=== PATIENT | male | born 1945 | race Caucasian/White ===

== ENCOUNTER 2022-04-17 06:47 | Day surgery (SDC) | payer MEDICARE, MEDICAID, SELFPAY ==
[2022-04-17 07:05] VITALS: BMI 23.4
[2022-04-17] MEDS: TETRACAINE 0.5% OPHTH 1 DROP EYE-RIGHT ×2 (07:05→07:25)
[2022-04-17 07:13] VITALS: BP 134/82; PULSE 59; RESP 16; TEMP 36.7; O2SAT 98
[2022-04-17] MEDS: SODIUM CHLORIDE 0.9 % (FLUSH) 10 ML SYRINGE IVF (07:20)
[2022-04-17] MEDS: KETOROLAC OPHTH 0.5% 1 DROP EYE-RIGHT ×3 (07:20→07:38)
[2022-04-17] MEDS: TETRACAINE 0.5% OPHTH 2 DROP EYE-RIGHT (08:10)
[2022-04-17] MEDS: BALANCED SALT IRRIG SOLN 15 ML EYE-RIGHT (08:15)
--- NOTE | 2022-04-17 08:17 | W.ANESCHARGE ---
Anesthesia Charges Start Date/Time Anesthesia Start Date: 04/17/22 Anesthesia Start Time: 08:08 Stop Date/Time Anesthesia Stop Date: 04/17/22 Anesthesia Stop Time: 08:40 Summary Emergency: No Extremes of Age: Over 72-CPT 75404
--- NOTE | 2022-04-17 08:18 | SUR.OPER ---
PER CHRISTELLE KENDRA, LENS SIZE CHANGED TO 18.5 PREOPERATIVELY
[2022-04-17 08:33] VITALS: BP 146/89; PULSE 58; RESP 16; TEMP 36.1; O2SAT 97
--- NOTE | 2022-04-17 08:46 | W.ANESCHARGE ---
Anesthesia Charges Start Date/Time Anesthesia Start Date: 04/17/22 Anesthesia Start Time: 08:08 Stop Date/Time Anesthesia Stop Date: 04/17/22 Anesthesia Stop Time: 08:40 Summary Emergency: No Extremes of Age: Over 72-CPT 46329
--- NOTE | 2022-04-17 08:59 | W.ANESCHARGE ---
Anesthesia Charges Start Date/Time Anesthesia Start Date: 04/17/22 Anesthesia Start Time: 08:08 Stop Date/Time Anesthesia Stop Date: 04/17/22 Anesthesia Stop Time: 08:40 Summary Emergency: No Extremes of Age: Over 72-CPT 59092
--- NOTE | 2022-04-17 09:28 | W.PM.OPTPROC ---
Procedure Note Date of procedure: 04/17/22 Will [facility] bill your pro fee for this procedure?: Yes Procedure Description: SURGEON: Cheri Eric MD PREOPERATIVE DIAGNOSIS: Nuclear sclerotic cataract, right eye. POSTOPERATIVE DIAGNOSIS: Nuclear sclerotic cataract, right eye. NAME OF OPERATION: Phacoemulsification of cataract with posterior chamber intraocular lens implantation in the right eye. ANESTHESIA: Topical. ESTIMATED BLOOD LOSS: Less than 2 cc. COMPLICATIONS: None. PATHOLOGY SPECIMEN: None. INDICATIONS: See consult note for details. The risks, benefits and alternatives of the procedure were explained to the patient, who elected to proceed and signed informed consent to do so. PROCEDURE: The patient was brought to the pre-holding area where the right eye was identified as the operative eye. I placed my initials above this eye. The patient received eye drops consisting of 0.5% tetracaine, 1% tropicamide, 10% phenylephrine, and 0.5% ketorolac. The patient was then brought to the operating room where the right eye was again identified as the operative eye. The eye was prepped with Betadine and draped in the usual sterile ophthalmic fashion. A #15 super-sharp blade was used to create a paracentesis site. 1% non-preserved intracameral lidocaine was injected into the anterior chamber. Endocoat was injected into the anterior chamber. A 2.4 mm keratome was used to create a three-plane self-sealing incision 1 mm anterior to the temporal limbus. A cystotome was used to create an anterior capsular leaflet. The Utrata forceps were used to extend this to form a continuous curvilinear capsulorrhexis. Hydrodissection was performed. The cataract was removed with phacoemulsification using the twehas-beb-yfhgize technique. The irrigation and aspiration tip was used to remove the remaining cortex. Healon was injected into the capsular bag. An HEDY ZCB00 intraocular lens of 18.5 (please note it was determined preoperatively to change to this lens) diopters was injected into the capsular bag. The irrigation and aspiration tip was used to remove the remaining viscoelastic. Balanced salt solution on a cannula was used to hydrate the wound, and the wound was found to be watertight. The pupil was noted to be round. DISPOSITION: The patient was taken to the recovery room and discharged to home in stable condition. The patient was instructed to call me or go to the emergency department with any sudden change, including dramatic loss of vision, severe pain in the eye or eyebrow region, nausea, or vomiting. The patient will follow up in the clinic tomorrow morning. Surgeon: Cheri Eric MD
== END 2022-04-17 09:13 | disposition home or self-care (01) ==
PROVIDERS: PCP Family Medicine; Visit Provider Ophthalmology
PROC: (CPT 66984; principal; 2022-04-17 06:45)
DX: H25.11 Age-related nuclear cataract, right eye (principal)
CPT/HCPCS: 66984; 00142; 99100; A9270; J2250; J3010; V2632

== ENCOUNTER 2022-05-08 06:46 | Day surgery (SDC) | payer MEDICARE, MEDICAID, SELFPAY ==
[2022-05-08] MEDS: TETRACAINE 0.5% OPHTH 1 DROP EYE-LEFT ×2 (06:56→07:01)
[2022-05-08] MEDS: KETOROLAC OPHTH 0.5% 1 DROP EYE-LEFT ×3 (06:59→07:08)
[2022-05-08] MEDS: SODIUM CHLORIDE 0.9 % (FLUSH) 10 ML SYRINGE IVF (07:10)
[2022-05-08 07:11] VITALS: BP 166/88; PULSE 63; RESP 16; TEMP 36.6; O2SAT 98; BMI 21.3
[2022-05-08] MEDS: TETRACAINE 0.5% OPHTH 2 DROP EYE-LEFT (07:54)
[2022-05-08] MEDS: BALANCED SALT IRRIG SOLN 15 ML EYE-LEFT (07:59)
--- NOTE | 2022-05-08 08:03 | SUR.PREOP ---
The eye drops brought by the patient (Ketorolac and Prednisolone) are examined and I have determined they are labeled by the patient's pharmacy for this patient as prescribed by the surgeon. The bottles are intact, recently obtained and appear to be correct.
[2022-05-08 08:23] VITALS: BP 120/83; PULSE 58; RESP 16; TEMP 36.7; O2SAT 97
--- NOTE | 2022-05-08 08:27 | W.ANESCHARGE ---
Anesthesia Charges Start Date/Time Anesthesia Start Date: 05/08/22 Anesthesia Start Time: 07:52 Stop Date/Time Anesthesia Stop Date: 05/08/22 Anesthesia Stop Time: 08:25 Summary Emergency: No Extremes of Age: Over 72-CPT 18930
--- NOTE | 2022-05-08 08:40 | W.ANESCHARGE ---
Anesthesia Charges Start Date/Time Anesthesia Start Date: 05/08/22 Anesthesia Start Time: 07:52 Stop Date/Time Anesthesia Stop Date: 05/08/22 Anesthesia Stop Time: 08:25 Summary Emergency: No Extremes of Age: Over 72-CPT [id number]
--- NOTE | 2022-05-08 11:37 | P.OPTPRC_ITS ---
Procedure Note Date of procedure: 05/08/22 Will [facility] bill your pro fee for this procedure?: Yes Procedure Description: SURGEON: Cheri Eric MD PREOPERATIVE DIAGNOSIS: Nuclear sclerotic cataract, left eye. POSTOPERATIVE DIAGNOSIS: Nuclear sclerotic cataract, left eye. NAME OF OPERATION: Phacoemulsification of cataract with posterior chamber intraocular lens implantation in the left eye. ANESTHESIA: Topical. ESTIMATED BLOOD LOSS: Less than 2 cc. COMPLICATIONS: None. PATHOLOGY SPECIMEN: None. INDICATIONS: See consult note for details. The risks, benefits and alternatives of the procedure were explained to the patient, who elected to proceed and sign ed informed consent to do so. PROCEDURE: The patient was brought to the pre-holding area where the left eye was identified as the operative eye. I placed my initials above this eye. The patient received eye drops consisting of 0.5% tetracaine, 1% tropicamide, 10% phenylephrine, and 0.5% ketorolac. The patient was then brought to the operating room where the left eye was again identified as the operative eye. The eye was prepped with Betadine and draped in the usual sterile ophthalmic fashion. A #15 super-sharp blade was used to create a paracentesis site. 1% non-preserved intracameral lidocaine was injected into the anterior chamber. Endocoat was injected into the anterior chamber. A 2.4 mm keratome was used to create a three-plane self-sealing incision 1 mm anterior to the temporal limbus. A cystotome was used to create an anterior capsular leaflet. The Utrata forceps were used to extend this to form a continuous curvilinear capsulorrhexis. Hydrodissection was performed. The cataract was removed with phacoemulsification using the aysbey-kms-nonmbid technique. The irrigation and aspiration tip was used to remove the remaining cortex. Healon was injected into the capsular bag. An HEDY ZCB00 intraocular lens of 20.0 diopters was injected into the capsular bag. The irrigation and aspiration tip was used to remove the remaining viscoelastic. Balanced salt solution on a cannula was used to hydrate the wound, and the wound was found to be watertight. The pupil was noted to be round. DISPOSITION: The patient was taken to the recovery room and discharged to home in stable condition. The patient was instructed to call me or go to the emergency department with any sudden change, including dramatic loss of vision, severe pain in the eye or eyebrow region, nausea, or vomiting. The patient will follow up in the clinic tomorrow morning. Surgeon: Cheri Eric MD
== END 2022-05-08 09:07 | disposition home or self-care (01) ==
PROVIDERS: PCP Family Medicine; Visit Provider Ophthalmology
PROC: (CPT 66984; principal; 2022-05-08 06:45)
DX: H25.12 Age-related nuclear cataract, left eye (principal)
CPT/HCPCS: 66984; 00142; 82962; 99100; A9270; J2250; J3010; V2632

== ENCOUNTER 2022-06-07 07:54 | Outpatient (CLI) | payer MEDICARE, MEDICAID, SELFPAY ==
[2022-06-07 12:02] LABS: Creatinine Urine 66.7 mg/dL
[2022-06-07 12:13] LABS: Microalbumin Creatinine Ratio 50 mg/g (0-30); Microalbumin Urine 4 mg/dL
== END 2022-06-07 07:55 | disposition home or self-care (01) ==
LOC: NFLDREF 07:54
PROVIDERS: PCP Family Medicine; Visit Provider Family Medicine
DX: Z00.00 Encounter for general adult medical examination without abnormal findings (principal); E11.9 Type 2 diabetes mellitus without complications; N39.0 Urinary tract infection, site not specified
CPT/HCPCS: 82043; 82570

== ENCOUNTER 2023-06-09 16:12 | Inpatient (IN) | payer MEDICARE, SELFPAY ==
[2023-06-09 16:46] VITALS: BP 139/89; PULSE 105; RESP 24; TEMP 36.8; O2SAT 90; BMI 24.8
--- NOTE | 2023-06-09 20:49 | ED.GENADULT ---
HPI - General Adult General Chief complaint: Weakness Stated complaint: Weakness, diff eating/sleeping, COPD Time Seen by Provider: 06/09/23 20:48 History of Present Illness HPI narrative: patient is having trouble eating and sleeping. having a persistent cough for a long time. concerned of having low blood sugar, weakness, shaky , sweats all time, feeling cool, recent covid + unsure the date of test stayed home 5 days. last week started day after friday. poor appetite. 78-year-old man presenting to the emergency department with concern of increasing weakness trouble sleeping. Interview was challenging. He is having trouble eating. Seems to be describing an early satiety. Is not keeping up with fluids. He has had cough and developing some left-sided chest her hip area pain that seems to have escalated up towards his heart now he says. He feels weak and shaky sweating all the time. It sounds like a little bit over a month ago he tested positive for COVID. Over the last 2 days especially has been more weak. He does have COPD. He is not indicating that he is more short of breath. He describes a history of diabetes that he has been managing orally noting that he has been following a proper diet as prescribed by his primary and now he thinks that he is worsening; does not understand why he might be getting sicker in light of this. He does not seem to know whether not he has had any recent abdominal imaging. Limited records available but looks to have had problems with his pancreas including obstruction of pancreatic duct with stone. I noted to be oxygenating about 91% and he would acknowledge that this is about his baseline. He is hoping for some respite via hospitalization to help with sleep and maybe for eating. Reviewing records though shows oxygenation to be 98% about a year ago. Related Data Home Medications Medication Instructions Recorded Confirmed evening primrose oil 500 mg capsule 500 mg PO DAILY 04/12/22 06/09/23 Previous Rx's Medication Instructions Recorded niacin 500 mg tablet 1,500 mg (3 x 500 mg) PO DAILY 06/10/22 #270 tabs albuterol sulfate 90 mcg/actuation 2 puff inhalation Q4-6H PRN 09/09/22 aerosol inhaler (Ventolin HFA) shortness of breath or wheezing #6.7 grams mometasone-formoterol HFA 200 2 puff inhalation Q12H #8.8 grams 09/17/22 mcg-5 mcg/actuation aerosol inhaler (Dulera) tamsulosin 0.4 mg capsule 0.8 mg (2 x 0.4 mg) PO DAILY #180 05/06/23 caps Allergies Allergy/AdvReac Type Severity Reaction Status Date / Time No Known Drug Allergies Allergy Verified 06/09/23 16:55 Review of Systems Status of ROS: Reports: 6 or more systems reviewed and unremarkable except as noted in History and below PFSH [facility] Medical History (Updated 06/11/23 @ 11:55 by Preeti Whitmore MD) Rupture of renal capsule of left kidney ?S37.062A - Major laceration of left kidney, initial encounter (ICD-10) 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 - Other specified diseases of pancreas (ICD-10) Dilation of pancreatic duct ?K86.89 - Other specified diseases of pancreas (ICD-10) Depression (03/19/10) ?F32.A - Depression, unspecified (ICD-10) Calculus of pancreatic duct ?K86.89 - Other specified diseases of pancreas (ICD-10) Arm fracture (03/19/10) ?S42.309A - Unspecified fracture of shaft of humerus, unspecified arm, initial encounter for closed fracture (ICD-10) Social History What is your current living situation?: I presently have a place to live Problems where you live: no known problems Problems where you live details: no known problems In the past 12 months, utilities in danger of being shut off: no In past 12 months, lack of transportation kept you from medical appts, meetings, work, or getting things needed for daily living: no In the past 12 mos, have been you worried that your food would run out before you had money to buy more?: never true In the past 12 mos, the food you bought just didn't last and you didn't have money to buy more?: never true Smoking Status: Former smoker What tobacco products do you use: cigarettes Smoking quit date/years: >15 years ago Do you use any of these nicotine containing products: None Second hand tobacco smoke exposure: No How often do you have a drink containing alcohol: never How often do you have six or more drinks on one occasion: Never AUDIT-C Alcohol total score: 0 Non-prescribed substance use: denies use Caffeine: Yes (3 cups coffee daily) How often does anyone, including family, friends and others, physically hurt you: never How often does anyone, including family, friends and others, insult or talk down to you: never How often does anyone, including family, friends and others, threaten you with harm: never How often does anyone, including family, friends and others, scream or curse at you: never Little interest or pleasure in doing things: not at all Feeling down, depressed, or hopeless: not at all service: No Exam Narrative: Exam Narrative: Frail appearing. Little tremulous. Oropharynx is sticky. Is a little hard of hearing. Believe him to have some difficulty with recall. He does not appear to be in significant respiratory distress. Oxygenating 90-91% during our conversation. Lungs with some crepitus through the mid and left sided lung field with diminished breath sounds at the base. No actual wheeze. Heart with regular rhythm is tachycardic. Abdomen is flat. Appears to be nontender. Extremities are thin. Moving all extremities without difficulty but seems generally weaker. Extremities are well perfused and without edema. Const: Vital Signs, click to edit/add: Vital Signs - 24 hr 06/09/23 16:46 Temperature 98.3 F Pulse Rate [Pulse Oximeter] 105 H Respiratory Rate 24 Blood Pressure [Le ft Forearm] 139/89 Pulse Oximetry 90 Oxygen Delivery Me thod Room Air Documenting provider has reviewed patient's vital signs: yes Course Vital Signs Vital signs: Initial Vital Signs Temperature 98.3 F 06/09/23 16:46 Temperature Source Temporal Artery Scan 06/09/23 16:46 Pulse Rate 105 H 06/09/23 16:46 Respiratory Rate 24 06/09/23 16:46 Blood Pressure 139/89 06/09/23 16:46 Blood Pressure Mean 105 06/09/23 16:46 Pulse Oximetry 90 06/09/23 16:46 Oxygen Delivery Method Room Air 06/09/23 16:46 Vital Signs Temperature 98.3 F 06/09/23 16:46 Pulse Rate 105 H 06/09/23 16:46 Respiratory Rate 24 06/09/23 16:46 Blood Pressure 139/89 06/09/23 16:46 Pulse Oximetry 90 06/09/23 16:46 Oxygen Delivery Method Room Air 06/09/23 16:46 Temperature 98 F 06/11/23 03:00 Pulse Rate 73 06/11/23 03:00 Respiratory Rate 18 06/11/23 03:00 Blood Pressure 144/92 H 06/11/23 03:00 Pulse Oximetry 93 06/11/23 03:00 Oxygen Delivery Method Room Air 06/11/23 03:00 Medications Administered Medications: Generic Name Dose Route Start Last Admin Trade Name Freq PRN Reason Stop Dose Admin Acetaminophen 650 - 975 mg 06/10/23 03:33 06/11/23 05:25 Acetaminophen 325 Mg Tablet PO 975 mg Q6H PRN Administration Fever, pain Albuterol/Ipratropium 1 neb 06/10/23 11:25 06/11/23 11:35 Iprat-Albut 0.5-2.5 Mg/3 Ml Neb IH 1 neb Q6H JES Administration Budesonide 0.5 mg 06/10/23 21:00 06/11/23 09:29 Budesonide 0.25 Mg/2 Ml Ampul.Neb NEB 0.5 mg BID JES Administration Calcium Carbonate 500 mg 06/10/23 11:25 06/10/23 16:57 Calcium Carbonate 500 Mg Chew PO 500 mg QID PRN Administration Doxycycline Hyclate 100 mg/ 100 mls @ 100 mls/hr 06/10/23 03:45 06/11/23 07:07 Sodium Chloride IVPB Infused Q12H JES Infusion Sodium Chloride 1,000 mls @ 100 mls/hr 06/10/23 04:13 06/11/23 05:09 0.9 % Sodium Chloride 1000 Ml IV 100 mls/hr .Q10H JES Administration Cefepime HCl 2 gm/ Sodium 100 mls @ 200 mls/hr 06/10/23 09:30 06/11/23 09:29 Chloride IVPB 200 mls/hr Q24H JES Administration Insulin Aspart 0 unit 06/10/23 17:30 06/11/23 09:19 Insulin Aspart 100 Unit/Ml SUBCUT Not Given ACHS JES Protocol Metoprolol Succinate 25 mg 06/10/23 11:35 06/11/23 09:30 Metoprolol Succinate (Xl) 25 Mg Tab PO 25 mg DAILY JES Administration Dulera 200/5 Mcg ( 2 each 06/10/23 11:00 06/11/23 09:28 Mometesone/ INH 2 each Formoterol) BID JES Administration Omeprazole 20 mg 06/11/23 07:00 06/11/23 06:13 Omeprazole [address] PO 20 mg DAILY@0700 JES Administration Sodium Chloride 5 ml 06/10/23 09:00 06/11/23 09:28 Sodium Chloride 0.9 % (Flush) 10 Ml Syringe IVF Not Given BID JES Discontinued Medications Generic Name Dose Route Start Last Admin Trade Name Freq PRN Reason Stop Dose Admin Calcium Carbonate 500 mg 06/09/23 22:54 06/09/23 23:32 Calcium Carbonate 500 Mg Chew PO 06/09/23 22:55 500 mg ONCE ONE Administration Calcium Carbonate 500 mg 06/09/23 23:41 06/09/23 23:51 Calcium Carbonate 500 Mg Chew PO 06/09/23 23:42 500 mg ONCE ONE Administration Calcium Carbonate 500 mg 06/10/23 10:17 06/10/23 10:27 Calcium Carbonate 500 Mg Chew PO 06/10/23 10:18 500 mg ONCE ONE Administration Sodium Chloride 1,000 mls @ 1,000 mls/hr 06/09/23 21:05 06/09/23 23:06 0.9 % Sodium Chloride 1000 Ml IV 06/09/23 22:04 Infused .Q1H ONE Infusion Lactated Ringer's 1,000 mls @ 500 mls/hr 06/10/23 00:24 06/10/23 01:25 Lactated Ringers 1000 Ml IV 06/10/23 02:23 500 mls/hr .Q2H JES Administration Piperacillin Sod/Tazobactam 100 mls @ 200 mls/hr 06/10/23 01:00 06/10/23 01:57 Sod 4.5 gm/ Sodium Chloride IVPB 06/10/23 01:01 Infused ONCE ONE Infusion Sodium Chloride 500 mls @ 1,000 mls/hr 06/10/23 09:29 06/10/23 11:46 0.9 % Sodium Chloride 500 Ml IV 06/10/23 09:58 1,000 mls/hr .Q30M JES Administration Potassium Chloride 10 meq in 100 mls @ 100 mls/hr 06/11/23 08:00 06/11/23 11:35 Potassium Chloride IVPB 06/11/23 10:29 100 mls/hr Q90M JES Administration Budesonide- 2 puff 06/10/23 09:00 06/10/23 10:38 Formoterol 160-4.5 IH Not Given Mcg/Actuation Hfa BID JES Pantoprazole Sodium 80 mg 06/10/23 11:27 06/10/23 13:01 Pantoprazole Sodium 40 Mg Inj IVP 06/10/23 11:28 80 mg ONCE ONE Administration Medical Decision Making MDM Narrative Medical decision making narrative: I would have concerns regarding pneumonia, pleural effusion, abdominal or hilar pulmonary mass. I think at this point would do extensive imaging. He has been losing weight per his report anyway. Labs pending. Will initiate IV hydration. Blood cultures as well. Have not initiated oxygen support as appears to be compensated without significant distress and in history of COPD with his report of low 90s being normal, though I do not think he is in a COPD exacerbation. White count is markedly elevated. Surprisingly normal venous blood gases. Creatinine is rather elevated at 3.4 so will proceed with non contrasted imaging of chest abdomen pelvis. Rather elevated inflammatory markers CT of cap reviewed by me shows significant pulmonary process of some combination of pneumonia and effusion. Radiology over-read as below CT abdomen pelvis 10/24/2019. FINDINGS: Limited evaluation without the use of intravenous contrast. CHEST: Lower neck: Visualized thyroid appears unremarkable. Vascular: 40 mm ascending aorta, within upper limits of normal given patient`s age. Severe atherosclerotic calcifications of the aortic arch. The pulmonary artery is unremarkable Heart: Normal heart size for severe coronary arterial calcifications. Mediastinum: No pathologic lymphadenopathy by size criteria. Lungs: Left upper lower pulmonary cysts measuring 2.0 cm. Multifocal consolidation, predominantly involving the left lower lobe, as well as the right lower lobe and left lingular segment. Scattered tree-in-bud nodularity throughout the lung bases. Pleura: Small left greater than right pleural effusions. No pneumothorax. Chest wall and axilla: No mass or adenopathy. Bones: Degenerative changes of the thoracic spine. No acute osseous abnormalities. Diffuse idiopathic skeletal hyperostosis. ABDOMEN AND PELVIS: Liver: Unremarkable. Gallbladder: Cholelithiasis without gallbladder distention or pericholecystic inflammatory changes. Biliary: No biliary ductal dilitation. Pancreas: Stippled and course calcifications of the pancreas, likely due to chronic pancreatitis.. Spleen: Punctate calcifications at the spleen likely due to prior granulomatous disease. Adrenal glands: 1.5 cm hypodense nodule within the right adrenal gland, likely an adrenal adenoma. There is thickening of the left adrenal gland, likely adrenal hyperplasia.. Kidneys: Numerous nonobstructive calculi within the collecting system of both kidneys bilaterally. No hydronephrosis. Markedly atrophic right kidney. Ureters: Unremarkable. Bladder: Unremarkable. GI tract: No bowel obstruction. Colonic diverticulosis without adjacent pericolonic fat stranding to suggest acute diverticulitis. Mild colonic stool burden. Normal appendix. No bowel wall thickening. Vascular structures: Severe atherosclerotic calcifications of the abdominal aorta and its branches without focal aneurysm. Lymph nodes: Unremarkable. Peritoneum: Trace pelvic free fluid, nonspecific. No pneumoperitoneum. No drainable fluid collections identified. Pelvic Organs: Prostatomegaly. Bones: Degenerative changes of the lumbar spine. Abnormal articulation between the spinous processes of the lower lumbar spine with mild associated degenerative changes, compatible with Baastrup`s disease. No acute osseous abnormality. IMPRESSION: 1. Multifocal pneumonia involving the left lingula and bilateral lower lobes. Tree-in-bud nodularity scattered throughout the lung bases compatible with infectious bronchiolitis. 2. Trace free fluid in the pelvis, nonspecific, the sterility of this fluid cannot be assessed on CT. 3. No acute abdominopelvic pathology. Colonic diverticulosis without evidence of acute diverticulitis. Cholelithiasis without evidence of acute cholecystitis. 4. 1.5 cm right adrenal nodule, likely an adrenal adenoma, incompletely characterized on this examination. As noted blood cultures have been obtained. Will be initiating IV antibiotics; likely Zosyn. Anticipating admission. Due to busy department/hospital had to wait to discuss with overnight hospitalist after midnight. Managed to sleep in the emergency department. Vitals stable. Lab Data Lab results reviewed: Yes I reviewed the patient's lab results Labs: Lab Results 06/09/23 06/09/23 06/09/23 Range/Units 21:08 21:50 21:50 WBC 36.96 H* (4.50-11.00) K/uL RBC 4.96 (4.30-5.90) m/uL Hgb 13.7 (13.5-17.5) gm/dL Hct 38.8 (37.0-53.0) % MCV 78 L (80-100) fL MCH 28 (26-34) pg MCHC 35 (32-36) gm/dL RDW Coeff of Ann 16.2 H (11.5-15.5) % Plt Count 638 H (140-440) K/uL Neut % (Auto) 91.7 H (42.0-72.0) % Lymph % (Auto) 2.6 L (20-44) % Schleicher % (Auto) 2.2 (0.0-11.0) % Eos % (Auto) 0.0 (0.0-7.0) % Baso % (Auto) 0.0 (0.0-3.0) % Neut # (Auto) 33.90 H (1.7-7.0) K/uL Lymph # (Auto) 1.00 (0.90-2.90) K/uL Schleicher # (Auto) 0.80 (0.00-0.90) K/UL Eos # (Auto) 0.00 (0.00-0.50) K/uL Baso # (Auto) 0.00 (0.00-0.30) K/uL Abs Immat Gran (auto) 1.30 H (0.00-0.30) K/uL Imm/Tot Granulo (auto) 3.5 % Diff Slide Review Acceptable Review (Acceptable) Absolute Retic (0.03-0.08) # Percent Retic (0.5-2.0) % Immature Retic Fraction (2.3-13.4) % Retic Hgb Equivalent (29.0-35.0) pg VBG pH 7.442 H (7.32-7.43) VBG pCO2 39 L (40-50) mmHG VBG pO2 33.1 (25-47) mmHG VBG HCO3 26 (21-28) mmol/L Sodium Cancelled 135 Potassium Cancelled Chloride Carbon Dioxide Anion Gap BUN Creatinine Estimated Creat Clear Estimated GFR Glucose Hemoglobin A1c (0-5.6) % Lactate (0.5-1.9) mmol/L Calcium Magnesium (1.5-2.6) mg/dL Total Bilirubin (0.1-1.5) mg/dL Direct Bilirubin (0.0-0.5) mg/dL AST (12-35) U/L ALT (4-50) U/L Alkaline Phosphatase (40-150) U/L Troponin I (0.01-0.04) ng/mL C-Reactive Protein NT-Pro-B Natriuret Pep pg/mL Total Protein (6.0-8.3) g/dL Albumin (3.3-5.0) g/dL Lipase (23-300) U/L Procalcitonin (<0.50) ng/mL Urine Color (Yellow) Urine Appearance (Clear) Urine pH (5.0-8.5) Ur Specific Mcintosh (1.000-1.030) Urine Protein (Negative) Urine Glucose (UA) (Negative) Urine Ketones (Negative) Urine Blood (Negative) Urine Nitrite (Negative) Urine Bilirubin (Negative) Urine Urobilinogen (0.2-1.0) Ur Leukocyte Esterase (Negative) Urine RBC (0-2) Urine WBC (0-5) Ur Squamous Epith Cells (None-Few) Amorphous Sediment (None) Urine Bacteria (None) Ethyl Alcohol (0.01-0.03) % SARS-CoV-2 (PCR) (Negative) Influenza Type A (PCR) (Negative) Influenza Type B (PCR) (Negative) RSV (PCR) (Negative) SARS-CoV-2 Ag (Rapid) (Negative) Lab Acknowledgement POC Troponin I 0.00 L (0.01-0.04) ng/ml 06/09/23 06/09/23 06/09/23 Range/Units 21:50 21:50 21:50 WBC (4.50-11.00) K/uL RBC (4.30-5.90) m/uL Hgb (13.5-17.5) gm/dL Hct (37.0-53.0) % MCV (80-100) fL MCH (26-34) pg MCHC (32-36) gm/dL RDW Coeff of Ann (11.5-15.5) % Plt Count (140-440) K/uL Neut % (Auto) (42.0-72.0) % Lymph % (Auto) (20-44) % Schleicher % (Auto) (0.0-11.0) % Eos % (Auto) (0.0-7.0) % Baso % (Auto) (0.0-3.0) % Neut # (Auto) (1.7-7.0) K/uL Lymph # (Auto) (0.90-2.90) K/uL Schleicher # (Auto) (0.00-0.90) K/UL Eos # (Auto) (0.00-0.50) K/uL Baso # (Auto) (0.00-0.30) K/uL Abs Immat Gran (auto) (0.00-0.30) K/uL Imm/Tot Granulo (auto) % Diff Slide Review (Acceptable) Absolute Retic (0.03-0.08) # Percent Retic (0.5-2.0) % Immature Retic Fraction (2.3-13.4) % Retic Hgb Equivalent (29.0-35.0) pg VBG pH (7.32-7.43) VBG pCO2 (40-50) mmHG VBG pO2 (25-47) mmHG VBG HCO3 (21-28) mmol/L Sodium Potassium 3.3 L Chloride Cancelled 96 Carbon Dioxide Cancelled 25 Anion Gap Cancelled BUN Creatinine Estimated Creat Clear Estimated GFR Glucose Hemoglobin A1c (0-5.6) % Lactate (0.5-1.9) mmol/L Calcium Magnesium (1.5-2.6) mg/dL Total Bilirubin (0.1-1.5) mg/dL Direct Bilirubin (0.0-0.5) mg/dL AST (12-35) U/L ALT (4-50) U/L Alkaline Phosphatase (40-150) U/L Troponin I (0.01-0.04) ng/mL C-Reactive Protein NT-Pro-B Natriuret Pep pg/mL Total Protein (6.0-8.3) g/dL Albumin (3.3-5.0) g/dL Lipase (23-300) U/L Procalcitonin (<0.50) ng/mL Urine Color (Yellow) Urine Appearance (Clear) Urine pH (5.0-8.5) Ur Specific Mcintosh (1.000-1.030) Urine Protein (Negative) Urine Glucose (UA) (Negative) Urine Ketones (Negative) Urine Blood (Negative) Urine Nitrite (Negative) Urine Bilirubin (Negative) Urine Urobilinogen (0.2-1.0) Ur Leukocyte Esterase (Negative) Urine RBC (0-2) Urine WBC (0-5) Ur Squamous Epith Cells (None-Few) Amorphous Sediment (None) Urine Bacteria (None) Ethyl Alcohol (0.01-0.03) % SARS-CoV-2 (PCR) (Negative) Influenza Type A (PCR) (Negative) Influenza Type B (PCR) (Negative) RSV (PCR) (Negative) SARS-CoV-2 Ag (Rapid) (Negative) Lab Acknowledgement POC Troponin I (0.01-0.04) ng/ml 06/09/23 06/09/23 06/09/23 Range/Units 21:50 21:50 21:50 WBC (4.50-11.00) K/uL RBC (4.30-5.90) m/uL Hgb (13.5-17.5) gm/dL Hct (37.0-53.0) % MCV (80-100) fL MCH (26-34) pg MCHC (32-36) gm/dL RDW Coeff of Ann (11.5-15.5) % Plt Count (140-440) K/uL Neut % (Auto) (42.0-72.0) % Lymph % (Auto) (20-44) % Schleicher % (Auto) (0.0-11.0) % Eos % (Auto) (0.0-7.0) % Baso % (Auto) (0.0-3.0) % Neut # (Auto) (1.7-7.0) K/uL Lymph # (Auto) (0.90-2.90) K/uL Schleicher # (Auto) (0.00-0.90) K/UL Eos # (Auto) (0.00-0.50) K/uL Baso # (Auto) (0.00-0.30) K/uL Abs Immat Gran (auto) (0.00-0.30) K/uL Imm/Tot Granulo (auto) % Diff Slide Review (Acceptable) Absolute Retic (0.03-0.08) # Percent Retic (0.5-2.0) % Immature Retic Fraction (2.3-13.4) % Retic Hgb Equivalent (29.0-35.0) pg VBG pH (7.32-7.43) VBG pCO2 (40-50) mmHG VBG pO2 (25-47) mmHG VBG HCO3 (21-28) mmol/L Sodium Potassium Chloride Carbon Dioxide Anion Gap 14 BUN Cancelled 93 H Creatinine Cancelled 3.4 H Estimated Creat Clear Cancelled Estimated GFR Glucose Hemoglobin A1c (0-5.6) % Lactate (0.5-1.9) mmol/L Calcium Magnesium (1.5-2.6) mg/dL Total Bilirubin (0.1-1.5) mg/dL Direct Bilirubin (0.0-0.5) mg/dL AST (12-35) U/L ALT (4-50) U/L Alkaline Phosphatase (40-150) U/L Troponin I (0.01-0.04) ng/mL C-Reactive Protein NT-Pro-B Natriuret Pep pg/mL Total Protein (6.0-8.3) g/dL Albumin (3.3-5.0) g/dL Lipase (23-300) U/L Procalcitonin (<0.50) ng/mL Urine Color (Yellow) Urine Appearance (Clear) Urine pH (5.0-8.5) Ur Specific Mcintosh (1.000-1.030) Urine Protein (Negative) Urine Glucose (UA) (Negative) Urine Ketones (Negative) Urine Blood (Negative) Urine Nitrite (Negative) Urine Bilirubin (Negative) Urine Urobilinogen (0.2-1.0) Ur Leukocyte Esterase (Negative) Urine RBC (0-2) Urine WBC (0-5) Ur Squamous Epith Cells (None-Few) Amorphous Sediment (None) Urine Bacteria (None) Ethyl Alcohol (0.01-0.03) % SARS-CoV-2 (PCR) (Negative) Influenza Type A (PCR) (Negative) Influenza Type B (PCR) (Negative) RSV (PCR) (Negative) SARS-CoV-2 Ag (Rapid) (Negative) Lab Acknowledgement POC Troponin I (0.01-0.04) ng/ml 06/09/23 06/09/23 06/09/23 Range/Units 21:50 21:50 21:50 WBC (4.50-11.00) K/uL RBC (4.30-5.90) m/uL Hgb (13.5-17.5) gm/dL Hct (37.0-53.0) % MCV (80-100) fL MCH (26-34) pg MCHC (32-36) gm/dL RDW Coeff of Ann (11.5-15.5) % Plt Count (140-440) K/uL Neut % (Auto) (42.0-72.0) % Lymph % (Auto) (20-44) % Schleicher % (Auto) (0.0-11.0) % Eos % (Auto) (0.0-7.0) % Baso % (Auto) (0.0-3.0) % Neut # (Auto) (1.7-7.0) K/uL Lymph # (Auto) (0.90-2.90) K/uL Schleicher # (Auto) (0.00-0.90) K/UL Eos # (Auto) (0.00-0.50) K/uL Baso # (Auto) (0.00-0.30) K/uL Abs Immat Gran (auto) (0.00-0.30) K/uL Imm/Tot Granulo (auto) % Diff Slide Review (Acceptable) Absolute Retic (0.03-0.08) # Percent Retic (0.5-2.0) % Immature Retic Fraction (2.3-13.4) % Retic Hgb Equivalent (29.0-35.0) pg VBG pH (7.32-7.43) VBG pCO2 (40-50) mmHG VBG pO2 (25-47) mmHG VBG HCO3 (21-28) mmol/L Sodium Potassium Chloride Carbon Dioxide Anion Gap BUN Creatinine Estimated Creat Clear 14.88 Estimated GFR Cancelled 18 Glucose Cancelled 240 H Hemoglobin A1c (0-5.6) % Lactate 1.7 (0.5-1.9) mmol/L Calcium Cancelled Magnesium (1.5-2.6) mg/dL Total Bilirubin (0.1-1.5) mg/dL Direct Bilirubin (0.0-0.5) mg/dL AST (12-35) U/L ALT (4-50) U/L Alkaline Phosphatase (40-150) U/L Troponin I (0.01-0.04) ng/mL C-Reactive Protein NT-Pro-B Natriuret Pep pg/mL Total Protein (6.0-8.3) g/dL Albumin (3.3-5.0) g/dL Lipase (23-300) U/L Procalcitonin (<0.50) ng/mL Urine Color (Yellow) Urine Appearance (Clear) Urine pH (5.0-8.5) Ur Specific Mcintosh (1.000-1.030) Urine Protein (Negative) Urine Glucose (UA) (Negative) Urine Ketones (Negative) Urine Blood (Negative) Urine Nitrite (Negative) Urine Bilirubin (Negative) Urine Urobilinogen (0.2-1.0) Ur Leukocyte Esterase (Negative) Urine RBC (0-2) Urine WBC (0-5) Ur Squamous Epith Cells (None-Few) Amorphous Sediment (None) Urine Bacteria (None) Ethyl Alcohol (0.01-0.03) % SARS-CoV-2 (PCR) (Negative) Influenza Type A (PCR) (Negative) Influenza Type B (PCR) (Negative) RSV (PCR) (Negative) SARS-CoV-2 Ag (Rapid) (Negative) Lab Acknowledgement POC Troponin I (0.01-0.04) ng/ml 06/09/23 06/09/23 06/10/23 Range/Units 21:50 21:50 01:10 WBC (4.50-11.00) K/uL RBC (4.30-5.90) m/uL Hgb (13.5-17.5) gm/dL Hct (37.0-53.0) % MCV (80-100) fL MCH (26-34) pg MCHC (32-36) gm/dL RDW Coeff of Ann (11.5-15.5) % Plt Count (140-440) K/uL Neut % (Auto) (42.0-72.0) % Lymph % (Auto) (20-44) % Schleicher % (Auto) (0.0-11.0) % Eos % (Auto) (0.0-7.0) % Baso % (Auto) (0.0-3.0) % Neut # (Auto) (1.7-7.0) K/uL Lymph # (Auto) (0.90-2.90) K/uL Schleicher # (Auto) (0.00-0.90) K/UL Eos # (Auto) (0.00-0.50) K/uL Baso # (Auto) (0.00-0.30) K/uL Abs Immat Gran (auto) (0.00-0.30) K/uL Imm/Tot Granulo (auto) % Diff Slide Review (Acceptable) Absolute Retic (0.03-0.08) # Percent Retic (0.5-2.0) % Immature Retic Fraction (2.3-13.4) % Retic Hgb Equivalent (29.0-35.0) pg VBG pH 7.437 H (7.32-7.43) VBG pCO2 37 L (40-50) mmHG VBG pO2 37.1 (25-47) mmHG VBG HCO3 25 (21-28) mmol/L Sodium Potassium Chloride Carbon Dioxide Anion Gap BUN Creatinine Estimated Creat Clear Estimated GFR Glucose Hemoglobin A1c (0-5.6) % Lactate 1.3 (0.5-1.9) mmol/L Calcium 9.1 Magnesium 3.4 H (1.5-2.6) mg/dL Total Bilirubin 0.4 (0.1-1.5) mg/dL Direct Bilirubin 0.1 (0.0-0.5) mg/dL AST 27 (12-35) U/L ALT 42 (4-50) U/L Alkaline Phosphatase 178 H (40-150) U/L Troponin I 0.03 (0.01-0.04) ng/mL C-Reactive Protein Cancelled 25.5 H NT-Pro-B Natriuret Pep 1430 pg/mL Total Protein 7.4 (6.0-8.3) g/dL Albumin 3.8 (3.3-5.0) g/dL Lipase 30 (23-300) U/L Procalcitonin 1.76 H (<0.50) ng/mL Urine Color (Yellow) Urine Appearance (Clear) Urine pH (5.0-8.5) Ur Specific Mcintosh (1.000-1.030) Urine Protein (Negative) Urine Glucose (UA) (Negative) Urine Ketones (Negative) Urine Blood (Negative) Urine Nitrite (Negative) Urine Bilirubin (Negative) Urine Urobilinogen (0.2-1.0) Ur Leukocyte Esterase (Negative) Urine RBC (0-2) Urine WBC (0-5) Ur Squamous Epith Cells (None-Few) Amorphous Sediment (None) Urine Bacteria (None) Ethyl Alcohol < 0.01 L (0.01-0.03) % SARS-CoV-2 (PCR) Negative SARS-CoV-2 (Negative) Influenza Type A (PCR) Negative PCR FLU A (Negative) Influenza Type B (PCR) Negative PCR FLU B (Negative) RSV (PCR) Negative PCR RSV (Negative) SARS-CoV-2 Ag (Rapid) Negative (Negative) Lab Acknowledgement POC Troponin I (0.01-0.04) ng/ml 06/10/23 06/10/23 06/10/23 Range/Units 01:30 07:27 07:34 WBC 37.87 H* (4.50-11.00) K/uL RBC 4.82 (4.30-5.90) m/uL Hgb 13.1 L (13.5-17.5) gm/dL Hct 37.9 (37.0-53.0) % MCV 79 L (80-100) fL MCH 27 (26-34) pg MCHC 35 (32-36) gm/dL RDW Coeff of Ann 16.6 H (11.5-15.5) % Plt Count 610 H (140-440) K/uL Neut % (Auto) 91.1 H (42.0-72.0) % Lymph % (Auto) 2.9 L (20-44) % Schleicher % (Auto) 2.2 (0.0-11.0) % Eos % (Auto) 0.0 (0.0-7.0) % Baso % (Auto) 0.0 (0.0-3.0) % Neut # (Auto) 34.50 H (1.7-7.0) K/uL Lymph # (Auto) 1.10 (0.90-2.90) K/uL Schleicher # (Auto) 0.80 (0.00-0.90) K/UL Eos # (Auto) 0.00 (0.00-0.50) K/uL Baso # (Auto) 0.00 (0.00-0.30) K/uL Abs Immat Gran (auto) 1.40 H (0.00-0.30) K/uL Imm/Tot Granulo (auto) 3.8 % Diff Slide Review Acceptable Review (Acceptable) Absolute Retic 0.04 (0.03-0.08) # Percent Retic 0.8 (0.5-2.0) % Immature Retic Fraction 22.0 H (2.3-13.4) % Retic Hgb Equivalent 23.9 L (29.0-35.0) pg VBG pH 7.391 (7.32-7.43) VBG pCO2 41 (40-50) mmHG VBG pO2 22.1 L (25-47) mmHG VBG HCO3 25 (21-28) mmol/L Sodium 136 Potassium 3.4 L Chloride 100 Carbon Dioxide 24 Anion Gap 12 BUN 88 H Creatinine 3.3 H Estimated Creat Clear 12.85 Estimated GFR 19 Glucose 230 H Hemoglobin A1c 6.6 H (0-5.6) % Lactate (0.5-1.9) mmol/L Calcium 8.6 Magnesium 3.0 H (1.5-2.6) mg/dL Total Bilirubin 0.4 (0.1-1.5) mg/dL Direct Bilirubin 0.1 (0.0-0.5) mg/dL AST 30 (12-35) U/L ALT 35 (4-50) U/L Alkaline Phosphatase 147 (40-150) U/L Troponin I (0.01-0.04) ng/mL C-Reactive Protein 22.0 H NT-Pro-B Natriuret Pep pg/mL Total Protein 6.3 (6.0-8.3) g/dL Albumin 3.1 L (3.3-5.0) g/dL Lipase (23-300) U/L Procalcitonin 1.43 H (<0.50) ng/mL Urine Color Yellow (Yellow) Urine Appearance Slightly Cloudy A (Clear) Urine pH 5.5 (5.0-8.5) Ur Specific Mcintosh 1.020 (1.000-1.030) Urine Protein 2+ A (Negative) Urine Glucose (UA) Negative (Negative) Urine Ketones Trace A (Negative) Urine Blood Negative (Negative) Urine Nitrite Negative (Negative) Urine Bilirubin Negative (Negative) Urine Urobilinogen 0.2 (0.2-1.0) Ur Leukocyte Esterase Negative (Negative) Urine RBC 0-2 (0-2) Urine WBC 0-2 (0-5) Ur Squamous Epith Cells Few (None-Few) Amorphous Sediment Few A (None) Urine Bacteria Few A (None) Ethyl Alcohol (0.01-0.03) % SARS-CoV-2 (PCR) (Negative) Influenza Type A (PCR) (Negative) Influenza Type B (PCR) (Negative) RSV (PCR) (Negative) SARS-CoV-2 Ag (Rapid) (Negative) Lab Acknowledgement POC Troponin I (0.01-0.04) ng/ml 06/10/23 Range/Units 08:53 WBC (4.50-11.00) K/uL RBC (4.30-5.90) m/uL Hgb (13.5-17.5) gm/dL Hct (37.0-53.0) % MCV (80-100) fL MCH (26-34) pg MCHC (32-36) gm/dL RDW Coeff of Ann (11.5-15.5) % Plt Count (140-440) K/uL Neut % (Auto) (42.0-72.0) % Lymph % (Auto) (20-44) % Schleicher % (Auto) (0.0-11.0) % Eos % (Auto) (0.0-7.0) % Baso % (Auto) (0.0-3.0) % Neut # (Auto) (1.7-7.0) K/uL Lymph # (Auto) (0.90-2.90) K/uL Schleicher # (Auto) (0.00-0.90) K/UL Eos # (Auto) (0.00-0.50) K/uL Baso # (Auto) (0.00-0.30) K/uL Abs Immat Gran (auto) (0.00-0.30) K/uL Imm/Tot Granulo (auto) % Diff Slide Review (Acceptable) Absolute Retic (0.03-0.08) # Percent Retic (0.5-2.0) % Immature Retic Fraction (2.3-13.4) % Retic Hgb Equivalent (29.0-35.0) pg VBG pH (7.32-7.43) VBG pCO2 (40-50) mmHG VBG pO2 (25-47) mmHG VBG HCO3 (21-28) mmol/L Sodium Potassium Chloride Carbon Dioxide Anion Gap BUN Creatinine Estimated Creat Clear Estimated GFR Glucose Hemoglobin A1c (0-5.6) % Lactate (0.5-1.9) mmol/L Calcium Magnesium (1.5-2.6) mg/dL Total Bilirubin (0.1-1.5) mg/dL Direct Bilirubin (0.0-0.5) mg/dL AST (12-35) U/L ALT (4-50) U/L Alkaline Phosphatase (40-150) U/L Troponin I (0.01-0.04) ng/mL C-Reactive Protein NT-Pro-B Natriuret Pep pg/mL Total Protein (6.0-8.3) g/dL Albumin (3.3-5.0) g/dL Lipase (23-300) U/L Procalcitonin (<0.50) ng/mL Urine Color (Yellow) Urine Appearance (Clear) Urine pH (5.0-8.5) Ur Specific Mcintosh (1.000-1.030) Urine Protein (Negative) Urine Glucose (UA) (Negative) Urine Ketones (Negative) Urine Blood (Negative) Urine Nitrite (Negative) Urine Bilirubin (Negative) Urine Urobilinogen (0.2-1.0) Ur Leukocyte Esterase (Negative) Urine RBC (0-2) Urine WBC (0-5) Ur Squamous Epith Cells (None-Few) Amorphous Sediment (None) Urine Bacteria (None) Ethyl Alcohol (0.01-0.03) % SARS-CoV-2 (PCR) (Negative) Influenza Type A (PCR) (Negative) Influenza Type B (PCR) (Negative) RSV (PCR) (Negative) SARS-CoV-2 Ag (Rapid) (Negative) Lab Acknowledgement Test Added POC Troponin I (0.01-0.04) ng/ml ECG Data Attestation: I personally reviewed and interpreted this ECG as follows: (Normal sinus rhythm. rate of 97. Left anterior fascicular block.) Critical Care Time Critical Care Time Critical Care Time: Yes Attestation: The patient required my highest level preparedness to intervene emergently and I personally spent this critical care time directly and personally managing the patient. This critical care time included: Obtaining a history; Examining the patient; Pulse oximetry; Ordering and reviewing of studies; Arranging urgent treatment with development of a management plan; Evaluation of patients response to treatment; Frequent reassessment discussions with other providers. This critical care time was performed to assess and manage the high probability of imminent life-threatening deterioration that could result in multiorgan failure. It was exclusive of separate billable procedures and treating other patients and teaching time. Total Critical Care Time in Minutes: 60 Discharge Plan Discharge Clinical Impression: Acute kidney injury, Respiratory failure, Pneumonia Patient Disposition: Admitted As Observation Condition: Stable
--- NOTE | 2023-06-09 21:07 | CRLHL7_ITS ---
For Patients: As a result of the 21st Century Cures Act, medical imaging exams and procedure reports are released immediately into your electronic medical record. You may view this report before your referring provider. If you have questions, please contact your health care provider. INDICATION: Weight loss, poor appetite, hypoxia, left-sided chest pain. TECHNIQUE: Multiplanar CT images of the chest, abdomen and pelvis were acquired without the administration of intravenous contrast COMPARISON: CT abdomen pelvis 10/24/2019. FINDINGS: Limited evaluation without the use of intravenous contrast. CHEST: Lower neck: Visualized thyroid appears unremarkable. Vascular: 40 mm ascending aorta, within upper limits of normal given patient`s age. Severe atherosclerotic calcifications of the aortic arch. The pulmonary artery is unremarkable Heart: Normal heart size for severe coronary arterial calcifications. Mediastinum: No pathologic lymphadenopathy by size criteria. Lungs: Left upper lower pulmonary cysts measuring 2.0 cm. Multifocal consolidation, predominantly involving the left lower lobe, as well as the right lower lobe and left lingular segment. Scattered tree-in-bud nodularity throughout the lung bases. Pleura: Small left greater than right pleural effusions. No pneumothorax. Chest wall and axilla: No mass or adenopathy. Bones: Degenerative changes of the thoracic spine. No acute osseous abnormalities. Diffuse idiopathic skeletal hyperostosis. ABDOMEN AND PELVIS: Liver: Unremarkable. Gallbladder: Cholelithiasis without gallbladder distention or pericholecystic inflammatory changes. Biliary: No biliary ductal dilitation. Pancreas: Stippled and course calcifications of the pancreas, likely due to chronic pancreatitis.. Spleen: Punctate calcifications at the spleen likely due to prior granulomatous disease. Adrenal glands: 1.5 cm hypodense nodule within the right adrenal gland, likely an adrenal adenoma. There is thickening of the left adrenal gland, likely adrenal hyperplasia.. Kidneys: Numerous nonobstructive calculi within the collecting system of both kidneys bilaterally. No hydronephrosis. Markedly atrophic right kidney. Ureters: Unremarkable. Bladder: Unremarkable. GI tract: No bowel obstruction. Colonic diverticulosis without adjacent pericolonic fat stranding to suggest acute diverticulitis. Mild colonic stool burden. Normal appendix. No bowel wall thickening. Vascular structures: Severe atherosclerotic calcifications of the abdominal aorta and its branches without focal aneurysm. Lymph nodes: Unremarkable. Peritoneum: Trace pelvic free fluid, nonspecific. No pneumoperitoneum. No drainable fluid collections identified. Pelvic Organs: Prostatomegaly. Bones: Degenerative changes of the lumbar spine. Abnormal articulation between the spinous processes of the lower lumbar spine with mild associated degenerative changes, compatible with Baastrup`s disease. No acute osseous abnormality. IMPRESSION: 1. Multifocal pneumonia involving the left lingula and bilateral lower lobes. Tree-in-bud nodularity scattered throughout the lung bases compatible with infectious bronchiolitis. 2. Trace free fluid in the pelvis, nonspecific, the sterility of this fluid cannot be assessed on CT. 3. No acute abdominopelvic pathology. Colonic diverticulosis without evidence of acute diverticulitis. Cholelithiasis without evidence of acute cholecystitis. 4. 1.5 cm right adrenal nodule, likely an adrenal adenoma, incompletely characterized on this examination. Please note that all CT scans at this facility use dose modulation, iterative reconstruction, and/or weight-based dosing when appropriate to reduce radiation dose to as low as reasonably achievable. Dictated by Gary Pizarro MD @ 06/10/2023 12:10:43 AM (Electronically Signed)
[2023-06-09] MEDS: 0.9 % SODIUM CHLORIDE 1000 ml 1,000 ML IV (22:04)
[2023-06-09 22:11] LABS: HCO3 VBG 26 mmol/L (21-28); Lactate* 1.7 mmol/L (0.5-1.9); PCO2 VBG 39 mmHG (40-50); PO2 VBG 33.1 mmHG (25-47); pH VBG 7.442 (7.32-7.43)
[2023-06-09 22:15] LABS: Hematocrit 38.8 % (37.0-53.0); Hemoglobin* 13.7 gm/dL (13.5-17.5); Immature Granulocytes Pct Auto 3.5 %; Lymphocytes Percent Auto 2.6 % (20-44); Mean Corpuscular HGB Conc 35 gm/dL (32-36); Mean Corpuscular Hemoglobin 28 pg (26-34); Mean Corpuscular Volume 78 fL (80-100); Monocytes Percent Auto 2.2 % (0.0-11.0); Neutrophils Percent Auto 91.7 % (42.0-72.0); Platelet Count* 638 K/uL (140-440); RDW Coefficient of Variation % 16.2 % (11.5-15.5); Red Blood Count 4.96 m/uL (4.30-5.90)
[2023-06-09 22:28] LABS: Slide Review Reflex Yes; White Blood Count* 36.96 K/uL (4.50-11.00)
[2023-06-09 22:35] LABS: SARS Antigen* Negative (Negative)
[2023-06-09 22:41] LABS: Albumin* 3.8 g/dL (3.3-5.0); Chloride* 96 mmol/L (96-114)
[2023-06-09 22:42] LABS: Potassium* 3.3 mmol/L (3.6-5.1); Sodium* 135 mmol/L (135-149)
[2023-06-09 22:44] LABS: Alkaline Phosphatase* 178 U/L (40-150); Anion Gap 14 mEq/L (7-15); Aspartate Amino Transferase* 27 U/L (12-35); Bilirubin Direct* 0.1 mg/dL (0.0-0.5); Bilirubin Total* 0.4 mg/dL (0.1-1.5); Blood Urea Nitrogen* 93 mg/dL (7-30); Carbon Dioxide* 25 mmol/L (20-32); Creatinine* 3.4 mg/dL (0.5-1.5); Est. Creatinine Clearance* 14.88; Estimated Glomerular Filt Rate 18 ml/min; Lipase* 30 U/L (23-300); Total Protein* 7.4 g/dL (6.0-8.3)
[2023-06-09 22:45] LABS: Alanine Aminotransferase* 42 U/L (4-50); Calcium* 9.1 mg/dL (8.4-10.6); Glucose* 240 mg/dL (60-115); Magnesium* 3.4 mg/dL (1.5-2.6)
[2023-06-09 22:52] LABS: Ethanol* < 0.01 % (0.01-0.03); PCR FLU A Negative PCR FLU A (Negative); PCR FLU B Negative PCR FLU B (Negative); PCR RSV Negative PCR RSV (Negative)
[2023-06-09 22:55] LABS: NT Pro B Type NatriureticPept* 1430 pg/mL
[2023-06-09 22:56] LABS: Troponin I* 0.03 ng/mL (0.01-0.04)
[2023-06-09 23:07] LABS: C Reactive Protein* 25.5 mg/dL (0.5-1.0)
[2023-06-09 23:08] LABS: SARS PCR* Negative SARS-CoV-2 (Negative)
[2023-06-09 23:14] LABS: Slide Review Acceptable Review (Acceptable)
[2023-06-09] MEDS: CALCIUM CARBONATE 500 MG CHEW PO ×2 (23:32→23:51)
[2023-06-10] VITALS (7 sets, daily range): BP systolic 130–181; BP diastolic 90–107; PULSE 73–98; RESP 16–20; TEMP 36.1–36.8; O2SAT 91–95; BMI 18.6
[2023-06-10 01:13] LABS: HCO3 VBG 25 mmol/L (21-28); PCO2 VBG 37 mmHG (40-50); PO2 VBG 37.1 mmHG (25-47); pH VBG 7.437 (7.32-7.43)
[2023-06-10] MEDS: PIPERACILLIN/TAZOBACTAM 4.5 GM in 0.9 % SODIUM CHLORIDE Mini-bag 100 ML IVPB (01:25)
[2023-06-10] MEDS: LACTATED RINGERS 1000 ML 1,000 ML 500 ML IV (01:25)
[2023-06-10 01:31] LABS: Lactate* 1.3 mmol/L (0.5-1.9)
[2023-06-10 01:52] LABS: Amorphous Sediment Urine Few; Appearance Urine Slightly Cloudy (Clear); Bacteria Urine Few; Bilirubin Urine Negative (Negative); Blood Urine Negative (Negative); Color Urine Yellow (Yellow); Glucose Urine Negative (Negative); Ketones Urine Trace (Negative); Leukocyte Esterase Urine Negative (Negative); Nitrite Urine Negative (Negative); Protein Urine 2+ (Negative); RBC Urine 0-2 (0-2); Squamous Epithelial Cell Urine Few (None-Few); Urobilinogen Urine 0.2 (0.2-1.0); WBC Urine 0-2 (0-5); pH Urine 5.5 (5.0-8.5)
--- NOTE | 2023-06-10 02:11 | ED.NURSE ---
patient report given to Sherly KRAMER. Patient going to room 261
--- NOTE | 2023-06-10 03:43 | W.PM.TELEH&P ---
Telehealth- H&P: HPI History of Present Illness Date Seen: 06/10/23 Chief complaint: Weakness, diff eating/sleeping, COPD Narrative: Raman Montes is seen as an Interactive Telehealth visit. Raman Montes is a 78 year old male who is Seen in his hospital room at [facility] with the assistance of nursing staff. He has been admitted through the emergency room. He tells me he has not been feeling well for about a week. He has initially lost his appetite he has been coughing with a semiproductive cough then he started having a hard time sleeping in bed he has become increasingly weak. He ultimately presented to the emergency room and was evaluated. He had a CT scan performed of his chest abdomen pelvis which came back showing what appears to be pneumonia. He has been started on broad-spectrum antibiotics and now admitted to the hospital for further evaluation and treatment. He tells me he is starting to feel better already. He tells me he has not had a fever. No chest pain no abdominal pain no blood in the urine blood in the stool. He does not have any other complaints of. Review of Systems Narrative: Positive pertinence negatives was performed positive findings per HPI. [facility] Medical History Special screening examination for other specified viral diseases ?Z11.59 - Encounter for screening for other viral diseases (ICD-10) Social History Smoking Status: Former smoker What tobacco products do you use: cigarettes Smoking quit date/years: >15 years ago Do you use any of these nicotine containing products: None How often do you have a drink containing alcohol: never How often do you have six or more drinks on one occasion: Never AUDIT-C Alcohol total score: 0 Non-prescribed substance use: denies use Caffeine: Yes (3 cups coffee daily) Little interest or pleasure in doing things: not at all Feeling down, depressed, or hopeless: not at all Meds Home Medications and Allergies Home Medications Medication Instructions Recorded Confirmed Type evening primrose oil 500 mg capsule 500 mg PO DAILY 04/12/22 06/09/23 History Diabetic Test Strips 04/15/22 06/10/22 History Allergies Allergy/AdvReac Type Severity Reaction Status Date / Time No Known Drug Allergies Allergy Verified 06/09/23 16:55 Exam Narrative Exam Narrative: Physical Exam GENERAL: ?vital signs reviewed, well developed and nourished, in no distress HEENT: pupils are equal round and reactive to light, extraocular movements are grossly within normal limits and oral mucosa is moist. NECK: Supple without lymphadenopathy or thyromegaly according to nursing staff examination observation HEART: Regular rate and rhythm without any rubs, murmurs, or gallops. Lungs: Rales bilaterally, mild crackles in the bases. ABDOMEN: Observation from nurse assisted exam, abdomen appears soft, nontender, and nondistended with Positive bowel sounds noted. EXTREMITIES: Strength and sensation is observed to be grossly within normal limits in the upper and lower extremities.? No focal strength deficit is observed. SKIN:? Observed warm and dry with color normal Const Vital Signs, click to edit/add: Vital Signs - 24 hr 06/09/23 16:46 06/10/23 02:08 Temperature 98.3 F Pulse Rate [Pulse Oximeter] 105 H 98 Respiratory Rate 24 20 Blood Pressure [Left Forearm] 139/89 163/97 H Pulse Oximetry 90 95 Oxygen Delivery Method Room Air Room Air Hospitalist - H&P: Result Labs Labs: Short CBC 06/09/23 Range/Units 21:50 WBC 36.96 H* (4.50-11.00) K/uL Hgb 13.7 (13.5-17.5) gm/dL Hct 38.8 (37.0-53.0) % Plt Count 638 H (140-440) K/uL BMP 06/09/23 06/09/23 06/09/23 21:50 21:50 21:50 Sodium Cancelled 135 Potassium Cancelled 3.3 L Chloride Cancelled Carbon Dioxide BUN Creatinine Glucose Calcium 06/09/23 06/09/23 06/09/23 21:50 21:50 21:50 Sodium Potassium Chloride 96 Carbon Dioxide Cancelled 25 BUN Cancelled 93 H Creatinine Cancelled Glucose Calcium 06/09/23 06/09/23 06/09/23 21:50 21:50 21:50 Sodium Potassium Chloride Carbon Dioxide BUN Creatinine 3.4 H Glucose Cancelled 240 H Calcium Cancelled 9.1 Cardiac Enzymes 06/09/23 Range/Units 21:50 Troponin I 0.03 (0.01-0.04) ng/mL Liver Function 06/09/23 Range/Units 21:50 Total Bilirubin 0.4 (0.1-1.5) mg/dL Direct Bilirubin 0.1 (0.0-0.5) mg/dL AST 27 (12-35) U/L ALT 42 (4-50) U/L Alkaline Phosphatase 178 H (40-150) U/L Albumin 3.8 (3.3-5.0) g/dL Urine 06/10/23 Range/Units 01:30 Urine Color Yellow (Yellow) Urine Appearance Slightly Cloudy A (Clear) Urine pH 5.5 (5.0-8.5) Ur Specific Holden 1.020 (1.000-1.030) Urine Protein 2+ A (Negative) Urine Glucose (UA) Negative (Negative) Imaging CT Chest/Ab/Pelvis: Attestation: I have reviewed the pertinent imaging results. Assessment and Plan Assessment and plan (1) Pneumonia: Status: Acute Plan Pneumonia Adrenal nodule Leukocytosis Elevated alkaline phosphatase Elevated CRP COPD pneumonia?appears to be community-acquired pneumonia. Patient does not look overtly toxic. Nevertheless for now we will cover with broad-spectrum antibiotics in the form of cefepime 2 g IV every 8 hours, will cover atypicals with doxycycline. Anticipate patient does improve with treatment. This is likely the cause of his decreased appetite along with his weakness. If not improving with antibiotics additional evaluation may be appropriate. Patient currently breathing room air. Will continue to follow closely. Adrenal nodule?this can be followed up as an outpatient if felt important. Leukocytosis?patient with fairly elevated white blood cell count likely secondary to pneumonia. Will continue to follow Elevated alkaline phosphatase?significance unclear. Will plan to recheck LFTs in the morning. Elevated CRP?likely secondary to pneumonia less likely secondary to other causes COPD?will continue patient's home inhalers. DVT prophylaxis will not be started anticipate a short hospital stay. If he remains hospitalized greater than 48 hours heparinoid products should be considered. CODE STATUS was reviewed on admission and he wishes to be a full code. Telehealth: Statement Statement Telehealth Visit: Today's History and Physical is provided via interactive telehealth by Ernie Brown DO.? Patient is located at [facility].? Provider is located at [facility].? Nursing staff assisted with the patient's exam. The visit being done today meets criteria for a telehealth visit and the patient or patient?s parent/guardian is aware the visit is a telehealth visit. Camera Start Time: 03:12 Camera End Time: 03:24
[2023-06-10] MEDS: 0.9 % SODIUM CHLORIDE 1000 ml 1,000 ML 100 ML IV ×2 (04:51→20:47)
[2023-06-10] MEDS: DOXYCYCLINE HYCLATE 100 MG in 0.9 % SODIUM CHLORIDE Mini-bag 100 ML IVPB ×2 (04:58→17:16)
--- NOTE | 2023-06-10 07:29 | CRLHL7_ITS ---
For Patients: As a result of the Cures Act, medical imaging exams and procedure reports are released immediately into your electronic medical record. You may view this report before your referring provider. If you have questions, please contact your health care provider. INDICATION: Pneumonia follow-up TECHNIQUE: Chest 2 views. COMPARISON: CT chest on June 09, 2023 FINDINGS/IMPRESSION: The cardiomediastinal silhouette is within normal limits. Bibasilar, left greater than right, airspace opacities, concerning for pneumonia. No appreciable pleural effusion or pneumothorax. No displaced fractures. Dictated by Alec Green MD @ 06/10/2023 1:46:27 PM (Electronically Signed)
[2023-06-10 08:46] LABS: HCO3 VBG 25 mmol/L (21-28); PCO2 VBG 41 mmHG (40-50); PO2 VBG 22.1 mmHG (25-47); pH VBG 7.391 (7.32-7.43)
[2023-06-10 08:48] LABS: Hematocrit 37.9 % (37.0-53.0); Hemoglobin* 13.1 gm/dL (13.5-17.5); Immature Granulocytes Pct Auto 3.8 %; Lymphocytes Percent Auto 2.9 % (20-44); Mean Corpuscular HGB Conc 35 gm/dL (32-36); Mean Corpuscular Hemoglobin 27 pg (26-34); Mean Corpuscular Volume 79 fL (80-100); Monocytes Percent Auto 2.2 % (0.0-11.0); Neutrophils Percent Auto 91.1 % (42.0-72.0); Platelet Count* 610 K/uL (140-440); RDW Coefficient of Variation % 16.6 % (11.5-15.5); Red Blood Count 4.82 m/uL (4.30-5.90)
[2023-06-10 08:52] LABS: Slide Review Reflex Yes; White Blood Count* 37.87 K/uL (4.50-11.00)
--- NOTE | 2023-06-10 08:54 | PC.NURSE ---
Pt alert and oriented x3. Pleasant and cooperative. Pt denies chest pain, SOB, pain, and N/V. Pt is up ad john in room. Pt is tolerating regular diet, voiding, and slept throughout most of night.
[2023-06-10 09:20] LABS: Chloride* 100 mmol/L (96-114)
[2023-06-10 09:21] LABS: Albumin* 3.1 g/dL (3.3-5.0); Potassium* 3.4 mmol/L (3.6-5.1); Sodium* 136 mmol/L (135-149)
[2023-06-10 09:24] LABS: Alanine Aminotransferase* 35 U/L (4-50); Alkaline Phosphatase* 147 U/L (40-150); Anion Gap 12 mEq/L (7-15); Aspartate Amino Transferase* 30 U/L (12-35); Bilirubin Direct* 0.1 mg/dL (0.0-0.5); Bilirubin Total* 0.4 mg/dL (0.1-1.5); Blood Urea Nitrogen* 88 mg/dL (7-30); Calcium* 8.6 mg/dL (8.4-10.6); Carbon Dioxide* 24 mmol/L (20-32); Creatinine* 3.3 mg/dL (0.5-1.5); Est. Creatinine Clearance* 12.85; Estimated Glomerular Filt Rate 19 ml/min; Glucose* 230 mg/dL (60-115); Total Protein* 6.3 g/dL (6.0-8.3)
[2023-06-10] MEDS: ACETAMINOPHEN 325 MG TABLET PO (09:26)
[2023-06-10] MEDS: CEFEPIME HCL 2 GM in 0.9 % SODIUM CHLORIDE Mini-bag 100 ML IVPB (09:31)
[2023-06-10 09:40] LABS: Procalcitonin* 1.76 ng/mL (<0.50)
[2023-06-10 09:40] LABS: Procalcitonin* 1.43 ng/mL (<0.50)
[2023-06-10] MEDS: CALCIUM CARBONATE 500 MG CHEW PO ×2 (10:27→16:57)
[2023-06-10 10:46] LABS: Slide Review Acceptable Review (Acceptable)
[2023-06-10] MEDS: 0.9 % SODIUM CHLORIDE 500 ML 500 ML 1000 ML IV (11:46)
[2023-06-10] MEDS: IPRAT-ALBUT 0.5-2.5 MG/3 ML NEB 1 NEB IH ×3 (11:49→23:36)
[2023-06-10] MEDS: PANTOPRAZOLE SODIUM 40 MG INJ 80 MG IVP (13:01)
[2023-06-10] MEDS: METOPROLOL SUCCINATE (XL) 25 MG TAB PO (13:02)
--- NOTE | 2023-06-10 13:45 | PM.IMPN1 ---
Progress Note: A&P Assessment and plan (1) Pneumonia: Problem details: Bilateral community-acquired pneumonia. Not hypoxic, however extremely weak and having evidence of an acute kidney injury. Also hypokalemic and significant leukocytosis puts him at risk for bacteremia. Inpatient management is appropriate. Continue IV doxycycline and IV cefepime as previously initiated. Respiratory cares with dialyzer, ISP and aerobika initiated. Status: Acute (2) Acute kidney injury: Problem details: UA sediment reviewed No evidence of infection or obstruction Likely pre renal, potentially ATN or glomerulonephritis Monitor Status: Acute (3) Type 2 diabetes mellitus: Problem details: Checking A1c Sliding scale and Accu-Cheks ordered Follow Status: Acute (4) Hyperlipidemia: Problem details: Noted Status: Acute (5) Gastroesophageal reflux: Problem details: Noted Status: Acute (6) Chronic obstructive pulmonary disease: Problem details: Budesonide nebs, DuoNebs Status: Acute (7) Benign prostatic hyperplasia: Problem details: Noted continue home meds Status: Acute (8) Leukocytosis: Problem details: Noted. Peripheral smear ordered. Platelets are also elevated. Likely all reactive. Status: Acute (9) Acute hypokalemia: Problem details: Noted, following Status: Acute Subjective Date Seen: 06/10/23 Interval history: Daily Progress Note - Hospital Medicine Day #: 1 CC: KYRIE with bilateral pneumonia/weakness OVERNIGHT UPDATES FROM STAFF & MED, LAB, IMAGING UPDATES indep in room. c/o of nausea, burping, abdominal discomfort. coughing. feels very weak. Markedly elevated white blood cell count at 37.87 (9.7 when last checked in October of 2020) Hemoglobin 13.1 MCV 79 Platelet count 610 (303 when last checked) PH this morning was 7.39 Mild hypo Marked KYRIE, creatinine 3.3, last checked 1.4 in November of 2021) Glucose 230 Magnesium was initially high but is now 3.0 Lactate is normal CRP is 22, Procalamine 0.43 2 blood cultures pending, evening of 06/09 Urine culture in progress The cardiomediastinal silhouette is within normal limits. Bibasilar, left greater than right, airspace opacities, concerning for pneumonia. No appreciable pleural effusion or pneumothorax. No displaced fractures. Objective: can talk without getting out of breath. Vitals: see above Lungs: scattered wheezing. crackles bilaterally. Cardiac: S1S2. Disposition/Potential discharge - Likely to return to previous living situation. Today I spent 50minutes seeing the patient, reviewing Expanse and EPIC notes/diagnostics, discussing the care plan with our care time that includes social work, PT/OT, pharmacy, RT, mcc and documenting my impressions and plan in the medical record. Exam Const: Vital Signs, click to edit/add: Vital Signs - 24 hr 06/09/23 16:46 06/10/23 02:08 06/10/23 02:14 Temperature 98.3 F 97.6 F Pulse Rate [Left P ulse Oximeter] 94 Pulse Rate [Pulse Oximeter] 105 H 98 Respiratory Rate 24 20 16 Blood Pressure [Le ft Forearm] 139/89 163/97 H Blood Pressure [Ri ght Arm] 152/92 H Pulse Oximetry 90 95 92 Oxygen Delivery Me thod Room Air Room Air Room Air 06/10/23 02:14 06/10/23 08:26 06/10/23 10:33 Temperature 97.4 F L 96.9 F L Pulse Rate [Left P ulse Oximeter] 91 88 Pulse Rate [Pulse Oximeter] Respiratory Rate 16 18 18 Blood Pressure [Le ft Forearm] Blood Pressure [Ri ght Arm] 153/99 H 181/107 H Pulse Oximetry 92 91 94 Oxygen Delivery Me thod Room Air Room Air Room Air Labs Labs: Laboratory Results - last 24 hr 06/09/23 06/09/23 06/09/23 21:08 21:50 21:50 WBC 36.96 H* RBC 4.96 Hgb 13.7 Hct 38.8 MCV 78 L MCH 28 MCHC 35 RDW Coeff of Ann 16.2 H Plt Count 638 H Neut % (Auto) 91.7 H Lymph % (Auto) 2.6 L [place] % (Auto) 2.2 Eos % (Auto) 0.0 Baso % (Auto) 0.0 Neut # (Auto) 33.90 H Lymph # (Auto) 1.00 [place] # (Auto) 0.80 Eos # (Auto) 0.00 Baso # (Auto) 0.00 Abs Immat Gran (auto) 1.30 H Imm/Tot Granulo (auto) 3.5 Diff Slide Review Acceptable Review VBG pH 7.442 H VBG pCO2 39 L VBG pO2 33.1 VBG HCO3 26 Sodium Cancelled 135 Potassium Cancelled Chloride Carbon Dioxide Anion Gap BUN Creatinine Estimated Creat Clear Estimated GFR Glucose Lactate Calcium Magnesium Total Bilirubin Direct Bilirubin AST ALT Alkaline Phosphatase Troponin I C-Reactive Protein NT-Pro-B Natriuret Pep Total Protein Albumin Lipase Procalcitonin Urine Color Urine Appearance Urine pH Ur Specific [place] Urine Protein Urine Glucose (UA) Urine Ketones Urine Blood Urine Nitrite Urine Bilirubin Urine Urobilinogen Ur Leukocyte Esterase Urine RBC Urine WBC Ur Squamous Epith Cells Amorphous Sediment Urine Bacteria Ethyl Alcohol SARS-CoV-2 (PCR) Influenza Type A (PCR) Influenza Type B (PCR) RSV (PCR) SARS-CoV-2 Ag (Rapid) Lab Acknowledgement POC Troponin I 0.00 L 06/09/23 06/09/23 06/09/23 21:50 21:50 21:50 WBC RBC Hgb Hct MCV MCH MCHC RDW Coeff of Ann Plt Count Neut % (Auto) Lymph % (Auto) [place] % (Auto) Eos % (Auto) Baso % (Auto) Neut # (Auto) Lymph # (Auto) [place] # (Auto) Eos # (Auto) Baso # (Auto) Abs Immat Gran (auto) Imm/Tot Granulo (auto) Diff Slide Review VBG pH VBG pCO2 VBG pO2 VBG HCO3 Sodium Potassium 3.3 L Chloride Cancelled 96 Carbon Dioxide Cancelled 25 Anion Gap Cancelled BUN Creatinine Estimated Creat Clear Estimated GFR Glucose Lactate Calcium Magnesium Total Bilirubin Direct Bilirubin AST ALT Alkaline Phosphatase Troponin I C-Reactive Protein NT-Pro-B Natriuret Pep Total Protein Albumin Lipase Procalcitonin Urine Color Urine Appearance Urine pH Ur Specific [place] Urine Protein Urine Glucose (UA) Urine Ketones Urine Blood Urine Nitrite Urine Bilirubin Urine Urobilinogen Ur Leukocyte Esterase Urine RBC Urine WBC Ur Squamous Epith Cells Amorphous Sediment Urine Bacteria Ethyl Alcohol SARS-CoV-2 (PCR) Influenza Type A (PCR) Influenza Type B (PCR) RSV (PCR) SARS-CoV-2 Ag (Rapid) Lab Acknowledgement POC Troponin I 06/09/23 06/09/23 06/09/23 21:50 21:50 21:50 WBC RBC Hgb Hct MCV MCH MCHC RDW Coeff of Ann Plt Count Neut % (Auto) Lymph % (Auto) [place] % (Auto) Eos % (Auto) Baso % (Auto) Neut # (Auto) Lymph # (Auto) [place] # (Auto) Eos # (Auto) Baso # (Auto) Abs Immat Gran (auto) Imm/Tot Granulo (auto) Diff Slide Review VBG pH VBG pCO2 VBG pO2 VBG HCO3 Sodium Potassium Chloride Carbon Dioxide Anion Gap 14 BUN Cancelled 93 H Creatinine Cancelled 3.4 H Estimated Creat Clear Cancelled Estimated GFR Glucose Lactate Calcium Magnesium Total Bilirubin Direct Bilirubin AST ALT Alkaline Phosphatase Troponin I C-Reactive Protein NT-Pro-B Natriuret Pep Total Protein Albumin Lipase Procalcitonin Urine Color Urine Appearance Urine pH Ur Specific [place] Urine Protein Urine Glucose (UA) Urine Ketones Urine Blood Urine Nitrite Urine Bilirubin Urine Urobilinogen Ur Leukocyte Esterase Urine RBC Urine WBC Ur Squamous Epith Cells Amorphous Sediment Urine Bacteria Ethyl Alcohol SARS-CoV-2 (PCR) Influenza Type A (PCR) Influenza Type B (PCR) RSV (PCR) SARS-CoV-2 Ag (Rapid) Lab Acknowledgement POC Troponin I 06/09/23 06/09/23 06/09/23 21:50 21:50 21:50 WBC RBC Hgb Hct MCV MCH MCHC RDW Coeff of Ann Plt Count Neut % (Auto) Lymph % (Auto) [place] % (Auto) Eos % (Auto) Baso % (Auto) Neut # (Auto) Lymph # (Auto) [place] # (Auto) Eos # (Auto) Baso # (Auto) Abs Immat Gran (auto) Imm/Tot Granulo (auto) Diff Slide Review VBG pH VBG pCO2 VBG pO2 VBG HCO3 Sodium Potassium Chloride Carbon Dioxide Anion Gap BUN Creatinine Estimated Creat Clear 14.88 Estimated GFR Cancelled 18 Glucose Cancelled 240 H Lactate 1.7 Calcium Cancelled Magnesium Total Bilirubin Direct Bilirubin AST ALT Alkaline Phosphatase Troponin I C-Reactive Protein NT-Pro-B Natriuret Pep Total Protein Albumin Lipase Procalcitonin Urine Color Urine Appearance Urine pH Ur Specific [place] Urine Protein Urine Glucose (UA) Urine Ketones Urine Blood Urine Nitrite Urine Bilirubin Urine Urobilinogen Ur Leukocyte Esterase Urine RBC Urine WBC Ur Squamous Epith Cells Amorphous Sediment Urine Bacteria Ethyl Alcohol SARS-CoV-2 (PCR) Influenza Type A (PCR) Influenza Type B (PCR) RSV (PCR) SARS-CoV-2 Ag (Rapid) Lab Acknowledgement POC Troponin I 06/09/23 06/09/23 06/10/23 21:50 21:50 01:10 WBC RBC Hgb Hct MCV MCH MCHC RDW Coeff of Ann Plt Count Neut % (Auto) Lymph % (Auto) [place] % (Auto) Eos % (Auto) Baso % (Auto) Neut # (Auto) Lymph # (Auto) [place] # (Auto) Eos # (Auto) Baso # (Auto) Abs Immat Gran (auto) Imm/Tot Granulo (auto) Diff Slide Review VBG pH 7.437 H VBG pCO2 37 L VBG pO2 37.1 VBG HCO3 25 Sodium Potassium Chloride Carbon Dioxide Anion Gap BUN Creatinine Estimated Creat Clear Estimated GFR Glucose Lactate 1.3 Calcium 9.1 Magnesium 3.4 H Total Bilirubin 0.4 Direct Bilirubin 0.1 AST 27 ALT 42 Alkaline Phosphatase 178 H Troponin I 0.03 C-Reactive Protein Cancelled 25.5 H NT-Pro-B Natriuret Pep 1430 Total Protein 7.4 Albumin 3.8 Lipase 30 Procalcitonin 1.76 H Urine Color Urine Appearance Urine pH Ur Specific [place] Urine Protein Urine Glucose (UA) Urine Ketones Urine Blood Urine Nitrite Urine Bilirubin Urine Urobilinogen Ur Leukocyte Esterase Urine RBC Urine WBC Ur Squamous Epith Cells Amorphous Sediment Urine Bacteria Ethyl Alcohol < 0.01 L SARS-CoV-2 (PCR) Negative SARS-CoV-2 Influenza Type A (PCR) Negative PCR FLU A Influenza Type B (PCR) Negative PCR FLU B RSV (PCR) Negative PCR RSV SARS-CoV-2 Ag (Rapid) Negative Lab Acknowledgement POC Troponin I 06/10/23 06/10/23 06/10/23 01:30 07:27 07:34 WBC 37.87 H* RBC 4.82 Hgb 13.1 L Hct 37.9 MCV 79 L MCH 27 MCHC 35 RDW Coeff of Ann 16.6 H Plt Count 610 H Neut % (Auto) 91.1 H Lymph % (Auto) 2.9 L [place] % (Auto) 2.2 Eos % (Auto) 0.0 Baso % (Auto) 0.0 Neut # (Auto) 34.50 H Lymph # (Auto) 1.10 [place] # (Auto) 0.80 Eos # (Auto) 0.00 Baso # (Auto) 0.00 Abs Immat Gran (auto) 1.40 H Imm/Tot Granulo (auto) 3.8 Diff Slide Review Acceptable Review VBG pH 7.391 VBG pCO2 41 VBG pO2 22.1 L VBG HCO3 25 Sodium 136 Potassium 3.4 L Chloride 100 Carbon Dioxide 24 Anion Gap 12 BUN 88 H Creatinine 3.3 H Estimated Creat Clear 12.85 Estimated GFR 19 Glucose 230 H Lactate Calcium 8.6 Magnesium 3.0 H Total Bilirubin 0.4 Direct Bilirubin 0.1 AST 30 ALT 35 Alkaline Phosphatase 147 Troponin I C-Reactive Protein 22.0 H NT-Pro-B Natriuret Pep Total Protein 6.3 Albumin 3.1 L Lipase Procalcitonin 1.43 H Urine Color Yellow Urine Appearance Slightly Cloudy A Urine pH 5.5 Ur Specific [place] 1.020 Urine Protein 2+ A Urine Glucose (UA) Negative Urine Ketones Trace A Urine Blood Negative Urine Nitrite Negative Urine Bilirubin Negative Urine Urobilinogen 0.2 Ur Leukocyte Esterase Negative Urine RBC 0-2 Urine WBC 0-2 Ur Squamous Epith Cells Few Amorphous Sediment Few A Urine Bacteria Few A Ethyl Alcohol SARS-CoV-2 (PCR) Influenza Type A (PCR) Influenza Type B (PCR) RSV (PCR) SARS-CoV-2 Ag (Rapid) Lab Acknowledgement POC Troponin I 06/10/23 08:53 WBC RBC Hgb Hct MCV MCH MCHC RDW Coeff of Ann Plt Count Neut % (Auto) Lymph % (Auto) [place] % (Auto) Eos % (Auto) Baso % (Auto) Neut # (Auto) Lymph # (Auto) [place] # (Auto) Eos # (Auto) Baso # (Auto) Abs Immat Gran (auto) Imm/Tot Granulo (auto) Diff Slide Review VBG pH VBG pCO2 VBG pO2 VBG HCO3 Sodium Potassium Chloride Carbon Dioxide Anion Gap BUN Creatinine Estimated Creat Clear Estimated GFR Glucose Lactate Calcium Magnesium Total Bilirubin Direct Bilirubin AST ALT Alkaline Phosphatase Troponin I C-Reactive Protein NT-Pro-B Natriuret Pep Total Protein Albumin Lipase Procalcitonin Urine Color Urine Appearance Urine pH Ur Specific [place] Urine Protein Urine Glucose (UA) Urine Ketones Urine Blood Urine Nitrite Urine Bilirubin Urine Urobilinogen Ur Leukocyte Esterase Urine RBC Urine WBC Ur Squamous Epith Cells Amorphous Sediment Urine Bacteria Ethyl Alcohol SARS-CoV-2 (PCR) Influenza Type A (PCR) Influenza Type B (PCR) RSV (PCR) SARS-CoV-2 Ag (Rapid) Lab Acknowledgement Test Added POC Troponin I
[2023-06-10 14:36] LABS: Reticulocyte Hemoglobin Equivi 23.9 pg (29.0-35.0); Reticulocyte Percent 0.8 % (0.5-2.0); Reticulocytes Absolute 0.04 # (0.03-0.08)
[2023-06-10 14:39] LABS: Hemoglobin A1C* 6.6 % (0-5.6)
--- NOTE | 2023-06-10 18:34 | PC.NURSE ---
Shift Summary: Patient pleasant and cooperative. Up independently in room. Vitals stable, HR elevated, MD updated and new orders put in. C/o pain in abdomen, relieved with PRN medication see MAR. Improved appetite throughout the day. x2 loose BM during shift, once early in the morning and once this afternoon. Patient states he uses Tums frequently at home, order put in by MD for tums PRN. Cough without sputum. IV in left ac with NS running. Pain in abdomen improved throughout day.
[2023-06-10 19:29] LABS: Legionella pneumo Ag Urine L. pneumo Negative (Negative); S pneumo Ag Urine S. pneumo Negative (Negative)
[2023-06-10] MEDS: BUDESONIDE 0.25 MG/2 ML AMPUL.NEB 0.5 MG NEB (21:26)
[2023-06-10] MEDS: INSULIN ASPART 100 UNIT/ML SUBCUT (21:30)
--- NOTE | 2023-06-11 02:56 | PC.NURSE ---
pT VERY PLEASAT AND COOPERATIVE. HE IS UP INDEPENTLY IN ROOM. LS ARE NOISY. COARSE CRACKLES SOME INSPIRATORY WHEEZES. WET COARSE COUGH. HAS BEEN UP INDEPENDLY AFEBRILE ON RA.
[2023-06-11 03:00] VITALS: BP 144/92; PULSE 73; RESP 18; TEMP 36.6; O2SAT 93
[2023-06-11] MEDS: DOXYCYCLINE HYCLATE 100 MG in 0.9 % SODIUM CHLORIDE Mini-bag 100 ML IVPB ×2 (05:09→17:03)
[2023-06-11] MEDS: IPRAT-ALBUT 0.5-2.5 MG/3 ML NEB 1 NEB IH ×4 (05:09→22:51)
[2023-06-11] MEDS: 0.9 % SODIUM CHLORIDE 1000 ml 1,000 ML 100 ML IV ×2 (05:09→16:50)
[2023-06-11] MEDS: ACETAMINOPHEN 325 MG TABLET PO (05:25)
[2023-06-11] MEDS: OMEPRAZOLE 20 MG CAPSULE DR PO (06:13)
[2023-06-11 06:40] LABS: HCO3 VBG 21 mmol/L (21-28); PCO2 VBG 37 mmHG (40-50); PO2 VBG 36.7 mmHG (25-47); pH VBG 7.364 (7.32-7.43)
[2023-06-11 06:53] LABS: Eosinophils Percent Auto 0.1 % (0.0-7.0); Hematocrit 30.6 % (37.0-53.0); Hemoglobin* 10.6 gm/dL (13.5-17.5); Immature Granulocytes Pct Auto 10.9 %; Lymphocytes Percent Auto 5.6 % (20-44); Mean Corpuscular HGB Conc 35 gm/dL (32-36); Mean Corpuscular Hemoglobin 28 pg (26-34); Mean Corpuscular Volume 80 fL (80-100); Monocytes Percent Auto 3.2 % (0.0-11.0); Neutrophils Percent Auto 80.2 % (42.0-72.0); Platelet Count* 555 K/uL (140-440); RDW Coefficient of Variation % 16.9 % (11.5-15.5); Red Blood Count 3.85 m/uL (4.30-5.90)
[2023-06-11 07:00] VITALS: PULSE 84; RESP 20
[2023-06-11 07:08] LABS: Iron* 33 ug/dL (49-181)
[2023-06-11 07:10] LABS: Albumin* 2.5 g/dL (3.3-5.0); Chloride* 107 mmol/L (96-114)
[2023-06-11 07:11] LABS: Sodium* 136 mmol/L (135-149)
[2023-06-11 07:13] LABS: Anion Gap 9 mEq/L (7-15); Aspartate Amino Transferase* 24 U/L (12-35); Bilirubin Total* 0.2 mg/dL (0.1-1.5); Carbon Dioxide* 20 mmol/L (20-32); Creatinine* 2.9 mg/dL (0.5-1.5); Est. Creatinine Clearance* 15.79; Estimated Glomerular Filt Rate 22 ml/min; Total Protein* 5.4 g/dL (6.0-8.3)
[2023-06-11 07:14] LABS: Alanine Aminotransferase* 27 U/L (4-50); Alkaline Phosphatase* 105 U/L (40-150); Blood Urea Nitrogen* 76 mg/dL (7-30); Calcium* 7.8 mg/dL (8.4-10.6); Glucose* 152 mg/dL (60-115); Magnesium* 2.6 mg/dL (1.5-2.6)
[2023-06-11 07:19] LABS: Percent Iron Saturation 16 % (20-50); Total Iron Binding Capacity 204 ug/dL (261-462)
[2023-06-11 07:22] LABS: Troponin I* 0.04 ng/mL (0.01-0.04)
[2023-06-11 07:27] LABS: Procalcitonin* 1.05 ng/mL (<0.50)
[2023-06-11 07:30] VITALS: BP 124/65; PULSE 84; RESP 18; TEMP 36.8; O2SAT 97
[2023-06-11 07:37] LABS: Slide Review Reflex Yes; White Blood Count* 25.84 K/uL (4.50-11.00)
[2023-06-11 07:38] LABS: C Reactive Protein* 13.6 mg/dL (0.5-1.0); NT Pro B Type NatriureticPept* 1340 pg/mL; Potassium* 2.9 mmol/L (3.6-5.1)
[2023-06-11 07:58] LABS: Slide Review Acceptable Review (Acceptable)
[2023-06-11] MEDS: BUDESONIDE 0.25 MG/2 ML AMPUL.NEB 0.5 MG NEB ×2 (09:29→21:13)
[2023-06-11] MEDS: CEFEPIME HCL 2 GM in 0.9 % SODIUM CHLORIDE Mini-bag 100 ML IVPB (09:29)
[2023-06-11] MEDS: METOPROLOL SUCCINATE (XL) 25 MG TAB PO (09:30)
[2023-06-11] MEDS: POTASSIUM CHLORIDE 10 MEQ/100 ML PIGGYBACK 100 MEQ IVPB ×2 (10:15→11:35)
--- NOTE | 2023-06-11 11:42 | PM.IMPN1 ---
Progress Note: A&P Assessment and plan (1) Pneumonia: Problem details: Bilateral community-acquired pneumonia. Not hypoxic, however extremely weak and having evidence of an acute kidney injury. Also hypokalemic and significant leukocytosis puts him at risk for bacteremia. Inpatient management is appropriate. Continue IV doxycycline and IV cefepime as previously initiated. Respiratory cares nebulizers, ISP and aerobika initiated. Status: Acute (2) Acute kidney injury: Problem details: UA sediment reviewed No evidence of infection or obstruction Likely pre renal, potentially ATN or glomerulonephritis Monitor Status: Acute (3) Elevated INR: Problem details: not clear on etiology. APTT increased. will trend. will order TT for am if needed. consider this part of the infection/inflammation cascade currently. Not on VTE ppx or exogenous OAC. Status: Acute (4) Leukocytosis: Problem details: Noted. Peripheral smear ordered. Platelets are also elevated. Likely all reactive. Status: Acute (5) Acute hypokalemia: Problem details: Noted, following. replacing. Status: Acute (6) Type 2 diabetes mellitus: Problem details: Checking A1c Sliding scale and Accu-Cheks ordered Follow Status: Acute (7) Hyperlipidemia: Problem details: Noted Status: Acute (8) Gastroesophageal reflux: Problem details: Noted Status: Acute (9) Chronic obstructive pulmonary disease: Problem details: Budesonide Nic kessler Status: Acute (10) Benign prostatic hyperplasia: Problem details: Noted continue home meds Status: Acute Subjective Date Seen: 06/11/23 Interval history: Daily Progress Note - Hospital Medicine Day #: 2 CC: KYRIE with bilateral pneumonia/weakness assoc leukocytosis, elevated INR OVERNIGHT UPDATES FROM STAFF & MED, LAB, IMAGING UPDATES feels washed out but improved in the last 24 hours. still on room air. less hypertensive. 144/92. Pulse 73. Resp is 18. Afebrile. O2 sat 93% on room air. Urine antigen for strep pneumo and Legionella are negative White count is down to 25.8 Hemoglobin 10.6 Platelet count down to 555 Interestingly his INR is 2.3 without any anticoagulation or VTE prophylaxis. APTT 60 PH is normal this morning Potassium down to 2.9. Creatinine down to 2.9. A1c 6.6 Iron deficient CRP downtrending nicely Procalcitonin downtrending nicely Blood cultures remain negative to date. Urine culture negative. The cardiomediastinal silhouette is within normal limits. Bibasilar, left greater than right, airspace opacities, concerning for pneumonia. No appreciable pleural effusion or pneumothorax. No displaced fractures. Objective: can talk without getting out of breath. Vitals: see above Lungs: lung sounds much improved Cardiac: S1S2. Disposition/Potential discharge - Likely to return to previous living situation. Today I spent 50minutes seeing the patient, reviewing Expanse and EPIC notes/diagnostics, discussing the care plan with our care time that includes social work, PT/OT, pharmacy, RT, jail and documenting my impressions and plan in the medical record. Exam Const: Vital Signs, click to edit/add: Vital Signs - 24 hr 06/10/23 15:53 06/10/23 20:52 06/10/23 23:43 Temperature 97.6 F 98.2 F Pulse Rate [Left P ulse Oximeter] 82 73 78 Respiratory Rate 16 20 18 Blood Pressure [Ri ght Arm] 130/91 H 149/90 H 166/98 H Pulse Oximetry 93 93 94 Oxygen Delivery Me thod Room Air Room Air Room Air 06/11/23 03:00 Temperature 98 F Pulse Rate [Left P ulse Oximeter] 73 Respiratory Rate 18 Blood Pressure [Ri ght Arm] 144/92 H Pulse Oximetry 93 Oxygen Delivery Me thod Room Air Labs Labs: Laboratory Results - last 24 hr 06/10/23 06/10/23 06/10/23 07:34 14:08 18:57 WBC 37.87 H* RBC 4.82 Hgb 13.1 L Hct 37.9 MCV 79 L MCH 27 MCHC 35 RDW Coeff of Ann 16.6 H Plt Count 610 H Neut % (Auto) 91.1 H Lymph % (Auto) 2.9 L [place] % (Auto) 2.2 Eos % (Auto) 0.0 Baso % (Auto) 0.0 Neut # (Auto) 34.50 H Lymph # (Auto) 1.10 [place] # (Auto) 0.80 Eos # (Auto) 0.00 Baso # (Auto) 0.00 Abs Immat Gran (auto) 1.40 H Imm/Tot Granulo (auto) 3.8 Diff Slide Review Acceptable Review Absolute Retic 0.04 Percent Retic 0.8 Immature Retic Fraction 22.0 H Retic Hgb Equivalent 23.9 L INR APTT VBG pH VBG pCO2 VBG pO2 VBG HCO3 Sodium Potassium Chloride Carbon Dioxide Anion Gap BUN Creatinine Estimated Creat Clear Estimated GFR Glucose Hemoglobin A1c 6.6 H Calcium Phosphorus Magnesium Iron TIBC % Saturation Total Bilirubin Direct Bilirubin AST ALT Alkaline Phosphatase Troponin I C-Reactive Protein NT-Pro-B Natriuret Pep Total Protein Albumin Procalcitonin Urine L. pneumophilia Ag L. pneumo Negative Urine Strep pneumoniae Ag S. pneumo Negative Lab Acknowledgement Test Added 06/11/23 06/11/23 06:04 08:35 WBC 25.84 H* RBC 3.85 L Hgb 10.6 L Hct 30.6 L MCV 80 MCH 28 MCHC 35 RDW Coeff of Ann 16.9 H Plt Count 555 H Neut % (Auto) 80.2 H Lymph % (Auto) 5.6 L [place] % (Auto) 3.2 Eos % (Auto) 0.1 Baso % (Auto) 0.0 Neut # (Auto) 20.70 H Lymph # (Auto) 1.40 [place] # (Auto) 0.80 Eos # (Auto) 0.00 Baso # (Auto) 0.00 Abs Immat Gran (auto) 2.80 H Imm/Tot Granulo (auto) 10.9 Diff Slide Review Acceptable Review Absolute Retic Percent Retic Immature Retic Fraction Retic Hgb Equivalent INR 2.30 H APTT 60 H VBG pH 7.364 VBG pCO2 37 L VBG pO2 36.7 VBG HCO3 21 Sodium 136 Potassium 2.9 L* Chloride 107 Carbon Dioxide 20 Anion Gap 9 BUN 76 H Creatinine 2.9 H Estimated Creat Clear 15.79 Estimated GFR 22 Glucose 152 H Hemoglobin A1c Calcium 7.8 L Phosphorus 4.0 Magnesium 2.6 Iron 33 L TIBC 204 L % Saturation 16 L Total Bilirubin 0.2 Direct Bilirubin 0.0 AST 24 ALT 27 Alkaline Phosphatase 105 Troponin I 0.04 C-Reactive Protein 13.6 H NT-Pro-B Natriuret Pep 1340 Total Protein 5.4 L Albumin 2.5 L Procalcitonin 1.05 H Urine L. pneumophilia Ag Urine Strep pneumoniae Ag Lab Acknowledgement Test Added
[2023-06-11 12:00] VITALS: BP 151/90; PULSE 67; RESP 18; TEMP 36.5; O2SAT 96
[2023-06-11 15:00] VITALS: BP 170/96; PULSE 73; RESP 18; TEMP 36.4; O2SAT 92
[2023-06-11] MEDS: ALBUTEROL INHALER 2 PUFF IH (16:50)
[2023-06-11 17:28] LABS: D Dimer Quantitative* 2.12 ug/ml (0.00-0.50)
[2023-06-11 17:30] LABS: Fibrinogen* 638 mg/dL (200-450)
[2023-06-11 17:53] LABS: Partial Thromboplastin Time* 69 Seconds (23-33)
[2023-06-11 18:27] LABS: INR 1.93 (0.91-1.10); Prothrombin Time 23.5 Seconds
[2023-06-11 19:00] VITALS: BP 169/93; PULSE 82; RESP 18; TEMP 36.6; O2SAT 94
[2023-06-11 19:40] LABS: Chloride* 107 mmol/L (96-114); Sodium* 137 mmol/L (135-149)
[2023-06-11 19:42] LABS: Est. Creatinine Clearance* 15.26; Estimated Glomerular Filt Rate 21 ml/min
[2023-06-11 19:43] LABS: Anion Gap 13 mEq/L (7-15); Blood Urea Nitrogen* 64 mg/dL (7-30); Calcium* 8.2 mg/dL (8.4-10.6); Carbon Dioxide* 17 mmol/L (20-32); Glucose* 128 mg/dL (60-115)
[2023-06-11 19:49] LABS: Potassium* 2.7 mmol/L (3.6-5.1)
[2023-06-11] MEDS: POTASSIUM BICARB 25 MEQ EFFERVESCENT TAB PO ×2 (20:57→22:50)
[2023-06-11] MEDS: INSULIN ASPART 100 UNIT/ML SUBCUT (20:58)
[2023-06-11] MEDS: BENZOCAINE/MENTHOL 1 EACH LOZENGE MUCOUS MEM (21:14)
[2023-06-11] MEDS: CALCIUM CARBONATE 500 MG CHEW PO (21:14)
[2023-06-12] VITALS (8 sets, daily range): BP systolic 143–165; BP diastolic 58–100; PULSE 69–85; RESP 18–20; TEMP 36.2–36.6; O2SAT 91–94
--- NOTE | 2023-06-12 00:03 | PC.NURSE ---
Elevated BP, otherwise VSS. RA. LS coarse, inspiratory wheeze & rhonchi. Moist, productive cough. Using aerobika. Decreased appetite, ate half of sandwich and bites of banana this evening. Encouraged fluids. Blood sugars w/ meals & bedtime- blood sugar at bedtime 181- 1 unit of insulin given. Voided x4, good output. Stool x2, states formed now. PIV in left AC infiltrated, new IV placed in right UA- NS infusing at 100 cc/hr. Up independently in room, occasionally will call for help with equipment. Potassium 2.7- oral replaced q2h x3 doses this evening. Will continue to monitor, follow POC, and keep pt and family updated. Priti Tavera RN
[2023-06-12] MEDS: POTASSIUM BICARB 25 MEQ EFFERVESCENT TAB PO (00:53)
[2023-06-12] MEDS: ACETAMINOPHEN 325 MG TABLET PO ×3 (02:11→21:52)
[2023-06-12] MEDS: 0.9 % SODIUM CHLORIDE 1000 ml 1,000 ML 100 ML IV (04:49)
[2023-06-12] MEDS: IPRAT-ALBUT 0.5-2.5 MG/3 ML NEB 1 NEB IH ×4 (05:30→23:31)
[2023-06-12] MEDS: DOXYCYCLINE HYCLATE 100 MG in 0.9 % SODIUM CHLORIDE Mini-bag 100 ML IVPB (05:30)
--- NOTE | 2023-06-12 06:47 | PC.NURSE ---
Shift note: The pt has been pleasant and cooperative; denied chest pain and short of breath; Spo2 has been in the low 90s in RA. No fever noted C/o of mild short of breath with exertion. NS has been running at 100 ml/hr. The pt has been up to BR independently. The pt had uneventful night
[2023-06-12 07:01] LABS: Eosinophils Percent Auto 0.4 % (0.0-7.0); Hematocrit 26.8 % (37.0-53.0); Hemoglobin* 9.2 gm/dL (13.5-17.5); Immature Granulocytes Pct Auto 14.2 %; Lymphocytes Percent Auto 5.5 % (20-44); Mean Corpuscular HGB Conc 34 gm/dL (32-36); Mean Corpuscular Hemoglobin 28 pg (26-34); Mean Corpuscular Volume 80 fL (80-100); Monocytes Percent Auto 4.1 % (0.0-11.0); Neutrophils Percent Auto 75.8 % (42.0-72.0); Platelet Count* 495 K/uL (140-440); RDW Coefficient of Variation % 17.2 % (11.5-15.5); Red Blood Count 3.35 m/uL (4.30-5.90); White Blood Count* 24.79 K/uL (4.50-11.00)
[2023-06-12 07:23] LABS: Albumin* 2.4 g/dL (3.3-5.0); Chloride* 110 mmol/L (96-114); Potassium* 3.2 mmol/L (3.6-5.1); Sodium* 138 mmol/L (135-149)
[2023-06-12 07:24] LABS: INR 1.87 (0.91-1.10); Prothrombin Time 22.9 Seconds
[2023-06-12 07:25] LABS: Creatinine* 2.8 mg/dL (0.5-1.5); Est. Creatinine Clearance* 17.01; Estimated Glomerular Filt Rate 23 ml/min
[2023-06-12 07:26] LABS: Anion Gap 9 mEq/L (7-15); Blood Urea Nitrogen* 57 mg/dL (7-30); Carbon Dioxide* 19 mmol/L (20-32); Glucose* 112 mg/dL (60-115)
[2023-06-12 07:27] LABS: Calcium* 7.9 mg/dL (8.4-10.6); Phosphorus* 2.7 mg/dL (2.5-4.5)
[2023-06-12 07:29] LABS: C Reactive Protein* 8.1 mg/dL (0.5-1.0)
[2023-06-12 07:39] LABS: Procalcitonin* 0.73 ng/mL (<0.50)
[2023-06-12 07:41] LABS: Slide Review Reflex Yes
--- NOTE | 2023-06-12 08:08 | CRLHL7_ITS ---
For Patients: As a result of the Century Cures Act, medical imaging exams and procedure reports are released immediately into your electronic medical record. You may view this report before your referring provider. If you have questions, please contact your health care provider. Indication: Follow-up pneumonia Comparison: Two-view chest June 10, 2023 Technique: PA and lateral views of the chest Findings: Persistent left basilar pleural effusion with adjacent compressive atelectasis and/or infiltrates. Mildly increased interstitial markings likely representing pulmonary edema. The cardiac silhouette is mildly prominent. The bony thorax is grossly intact. Impression: Left basilar pleural effusion with adjacent compressive atelectasis versus infiltrates similar to previous exam. Persistent superimposed pulmonary vascular congestion. Dictated by Arturo Bowling MD @ 06/12/2023 9:30:34 AM (Electronically Signed)
[2023-06-12] MEDS: METOPROLOL SUCCINATE (XL) 25 MG TAB PO (08:42)
[2023-06-12] MEDS: BUDESONIDE 0.25 MG/2 ML AMPUL.NEB 0.5 MG NEB ×2 (08:42→20:41)
[2023-06-12] MEDS: OMEPRAZOLE 20 MG CAPSULE DR PO (08:42)
[2023-06-12] MEDS: POTASSIUM BICARB 25 MEQ EFFERVESCENT TAB 50 MEQ PO ×2 (08:42→18:02)
[2023-06-12] MEDS: ALBUTEROL INHALER 2 PUFF IH (08:48)
[2023-06-12] MEDS: CEFEPIME HCL 2 GM in 0.9 % SODIUM CHLORIDE Mini-bag 100 ML IVPB (09:34)
[2023-06-12] MEDS: levoFLOXacin 500 MG TABLET PO (10:31)
--- NOTE | 2023-06-12 13:43 | PC.SOCIAL ---
Discharge planning: Met with pt regarding d/c plan. Pt is hoping to be independent when discharged home as he lives alone in subsidized housing at [facility]. He states he has wonderful neighbors who will assist if he needs anything. Pt sates he has never had home care and does not think he needs it, but will reconsider when he is ready for discharge if it is needed. 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 Pt is aware of how to request social service manager if any resources are needed prior to dscharge.
--- NOTE | 2023-06-12 14:44 | P.IMPN_ITS ---
Progress Note: A&P Assessment and plan (1) Pneumonia: Problem details: -Bilateral community-acquired pneumonia. -Not hypoxic, however extremely weak and having evidence of an acute kidney injury. His his coagulopathy, hypokalemia and profound leukocytosis puts him at risk for bacteremia and other complications. -Inpatient management is appropriate. -stopping fluids given mild evidence of pulmonary edema. Transitioning IV antibiotics to oral Levaquin -Respiratory cares nebulizers, ISP and aerobika initiated. Status: Acute (2) Acute kidney injury: Problem details: UA sediment reviewed No evidence of infection or obstruction Likely pre renal, potentially ATN or glomerulonephritis Monitor Status: Acute (3) Elevated INR: Problem details: not clear on etiology. APTT, fibrinogen and D-dimer are all increased. I think this is all reactive and related to underlying infection. Is not on VTE prophylaxis or exogenous OAC. -SCDs Status: Acute (4) Leukocytosis: Problem details: Noted. Peripheral smear reviewed. Platelets are also elevated. Likely all reactive. Status: Acute (5) Acute hypokalemia: Problem details: Noted, following. replacing. Status: Acute (6) Type 2 diabetes mellitus: Problem details: Checking A1c Sliding scale and Accu-Cheks ordered Follow Status: Acute (7) Hyperlipidemia: Problem details: Noted Status: Acute (8) Gastroesophageal reflux: Problem details: Noted Status: Acute (9) Chronic obstructive pulmonary disease: Problem details: Budesonide Nic kessler Status: Acute (10) Benign prostatic hyperplasia: Problem details: Noted continue home meds Status: Acute Subjective Date Seen: 06/12/23 Interval history: Daily Progress Note - Hospital Medicine Day #: 3 CC: KYRIE with bilateral pneumonia/weakness assoc leukocytosis, elevated INR OVERNIGHT UPDATES FROM STAFF & MED, LAB, IMAGING UPDATES Feels weak this morning. Did not sleep well. Mildly anxious. Can not really put his finger on why he does not feel much better this morning. Urine antigen for strep pneumo and Legionella are negative 143/100. Pulse 78. Respiratory 18. Afebrile. O2 sat 94% on room air. CBC continues to downtrend. 37.8 down to 24.8. Hemoglobin has dropped from 13.1 down to 9.2 Platelet count continues to downtrend is well 610 down to 495 INR 1.87, down from 2.3. Elevated APTT, fibrinogen, D-dimer. Potassium has improved over the last 3 days. 3.2. Replacing orally. Creatinine is 2.8, continues to improve. Inflammatory markers are down trending Blood cultures remain negative to date. Urine culture negative. Peripheral smear: Leukocytosis reflects marked absolute neutrophilia with mild left shift and mild monocytosis. Favor reactive. Rare circulating plasmacytoid cell present Mild thrombocytosis, favor reactive Mild microcytic anemia with occasional target cells and acanthocytes. Updated CXR this am Impression: Left basilar pleural effusion with adjacent compressive atelectasis versus infiltrates similar to previous exam. Persistent superimposed pulmonary vascular congestion. Objective: can talk without getting out of breath. Mildly anxious. Vitals: see above Lungs: lung sounds much improved Cardiac: S1S2. Disposition/Potential discharge - Likely to return to previous living situation. Today I spent 50minutes seeing the patient, reviewing Expanse and EPIC notes/diagnostics, discussing the care plan with our care time that includes social work, PT/OT, pharmacy, RT, custodial and documenting my impressions and plan in the medical record. Exam Const: Vital Signs, click to edit/add: Vital Signs - 24 hr 06/11/23 15:00 06/11/23 15:00 06/11/23 19:00 Temperature 97.6 F 97.9 F Pulse Rate [Left P ulse Oximeter] 73 82 Respiratory Rate 18 18 18 Blood Pressure [Ri ght Arm] 170/96 H 169/93 H Pulse Oximetry 92 94 Oxygen Delivery Me thod Room Air Room Air 06/12/23 01:00 06/12/23 01:00 06/12/23 05:00 Temperature 97.8 F 97.5 F L Pulse Rate [Left P ulse Oximeter] 82 85 80 Respiratory Rate 18 18 18 Blood Pressure [Ri ght Arm] 160/58 H 153/89 H Pulse Oximetry 91 91 Oxygen Delivery Me thod Room Air Room Air 06/12/23 07:00 06/12/23 07:00 06/12/23 12:00 Temperature 97.2 F L 97.8 F Pulse Rate [Left P ulse Oximeter] 69 69 78 Respiratory Rate 20 18 18 Blood Pressure [Ri ght Arm] 152/82 H 143/100 H Pulse Oximetry 91 94 Oxygen Delivery Me thod Room Air Room Air Labs Labs: Laboratory Results - last 24 hr 06/10/23 06/11/23 06/11/23 21:11 06:04 15:19 WBC RBC Hgb Hct MCV MCH MCHC RDW Coeff of Ann Plt Count Neut % (Auto) Lymph % (Auto) [place] % (Auto) Eos % (Auto) Baso % (Auto) Neut # (Auto) Lymph # (Auto) [place] # (Auto) Eos # (Auto) Baso # (Auto) Abs Immat Gran (auto) Imm/Tot Granulo (auto) Peripher Smr Path Cons See Scanned Report INR APTT 69 H Fibrinogen 638 H D-Dimer Quant (PE/DVT) 2.12 H Sodium Potassium Chloride Carbon Dioxide Anion Gap BUN Creatinine Estimated Creat Clear Estimated GFR Glucose Calcium Phosphorus C-Reactive Protein Albumin Procalcitonin Lab Acknowledgement Test Added 06/11/23 06/11/23 06/12/23 18:06 19:18 06:40 WBC 24.79 H RBC 3.35 L Hgb 9.2 L Hct 26.8 L MCV 80 MCH 28 MCHC 34 RDW Coeff of Ann 17.2 H Plt Count 495 H Neut % (Auto) 75.8 H Lymph % (Auto) 5.5 L [place] % (Auto) 4.1 Eos % (Auto) 0.4 Baso % (Auto) 0.0 Neut # (Auto) 18.80 H Lymph # (Auto) 1.40 [place] # (Auto) 1.00 H Eos # (Auto) 0.10 Baso # (Auto) 0.00 Abs Immat Gran (auto) 3.50 H Imm/Tot Granulo (auto) 14.2 Peripher Smr Path Cons INR 1.93 H 1.87 H APTT Fibrinogen D-Dimer Quant (PE/DVT) Sodium 137 138 Potassium 2.7 L* 3.2 L Chloride 107 110 Carbon Dioxide 17 L 19 L Anion Gap 13 9 BUN 64 H 57 H Creatinine 3.0 H 2.8 H Estimated Creat Clear 15.26 17.01 Estimated GFR 21 23 Glucose 128 H 112 Calcium 8.2 L 7.9 L Phosphorus 2.7 C-Reactive Protein 8.1 H Albumin 2.4 L Procalcitonin 0.73 H Lab Acknowledgement
--- NOTE | 2023-06-12 16:45 | PC.NURSE ---
THIS AM, PATIENT REPORTING FEELING FATIGUED AND SOB. REPORTED FEEING IMPROVED FOLLOWING AM NEB AND INHALERS. LUNG SOUNDS WITH COARSE CRACKLES POSTERIORLY AND INSPIRATORY WHEEZING ANTERIORLY. ENCOURAGE INCENTIVE SPIROMETER AND AEROBIKA USE. PATIENT HAS INTERMITTENT MOIST COUGH THAT IS OCCASIONALLY PRODUCTIVE. UP AD SKY IN ROOM. PATIENT CONTINUES TO REPORT DECREASED APPETITE BUT SIPPING ON FLUIDS AND ENSURE TOLERATED. THIS AFTERNOON, PATIENT MORE ALERT AND ENERGETIC AND ABLE TO WASH UP AND AMBULATE IN HALLWAY AND WORK WITH PHYSICAL THERAPY. REPORTED BREATHING WAS IMPROVED AND HE WAS FEELING A LOT BETTER. O2 SATS 90-94%RA.
[2023-06-12] MEDS: SODIUM CHLORIDE 0.9 % (FLUSH) 10 ML SYRINGE 5 ML IVF (20:43)
[2023-06-13] MEDS: ACETAMINOPHEN 325 MG TABLET PO ×2 (00:49→18:25)
[2023-06-13] MEDS: ALBUTEROL INHALER 2 PUFF IH ×2 (01:29→08:57)
[2023-06-13 03:30] VITALS: BP 150/85; PULSE 66; RESP 20; TEMP 36.4; O2SAT 93
[2023-06-13] MEDS: SODIUM CHLORIDE 0.9 % (FLUSH) 10 ML SYRINGE 5 ML IVF ×3 (03:41→21:15)
[2023-06-13] MEDS: LORazepam 2 MG/ML inj 0.5 MG IVP (03:41)
[2023-06-13] MEDS: OMEPRAZOLE 20 MG CAPSULE DR PO (06:03)
[2023-06-13] MEDS: IPRAT-ALBUT 0.5-2.5 MG/3 ML NEB 1 NEB IH ×4 (06:04→23:33)
--- NOTE | 2023-06-13 06:53 | PC.NURSE ---
Addendum entered by Chiquis Morrow RN 06/13/23 07:31: Correction: One time dose of Ativan effective, not PRN dose as previously stated. Original Note: Shift note [id number]: Pt has been alert & oriented x 4 this shift. He transfers/ambulates independently in room and has been continent of bladder. Pt continues on scheduled nebulizer treatments and is noted to have productive cough with thin clear colored sputum. Pt requested PRN Tylenol last evening for c/o 3/10 headache pain which was effective upon followup. Pt has been afebrile. IV SL to RUE remains intact and patent when flushed last evening. Shirley GUADALUPE contacted this morning due to patient having sleeplessness and anxiety regarding Romina Day- MD gave one time order for IV Ativan 0.5 mg which was then given. Staff had previously tried encouraging rest and providing Chamomile tea. Pt had previously taken PRN inhaler and PRN Tylenol as well though was unable to sleep due to anxiety/sleeplessness. PRN Ativan effective upon followup. ?
[2023-06-13 07:05] LABS: Basophils Percent Auto 0.1 % (0.0-3.0); Eosinophils Percent Auto 0.4 % (0.0-7.0); Hematocrit 29.8 % (37.0-53.0); Hemoglobin* 10.1 gm/dL (13.5-17.5); Immature Granulocytes Pct Auto 12.9 %; Lymphocytes Percent Auto 4.7 % (20-44); Mean Corpuscular HGB Conc 34 gm/dL (32-36); Mean Corpuscular Hemoglobin 28 pg (26-34); Mean Corpuscular Volume 81 fL (80-100); Monocytes Percent Auto 4.1 % (0.0-11.0); Neutrophils Percent Auto 77.8 % (42.0-72.0); Platelet Count* 542 K/uL (140-440); RDW Coefficient of Variation % 17.8 % (11.5-15.5); Red Blood Count 3.67 m/uL (4.30-5.90)
[2023-06-13 07:22] LABS: Albumin* 2.8 g/dL (3.3-5.0); Chloride* 109 mmol/L (96-114); Potassium* 3.6 mmol/L (3.6-5.1); Sodium* 137 mmol/L (135-149)
[2023-06-13 07:25] LABS: Anion Gap 6 mEq/L (7-15); Blood Urea Nitrogen* 48 mg/dL (7-30); Carbon Dioxide* 22 mmol/L (20-32); Creatinine* 2.8 mg/dL (0.5-1.5); Est. Creatinine Clearance* 16.93; Estimated Glomerular Filt Rate 23 ml/min
[2023-06-13 07:26] LABS: Calcium* 8.5 mg/dL (8.4-10.6); Glucose* 102 mg/dL (60-115); Phosphorus* 2.9 mg/dL (2.5-4.5)
[2023-06-13 07:29] LABS: INR 1.65 (0.91-1.10); Prothrombin Time 20.7 Seconds
[2023-06-13 08:17] LABS: Slide Review Reflex Yes; White Blood Count* 28.47 K/uL (4.50-11.00)
[2023-06-13 08:18] LABS: Slide Review Acceptable Review (Acceptable)
[2023-06-13 08:19] LABS: Slide Review Acceptable Review (Acceptable)
[2023-06-13 08:30] VITALS: BP 165/98; PULSE 77; RESP 20; TEMP 36.6; O2SAT 93
[2023-06-13] MEDS: levoFLOXacin 500 MG TABLET PO (08:56)
[2023-06-13] MEDS: METOPROLOL SUCCINATE (XL) 25 MG TAB PO (08:56)
[2023-06-13] MEDS: BUDESONIDE 0.25 MG/2 ML AMPUL.NEB 0.5 MG NEB ×2 (08:57→21:15)
[2023-06-13] MEDS: POTASSIUM CHLORIDE 10 MEQ CAPSULE ER 20 MEQ PO ×2 (09:50→17:08)
[2023-06-13 11:00] VITALS: BP 168/92; PULSE 77; RESP 20; TEMP 36.6; O2SAT 96
--- NOTE | 2023-06-13 11:15 | CRLHL7_ITS ---
For Patients: As a result of the Century Cures Act, medical imaging exams and procedure reports are released immediately into your electronic medical record. You may view this report before your referring provider. If you have questions, please contact your health care provider. INDICATION: KYRIE TECHNIQUE: Ultrasound renal and bladder complete. Delgado-scale and color Doppler sonographic images were acquired of the kidneys and urinary bladder. COMPARISON: CT chest and pelvis June 09, 2023. FINDINGS: Right kidney: 9.5 x 3.8 x 3.7 cm. Left kidney: 11.7 x 5.7 x 4.3 cm. Moderate right renal cortical thinning. Mild left renal cortical thinning. Multiple echogenic structure seen in the superior pole of the right kidney. Multiple echogenic structures visualized in the left kidney. No evidence of hydronephrosis. No suspicious mass. Bladder: Normal in caliber and appearance. Color Doppler images demonstrate bilateral ureteral jets. IMPRESSION: 1. No evidence of hydronephrosis. Bilateral ureteral jets visualized. 2. Bilateral nonobstructing intrarenal calculi, better visualized on recent CT. Dictated by Joseluis Frost MD @ 06/13/2023 1:21:29 PM (Electronically Signed)
[2023-06-13 13:05] LABS: Appearance Urine Clear (Clear); Bilirubin Urine Negative (Negative); Blood Urine Trace-lysed (Negative); Color Urine Yellow (Yellow); Glucose Urine Negative (Negative); Ketones Urine Negative (Negative); Leukocyte Esterase Urine Negative (Negative); Nitrite Urine Negative (Negative); Protein Urine Trace (Negative); Urobilinogen Urine 0.2 (0.2-1.0); pH Urine 5.5 (5.0-8.5)
--- NOTE | 2023-06-13 13:38 | P.IMPN_ITS ---
Progress Note: A&P Assessment and plan (1) Pneumonia: Problem details: -Bilateral community-acquired pneumonia. -Not hypoxic, however presented weak and having evidence of an acute kidney injury. His coagulopathy, hypokalemia and profound leukocytosis puts him at risk for bacteremia and other complications. -Inpatient management is appropriate. -stopping fluids given mild evidence of pulmonary edema on 06/12. Transitioning IV antibiotics to oral Levaquin on 06/12 -Respiratory care, nebulizers, ISP and aerobika initiated. Status: Acute (2) Acute kidney injury: Problem details: UA sediment reviewed x2 No evidence of infection or obstruction Likely pre renal, potentially ATN or glomerulonephritis Monitor Status: Acute (3) Elevated INR: Problem details: not clear on etiology. APTT, fibrinogen and D-dimer are all increased. I think this is all reactive and related to underlying infection. Is not on VTE prophylaxis or exogenous OAC. -SCDs Status: Acute (4) Leukocytosis: Problem details: Noted. Peripheral smear reviewed. Platelets are also elevated. Likely all reactive. Status: Acute (5) Acute hypokalemia: Problem details: Noted, following. replacing. Status: Acute (6) Type 2 diabetes mellitus: Problem details: Checking A1c Sliding scale and Accu-Cheks ordered Follow Status: Acute (7) Hyperlipidemia: Problem details: Noted Status: Acute (8) Gastroesophageal reflux: Problem details: Noted Status: Acute (9) Chronic obstructive pulmonary disease: Problem details: Budesonide Nic kessler Status: Acute (10) Benign prostatic hyperplasia: Problem details: Noted continue home meds Status: Acute Subjective Date Seen: 06/13/23 Interval history: Daily Progress Note - Hospital Medicine Day #: 4 CC: KYRIE with bilateral pneumonia/weakness assoc leukocytosis, elevated INR trouble sleeping last night. needed ativan. reports he felt anxious. White blood cell count climb from 24.8 up to 28.4 - patient is not on steroids. Did transition to oral antibiotics Hemoglobin is stable INR is down trending but still elevated 1.65, no oral anticoagulation or VTE prophylaxis Potassium is now normal. Creatinine remains elevated at 2.8, GFR 17. UA still appears normal/bland sediment. Renal ultrasound was done this morning. Urine antigen for strep pneumo and Legionella are negative Renal u/s IMPRESSION: 1. No evidence of hydronephrosis. Bilateral ureteral jets visualized. 2. Bilateral nonobstructing intrarenal calculi, better visualized on recent CT. Inflammatory markers are down trending Blood cultures remain negative to date. Urine culture negative. Peripheral smear: Leukocytosis reflects marked absolute neutrophilia with mild left shift and mild monocytosis. Favor reactive. Rare circulating plasmacytoid cell present Mild thrombocytosis, favor reactive Mild microcytic anemia with occasional target cells and acanthocytes. Objective: can talk without getting out of breath. Mildly anxious. Vitals: see above Lungs: lung sounds much improved Cardiac: S1S2. Disposition/Potential discharge - Likely to return to previous living situation. Today I spent 50minutes seeing the patient, reviewing Expanse and EPIC notes/diagnostics, discussing the care plan with our care time that includes social work, PT/OT, pharmacy, RT, chcf and documenting my impressions and plan in the medical record. Exam Const: Vital Signs, click to edit/add: Vital Signs - 24 hr 06/12/23 15:00 06/12/23 15:00 06/12/23 19:36 Temperature 97.8 F 97.5 F L Pulse Rate [Left P ulse Oximeter] 74 74 79 Respiratory Rate 20 18 18 Blood Pressure [Le ft Arm] 165/99 H Blood Pressure [Ri ght Arm] 158/95 H Pulse Oximetry 93 93 Oxygen Delivery Me thod Room Air Room Air 06/12/23 23:00 06/12/23 23:34 06/13/23 03:30 Temperature 97.6 F 97.6 F Pulse Rate [Left P ulse Oximeter] 80 80 66 Respiratory Rate 18 18 20 Blood Pressure [Le ft Arm] 150/88 H 150/85 H Blood Pressure [Ri ght Arm] Pulse Oximetry 92 93 Oxygen Delivery Me thod Room Air Room Air 06/13/23 08:30 06/13/23 08:30 06/13/23 11:00 Temperature 98 F 97.8 F Pulse Rate [Left P ulse Oximeter] 77 77 77 Respiratory Rate 20 20 20 Blood Pressure [Le ft Arm] 165/98 H 168/92 H Blood Pressure [Ri ght Arm] Pulse Oximetry 93 96 Oxygen Delivery Me thod Room Air Room Air Labs Labs: Laboratory Results - last 24 hr 06/12/23 06/13/23 06/13/23 06:40 06:18 06:18 WBC 28.47 H* Cancelled RBC 3.67 L Hgb Hct MCV MCH MCHC RDW Coeff of Ann Plt Count Neut % (Auto) Lymph % (Auto) [place] % (Auto) Eos % (Auto) Baso % (Auto) Neut # (Auto) Lymph # (Auto) [place] # (Auto) Eos # (Auto) Baso # (Auto) Abs Immat Gran (auto) Imm/Tot Granulo (auto) Diff Slide Review Acceptable Review INR Sodium Potassium Chloride Carbon Dioxide Anion Gap BUN Creatinine Estimated Creat Clear Estimated GFR Glucose Calcium Phosphorus Magnesium Albumin 06/13/23 06/13/23 06/13/23 06:18 06:18 06:18 WBC RBC Cancelled Hgb 10.1 L Cancelled Hct 29.8 L Cancelled MCV 81 MCH MCHC RDW Coeff of Ann Plt Count Neut % (Auto) Lymph % (Auto) [place] % (Auto) Eos % (Auto) Baso % (Auto) Neut # (Auto) Lymph # (Auto) [place] # (Auto) Eos # (Auto) Baso # (Auto) Abs Immat Gran (auto) Imm/Tot Granulo (auto) Diff Slide Review INR Sodium Potassium Chloride Carbon Dioxide Anion Gap BUN Creatinine Estimated Creat Clear Estimated GFR Glucose Calcium Phosphorus Magnesium Albumin 06/13/23 06/13/23 06/13/23 06:18 06:18 06:18 WBC RBC Hgb Hct MCV Cancelled MCH 28 Cancelled MCHC 34 Cancelled RDW Coeff of Ann 17.8 H Plt Count 542 H Neut % (Auto) Lymph % (Auto) [place] % (Auto) Eos % (Auto) Baso % (Auto) Neut # (Auto) Lymph # (Auto) [place] # (Auto) Eos # (Auto) Baso # (Auto) Abs Immat Gran (auto) Imm/Tot Granulo (auto) Diff Slide Review INR Sodium Potassium Chloride Carbon Dioxide Anion Gap BUN Creatinine Estimated Creat Clear Estimated GFR Glucose Calcium Phosphorus Magnesium Albumin 06/13/23 06:18 WBC RBC Hgb Hct MCV MCH MCHC RDW Coeff of Ann Plt Count Cancelled Neut % (Auto) 77.8 H Lymph % (Auto) 4.7 L [place] % (Auto) 4.1 Eos % (Auto) 0.4 Baso % (Auto) 0.1 Neut # (Auto) 22.10 H Lymph # (Auto) 1.30 [place] # (Auto) 1.20 H Eos # (Auto) 0.10 Baso # (Auto) 0.00 Abs Immat Gran (auto) 3.70 H Imm/Tot Granulo (auto) 12.9 Diff Slide Review Acceptable Review INR 1.65 H Sodium 137 Potassium 3.6 Chloride 109 Carbon Dioxide 22 Anion Gap 6 L BUN 48 H Creatinine 2.8 H Estimated Creat Clear 16.93 Estimated GFR 23 Glucose 102 Calcium 8.5 Phosphorus 2.9 Magnesium 2.0 Albumin 2.8 L
[2023-06-13 13:41] LABS: Bacteria Urine Few; RBC Urine 0-2 (0-2); Squamous Epithelial Cell Urine Few (None-Few); WBC Urine 0-2 (0-5)
--- NOTE | 2023-06-13 14:25 | NUTR.NU ---
Follow-up with patient today regarding oral intake, review of high [place] [employer] pro education. Pt was on phone with a [facility] support person discussing meal delivery with patient. Pt completed the phone call. He states that they are going to provide plenty of meals for him. He endorses that he should focus on getting protein. This [employer] underwriter reminded him to make his snacks high protein too or think of eating 6 small meals per day. (pt states he has had a tendency to snack on sweets). Pt states his blood glucose is good and that his primary doctor was happy with his diabetes numbers the last time he was there. Pt does feel like his appetite is still much less than it should be and is willing to receive a nutrition supplement daily. Enlive ordered as an afternoon nourishment for pt. Will continue to follow oral intake, labs and weight, adjust nourishments to meet preferences and provide additional education as needed.
[2023-06-13 16:55] VITALS: BP 169/109; PULSE 86; RESP 20; TEMP 36.3; O2SAT 94
[2023-06-13 19:48] VITALS: BP 158/93; PULSE 85; RESP 16; TEMP 36.6; O2SAT 94
--- NOTE | 2023-06-13 22:53 | PC.NURSE ---
Shift [id number]- Patient complains of some discomfort while in bed- tylenol administered- see eMAR. He denies SOB. Poor appetite. Remains on RA with saturations low-mid 90s%.
[2023-06-13 23:29] VITALS: BP 154/100; PULSE 76; RESP 18; TEMP 36.7; O2SAT 95
[2023-06-14] VITALS (8 sets, daily range): BP systolic 155–172; BP diastolic 92–109; PULSE 76–90; RESP 16–20; TEMP 36.5–36.7; O2SAT 92–96
[2023-06-14] MEDS: ZOLPIDEM 5 MG TABLET PO ×2 (00:37→22:19)
[2023-06-14] MEDS: ACETAMINOPHEN 325 MG TABLET PO ×2 (03:31→22:18)
[2023-06-14] MEDS: OMEPRAZOLE 20 MG CAPSULE DR PO (06:04)
[2023-06-14] MEDS: IPRAT-ALBUT 0.5-2.5 MG/3 ML NEB 1 NEB IH ×4 (06:05→23:08)
--- NOTE | 2023-06-14 06:40 | PC.NURSE ---
End of shift [id number]: A&O, pleasant and cooperative. Hypertensive VS otherwise stable. Pt requested sleep aid. See eMAR. Reports 7/10 generalized pain, tylenol given w/ stated relief. Up to the bathroom independently. Pt reports multiple days of loose stool, but reports ?today has been better?. X3 loose stools this shift. updated. see orders.
[2023-06-14 07:03] LABS: Ionized Calcium* 1.18 mmol/L (1.11-1.30)
[2023-06-14 07:07] LABS: Hematocrit 27.8 % (37.0-53.0); Hemoglobin* 9.5 gm/dL (13.5-17.5); Lymphocytes Percent Auto 4.5 % (20-44); Mean Corpuscular HGB Conc 34 gm/dL (32-36); Mean Corpuscular Hemoglobin 28 pg (26-34); Mean Corpuscular Volume 82 fL (80-100); Neutrophils Percent Auto 76.5 % (42.0-72.0); Platelet Count* 526 K/uL (140-440); RDW Coefficient of Variation % 17.9 % (11.5-15.5)
[2023-06-14 07:08] LABS: Eosinophils Percent Auto 0.6 % (0.0-7.0); Immature Granulocytes Pct Auto 11.7 %; Monocytes Percent Auto 6.7 % (0.0-11.0)
[2023-06-14 07:27] LABS: INR 1.38 (0.91-1.10); Prothrombin Time 17.8 Seconds
[2023-06-14 07:29] LABS: Slide Review Reflex No
[2023-06-14 07:30] LABS: Chloride* 107 mmol/L (96-114)
[2023-06-14 07:31] LABS: Albumin* 2.7 g/dL (3.3-5.0); Potassium* 3.9 mmol/L (3.6-5.1); Sodium* 135 mmol/L (135-149)
[2023-06-14 07:33] LABS: Anion Gap 7 mEq/L (7-15); Carbon Dioxide* 21 mmol/L (20-32); Creatinine* 2.6 mg/dL (0.5-1.5); Est. Creatinine Clearance* 18.15; Estimated Glomerular Filt Rate 25 ml/min
[2023-06-14 07:34] LABS: Blood Urea Nitrogen* 45 mg/dL (7-30); Calcium* 8.3 mg/dL (8.4-10.6); Glucose* 114 mg/dL (60-115); Magnesium* 1.8 mg/dL (1.5-2.6)
[2023-06-14 09:40] LABS: C.Difficile Negative (Negative); CDIFFEPI 027 PRESUMPTIVE NEGATIVE (Negative)
[2023-06-14] MEDS: SODIUM CHLORIDE 0.9 % (FLUSH) 10 ML SYRINGE 5 ML IVF ×2 (09:52→20:39)
[2023-06-14] MEDS: METOPROLOL SUCCINATE (XL) 25 MG TAB PO (09:53)
[2023-06-14] MEDS: POTASSIUM CHLORIDE 10 MEQ CAPSULE ER 20 MEQ PO ×2 (10:30→17:52)
[2023-06-14] MEDS: BUDESONIDE 0.25 MG/2 ML AMPUL.NEB 0.5 MG NEB ×2 (10:32→20:38)
--- NOTE | 2023-06-14 12:36 | RESP.RT ---
Patient sitting up in bed, appears comfortable. Did IS and Aerobika with patient, good effort, both promoted non-productive cough. BBS with all lung field diminished with fine crackles, LLL more diminished with fine crackles, CXR Left pleural effusion, and vascular congestion. Patient has Pulmicort and DuoNeb.
--- NOTE | 2023-06-14 18:48 | PM.IMPN1 ---
Progress Note: A&P Assessment and plan (1) Pneumonia: Problem details: -Bilateral community-acquired pneumonia. -Not hypoxic, however presented weak and having evidence of an acute kidney injury. His coagulopathy, hypokalemia and profound leukocytosis puts him at risk for bacteremia and other complications. -Inpatient management is appropriate. -stopping fluids given mild evidence of pulmonary edema on 06/12. Transitioning IV antibiotics to oral Levaquin on 06/12 -Respiratory care, nebulizers, ISP and aerobika initiated. - 06/14 levofloxacin renally dosed. Will have patient do 10 d total of antibiotics. Status: Acute (2) Chronic obstructive pulmonary disease: Problem details: Budesonide nebs, DuoNebs - rhonchi today. Not hypoxic. Recheck in am. If still rhonchi, consider prednisone. Also, will need nebs for homegoing tomorrow. Status: Chronic (3) Acute kidney injury: Problem details: UA sediment reviewed x2 No evidence of infection or obstruction Likely pre renal, potentially ATN or glomerulonephritis - 06/14 improving Cr 2.6 today. Monitor Status: Acute (4) Elevated INR: Problem details: not clear on etiology. APTT, fibrinogen and D-dimer are all increased. I think this is all reactive and related to underlying infection. Is not on VTE prophylaxis or exogenous OAC. - Improving. INR 1.38 today 06/14 -SCDs Status: Acute (5) Leukocytosis: Problem details: Noted. Peripheral smear reviewed. Platelets are also elevated. Likely all reactive. - fluctuating, but improving. Status: Acute (6) Acute hypokalemia: Problem details: Resolved Status: Acute (7) Type 2 diabetes mellitus: Problem details: A1c - 6/6% on 06/10 Sliding scale and Accu-Cheks ordered POC BG 100-160's. Status: Chronic (8) Hyperlipidemia: Problem details: Noted Status: Chronic (9) Gastroesophageal reflux: Problem details: Noted Status: Chronic (10) Benign prostatic hyperplasia: Problem details: Noted continue home meds Status: Chronic Subjective Time Seen by Provider: 13:27 Date Seen: 06/14/23 Interval history: Liam feels better. He complains of a catch in his breathing, but also states this is chronic. He is very nervous about going home and wants to go Friday. We spoke about how his labs are improving and he is on oral antibiotics. He is agreeable to discharge tomorrow. We discussed getting friends to step up to help with groceries and be with him tomorrow upon returning home. He is going to work on setting all that up today. Exam Narrative: Exam Narrative: General: Anxious. Awake, alert, oriented. No pallor. No jaundice. Oropharynx: Clear. Mucous membranes moist. Cardiovascular: Regular rate and rhythm. No murmurs, gallops, or rubs. Respiratory: Rhonchi throughout, no wheezes or crackles. Abdomen: Bowel sounds present. Soft, nondistended, nontender. Extremities: No pedal edema. Const: Vital Signs, click to edit/add: Vital Signs - 24 hr 06/13/23 19:48 06/13/23 23:29 06/14/23 01:53 Temperature 97.8 F 98.0 F 97.7 F Pulse Rate [Left P ulse Oximeter] 85 76 78 Respiratory Rate 16 18 18 Blood Pressure [Le ft Arm] 158/93 H 154/100 H 159/98 H Blood Pressure [Ri ght Arm] Pulse Oximetry 94 95 92 Oxygen Delivery Me thod Room Air Room Air Room Air 06/14/23 08:30 06/14/23 09:50 06/14/23 12:33 Temperature 97.8 F Pulse Rate [Left P ulse Oximeter] 77 76 Respiratory Rate 20 18 18 Blood Pressure [Le ft Arm] 162/106 H 165/94 H Blood Pressure [Ri ght Arm] 170/103 H Pulse Oximetry 93 93 94 Oxygen Delivery Me thod Room Air Room Air Room Air 06/14/23 15:00 06/14/23 16:01 Temperature 97.8 F Pulse Rate [Left P ulse Oximeter] 82 82 Respiratory Rate 18 18 Blood Pressure [Le ft Arm] 155/95 H Blood Pressure [Ri ght Arm] 172/109 H Pulse Oximetry 96 Oxygen Delivery Me thod Room Air Labs Labs: Laboratory Results - last 24 hr 06/14/23 06/14/23 05:54 08:35 WBC 25.10 H* RBC 3.40 L Hgb 9.5 L Hct 27.8 L MCV 82 MCH 28 MCHC 34 RDW Coeff of Ann 17.9 H Plt Count 526 H Neut % (Auto) 76.5 H Lymph % (Auto) 4.5 L [place] % (Auto) 6.7 Eos % (Auto) 0.6 Baso % (Auto) 0.0 Neut # (Auto) 19.20 H Lymph # (Auto) 1.10 [place] # (Auto) 1.70 H Eos # (Auto) 0.20 Baso # (Auto) 0.00 Abs Immat Gran (auto) 2.90 H Imm/Tot Granulo (auto) 11.7 INR 1.38 H Sodium 135 Potassium 3.9 Chloride 107 Carbon Dioxide 21 Anion Gap 7 BUN 45 H Creatinine 2.6 H Estimated Creat Clear 18.15 Estimated GFR 25 Glucose 114 Calcium 8.3 L Ionized Calcium [place] 1.18 Phosphorus 3.0 Magnesium 1.8 Albumin 2.7 L Stl C. diff Tox B Gene Negative Stl C. diff [id number] PRESUMPTIVE NEGATIVE
[2023-06-15 03:00] VITALS: BP 160/95; PULSE 77; RESP 18; O2SAT 93
[2023-06-15] MEDS: OMEPRAZOLE 20 MG CAPSULE DR PO (06:04)
[2023-06-15] MEDS: IPRAT-ALBUT 0.5-2.5 MG/3 ML NEB 1 NEB IH (06:04)
--- NOTE | 2023-06-15 06:39 | PC.NURSE ---
End of shift [id number]: A&O, pleasant and cooperative. Hypertensive VS otherwise stable. Reports 6-7 generalized pain, tylenol given w/ stated relief. Up to the bathroom independently. Pt appeared to rest comfortably through the night. ? ?
[2023-06-15 06:47] LABS: Basophils Percent Auto 0.1 % (0.0-3.0); Eosinophils Percent Auto 0.4 % (0.0-7.0); Hematocrit 33.3 % (37.0-53.0); Hemoglobin* 11.2 gm/dL (13.5-17.5); Immature Granulocytes Pct Auto 9.4 %; Lymphocytes Percent Auto 4.3 % (20-44); Mean Corpuscular HGB Conc 34 gm/dL (32-36); Mean Corpuscular Hemoglobin 27 pg (26-34); Mean Corpuscular Volume 81 fL (80-100); Monocytes Percent Auto 7.4 % (0.0-11.0); Neutrophils Percent Auto 78.4 % (42.0-72.0); Platelet Count* 590 K/uL (140-440); RDW Coefficient of Variation % 18.4 % (11.5-15.5); Red Blood Count 4.09 m/uL (4.30-5.90); White Blood Count* 24.55 K/uL (4.50-11.00)
[2023-06-15 07:02] LABS: Slide Review Reflex No
[2023-06-15] MEDS: METOPROLOL SUCCINATE (XL) 25 MG TAB PO (08:01)
[2023-06-15 08:22] VITALS: BP 165/100; PULSE 81; RESP 16; TEMP 36.6; O2SAT 88
[2023-06-15] MEDS: BUDESONIDE 0.25 MG/2 ML AMPUL.NEB 0.5 MG NEB (09:19)
[2023-06-15] MEDS: levoFLOXacin 500 MG TABLET PO (09:19)
[2023-06-15] MEDS: POTASSIUM CHLORIDE 10 MEQ CAPSULE ER 20 MEQ PO (09:26)
--- NOTE | 2023-06-15 12:32 | P.DS_ITS ---
DS: Providers Provider Time Seen by Provider: 09:05 Date Seen: 06/15/23 Date of admission: 06/10/23 09:13 Primary care physician: Randy Lu MD Admitting Clinician: Trino Ferrera MD Consults: 06/10/23 09:43 Consult to Occupational Therapy [CONS] Routine Comment: Reason(s) for OT Consult:: Evaluate and Treat Any Restrictions?:: No Restrictions Consult to Physical Therapy [CONS] Routine Comment: Reason(s) for PT Consult:: Evaluate and Treat Any Restrictions?:: No Restrictions 06/10/23 11:25 Consult to Respiratory Therapy [CONS] Routine Comment: Reason(s) for RT Consult:: Consult Attending Physician on discharge: Sandra Rai MD Date of Discharge: 06/15/23 DS: Diagnosis Discharge Diagnosis (1) Elevated INR: Status: Acute Problem details: not clear on etiology. APTT, fibrinogen and D-dimer are all increased. I think this is all reactive and related to underlying infection. Is not on VTE prophylaxis or exogenous OAC. - Improving. INR 1.2 today 06/15 (2) Acute hypokalemia: Status: Resolved Problem details: Resolved (3) Leukocytosis: Status: Acute Problem details: Noted. Peripheral smear reviewed. Platelets are also elevated. Likely all reactive. - fluctuating, but improving. White blood count 24 today. (4) Pneumonia: Status: Acute Problem details: -Bilateral community-acquired pneumonia. -Not hypoxic, however presented weak and having evidence of an acute kidney injury. His coagulopathy, hypokalemia and profound leukocytosis puts him at risk for bacteremia and other complications. -Inpatient management is appropriate. -stopping fluids given mild evidence of pulmonary edema on 06/12. Transitioning IV antibiotics to oral Levaquin on 06/12 -Respiratory care, nebulizers, ISP and aerobika initiated. - 06/14 levofloxacin renally dosed. Will have patient do 10 d total of antibiotics. (5) Acute kidney injury: Status: Acute Problem details: UA sediment reviewed x2 No evidence of infection or obstruction Likely pre renal, potentially ATN or glomerulonephritis - 06/15 improving Cr 2.6 today. Outpatient nephrology (6) Type 2 diabetes mellitus: Status: Chronic Problem details: A1c - 6/6% on 06/10 Resume home regimen POC BG 100-160's. (7) Hyperlipidemia: Status: Chronic Problem details: Noted (8) Gastroesophageal reflux: Status: Chronic Problem details: Noted (9) Chronic obstructive pulmonary disease: Status: Chronic Problem details: Budesonide nebs, DuoNebs - Lungs clearer today. D/c home with nebs (10) Benign prostatic hyperplasia: Status: Chronic Problem details: Noted continue home meds (11) Adrenal nodule: Status: Acute Problem details: 06/09/23 CT abd/pelvis: 1.5 cm right adrenal nodule, likely an adrenal adenoma, incompletely characterized on this examination. (12) Renal calculi: Status: Acute Problem details: 06/13/23 renal US: 1. No evidence of hydronephrosis. Bilateral ureteral jets visualized. 2. Bilateral nonobstructing intrarenal calculi, better visualized on recent CT. DS: Summary Hospital Course Hospital Course: NOTE TO PCP: Consider referral to hematology for leukocytosis and elevated INR if these have not resolved. Also, patient will need follow up on incidental adrenal nodule found on CT abd/pelvis on 06/09/23. This is a 78-year-old male will allow been feeling well for about a week and came in with weakness, difficulty sleeping and eating as well as a semi productive cough. He denied fever. He was found to have bilateral community- acquired pneumonia and was started on broad-spectrum antibiotics. He was admitted to the hospital for further treatment. Additionally he was found to have marked leukocytosis, elevated alkaline phosphatase, elevated CRP, elevated INR, and acute renal failure. These are thought to be likely reactive as pat ierick has no history of these abnormalities, there is no evidence of urinary infection or obstruction, peripheral blood smear showed likely reactive and the improved as he was treated for pneumonia. Please see diagnoses above for further details. Patient made good improvements from a respiratory standpoint. He has not required oxygen, he is independent with his cares and ambulation, and his symptoms have improved. He is quite anxious about homegoing but was agreeable to do so today as he has met all the criteria to do so and I find no further medical reason to keep him here. We discussed signs and symptoms that should bring him back. Additionally I have asked him to reach out to his friends and social network to help him with meals and to sit with him for about an hour once a day to help with his mental health and anxiety. They can also help him do things around the house at that time, if he needs. He was agreeable in reached out to them last night. Time Spent with Patient Time attestation: Total time spent providing and/or coordinating discharge services: Exam Narrative: Exam Narrative: General: Anxious. Awake, alert, oriented. No pallor. No jaundice. Oropharynx: Clear. Mucous membranes moist. Cardiovascular: Regular rate and rhythm. No murmurs, gallops, or rubs. Respiratory: Mild rhonchi throughout, much improved from yesterday, no wheezes or crackles. Abdomen: Bowel sounds present. Soft, nondistended, nontender. Extremities: No pedal edema. Const: Vital Signs, click to edit/add: Vital Signs - 24 hr 06/14/23 12:33 06/14/23 15:00 06/14/23 16:01 Temperature 97.8 F Pulse Rate [Left P ulse Oximeter] 76 82 82 Respiratory Rate 18 18 18 Blood Pressure [Le ft Arm] 165/94 H 155/95 H Blood Pressure [Ri ght Arm] 170/103 H 172/109 H Pulse Oximetry 94 96 Oxygen Delivery Me thod Room Air Room Air 06/14/23 19:48 06/14/23 23:09 06/15/23 03:00 Temperature 97.7 F 98.1 F Pulse Rate [Left P ulse Oximeter] 90 85 77 Respiratory Rate 18 16 18 Blood Pressure [Le ft Arm] 167/97 H 161/92 H 160/95 H Blood Pressure [Ri ght Arm] Pulse Oximetry 93 94 93 Oxygen Delivery Me thod Room Air Room Air Room Air 06/15/23 08:22 Temperature 97.8 F Pulse Rate [Left P ulse Oximeter] 81 Respiratory Rate 16 Blood Pressure [Le ft Arm] 165/100 H Blood Pressure [Ri ght Arm] Pulse Oximetry 88 Oxygen Delivery Me thod Room Air DS: Data Data Completed and Pending Completed studies during hospitalization: 06/09/2023 EKG: Normal sinus rhythm, 97 beats per minute, left anterior fascicular block. Ordering Physician: Trino Ferrera M.D. Date of Service: 06/09/23 Procedure(s): CT chest abdomen pelv wo con Accession Number(s): [id number] cc: Randy Lu M.D.; Trino Ferrera M.D.~ For Patients: As a result of the 21st Century Cures Act, medical imaging exams and procedure reports are released immediately into your electronic medical record. You may view this report before your referring provider. If you have questions, please contact your health care provider. INDICATION: Weight loss, poor appetite, hypoxia, left-sided chest pain. TECHNIQUE: Multiplanar CT images of the chest, abdomen and pelvis were acquired without the administration of intravenous contrast COMPARISON: CT abdomen pelvis 10/24/2019. FINDINGS: Limited evaluation without the use of intravenous contrast. CHEST: Lower neck: Visualized thyroid appears unremarkable. Vascular: 40 mm ascending aorta, within upper limits of normal given patient`s age. Severe atherosclerotic calcifications of the aortic arch. The pulmonary artery is unremarkable Heart: Normal heart size for severe coronary arterial calcifications. Mediastinum: No pathologic lymphadenopathy by size criteria. Lungs: Left upper lower pulmonary cysts measuring 2.0 cm. Multifocal consolidation, predominantly involving the left lower lobe, as well as the right lower lobe and left lingular segment. Scattered tree-in-bud nodularity throughout the lung bases. Pleura: Small left greater than right pleural effusions. No pneumothorax. Chest wall and axilla: No mass or adenopathy. Bones: Degenerative changes of the thoracic spine. No acute osseous abnormalities. Diffuse idiopathic skeletal hyperostosis. ABDOMEN AND PELVIS: Liver: Unremarkable. Gallbladder: Cholelithiasis without gallbladder distention or pericholecystic inflammatory changes. Biliary: No biliary ductal dilitation. Pancreas: Stippled and course calcifications of the pancreas, likely due to chronic pancreatitis.. Spleen: Punctate calcifications at the spleen likely due to prior granulomatous disease. Adrenal glands: 1.5 cm hypodense nodule within the right adrenal gland, likely an adrenal adenoma. There is thickening of the left adrenal gland, likely adrenal hyperplasia.. Kidneys: Numerous nonobstructive calculi within the collecting system of both kidneys bilaterally. No hydronephrosis. Markedly atrophic right kidney. Ureters: Unremarkable. Bladder: Unremarkable. GI tract: No bowel obstruction. Colonic diverticulosis without adjacent pericolonic fat stranding to suggest acute diverticulitis. Mild colonic stool burden. Normal appendix. No bowel wall thickening. Vascular structures: Severe atherosclerotic calcifications of the abdominal aorta and its branches without focal aneurysm. Lymph nodes: Unremarkable. Peritoneum: Trace pelvic free fluid, nonspecific. No pneumoperitoneum. No drainable fluid collections identified. Pelvic Organs: Prostatomegaly. Bones: Degenerative changes of the lumbar spine. Abnormal articulation between the spinous processes of the lower lumbar spine with mild associated degenerative changes, compatible with Baastrup`s disease. No acute osseous abnormality. IMPRESSION: 1. Multifocal pneumonia involving the left lingula and bilateral lower lobes. Tree-in-bud nodularity scattered throughout the lung bases compatible with infectious bronchiolitis. 2. Trace free fluid in the pelvis, nonspecific, the sterility of this fluid cannot be assessed on CT. 3. No acute abdominopelvic pathology. Colonic diverticulosis without evidence of acute diverticulitis. Cholelithiasis without evidence of acute cholecystitis. 4. 1.5 cm right adrenal nodule, likely an adrenal adenoma, incompletely characterized on this examination. Please note that all CT scans at this facility use dose modulation, iterative reconstruction, and/or weight-based dosing when appropriate to reduce radiation dose to as low as reasonably achievable. Dictated by Gary Pizarro MD @ 06/10/2023 12:10:43 AM (Electronically Signed) Ordering Physician: Preeti Whitmore M.D. Date of Service: 06/10/23 Procedure(s): XR chest 2V Accession Number(s): [id number] cc: Randy Lu M.D.; Preeti Whitmore M.D.~ For Patients: As a result of the Century Cures Act, medical imaging exams and procedure reports are released immediately into your electronic medical record. You may view this report before your referring provider. If you have questions, please contact your health care provider. INDICATION: Pneumonia follow-up TECHNIQUE: Chest 2 views. COMPARISON: CT chest on June 09, 2023 FINDINGS/IMPRESSION: The cardiomediastinal silhouette is within normal limits. Bibasilar, left greater than right, airspace opacities, concerning for pneumonia. No appreciable pleural effusion or pneumothorax. No displaced fractures. Dictated by Alec Green MD @ 06/10/2023 1:46:27 PM (Electronically Signed) Ordering Physician: Preeti Whitmore M.D. Date of Service: 06/12/23 Procedure(s): XR chest 2V Accession Number(s): [id number] cc: Randy Lu M.D.; Preeti Whitmore M.D.~ For Patients: As a result of the Cures Act, medical imaging exams and procedure reports are released immediately into your electronic medical record. You may view this report before your referring provider. If you have questions, please contact your health care provider. Indication: Follow-up pneumonia Comparison: Two-view chest June 10, 2023 Technique: PA and lateral views of the chest Findings: Persistent left basilar pleural effusion with adjacent compressive atelectasis and/or infiltrates. Mildly increased interstitial markings likely representing pulmonary edema. The cardiac silhouette is mildly prominent. The bony thorax is grossly intact. Impression: Left basilar pleural effusion with adjacent compressive atelectasis versus infiltrates similar to previous exam. Persistent superimposed pulmonary vascular congestion. Dictated by Arturo Bowling MD @ 06/12/2023 9:30:34 AM (Electronically Signed) Ordering Physician: Preeti Whitmore M.D. Date of Service: 06/13/23 Procedure(s): US renal Accession Number(s): [id number] cc: Randy Lu M.D.; Preeti Whitmore M.D.~ For Patients: As a result of the Cures Act, medical imaging exams and procedure reports are released immediately into your electronic medical record. You may view this report before your referring provider. If you have questions, please contact your health care provider. INDICATION: KYRIE TECHNIQUE: Ultrasound renal and bladder complete. Delgado-scale and color Doppler sonographic images were acquired of the kidneys and urinary bladder. COMPARISON: CT chest and pelvis June 09, 2023. FINDINGS: Right kidney: 9.5 x 3.8 x 3.7 cm. Left kidney: 11.7 x 5.7 x 4.3 cm. Moderate right renal cortical thinning. Mild left renal cortical thinning. Multiple echogenic structure seen in the superior pole of the right kidney. Multiple echogenic structures visualized in the left kidney. No evidence of hydronephrosis. No suspicious mass. Bladder: Normal in caliber and appearance. Color Doppler images demonstrate bilateral ureteral jets. IMPRESSION: 1. No evidence of hydronephrosis. Bilateral ureteral jets visualized. 2. Bilateral nonobstructing intrarenal calculi, better visualized on recent CT. Dictated by Joseluis Frost MD @ 06/13/2023 1:21:29 PM (Electronically Signed) Labs on day of discharge: Labs from last 24 hours 06/15/23 06:24 WBC 24.55 H RBC 4.09 L Hgb 11.2 L Hct 33.3 L MCV 81 MCH 27 MCHC 34 RDW Coeff of Ann 18.4 H Plt Count 590 H Neut % (Auto) 78.4 H Lymph % (Auto) 4.3 L [place] % (Auto) 7.4 Eos % (Auto) 0.4 Baso % (Auto) 0.1 Neut # (Auto) 19.20 H Lymph # (Auto) 1.10 [place] # (Auto) 1.80 H Eos # (Auto) 0.10 Baso # (Auto) 0.00 Abs Immat Gran (auto) 2.30 H Imm/Tot Granulo (auto) 9.4 INR 1.20 H Discharge Plan Discharge Disposition: Home, Self-Care Date of Admission: 06/10/23 09:13 Attending Provider on Discharge: Sandra Rai Primary Care Provider: Randy Lu Condition: Stable Anticipated Discharge Date/Time: 06/15/23 12:50 Discharge Medications: New potassium chloride 10 mEq Capsule, Extended Release 20 meq PO DAILY Qty: 30 0RF omeprazole 20 mg Capsule,Delayed Release(Dr/Ec) 20 mg PO DAILY@0700 Qty: 30 0RF metoprolol succinate 25 mg Tablet Extended Release 24 Hr 25 mg PO DAILY Qty: 30 0RF levofloxacin 500 mg Tablet 500 mg PO Q48H 4 Days Qty: 2 0RF ipratropium-albuterol 0.5 mg-3 mg(2.5 mg base)/3 mL solution for nebulization 3 ml inhalation Q6H PRNQty: 90 0RF (DME) nebulizer and compressor Device See Rx Instructions .Route Qty: 1 0RF Rx Instructions: As directed (DME) nebulizer accessories Kit See Rx Instructions .ROUTE .MEDSUPPLY Qty: 1 0RF Rx Instructions: As directed Continued evening primrose oil 500 mg capsule 500 mg PO DAILY niacin 500 mg tablet 1,500 mg PO DAILY Qty: 270 3RF albuterol sulfate [Ventolin HFA] 90 mcg/actuation HFA aerosol inhaler 2 puff inhalation Q4-6H PRN (Reason: shortness of breath or wheezing) Qty: 6.7 3RF Dulera 200-5 mcg/actuation HFA aerosol inhaler 2 puff inhalation Q12H Qty: 8.8 12RF tamsulosin 0.4 mg capsule 0.8 mg PO DAILY Qty: 180 0RF Discharge Orders: Discharge Order (Routine); Ordered 06/15/23 Ordered By: Sandra Rai Patient Education: Acute Kidney Injury (DC), Bacterial Pneumonia (DC) Additional Instructions: 1. Take all of your antibiotic as prescribed. 2. Nephrology appt in 2-3 weeks. Activity Level: No Restrictions Discharge Diet: Diabetic Follow Up Appointments: Randy Lu MD [Primary Care Provider] - (this week, CBC, INR, BMP) Forms: [employer] Info Instructions
--- NOTE | 2023-06-15 15:59 | PC.NURSE ---
shift note: Reviewed dc instructions with pt and copies sent with pt at dc. Returned inhaler x2. IV dc'd by charge nurse intact. Belongings reviewed and returned at dc.
== END 2023-06-15 14:00 | disposition home or self-care (01) | DRG 190 ==
LOC: ED 06-10 00:59 → MEDSURG 06-10 02:07
PROVIDERS: Internal Medicine; Admitting Provider Family Medicine; Emergency Provider Family Medicine; PCP Family Medicine; Visit Provider Family Medicine
DX: J44.0 Chronic obstructive pulmonary disease with (acute) lower respiratory infection (principal); J18.9 Pneumonia, unspecified organism; N17.9 Acute kidney failure, unspecified; E11.9 Type 2 diabetes mellitus without complications; E87.6 Hypokalemia; R79.1 Abnormal coagulation profile; K21.9 Gastro-esophageal reflux disease without esophagitis; N20.0 Calculus of kidney; I10 Essential (primary) hypertension; D35.01 Benign neoplasm of right adrenal gland; Z87.891 Personal history of nicotine dependence; N40.0 Benign prostatic hyperplasia without lower urinary tract symptoms; E78.5 Hyperlipidemia, unspecified
CPT/HCPCS: 36415; 51798; 71046; 71250; 74176; 76775; 80048; 80069; 80076; 81001; 82077; 82330; 82803; 82962; 83036; 83540; 83550; 83605; 83690; 83735; 83880; 84145; 84484; 85025; 85027; 85045; 85379; 85384; 85610; 85730; 86140; 87040; 87086; 87426; 87449; 87493; 87631; 87899; 93005; 94640; 94664; 97116; 97161; 97165; 97530; 99284; 99285; 99291; A9270; C9113; G0378; J0692; J2060; J2543; J3480; J7030; J7120; J7626

== ENCOUNTER 2023-07-07 16:24 | Inpatient (IN) | payer MEDICARE, SELFPAY ==
[2023-07-07] VITALS (7 sets, daily range): BP systolic 96–147; BP diastolic 66–98; PULSE 103–114; RESP 20; TEMP 36.8; O2SAT 92–93; BMI 17.7
--- NOTE | 2023-07-07 18:47 | CRLHL7_ITS ---
For Patients: As a result of the Cures Act, medical imaging exams and procedure reports are released immediately into your electronic medical record. You may view this report before your referring provider. If you have questions, please contact your health care provider. INDICATION: Shortness of breath, weakness. Recent pneumonia. TECHNIQUE: Chest 2 views. COMPARISON: June 12, 2023. FINDINGS: Cardiovascular and mediastinum: Stable heart size and vascular congestion. Lungs and pleural spaces: Worsening right midlung and basilar airspace disease. Stable small left pleural effusion and left basilar consolidation. No pneumothorax. Bones and soft tissues: No significant findings. IMPRESSION: Worsening right mid lung and basilar airspace disease. Stable small left pleural effusion and left basilar consolidation. Persistent superimposed pulmonary vascular congestion. Dictated by Cam Gaspar MD @ 07/07/2023 8:37:04 PM (Electronically Signed)
[2023-07-07 19:08] LABS: Basophils Percent Auto 0.1 % (0.0-3.0); Hematocrit 33.7 % (37.0-53.0); Hemoglobin* 11.5 gm/dL (13.5-17.5); Immature Granulocytes Pct Auto 1.9 %; Lymphocytes Percent Auto 4.5 % (20-44); Mean Corpuscular HGB Conc 34 gm/dL (32-36); Mean Corpuscular Hemoglobin 28 pg (26-34); Mean Corpuscular Volume 81 fL (80-100); Monocytes Percent Auto 1.9 % (0.0-11.0); Neutrophils Percent Auto 91.6 % (42.0-72.0); Platelet Count* 409 K/uL (140-440); RDW Coefficient of Variation % 23.3 % (11.5-15.5); Red Blood Count 4.17 m/uL (4.30-5.90)
--- OUTSIDE RECORDS SUMMARY | 2023-07-07 19:11 | XMS_ITS | Continuity of Care Document ---
Author Name Unknown Organization [facility] Address [address] [address] [place] [address] Phone Care Team Providers Care Fern Picker Name Role Phone Susannah GUADALUPE, Seth Unavailable Unavaila ble Procedures Procedure Date Ugi Endo; W/endo Ultrasound Ex 18 Ugi Endo; W/bx 1/mx Advance Directives Directive Yes / No Effective Date File Name No Information Encounters Encounter Description Practice Location Reason(s) For Visit Diagnoses Date Provider Providers Copied on Encounter [facility], [address] [address], [place], [place], [id number], tel:[phone] [facility] 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 [address] [place] [address], [id number], [place]. tel:[phone] [facility], [address] [address], [place], [place], [id number], tel:[phone] [facility] No Information 8 Susannah Ann. [address] [place] [address], [id number], [place]. tel:[phone] Referring Provider: Seth Arellano, [address] [place] [address], [id number]. tel:[phone] Family History Family Member Type Diagnosis Age At Onset No Information Payers Payer name Insurance type Covered republican ID Authoriza tion(s) No Information Social History Type Description Quantity Date Captured Comments Sex Male Smoking Status No Information Chief Complaint And Reason For Visit No Information Reason For Referral Reason For Referral No Information Plan Of Treatment Date Type Action Status Referral Ordered: EGD Appointment date/timeframe: 11/06/2018 ordered History Of Present Illness Encounter Date Complaint History Of Prese nt Illness No Information Functional Status Date Functional Assessmen t No Information Instructions Date Instruction Additional Infor mation No Information Assessments Type Assessment Date assessment Canales's esophagus without dysp lasia Patient Care Teams Name Effective Dates (start - stop) Status Members No Information
--- OUTSIDE RECORDS SUMMARY | 2023-07-07 19:11 | XMS_ITS | Continuity of Care Document ---
Author Name Unknown Organization [facility] Address [address] [address] [place] [address] Phone Care Team Providers Care Transit Manager Name Role Phone Susannah GUADALUPE, Seth Unavailable Unavaila ble Procedures Procedure Date Ugi Endo; W/endo Ultrasound Ex 18 Ugi Endo; W/bx 1/mx Advance Directives Directive Yes / No Effective Date File Name No Information Encounters Encounter Description Practice Location Reason(s) For Visit Diagnoses Date Provider Providers Copied on Encounter [facility], [address] [address], [place], [place], [id number], tel:[phone] [facility] 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 [place] [address], [id number], [place]. tel:[phone] [facility], [address] [address], [place], [place], [id number], tel:[phone] [facility] No Information 8 Susannah Ann. [address] [place] [address], [id number], [place]. tel:[phone] Referring Provider: Seth Arellano, [address] [place] [address], [id number]. tel:[phone] Family History Family Member Type Diagnosis Age At Onset No Information Payers Payer name Insurance type Covered green party ID Authoriza tion(s) No Information Social History [...]
[2023-07-07 19:20] LABS: Albumin* 3.8 g/dL (3.3-5.0); Chloride* 97 mmol/L (96-114)
[2023-07-07 19:21] LABS: Potassium* 3.8 mmol/L (3.6-5.1); Sodium* 128 mmol/L (135-149)
[2023-07-07 19:22] LABS: Creatinine* 3.8 mg/dL (0.5-1.5); Est. Creatinine Clearance* 10.61; Estimated Glomerular Filt Rate 16 ml/min
[2023-07-07 19:23] LABS: Alkaline Phosphatase* 176 U/L (40-150); Anion Gap 16 mEq/L (7-15); Aspartate Amino Transferase* 17 U/L (12-35); Bilirubin Direct* 0.4 mg/dL (0.0-0.5); Bilirubin Total* 0.5 mg/dL (0.1-1.5); Carbon Dioxide* 15 mmol/L (20-32); Total Protein* 7.2 g/dL (6.0-8.3)
[2023-07-07 19:24] LABS: Alanine Aminotransferase* 16 U/L (4-50); Blood Urea Nitrogen* 68 mg/dL (7-30); Calcium* 9.2 mg/dL (8.4-10.6); Glucose* 257 mg/dL (60-115)
[2023-07-07] MEDS: 0.9 % SODIUM CHLORIDE 1000 ml 1,000 ML IV (19:32)
[2023-07-07 19:36] LABS: Slide Review Reflex Yes; White Blood Count* 71.65 K/uL (4.50-11.00)
[2023-07-07 19:37] LABS: Slide Review Acceptable Review (Acceptable)
[2023-07-07 20:10] LABS: Erythrocyte SedimentationRate* 73 mm/hr (2-15)
--- NOTE | 2023-07-07 20:56 | ED_ITS ---
HPI - General Adult General Date Seen: 07/07/23 Chief complaint: Weakness Stated complaint: weakness, difficulty breathing Time Seen by Provider: 07/07/23 18:37 Source: patient, RN notes reviewed and old records reviewed Mode of arrival: ambulatory Limitations: no limitations History of Present Illness HPI narrative: Patient is a 78-year-old male who presents for ongoing weakness and fatigue, anorexia, weight loss after recent admission for pneumonia. He was admitted to the hospital at the beginning of June with significant leukocytosis, acute on chronic renal insufficiency, and bilateral pneumonia, treated with IV doxycycline and cefepime. He was discharged home on a 10 day course of renally dosed levofloxacin. He notes that his breathing is improved but he just does not feel like he is bouncing back. He notes weight loss secondary to difficulty eating and drinking. He has had diarrhea although he says today he had a formed stool. He does note discomfort in his perianal area with bowel movements. He also has pain in his mouth and wonders about possible thrush related to his steroid inhaler. He says he did not realize that he was supposed to be both rinsing his mouth out and spitting after use of his inhaler. He does not report ongoing fevers. He quit smoking many years ago, denies alcohol use. Lives independently. Related Data Home Medications Medication Instructions Recorded Confirmed evening primrose oil 500 mg capsule 500 mg PO DAILY 04/12/22 07/08/23 Previous Rx's Medication Instructions Recorded niacin 500 mg tablet 1,500 mg (3 x 500 mg) PO DAILY 06/10/22 #270 tabs ipratropium 0.5 mg-albuterol 3 mg 3 ml inhalation Q6H PRN #90 mL 06/15/23 (2.5 mg base)/3 mL nebulization soln metoprolol succinate 25 mg 25 mg PO DAILY #30 tabs 06/15/23 tablet,extended release 24 hr nebulizer accessories #1 ea 06/15/23 nebulizer and compressor #1 ea 06/15/23 omeprazole 20 mg capsule,delayed 20 mg PO DAILY@0700 #30 caps 06/15/23 release potassium chloride 10 mEq 20 meq (2 x 10 mEq) PO DAILY #30 06/15/23 capsule,extended release caps nebulizers #1 ea 06/18/23 trazodone 50 mg tablet 50 - 100 mg (1 - 2 x 50 mg) PO QHS 06/23/23 #30 tabs albuterol sulfate 90 mcg/actuation 2 puff inhalation Q4-6H PRN 07/03/23 aerosol inhaler (Ventolin HFA) shortness of breath or wheezing #6.7 grams mometasone-formoterol HFA 200 2 puff inhalation Q12H #8.8 grams 07/03/23 mcg-5 mcg/actuation aerosol inhaler (Dulera) tamsulosin 0.4 mg capsule 0.4 mg PO DAILY #30 caps 07/03/23 Allergies Allergy/AdvReac Type Severity Reaction Status Date / Time No Known Drug Allergies Allergy Verified 06/23/23 13:06 Review of Systems Status of ROS: Reports: 10 or more systems reviewed and unremarkable except as noted in History and below [facility] Medical History (Updated 07/09/23 @ 15:28 by Yen Lopez PA-C) CKD (chronic kidney disease) ?N18.9 - Chronic kidney disease, unspecified (ICD-10) Rupture of renal capsule of left kidney ?S37.062A - Major laceration of left kidney, initial encounter (ICD-10) 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 - Other specified diseases of pancreas (ICD-10) Dilation of pancreatic duct ?K86.89 - Other specified diseases of pancreas (ICD-10) Depression (03/19/10) ?F32.A - Depression, unspecified (ICD-10) Calculus of pancreatic duct ?K86.89 - Other specified diseases of pancreas (ICD-10) Arm fracture (03/19/10) ?S42.309A - Unspecified fracture of shaft of humerus, unspecified arm, initial encounter for closed fracture (ICD-10) Social History What is your current living situation?: I presently have a place to live Problems where you live: no known problems Problems where you live details: no known problems In the past 12 months, utilities in danger of being shut off: no In past 12 months, lack of transportation kept you from medical appts, meetings, work, or getting things needed for daily living: no In the past 12 mos, have been you worried that your food would run out before you had money to buy more?: never true In the past 12 mos, the food you bought just didn't last and you didn't have money to buy more?: never true Highest level of school completed/degree received: some college, no degree Smoking Status: Former smoker What tobacco products do you use: cigarettes Smoking quit date/years: >15 years ago Do you use any of these nicotine containing products: None Second hand tobacco smoke exposure: No How often do you have a drink containing alcohol: never How often do you have six or more drinks on one occasion: Never AUDIT-C Alcohol total score: 0 Non-prescribed substance use: denies use Caffeine: Yes (3 cups coffee daily) How often does anyone, including family, friends and others, physically hurt you : never How often does anyone, including family, friends and others, insult or talk down to you: never How often does anyone, including family, friends and others, threaten you with harm: never How often does anyone, including family, friends and others, scream or curse at you: never Little interest or pleasure in doing things: not at all Feeling down, depressed, or hopeless: not at all service: No Exam Narrative: Exam Narrative: Vital signs as noted above. In general, an alert, nontoxic male, he is very thin. Head: Normocephalic, atraumatic. Eyes: Pupils are equal reactive. Extraocular movements are full. Conjunctivae are normal. ENT: Mucous membranes are moist. Throat is normal. Neck: Supple without lymphadenopathy. Heart: Regular rate and rhythm. No murmur or rub. Lungs: Clear bilaterally. No increased work of breathing, crackles or wheezes. Abdomen: Soft and nontender. No organomegaly. Extremities: Well perfused. No edema. No calf tenderness. Pulses intact. Neurologic: Patient is alert and oriented to person and place. Speech is fluent. Face is symmetric. Moves all extremities equally. Affect: Normal. Skin: Warm and dry. Well perfused. Const: Vital Signs, click to edit/add: Vital Signs - 24 hr 07/07/23 17:19 07/07/23 19:30 07/07/23 19:31 Temperature 98.2 F Pulse Rate 109 H 108 H Pulse Rate [Pulse Oximeter] 114 H Respiratory Rate 20 Blood Pressure 122/84 Blood Pressure [Le ft Upper Arm] 96/66 Pulse Oximetry 93 92 92 Oxygen Delivery Me thod Room Air 07/07/23 20:02 07/07/23 20:03 Temperature Pulse Rate 103 H Pulse Rate [Pulse Oximeter] Respiratory Rate Blood Pressure 144/87 H Blood Pressure [Le ft Upper Arm] Pulse Oximetry 93 Oxygen Delivery Me thod Course Course ED Course: Patient presents for evaluation of weakness and ongoing failure to thrive after pneumonia earlier this month. Initially tachycardic with a pulse of 114 and a blood pressure of 96/66 although repeat blood pressures were improved. Will place an IV, give a L of normal saline and check basic labs. I have reviewed prior records, previous chest x-ray, CBCs and metabolic panels. Creatinine on discharge was in the mid 2 range, it is elevated again tonight at 3.8 with a BUN of 65, suspect some component of prerenal azotemia. His sodium is low tonight at 1:28 a.m., mild acidosis with a CO2 of 15 and a gap of 16. Blood sugars elevated at 257. LFTs are unremarkable, CRP and sed rate are markedly elevated at 73 for sed rate and 31 for CRP. His white blood cell count today is 71,000. Hemoglobin is 11.5, slightly higher than the 9 and half to 11 range seen earlier this month. Platelets which had been elevated are now in the normal range at 409,000. Increased bands are noted on today's diff. Chest x-ray tonight read as worsening bilateral infiltrates by Radiology. An EKG shows sinus tachycardia with a ventricular rate of 105, no acute ST segment changes, unremarkable T-waves. Troponin is 0. I was able to speak with Dr. Berg, who was on-call for Hematology/Oncology at [place]. He said in the absence of splenomegaly or significant immature cells the likelihood is that the white blood cell count may still be related to infection, but would recommend a close look at the peripheral smear by pathology to look for immature cells suggesting a possible diagnosis of CML. In the meantime, he recommended a thorough evaluation for ongoing infection, patient still has pulmonary infiltrates despite recent IV and oral antibiotics. He will require admission for further evaluation, IV antibiotics. Blood cultures have been drawn, C diff is ordered but not yet pending. Will order nystatin for thrush. Procalcitonin and lactate pending. Procalcitonin is almost 3, up from discharge. Lactate 1.8. For antibiotics, giving vancomycin, ideally would give meropenem which we do not have. Imipenem is contraindicated given his poor creatinine clearance at this time so will give IV cefepime for treatment of hospital-acquired pneumonia. Vital Signs Vital signs: Initial Vital Signs Temperature 98.2 F 07/07/23 17:19 Temperature Source Temporal Artery Scan 07/07/23 17:19 Pulse Rate 114 H 07/07/23 17:19 Respiratory Rate 20 07/07/23 17:19 Blood Pressure 96/66 07/07/23 17:19 Blood Pressure Mean 76 07/07/23 17:19 Pulse Oximetry 93 07/07/23 17:19 Oxygen Delivery Method Room Air 07/07/23 17:19 Vital Signs Temperature 98.2 F 07/07/23 17:19 Pulse Rate 114 H 07/07/23 17:19 Respiratory Rate 20 07/07/23 17:19 Blood Pressure 96/66 07/07/23 17:19 Pulse Oximetry 93 07/07/23 17:19 Oxygen Delivery Method Room Air 07/07/23 17:19 Temperature 98.2 F 07/10/23 07:39 Pulse Rate 96 07/10/23 07:39 Respiratory Rate 18 07/10/23 07:39 Blood Pressure 123/83 07/10/23 07:39 Pulse Oximetry 92 07/10/23 07:39 Oxygen Delivery Method Room Air 07/10/23 07:39 Medications Administered Medications: Generic Name Dose Route Start Last Admin Trade Name Freq PRN Reason Stop Dose Admin Acetaminophen 650 mg 07/08/23 02:31 07/10/23 03:56 Acetaminophen 325 Mg Tablet PO 650 mg Q6H PRN Administration Pain Albuterol 2.5 mg 07/08/23 03:00 07/09/23 09:42 Albuterol Sulfate 2.5 Mg/3 Ml Vial.Neb NEB 2.5 mg Q4H PRN Administration Albuterol/Ipratropium 1 neb 07/08/23 02:49 07/09/23 20:58 Iprat-Albut 0.5-2.5 Mg/3 Ml Neb IH 1 neb Q6H PRN Administration Enoxaparin Sodium 30 mg 07/08/23 03:00 07/10/23 03:39 Enoxaparin 30 Mg/0.3ml Inj SUBCUT 30 mg Q24H JES Administration Guaifenesin 600 mg 07/08/23 09:00 07/09/23 20:58 Guaifenesin 600 Mg Tab.Er.12h PO 600 mg BID JES Administration Vancomycin HCl 750 mg/ Sodium 257.5 mls @ 207.5 mls/hr 07/09/23 23:00 07/10/23 01:00 Chloride IVPB Infused Q48H EJS Infusion Ceftriaxone Sodium 1 gm/ 100 mls @ 200 mls/hr 07/08/23 12:30 07/09/23 15:16 Sodium Chloride IVPB Infused Q24H JES Infusion Azithromycin 500 mg/ Sodium 255 mls @ 255 mls/hr 07/09/23 04:00 07/10/23 05:56 Chloride IVPB Infused Q24H JES Infusion Insulin Aspart 0 unit 07/08/23 08:00 07/09/23 19:00 Insulin Aspart 100 Unit/Ml SUBCUT Not Given TIDWM [facility] Protocol Lidocaine/Diphenhydr/Alum/Mg/Simeth 5 ml 07/09/23 09:31 07/09/23 10:09 Diphen/Lido/Alum/Mag/Simeth 5 Ml Suspension MUCOUS MEM 5 ml QID PRN Administration Metoprolol Succinate 25 mg 07/08/23 12:56 07/09/23 09:23 Metoprolol Succinate (Xl) 25 Mg Tab PO 25 mg DAILY [facility] Administration Mometasone- 0 puff 07/08/23 09:00 07/09/23 20:59 Formoterol [Dulera] IH Not Given 200-5 Mcg/Actuation Q12H [facility] Hfa Aerosol Nystatin 500,000 unit 07/08/23 09:00 07/09/23 20:59 Nystatin 500,000 Unit/5 Ml SWISH/SWAL Not Given QID [facility] Omeprazole 20 mg 07/09/23 07:00 07/10/23 07:08 Omeprazole [address] PO 20 mg DAILY@0700 [facility] Administration Potassium Chloride 20 meq 07/09/23 21:00 07/09/23 20:58 Potassium Chloride 10 Meq Capsule Er PO 20 meq BID JES Administration Sodium Chloride 5 ml 07/08/23 02:31 07/09/23 03:46 Sodium Chloride 0.9 % (Flush) 10 Ml Syringe IVF 5 ml .FLUSH PRN Administration Sodium Chloride 5 ml 07/08/23 09:00 07/09/23 20:58 Sodium Chloride 0.9 % (Flush) 10 Ml Syringe IVF 5 ml BID JES Administration Sodium Chloride 250 ml 07/09/23 23:00 07/09/23 23:21 0.9 % Sodium Chloride 250 Ml IV 250 ml Q24H JES Administration Tamsulosin HCl 0.4 mg 07/09/23 09:00 07/09/23 09:23 Tamsulosin Hcl 0.4 Mg Capsule PO 0.4 mg DAILY JES Administration Trazodone HCl 50 mg 07/08/23 21:00 07/09/23 21:54 Trazodone Hcl 50 Mg Tablet PO 50 mg HS JES Administration Discontinued Medications Generic Name Dose Route Start Last Admin Trade Name Freq PRN Reason Stop Dose Admin Acetaminophen 1,000 mg 07/07/23 22:25 07/07/23 22:40 Acetaminophen 500 Mg Tablet PO 07/07/23 22:26 1,000 mg ONCE ONE Administration Sodium Chloride 1,000 mls @ 1,000 mls/hr 07/07/23 19:00 07/07/23 20:33 0.9 % Sodium Chloride 1000 Ml IV 07/07/23 19:59 Infused .Q1H JES Infusion Vancomycin HCl 750 mg/ Sodium 507.5 mls @ 253.75 mls/hr 07/07/23 22:12 07/08/23 01:45 Chloride IVPB 07/07/23 22:13 Infused ONCE ONE Infusion Protocol Sodium Chloride 1,000 mls @ 75 mls/hr 07/07/23 22:26 07/09/23 09:35 0.9 % Sodium Chloride 1000 Ml IV Infused .[id number] JES Infusion Cefepime HCl 1 gm/ Sodium 100 mls @ 200 mls/hr 07/07/23 22:57 07/08/23 03:35 Chloride IVPB 07/07/23 22:58 Infused ONCE ONE Infusion Azithromycin 500 mg/ Sodium 255 mls @ 255 mls/hr 07/08/23 03:00 07/08/23 05:00 Chloride IVPB Infused Q24H JES Infusion Cefepime HCl 1 gm/ Sodium 100 mls @ 200 mls/hr 07/08/23 03:30 07/08/23 07:11 Chloride IVPB Not Given Q24H JES Potassium Chloride 20 meq 07/09/23 09:00 07/09/23 09:23 Potassium Chloride 10 Meq Capsule Er PO 20 meq DAILY JES Administration Medical Decision Making Lab Data Labs: Lab Results 07/07/23 07/07/23 07/07/23 Range/Units 18:55 20:49 21:29 WBC 71.65 H* (4.50-11.00) K/uL RBC 4.17 L (4.30-5.90) m/uL Hgb 11.5 L (13.5-17.5) gm/dL Hct 33.7 L (37.0-53.0) % MCV 81 (80-100) fL MCH 28 (26-34) pg MCHC 34 (32-36) gm/dL RDW Coeff of Ann 23.3 H (11.5-15.5) % Plt Count 409 (140-440) K/uL Neut % (Auto) 91.6 H (42.0-72.0) % Lymph % (Auto) 4.5 L (20-44) % Pender % (Auto) 1.9 (0.0-11.0) % Eos % (Auto) 0.0 (0.0-7.0) % Baso % (Auto) 0.1 (0.0-3.0) % Neut # (Auto) 65.60 H (1.7-7.0) K/uL Lymph # (Auto) 3.20 H (0.90-2.90) K/uL Pender # (Auto) 1.40 H (0.00-0.90) K/UL Eos # (Auto) 0.00 (0.00-0.50) K/uL Baso # (Auto) 0.10 (0.00-0.30) K/uL Abs Immat Gran (auto) 1.40 H (0.00-0.30) K/uL Imm/Tot Granulo (auto) 1.9 % Diff Slide Review Acceptable Review (Acceptable) ESR 73 H (2-15) mm/hr Absolute Retic 0.04 (0.03-0.08) # Percent Retic 1.1 (0.5-2.0) % Immature Retic Fraction 24.6 H (2.3-13.4) % Retic Hgb Equivalent 28.6 L (29.0-35.0) pg Sodium 128 L (135-149) mmol/L Potassium 3.8 (3.6-5.1) mmol/L Chloride 97 (96-114) mmol/L Carbon Dioxide 15 L (20-32) mmol/L Anion Gap 16 H (7-15) mEq/L BUN 68 H (7-30) mg/dL Creatinine 3.8 H (0.5-1.5) mg/dL Estimated Creat Clear 10.61 Estimated GFR 16 ml/min Glucose 257 H (60-115) mg/dL Lactate 1.8 (0.5-1.9) mmol/L Calcium 9.2 (8.4-10.6) mg/dL Magnesium 2.0 (1.5-2.6) mg/dL Total Bilirubin 0.5 (0.1-1.5) mg/dL Direct Bilirubin 0.4 (0.0-0.5) mg/dL AST 17 (12-35) U/L ALT 16 (4-50) U/L Alkaline Phosphatase 176 H (40-150) U/L C-Reactive Protein 31.0 H (0.5-1.0) mg/dL Total Protein 7.2 (6.0-8.3) g/dL Albumin 3.8 (3.3-5.0) g/dL Procalcitonin 2.96 H (<0.50) ng/mL TSH 3.810 (0.270-4.200) uIU/mL Urine Color (Yellow) Urine Appearance (Clear) Urine pH (5.0-8.5) Ur Specific Frakes (1.000-1.030) Urine Protein (Negative) Urine Glucose (UA) (Negative) Urine Ketones (Negative) Urine Blood (Negative) Urine Nitrite (Negative) Urine Bilirubin (Negative) Urine Urobilinogen (0.2-1.0) Ur Leukocyte Esterase (Negative) Urine RBC (0-2) Urine WBC (0-5) Ur Squamous Epith Cells (None-Few) Amorphous Sediment (None) Urine Bacteria (None) Urine L. pneumophilia Ag (Negative) Urine Strep pneumoniae Ag (Negative) POC Troponin I 0.00 L (0.01-0.04) ng/ml 07/08/23 07/08/23 07/08/23 Range/Units 01:54 03:31 05:49 WBC 75.95 H* (4.50-11.00) K/uL RBC 3.74 L (4.30-5.90) m/uL Hgb 10.4 L (13.5-17.5) gm/dL Hct 30.6 L (37.0-53.0) % MCV 82 (80-100) fL MCH 28 (26-34) pg MCHC 34 (32-36) gm/dL RDW Coeff of Ann 23.6 H (11.5-15.5) % Plt Count 392 (140-440) K/uL Neut % (Auto) 90.3 H (42.0-72.0) % Lymph % (Auto) 5.0 L (20-44) % Pender % (Auto) 1.2 (0.0-11.0) % Eos % (Auto) 0.0 (0.0-7.0) % Baso % (Auto) 0.1 (0.0-3.0) % Neut # (Auto) 68.60 H (1.7-7.0) K/uL Lymph # (Auto) 3.80 H (0.90-2.90) K/uL Pender # (Auto) 0.90 (0.00-0.90) K/UL Eos # (Auto) 0.00 (0.00-0.50) K/uL Baso # (Auto) 0.10 (0.00-0.30) K/uL Abs Immat Gran (auto) 2.60 H (0.00-0.30) K/uL Imm/Tot Granulo (auto) 3.4 % Diff Slide Review Acceptable Review (Acceptable) ESR (2-15) mm/hr Absolute Retic (0.03-0.08) # Percent Retic (0.5-2.0) % Immature Retic Fraction (2.3-13.4) % Retic Hgb Equivalent (29.0-35.0) pg Sodium 134 L (135-149) mmol/L Potassium 3.4 L (3.6-5.1) mmol/L Chloride 105 (96-114) mmol/L Carbon Dioxide 15 L (20-32) mmol/L Anion Gap 14 (7-15) mEq/L BUN 62 H (7-30) mg/dL Creatinine 3.4 H (0.5-1.5) mg/dL Estimated Creat Clear 11.53 Estimated GFR 18 ml/min Glucose 206 H (60-115) mg/dL Lactate (0.5-1.9) mmol/L Calcium 8.1 L (8.4-10.6) mg/dL Magnesium (1.5-2.6) mg/dL Total Bilirubin (0.1-1.5) mg/dL Direct Bilirubin (0.0-0.5) mg/dL AST (12-35) U/L ALT (4-50) U/L Alkaline Phosphatase (40-150) U/L C-Reactive Protein (0.5-1.0) mg/dL Total Protein (6.0-8.3) g/dL Albumin (3.3-5.0) g/dL Procalcitonin (<0.50) ng/mL TSH (0.270-4.200) uIU/mL Urine Color Yellow (Yellow) Urine Appearance Slightly Cloudy A (Clear) Urine pH 5.5 (5.0-8.5) Ur Specific Frakes 1.015 (1.000-1.030) Urine Protein 2+ A (Negative) Urine Glucose (UA) Trace A (Negative) Urine Ketones Negative (Negative) Urine Blood Negative (Negative) Urine Nitrite Negative (Negative) Urine Bilirubin Negative (Negative) Urine Urobilinogen 0.2 (0.2-1.0) Ur Leukocyte Esterase Negative (Negative) Urine RBC 0-2 (0-2) Urine WBC 0-2 (0-5) Ur Squamous Epith Cells Few (None-Few) Amorphous Sediment Few A (None) Urine Bacteria Few A (None) Urine L. pneumophilia Ag L. pneumo Negative (Negative) Urine Strep pneumoniae Ag S. pneumo POSITIVE A (Negative) POC Troponin I (0.01-0.04) ng/ml Discharge Plan Discharge Clinical Impression: Leukocytosis, Pneumonia Patient Disposition: Admitted As Observation Condition: Stable
[2023-07-07 21:21] LABS: Immature Reticulocyte Fraction 24.6 % (2.3-13.4); Reticulocyte Hemoglobin Equivi 28.6 pg (29.0-35.0); Reticulocyte Percent 1.1 % (0.5-2.0); Reticulocytes Absolute 0.04 # (0.03-0.08)
[2023-07-07 21:35] LABS: Lactate* 1.8 mmol/L (0.5-1.9)
[2023-07-07 21:37] LABS: Procalcitonin* 2.96 ng/mL (<0.50)
--- NOTE | 2023-07-07 21:52 | CRLHL7_ITS ---
For Patients: As a result of the Century Cures Act, medical imaging exams and procedure reports are released immediately into your electronic medical record. You may view this report before your referring provider. If you have questions, please contact your health care provider. INDICATION: Leukocytosis. TECHNIQUE: CT chest, abdomen, and pelvis without contrast. COMPARISON: 06/09/2023. FINDINGS: CHEST: Lungs and pleura: Left upper lobe pneumatocele with peripheral calcification, unchanged. Overall decreased patchy consolidation and tree-in-bud nodularity in the bilateral lower lobes. New patchy ground-glass and consolidative opacities in the right upper lobe. Trace left pleural effusion. No pneumothorax. Cardiovascular structures: Heart size is normal. Trace pericardial effusion. Thoracic aorta and main pulmonary artery are normal in caliber. Aortic and coronary artery calcifications. Mediastinum and brianda: No mass or adenopathy. Chest wall and axilla: No mass or adenopathy. Bones: Degenerative changes. ABDOMEN AND PELVIS: Liver: Unremarkable. Gallbladder and bile ducts: Distended gallbladder. Cholelithiasis. No biliary ductal dilation. Spleen: Normal in size. Calcified granuloma. Adrenal glands: Stable right adrenal nodule. Pancreas: Chronic pancreatitis, unchanged. Kidneys: Right cortical thinning. Left extrarenal pelvis. Bilateral nonobstructive renal calculi. No hydronephrosis. GI tract: Scattered colonic diverticula. Mild stranding adjacent to the descending colon. No evidence of obstruction. Lymph nodes: Unremarkable. Vascular structures: Scattered atherosclerotic calcifications. Miscellaneous: Unremarkable. No free air or significant free fluid. Pelvic organs: Mild prostatomegaly. Bones: Degenerative changes. IMPRESSION: 1. Overall decreased bilateral lower lobe infiltrates. New right upper lobe infiltrates, likely representing pneumonia possibly from a suppurative organism. 2. Trace left pleural effusion. 3. Trace pericardial effusion. 4. Scattered colonic diverticula with mild stranding adjacent to the descending colon, possibly representing mild diverticulitis. 5. Incidental findings as above, similar to prior study. Please note that all CT scans at this facility use dose modulation, iterative reconstruction, and/or weight-based dosing when appropriate to reduce radiation dose to as low as reasonably achievable. Dictated by Neel Carvajal MD @ 07/07/2023 11:45:58 PM (Electronically Signed)
[2023-07-07] MEDS: ACETAMINOPHEN 500 MG TABLET 1000 MG PO (22:40)
[2023-07-07] MEDS: 0.9 % SODIUM CHLORIDE 1000 ml 1,000 ML 75 ML IV (22:40)
[2023-07-07] MEDS: NYSTATIN 500,000 UNIT/5 ML 500000 UNIT SWISH/SWAL (23:27)
--- OUTSIDE RECORDS SUMMARY | 2023-07-08 01:22 | XMS_ITS | Continuity of Care Document ---
Author Name Unknown Organization [facility] Address [address] [address] [place] [address] Phone Care Team Providers Care Fish Housekeeper Name Role Phone Susannah GUADALUPE, Seth Unavailable Unavaila ble Procedures Procedure Date Ugi Endo; W/endo Ultrasound Ex 18 Ugi Endo; W/bx 1/mx Advance Directives Directive Yes / No Effective Date File Name No Information Encounters Encounter Description Practice Location Reason(s) For Visit Diagnoses Date Provider Providers Copied on Encounter [facility], [address] [address], [place], [place], [id number], tel:[phone] [facility] 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 [address] [place] [address], [id number], [place]. tel:[phone] [facility], [address] [address], [place], [place], [id number], tel:[phone] [facility] No Information 8 Susannah Ann. [address] [place] [address], [id number], [place]. tel:[phone] Referring Provider: Seth Arellano, [address] [place] [address], [id number]. tel:[phone] Family History Family Member Type Diagnosis Age At Onset No Information Payers Payer name Insurance type Covered alliance party ID Authoriza tion(s) No Information Social [...]
[2023-07-08 02:00] LABS: Appearance Urine Slightly Cloudy (Clear); Bilirubin Urine Negative (Negative); Blood Urine Negative (Negative); Color Urine Yellow (Yellow); Glucose Urine Trace (Negative); Ketones Urine Negative (Negative); Leukocyte Esterase Urine Negative (Negative); Nitrite Urine Negative (Negative); Protein Urine 2+ (Negative); Specific Gravity Urine 1.015 (1.000-1.030); Urobilinogen Urine 0.2 (0.2-1.0); pH Urine 5.5 (5.0-8.5)
[2023-07-08 02:08] VITALS: BP 122/82; PULSE 107; RESP 20; TEMP 37.1; O2SAT 94; BMI 17.2
[2023-07-08 02:14] VITALS: O2SAT 94
[2023-07-08 02:19] LABS: Amorphous Sediment Urine Few; Bacteria Urine Few; RBC Urine 0-2 (0-2); Squamous Epithelial Cell Urine Few (None-Few); WBC Urine 0-2 (0-5)
[2023-07-08] MEDS: CEFEPIME HCL 1 GM in 0.9 % SODIUM CHLORIDE Mini-bag 100 ML IVPB (02:21)
--- NOTE | 2023-07-08 02:57 | P.IMHP_ITS ---
Hospitalist- H&P: HPI History of Present Illness Date Seen: 07/08/23 Chief complaint: weakness, difficulty breathing Narrative: Raman Montes is a 78 year old male Seen as an interactive telehealth visit. [facility] Medical History Rupture of renal capsule of left kidney ?S37.062A - Major laceration of left kidney, initial encounter (ICD-10) 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 - Other specified diseases of pancreas (ICD-10) Dilation of pancreatic duct ?K86.89 - Other specified diseases of pancreas (ICD-10) Depression (03/19/10) ?F32.A - Depression, unspecified (ICD-10) Calculus of pancreatic duct ?K86.89 - Other specified diseases of pancreas (ICD-10) Arm fracture (03/19/10) ?S42.309A - Unspecified fracture of shaft of humerus, unspecified arm, initial encounter for closed fracture (ICD-10) Social History What is your current living situation?: I presently have a place to live Problems where you live: no known problems Problems where you live details: no known problems In the past 12 months, utilities in danger of being shut off: no In past 12 months, lack of transportation kept you from medical appts, meetings, work, or getting things needed for daily living: no In the past 12 mos, have been you worried that your food would run out before you had money to buy more?: never true In the past 12 mos, the food you bought just didn't last and you didn't have money to buy more?: never true Highest level of school completed/degree received: some college, no degree Smoking Status: Former smoker What tobacco products do you use: cigarettes Smoking quit date/years: >15 years ago Do you use any of these nicotine containing products: None Second hand tobacco smoke exposure: No How often do you have a drink containing alcohol: never How often do you have six or more drinks on one occasion: Never AUDIT-C Alcohol total score: 0 Non-prescribed substance use: denies use Caffeine: Yes (3 cups coffee daily) How often does anyone, including family, friends and others, physically hurt you : never How often does anyone, including family, friends and others, insult or talk down to you: never How often does anyone, including family, friends and others, threaten you with harm: never How often does anyone, including family, friends and others, scream or curse at you: never Little interest or pleasure in doing things: not at all Feeling down, depressed, or hopeless: not at all service: No Meds Home Medications and Allergies Home Medications Medication Instructions Recorded Confirmed Type evening primrose oil 500 mg capsule 500 mg PO DAILY 04/12/22 06/23/23 History Allergies Allergy/AdvReac Type Severity Reaction Status Date / Time No Known Drug Allergies Allergy Verified 06/23/23 13:06 Exam Const: Vital Signs, click to edit/add: Vital Signs - 24 hr 07/07/23 17:19 07/07/23 19:30 07/07/23 19:31 Temperature 98.2 F Pulse Rate 109 H 108 H Pulse Rate [Pulse Oximeter] 114 H Respiratory Rate 20 Blood Pressure 122/84 Blood Pressure [Le ft Upper Arm] 96/66 Blood Pressure [Ri ght Arm] Pulse Oximetry 93 92 92 Oxygen Delivery Me thod Room Air 07/07/23 20:02 07/07/23 20:03 07/07/23 21:02 Temperature Pulse Rate 103 H Pulse Rate [Pulse Oximeter] Respiratory Rate Blood Pressure 144/87 H 147/87 H Blood Pressure [Le ft Upper Arm] Blood Pressure [Ri ght Arm] Pulse Oximetry 93 Oxygen Delivery Me thod 07/07/23 22:03 07/08/23 02:08 07/08/23 02:14 Temperature 98.7 F Pulse Rate Pulse Rate [Pulse Oximeter] 107 H Respiratory Rate 20 Blood Pressure 147/98 H Blood Pressure [Le ft Upper Arm] Blood Pressure [Ri ght Arm] 122/82 Pulse Oximetry 94 94 Oxygen Delivery Me thod Room Air Room Air Hospitalist - H&P: Result Labs Labs: Short CBC 07/07/23 Range/Units 18:55 WBC 71.65 H* (4.50-11.00) K/uL Hgb 11.5 L (13.5-17.5) gm/dL Hct 33.7 L (37.0-53.0) % Plt Count 409 (140-440) K/uL BMP 07/07/23 18:55 Sodium 128 L Potassium 3.8 Chloride 97 Carbon Dioxide 15 L BUN 68 H Creatinine 3.8 H Glucose 257 H Calcium 9.2 Liver Function 07/07/23 Range/Units 18:55 Total Bilirubin 0.5 (0.1-1.5) mg/dL Direct Bilirubin 0.4 (0.0-0.5) mg/dL AST 17 (12-35) U/L ALT 16 (4-50) U/L Alkaline Phosphatase 176 H (40-150) U/L Albumin 3.8 (3.3-5.0) g/dL Urine 07/08/23 Range/Units 01:54 Urine Color Yellow (Yellow) Urine Appearance Slightly Cloudy A (Clear) Urine pH 5.5 (5.0-8.5) Ur Specific [place] 1.015 (1.000-1.030) Urine Protein 2+ A (Negative) Urine Glucose (UA) Trace A (Negative)
--- NOTE | 2023-07-08 03:05 | W.PM.TELEH&P ---
Telehealth- H&P: HPI History of Present Illness Date Seen: 07/08/23 Chief complaint: weakness, difficulty breathing Narrative: Raman Montes is a 78 year old male Seen as an interactive telehealth visit. The patient is a 78-year-old man with past medical history notable for type 2 diabetes, hyperlipidemia, COPD and BPH, he had a recent admission in early June for bilateral pneumonia at that time he was treated with cefepime and doxycycline and ultimately discharged on Levaquin. At time of discharge he had a white count of 24,000 and a creatinine of 2.5. Since discharge he initially was feeling better for about a week but then his symptoms in particular his respiratory symptoms started to worsen. He reports he has had more appetite since discharged and this is never recovered. Initially his dyspnea was much better after his hospitalization but slowly worsened to the point that he is having difficulty completing his normal ADLs due to dyspnea. He has to take things very slowly and has been less active. He denies any fevers. He has been cold but no shaking chills. He has not had nausea or vomiting. He has had diarrhea for about 3 weeks although this is started improving over the last 2 days and on the day of admission had a fairly normal bowel movement. He reports that he is having more productive cough over the last few days. He is also noticed some wheeziness/tightness. He reports he has lost about 25 to 30 pounds over the last year. In the ER he was noted to have significant leukocytosis with a white count of 71,000, chest x-ray showed increased opacities in bilateral lungs. The ER provider did discuss this with significant leukocytosis with [facility], I a CT chest abdomen pelvis was performed which showed worsening pneumonia. There is no evidence of significant splenomegaly. Based on this the hematology provider recommended peripheral smear as leukemia cannot be ruled out but felt that infection was the most likely etiology. Patient was also noted to have mild hyponatremia, metabolic acidosis and acute kidney injury with a creatinine of 3.8 up from 2.5 Review of Systems Status of ROS: Reports: 10 or more systems reviewed and unremarkable except as noted in History and below [facility] Medical History Rupture of renal capsule of left kidney ?S37.062A - Major laceration of left kidney, initial encounter (ICD-10) 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 - Other specified diseases of pancreas (ICD-10) Dilation of pancreatic duct ?K86.89 - Other specified diseases of pancreas (ICD-10) Depression (03/19/10) ?F32.A - Depression, unspecified (ICD-10) Calculus of pancreatic duct ?K86.89 - Other specified diseases of pancreas (ICD-10) Arm fracture (03/19/10) ?S42.309A - Unspecified fracture of shaft of humerus, unspecified arm, initial encounter for closed fracture (ICD-10) Social History What is your current living situation?: I presently have a place to live Problems where you live: no known problems Problems where you live details: no known problems In the past 12 months, utilities in danger of being shut off: no In past 12 months, lack of transportation kept you from medical appts, meetings, work, or getting things needed for daily living: no In the past 12 mos, have been you worried that your food would run out before you had money to buy more?: never true In the past 12 mos, the food you bought just didn't last and you didn't have money to buy more?: never true Highest level of school completed/degree received: some college, no degree Smoking Status: Former smoker What tobacco products do you use: cigarettes Smoking quit date/years: >15 years ago Do you use any of these nicotine containing products: None Second hand tobacco smoke exposure: No How often do you have a drink containing alcohol: never How often do you have six or more drinks on one occasion: Never AUDIT-C Alcohol total score: 0 Non-prescribed substance use: denies use Caffeine: Yes (3 cups coffee daily) How often does anyone, including family, friends and others, physically hurt you: never How often does anyone, including family, friends and others, insult or talk down to you: never How often does anyone, including family, friends and others, threaten you with harm: never How often does anyone, including family, friends and others, scream or curse at you: never Little interest or pleasure in doing things: not at all Feeling down, depressed, or hopeless: not at all service: No Meds Home Medications and Allergies Home Medications Medication Instructions Recorded Confirmed Type evening primrose oil 500 mg capsule 500 mg PO DAILY 04/12/22 06/23/23 History Allergies Allergy/AdvReac Type Severity Reaction Status Date / Time No Known Drug Allergies Allergy Verified 06/23/23 13:06 Exam Narrative Exam Narrative: Physical Exam GENERAL: ?vital signs reviewed, cachectic, male, in no distress HEENT: pupils are equal round and reactive to light, extraocular movements are grossly within normal limits and oral mucosa is moist. white patches on tongue NECK: Supple without lymphadenopathy or thyromegaly according to nursing staff examination observation HEART: Regular rate and rhythm without any rubs, murmurs, or gallops. LUNGS: Diffuse rhonchi in all lung naranjo. No tachypnea. ABDOMEN: Observation from nurse assisted exam, abdomen appears soft, nontender, and nondistended with Positive bowel sounds noted. EXTREMITIES: Strength and sensation is observed to be grossly within normal limits in the upper and lower extremities.? No focal strength deficit is observed. Significantly decreased muscle bulk SKIN:? Observed warm and dry with color normal Const Vital Signs, click to edit/add: Vital Signs - 24 hr 07/07/23 17:19 07/07/23 19:30 07/07/23 19:31 Temperature 98.2 F Pulse Rate 109 H 108 H Pulse Rate [Pulse Oximeter] 114 H Respiratory Rate 20 Blood Pressure 122/84 Blood Pressure [Left Upper Arm] 96/66 Blood Pressure [Right Arm] Pulse Oximetry 93 92 92 Oxygen Delivery Method Room Air 07/07/23 20:02 07/07/23 20:03 07/07/23 21:02 Temperature Pulse Rate 103 H Pulse Rate [Pulse Oximeter] Respiratory Rate Blood Pressure 144/87 H 147/87 H Blood Pressure [Left Upper Arm] Blood Pressure [Right Arm] Pulse Oximetry 93 Oxygen Delivery Method 07/07/23 22:03 07/08/23 02:08 07/08/23 02:14 Temperature 98.7 F Pulse Rate Pulse Rate [Pulse Oximeter] 107 H Respiratory Rate 20 Blood Pressure 147/98 H Blood Pressure [Left Upper Arm] Blood Pressure [Right Arm] 122/82 Pulse Oximetry 94 94 Oxygen Delivery Method Room Air Room Air Hospitalist - H&P: Result Labs Labs: Short CBC 07/07/23 Range/Units 18:55 WBC 71.65 H* (4.50-11.00) K/uL Hgb 11.5 L (13.5-17.5) gm/dL Hct 33.7 L (37.0-53.0) % Plt Count 409 (140-440) K/uL BMP 07/07/23 18:55 Sodium 128 L Potassium 3.8 Chloride 97 Carbon Dioxide 15 L BUN 68 H Creatinine 3.8 H Glucose 257 H Calcium 9.2 Liver Function 07/07/23 Range/Units 18:55 Total Bilirubin 0.5 (0.1-1.5) mg/dL Direct Bilirubin 0.4 (0.0-0.5) mg/dL AST 17 (12-35) U/L ALT 16 (4-50) U/L Alkaline Phosphatase 176 H (40-150) U/L Albumin 3.8 (3.3-5.0) g/dL Urine 07/08/23 Range/Units 01:54 Urine Color Yellow (Yellow) Urine Appearance Slightly Cloudy A (Clear) Urine pH 5.5 (5.0-8.5) Ur Specific [place] 1.015 (1.000-1.030) Urine Protein 2+ A (Negative) Urine Glucose (UA) Trace A (Negative) Assessment and Plan Assessment and plan (1) Pneumonia: Status: Acute (2) Leukocytosis: Status: Acute (3) Acute kidney injury: Problem comment: UA sediment reviewed x2 No evidence of infection or obstruction Likely pre renal, potentially ATN or glomerulonephritis - 06/15 improving Cr 2.6 today. Outpatient nephrology Status: Acute (4) Hyperlipidemia: Problem comment: Noted Status: Chronic (5) Type 2 diabetes mellitus: Problem comment: A1c - 6/6% on 06/10 Resume home regimen POC BG 100-160's. Status: Chronic (6) Chronic obstructive pulmonary disease: Problem comment: Budesonide nebs, DuoNebs - Lungs clearer today. D/c home with nebs Status: Chronic (7) Benign prostatic hyperplasia: Problem comment: Noted continue home meds Status: Chronic Plan Bacterial pneumonia bilateral lung naranjo Chest x-ray personally reviewed: Left basilar opacity, right middle and basilar opacities, blunting of left costophrenic angle CT of the chest abdomen pelvis personally reviewed: New right upper lobe infiltrate, bibasilar infiltrates. Official read improved Started on vancomycin, cefepime and azithromycin. Pharmacy to dose vancomycin and cefepime due to acute kidney injury If not improving would consider broadening with either to Zosyn for better anaerobic coverage or a carbapenem. Sputum culture will be obtained Mucinex twice daily Bronchial hygiene Urine strep and Legionella Leukocytosis Significant elevation with WBC of 71 ER discussed with [facility], peripheral smear ordered May need additional workup based on findings Thrush Likely related to oral steroid but will monitor for resolution COPD DuoNebs 4 times daily with as needed albuterol Holding off on steroids for now does not appear to have a severe exacerbation Dulera twice daily Type 2 diabetes Sliding scale insulin Home meds not yet verified Weight loss Suspect severe protein calorie malnutrition Encourage diet and PRN supplements Full code confirmed on admission Telehealth: Statement Statement Telehealth Visit: Today's History and Physical is provided via interactive telehealth by Luis E Treviño MD.? Patient is located at [facility].? Provider is located at [facility].? Nursing staff assisted with the patient's exam. The visit being done today meets criteria for a telehealth visit and the patient or patient?s parent/guardian is aware the visit is a telehealth visit. Camera Start Time: 02:22 Camera End Time: 02:33
[2023-07-08] MEDS: ENOXAPARIN 30 MG/0.3ML INJ SUBCUT (03:43)
[2023-07-08] MEDS: AZITHROMYCIN 500 MG in 0.9 % SODIUM CHLORIDE 250 ml 250 ML 255 MG IVPB (03:43)
[2023-07-08] MEDS: IPRAT-ALBUT 0.5-2.5 MG/3 ML NEB 1 NEB IH ×2 (03:49→20:53)
[2023-07-08 03:51] LABS: Legionella pneumo Ag Urine L. pneumo Negative (Negative); S pneumo Ag Urine S. pneumo POSITIVE (Negative)
--- NOTE | 2023-07-08 06:20 | PC.NURSE ---
Arrived to floor at 0130. A&O, pleasant and cooperative. HR in the low 100s, VS otherwise stable. Pt reports shortness of breath w/ activity. Pt has intermittent cough w/ sputum production. PRN neb given x1. Coccyx reddened, Mepilex placed. Pt reports increased loose stools. Waiting to obtain stool sample. SBA w/ gait belt to the bathroom. Pt uses call light appropriately. Bed alarm in place.
[2023-07-08 06:50] LABS: Basophils Percent Auto 0.1 % (0.0-3.0); Hematocrit 30.6 % (37.0-53.0); Hemoglobin* 10.4 gm/dL (13.5-17.5); Immature Granulocytes Pct Auto 3.4 %; Mean Corpuscular HGB Conc 34 gm/dL (32-36); Mean Corpuscular Hemoglobin 28 pg (26-34); Mean Corpuscular Volume 82 fL (80-100); Monocytes Percent Auto 1.2 % (0.0-11.0); Neutrophils Percent Auto 90.3 % (42.0-72.0); Platelet Count* 392 K/uL (140-440); RDW Coefficient of Variation % 23.6 % (11.5-15.5); Red Blood Count 3.74 m/uL (4.30-5.90)
[2023-07-08 07:00] VITALS: BP 174/97; PULSE 114; RESP 22; TEMP 37.2; O2SAT 91
[2023-07-08 07:09] LABS: Chloride* 105 mmol/L (96-114); Potassium* 3.4 mmol/L (3.6-5.1); Sodium* 134 mmol/L (135-149)
[2023-07-08 07:12] LABS: Anion Gap 14 mEq/L (7-15); Blood Urea Nitrogen* 62 mg/dL (7-30); Carbon Dioxide* 15 mmol/L (20-32); Creatinine* 3.4 mg/dL (0.5-1.5); Est. Creatinine Clearance* 11.53; Estimated Glomerular Filt Rate 18 ml/min; Glucose* 206 mg/dL (60-115)
[2023-07-08 07:13] LABS: Calcium* 8.1 mg/dL (8.4-10.6)
[2023-07-08 07:45] LABS: Slide Review Reflex Yes; White Blood Count* 75.95 K/uL (4.50-11.00)
[2023-07-08] MEDS: INSULIN ASPART 100 UNIT/ML SUBCUT ×2 (07:57→12:53)
[2023-07-08] MEDS: ACETAMINOPHEN 325 MG TABLET 650 MG PO ×2 (07:58→18:47)
[2023-07-08] MEDS: guaiFENesin 600 MG TAB.ER.12H PO ×2 (08:07→20:53)
[2023-07-08 08:26] LABS: Slide Review Acceptable Review (Acceptable)
[2023-07-08] MEDS: NYSTATIN 500,000 UNIT/5 ML 500000 UNIT SWISH/SWAL ×3 (10:51→20:53)
--- NOTE | 2023-07-08 12:28 | P.IMPN_ITS ---
Progress Note: A&P Assessment and plan (1) Pneumonia: Problem details: -CT shows new right upper lobe infiltrate, bibasilar infiltrates -significant leukocytosis, procalcitonin 2.96, elevated CRP, tachycardic, remains afebrile -continue IV fluids, monitoring for fluid overload. Has not had metoprolol yet this morning -urine strep pneumonia antigen positive, Legionella negative -start ceftriaxone, continue vancomycin and azithromycin -Mucinex b.i.d., encourage pulmonary hygiene incentive spirometry, aerobika Status: Acute (2) Leukocytosis: Problem details: -significant leukocytosis > 75,000 (previous hospitalization [id number]) -ED provider discussed with [facility], Dr Berg -in the absence of splenomegaly or significant immature cells the likelihood is that the white blood cell count may still be related to infection, but would recommend a close look at the peripheral smear by pathology to look for immature cells suggesting a possible diagnosis of CML. History also notable for weight loss -peripheral smear ordered. Smear in June showed elevated platelets, suspected to be reactive at that time -continue to follow -previously recommended outpatient follow-up with Hematology Status: Acute (3) Acute kidney injury: Problem details: -creatinine 3.4, down from 3.8 overnight, 2.6 on last check in June -creatinine clearance 11.53, BUN 62 (previously 45-93) -adrenal nodule noted 06/09/2023. Renal calculi noted 06/13/23 -previously recommended outpatient follow-up with Nephrology (may not have had time given holidays) Status: Acute (4) Adrenal nodule: Problem details: -06/09/23 CT abd/pelvis: 1.5 cm right adrenal nodule, likely an adrenal adenoma, incompletely characterized on this examination -outpatient follow up Status: Acute (5) Type 2 diabetes mellitus: Problem details: -most recent A1c 6.6 -diabetic diet, glucose checks ACHS, sliding scale -POC BG 100-160's. Status: Chronic (6) Chronic obstructive pulmonary disease: Problem details: -continue home inhalers -DuoNebs q.i.d., albuterol nebs p.r.n. Status: Chronic (7) Benign prostatic hyperplasia: Problem details: -Noted continue home meds Status: Chronic (8) Thrush: Problem details: -nystatin swish and swallow until resolved Status: Acute (9) Renal calculi: Problem details: 06/13/23 renal US: 1. No evidence of hydronephrosis. Bilateral ureteral jets visualized. 2. Bilateral nonobstructing intrarenal calculi, better visualized on recent CT. Status: Acute (10) Weight loss: Problem details: -current weight 44 kg, previously 56 during hospitalization in June -significant leukocytosis, peripheral smear ordered, CML on list of differentials Status: Acute Plan CODE: Full VTE PPX: Enoxaparin Disposition: Inpatient Time Spent With Patient Total time spent: Total time spent caring for the patient today was 45 minutes. This includes time spent for the visit reviewing the chart, time spent during the visit, time spent after the visit and documentation and planning in coordination of care. Subjective Date Seen: 07/08/23 Interval history: Patient reports feeling better this morning. Denies headache or dizziness. Denies chest pain or shortness of breath on room air. Tolerating orals without nausea vomiting. Is mildly tachycardic this morning but has not yet taken home metoprolol. Remains afebrile. No events reported overnight. Exam Narrative: Exam Narrative: PHYSICAL EXAM General: Pleasant, conversant, NAD HEENT: Normocephalic, atraumatic, sclera white, EOMI, oral mucosa moist Cardiovascular: Tachycardic. No pitting edema Pulmonary: Diffusely diminished. No dyspnea on room air Abdominal: Soft, nondistended, NTTP Neurological: Alert, answering questions appropriately, cranial nerves intact, no focal findings Extremities: No gross joint deformity or swelling. AROMI. Neurovascularly intact Skin: Warm, dry. Const: Vital Signs, click to edit/add: Vital Signs - 24 hr 07/07/23 17:19 07/07/23 19:30 07/07/23 19:31 Temperature 98.2 F Pulse Rate 109 H 108 H Pulse Rate [Pulse Oximeter] 114 H Respiratory Rate 20 Blood Pressure 122/84 Blood Pressure [Le ft Upper Arm] 96/66 Blood Pressure [Ri ght Arm] Pulse Oximetry 93 92 92 Oxygen Delivery Me thod Room Air 07/07/23 20:02 07/07/23 20:03 07/07/23 21:02 Temperature Pulse Rate 103 H Pulse Rate [Pulse Oximeter] Respiratory Rate Blood Pressure 144/87 H 147/87 H Blood Pressure [Le ft Upper Arm] Blood Pressure [Ri ght Arm] Pulse Oximetry 93 Oxygen Delivery Me thod 07/07/23 22:03 07/08/23 02:08 07/08/23 02:14 Temperature 98.7 F Pulse Rate Pulse Rate [Pulse Oximeter] 107 H Respiratory Rate 20 Blood Pressure 147/98 H Blood Pressure [Le ft Upper Arm] Blood Pressure [Ri ght Arm] 122/82 Pulse Oximetry 94 94 Oxygen Delivery Me thod Room Air Room Air 07/08/23 07:00 07/08/23 07:00 Temperature 98.9 F Pulse Rate Pulse Rate [Pulse Oximeter] 114 H 114 H Respiratory Rate 22 22 Blood Pressure Blood Pressure [Le ft Upper Arm] Blood Pressure [Ri ght Arm] 174/97 H Pulse Oximetry 91 Oxygen Delivery Me thod Room Air Labs Labs: Laboratory Results - last 24 hr 07/07/23 07/07/23 07/07/23 18:55 20:49 21:29 WBC 71.65 H* RBC 4.17 L Hgb 11.5 L Hct 33.7 L MCV 81 MCH 28 MCHC 34 RDW Coeff of Ann 23.3 H Plt Count 409 Neut % (Auto) 91.6 H Lymph % (Auto) 4.5 L [place] % (Auto) 1.9 Eos % (Auto) 0.0 Baso % (Auto) 0.1 Neut # (Auto) 65.60 H Lymph # (Auto) 3.20 H [place] # (Auto) 1.40 H Eos # (Auto) 0.00 Baso # (Auto) 0.10 Abs Immat Gran (auto) 1.40 H Imm/Tot Granulo (auto) 1.9 Diff Slide Review Acceptable Review ESR 73 H Absolute Retic 0.04 Percent Retic 1.1 Immature Retic Fraction 24.6 H Retic Hgb Equivalent 28.6 L Sodium 128 L Potassium 3.8 Chloride 97 Carbon Dioxide 15 L Anion Gap 16 H BUN 68 H Creatinine 3.8 H Estimated Creat Clear 10.61 Estimated GFR 16 Glucose 257 H Lactate 1.8 Calcium 9.2 Magnesium 2.0 Total Bilirubin 0.5 Direct Bilirubin 0.4 AST 17 ALT 16 Alkaline Phosphatase 176 H C-Reactive Protein 31.0 H Total Protein 7.2 Albumin 3.8 Procalcitonin 2.96 H TSH 3.810 Urine Color Urine Appearance Urine pH Ur Specific [place] Urine Protein Urine Glucose (UA) Urine Ketones Urine Blood Urine Nitrite Urine Bilirubin Urine Urobilinogen Ur Leukocyte Esterase Urine RBC Urine WBC Ur Squamous Epith Cells Amorphous Sediment Urine Bacteria Urine L. pneumophilia Ag Urine Strep pneumoniae Ag POC Troponin I 0.00 L 07/08/23 07/08/23 07/08/23 01:54 03:31 05:49 WBC 75.95 H* RBC 3.74 L Hgb 10.4 L Hct 30.6 L MCV 82 MCH 28 MCHC 34 RDW Coeff of Ann 23.6 H Plt Count 392 Neut % (Auto) 90.3 H Lymph % (Auto) 5.0 L [place] % (Auto) 1.2 Eos % (Auto) 0.0 Baso % (Auto) 0.1 Neut # (Auto) 68.60 H Lymph # (Auto) 3.80 H [place] # (Auto) 0.90 Eos # (Auto) 0.00 Baso # (Auto) 0.10 Abs Immat Gran (auto) 2.60 H Imm/Tot Granulo (auto) 3.4 Diff Slide Review Acceptable Review ESR Absolute Retic Percent Retic Immature Retic Fraction Retic Hgb Equivalent Sodium 134 L Potassium 3.4 L Chloride 105 Carbon Dioxide 15 L Anion Gap 14 BUN 62 H Creatinine 3.4 H Estimated Creat Clear 11.53 Estimated GFR 18 Glucose 206 H Lactate Calcium 8.1 L Magnesium Total Bilirubin Direct Bilirubin AST ALT Alkaline Phosphatase C-Reactive Protein Total Protein Albumin Procalcitonin TSH Urine Color Yellow Urine Appearance Slightly Cloudy A Urine pH 5.5 Ur Specific [place] 1.015 Urine Protein 2+ A Urine Glucose (UA) Trace A Urine Ketones Negative Urine Blood Negative Urine Nitrite Negative Urine Bilirubin Negative Urine Urobilinogen 0.2 Ur Leukocyte Esterase Negative Urine RBC 0-2 Urine WBC 0-2 Ur Squamous Epith Cells Few Amorphous Sediment Few A Urine Bacteria Few A Urine L. pneumophilia Ag L. pneumo Negative Urine Strep pneumoniae Ag S. pneumo POSITIVE A POC Troponin I
[2023-07-08] MEDS: cefTRIAXone 1 GM in 0.9 % SODIUM CHLORIDE Mini-bag 100 ML IVPB (12:53)
[2023-07-08] MEDS: 0.9 % SODIUM CHLORIDE 1000 ml 1,000 ML 75 ML IV (12:54)
[2023-07-08 13:49] VITALS: BMI 17.2
[2023-07-08 15:00] VITALS: BP 141/90; PULSE 96; RESP 16; RESP 22; TEMP 36.6; O2SAT 92
--- NOTE | 2023-07-08 15:36 | PC.NURSE ---
is using the [employer]sunk[employer]
--- NOTE | 2023-07-08 18:07 | PC.NURSE ---
End of Shift Note: Patient was requesting to be able to ambulate to the BR on his own this am. Due to his IV being hooked up and he stumble a little in the BR I have asked him to call when he needs to go to the bathroom. Vitals this am B/P was up a little but this afternoon was better. He was complaining of pain which he received tyl for. Otherwise has not wanted to eat states everything ponce going down. He is getting Nystatin for thrush when he will take it. Have offered ensure vanilla shake which he has taken about half of that down. Did not give 2 units of insulin with dinner as he did not order a tray and is not eating. Will continue to monitor.
[2023-07-08 19:00] VITALS: BP 147/95; PULSE 85; RESP 20; TEMP 36.6; O2SAT 92
[2023-07-08] MEDS: TRAZODONE HCL 50 MG TABLET PO (21:55)
[2023-07-08 23:00] VITALS: BP 150/94; PULSE 85; PULSE 95; RESP 20; TEMP 36.6; O2SAT 94
[2023-07-09] MEDS: ACETAMINOPHEN 325 MG TABLET 650 MG PO ×4 (02:16→21:53)
[2023-07-09] MEDS: 0.9 % SODIUM CHLORIDE 1000 ml 1,000 ML 75 ML IV (02:17)
[2023-07-09 03:00] VITALS: BP 150/94; PULSE 92; RESP 20; TEMP 36.6; O2SAT 93
[2023-07-09] MEDS: SODIUM CHLORIDE 0.9 % (FLUSH) 10 ML SYRINGE 5 ML IVF ×3 (03:46→20:58)
[2023-07-09] MEDS: AZITHROMYCIN 500 MG in 0.9 % SODIUM CHLORIDE 250 ml 250 ML 255 MG IVPB (03:46)
[2023-07-09] MEDS: ENOXAPARIN 30 MG/0.3ML INJ SUBCUT (03:46)
[2023-07-09] MEDS: OMEPRAZOLE 20 MG CAPSULE DR PO (06:55)
[2023-07-09 07:00] VITALS: BP 128/86; PULSE 98; RESP 20; TEMP 36.1; O2SAT 95
[2023-07-09 07:19] LABS: Basophils Percent Auto 0.1 % (0.0-3.0); Hematocrit 30.6 % (37.0-53.0); Hemoglobin* 10.4 gm/dL (13.5-17.5); Immature Granulocytes Pct Auto 3.5 %; Lymphocytes Percent Auto 4.8 % (20-44); Mean Corpuscular HGB Conc 34 gm/dL (32-36); Mean Corpuscular Hemoglobin 28 pg (26-34); Mean Corpuscular Volume 81 fL (80-100); Monocytes Percent Auto 1.8 % (0.0-11.0); Neutrophils Percent Auto 89.8 % (42.0-72.0); Platelet Count* 373 K/uL (140-440); Red Blood Count 3.77 m/uL (4.30-5.90)
[2023-07-09 07:37] LABS: Slide Review Reflex Yes; White Blood Count* 80.79 K/uL (4.50-11.00)
[2023-07-09 07:38] LABS: Albumin* 2.4 g/dL (3.3-5.0); Chloride* 110 mmol/L (96-114)
[2023-07-09 07:39] LABS: Potassium* 3.3 mmol/L (3.6-5.1); Sodium* 136 mmol/L (135-149)
[2023-07-09 07:41] LABS: Alkaline Phosphatase* 140 U/L (40-150); Anion Gap 15 mEq/L (7-15); Aspartate Amino Transferase* 14 U/L (12-35); Bilirubin Direct* 0.2 mg/dL (0.0-0.5); Bilirubin Total* 0.3 mg/dL (0.1-1.5); Carbon Dioxide* 11 mmol/L (20-32); Est. Creatinine Clearance* 13.32; Estimated Glomerular Filt Rate 21 ml/min
[2023-07-09 07:42] LABS: Alanine Aminotransferase* 12 U/L (4-50); Blood Urea Nitrogen* 58 mg/dL (7-30); Calcium* 8.2 mg/dL (8.4-10.6); Glucose* 183 mg/dL (60-115)
[2023-07-09 07:58] LABS: Procalcitonin* 2.11 ng/mL (<0.50)
[2023-07-09 08:49] LABS: Slide Review Acceptable Review (Acceptable)
[2023-07-09 08:52] LABS: C Reactive Protein* 30.7 mg/dL (0.5-1.0)
[2023-07-09] MEDS: INSULIN ASPART 100 UNIT/ML SUBCUT ×2 (09:23→12:35)
[2023-07-09] MEDS: METOPROLOL SUCCINATE (XL) 25 MG TAB PO (09:23)
[2023-07-09] MEDS: NYSTATIN 500,000 UNIT/5 ML 500000 UNIT SWISH/SWAL (09:23)
[2023-07-09] MEDS: POTASSIUM CHLORIDE 10 MEQ CAPSULE ER 20 MEQ PO ×2 (09:23→20:58)
[2023-07-09] MEDS: guaiFENesin 600 MG TAB.ER.12H PO ×2 (09:23→20:58)
[2023-07-09] MEDS: TAMSULOSIN HCL 0.4 MG CAPSULE PO (09:23)
[2023-07-09] MEDS: ALBUTEROL SULFATE 2.5 MG/3 ML VIAL.NEB NEB (09:42)
[2023-07-09] MEDS: DIPHEN/LIDO/ALUM/MAG/SIMETH 5 ML SUSPENSION MUCOUS MEM (10:09)
[2023-07-09 11:00] VITALS: BP 112/69; PULSE 90; RESP 18; TEMP 35.9; O2SAT 95
[2023-07-09] MEDS: cefTRIAXone 1 GM in 0.9 % SODIUM CHLORIDE Mini-bag 100 ML IVPB (12:34)
--- NOTE | 2023-07-09 14:49 | PC.SOCIAL ---
Addendum entered by BELLA Burkett 07/09/23 16:10: Discharge planning: [employer] emailed a referral for pt to [facility] in [place] this afternoon #[phone]. Social work to follow-up as needed. Original Note: Discharge planning: Met with pt and discussed SNF placement. Pt is interested in [facility] as he would like to stay in [facility]. Social work will reach out to [facility] about openings. Social work to follow-up as needed.
[2023-07-09 15:00] VITALS: BP 127/76; PULSE 83; RESP 20; TEMP 36.3; O2SAT 95
--- NOTE | 2023-07-09 15:12 | PC.NURSE ---
End of Shift Note: Patient LS were a little more coarse today and notified Yen MURPHY orders received to saline lock IV. Also he still complains of things burning as he eats anything. Order received for magic mouth wash. Appears to be helping a little more. Did try mashed potatoes, coffee, and vanilla pudding for lunch. Report given to Priti KRAMER who will now assume his care.
--- NOTE | 2023-07-09 15:18 | PM.IMPN1 ---
Progress Note: A&P Assessment and plan (1) Pneumonia: Problem details: -CT shows new right upper lobe infiltrate, bibasilar infiltrates -significant leukocytosis, procalcitonin 2.96, elevated CRP, tachycardic, remains afebrile -continue IV fluids, monitoring for fluid overload. Has not had metoprolol yet this morning -urine strep pneumonia antigen positive, Legionella negative -start ceftriaxone, continue vancomycin and azithromycin -Mucinex b.i.d., encourage pulmonary hygiene incentive spirometry, aerobika Status: Acute (2) Leukocytosis: Problem details: -significant leukocytosis > 75,000 (previous hospitalization [id number]) -ED provider discussed with [facility], Dr Berg -in the absence of splenomegaly or significant immature cells the likelihood is that the white blood cell count may still be related to infection, but would recommend a close look at the peripheral smear by pathology to look for immature cells suggesting a possible diagnosis of CML. History also notable for weight loss -peripheral smear ordered. Smear in June showed elevated platelets, suspected to be reactive at that time -continue to follow -previously recommended outpatient follow-up with Hematology 07/09: WBC continues to uptrend, peripheral smear pending. Will follow up with Hematology once results are available Status: Acute (3) Acute kidney injury: Problem details: -creatinine continues to trend down, 3.3, (2.6 on last check in June) -creatinine clearance uptrending, BUN down trending 58 (previously 45-93) -adrenal nodule noted 06/09/2023. Renal calculi noted 06/13/23 -previously recommended outpatient follow-up with Nephrology (may not have had time given holidays) Status: Acute (4) Adrenal nodule: Problem details: -06/09/23 CT abd/pelvis: 1.5 cm right adrenal nodule, likely an adrenal adenoma, incompletely characterized on this examination -outpatient follow up Status: Acute (5) Type 2 diabetes mellitus: Problem details: -most recent A1c 6.6 -diabetic diet, glucose checks ACHS, sliding scale -POC BG 100-160's. Status: Chronic (6) Chronic obstructive pulmonary disease: Problem details: -continue home inhalers -DuoNebs q.i.d., albuterol nebs p.r.n. Status: Chronic (7) Benign prostatic hyperplasia: Problem details: -Noted continue home meds Status: Chronic (8) Thrush: Problem details: -nystatin swish and swallow until resolved -adding med to mouthwash t.i.d. for comfort, increase ability to eat Status: Acute (9) Renal calculi: Problem details: 06/13/23 renal US: 1. No evidence of hydronephrosis. Bilateral ureteral jets visualized. 2. Bilateral nonobstructing intrarenal calculi, better visualized on recent CT. Status: Acute (10) Weight loss: Problem details: -current weight 44 kg, previously 56 during hospitalization in June -significant leukocytosis, peripheral smear ordered, CML on list of differentials Status: Acute Plan CODE: Full VTE PPX: Enoxaparin Disposition: Inpatient Time Spent With Patient Total time spent: Total time spent caring for the patient today was 45 minutes. This includes time spent for the visit reviewing the chart, time spent during the visit, time spent after the visit and documentation and planning in coordination of care. Subjective Date Seen: 07/09/23 Interval history: Patient is more frustrated and even saddened this morning. Poor appetite, attempts to eat but thrush of top of mouth is so sensitive is only able to tolerate very few foods. Is willing to try Magic mouthwash as he thinks this will help. Otherwise no new complaints or concerns this morning. Has remained afebrile. Vitals stable. White count continues to trend up. Peripheral smear pending. Will follow up with Hematology when results are available. Mild hypokalemia, will increase replacement twice daily. Exam Narrative: Exam Narrative: PHYSICAL EXAM General: Pleasant, sad at times, conversant, NAD HEENT: Normocephalic, atraumatic, sclera white, EOMI, oral mucosa moist Cardiovascular: RRR. No pitting edema Pulmonary: Diffusely diminished. No dyspnea on room air Neurological: Alert, answering questions appropriately, cranial nerves intact, no focal findings Extremities: No gross joint deformity or swelling. AROMI. Neurovascularly intact Skin: Warm, dry. Const: Vital Signs, click to edit/add: Vital Signs - 24 hr 07/08/23 19:00 07/08/23 23:00 07/08/23 23:00 Temperature 98 F 98 F Pulse Rate [Pulse Oximeter] 85 85 95 Respiratory Rate 20 20 20 Blood Pressure [Ri ght Arm] 147/95 H 150/94 H Pulse Oximetry 92 94 Oxygen Delivery Me thod Room Air Room Air 07/09/23 03:00 07/09/23 07:00 07/09/23 07:00 Temperature 98 F 97.0 F L Pulse Rate [Pulse Oximeter] 92 98 98 Respiratory Rate 20 20 20 Blood Pressure [Ri t Arm] 150/94 H 128/86 Pulse Oximetry 93 95 Oxygen Delivery Me thod Room Air Room Air 07/09/23 11:00 Temperature 96.6 F L Pulse Rate [Pulse Oximeter] 90 Respiratory Rate 18 Blood Pressure [[facility]] 112/69 Pulse Oximetry 95 Oxygen Delivery Me thod Room Air Labs Labs: Laboratory Results - last 24 hr 07/09/23 06:00 WBC 80.79 H* RBC 3.77 L Hgb 10.4 L Hct 30.6 L MCV 81 MCH 28 MCHC 34 RDW Coeff of Ann 24.0 H Plt Count 373 Neut % (Auto) 89.8 H Lymph % (Auto) 4.8 L [place] % (Auto) 1.8 Eos % (Auto) 0.0 Baso % (Auto) 0.1 Neut # (Auto) 72.50 H Lymph # (Auto) 3.90 H [place] # (Auto) 1.50 H Eos # (Auto) 0.00 Baso # (Auto) 0.10 Abs Immat Gran (auto) 2.80 H Imm/Tot Granulo (auto) 3.5 Diff Slide Review Acceptable Review Sodium 136 Potassium 3.3 L Chloride 110 Carbon Dioxide 11 L Anion Gap 15 BUN 58 H Creatinine 3.0 H Estimated Creat Clear 13.32 Estimated GFR 21 Glucose 183 H Calcium 8.2 L Total Bilirubin 0.3 Direct Bilirubin 0.2 AST 14 ALT 12 Alkaline Phosphatase 140 C-Reactive Protein 30.7 H Total Protein 5.0 L Albumin 2.4 L Procalcitonin 2.11 H
[2023-07-09 19:00] VITALS: BP 123/80; PULSE 87; RESP 18; TEMP 36.6; O2SAT 93
[2023-07-09 20:45] LABS: C.Difficile Negative (Negative); CDIFFEPI 027 PRESUMPTIVE NEGATIVE (Negative)
[2023-07-09] MEDS: IPRAT-ALBUT 0.5-2.5 MG/3 ML NEB 1 NEB IH (20:58)
[2023-07-09] MEDS: TRAZODONE HCL 50 MG TABLET PO (21:54)
[2023-07-09 23:00] VITALS: BP 127/74; PULSE 90; RESP 16; RESP 18; TEMP 36.1; O2SAT 94
[2023-07-09] MEDS: VANCOMYCIN 750 MG in 0.9 % SODIUM CHLORIDE 250 ml 250 ML 207.5 MG IVPB (23:20)
[2023-07-09] MEDS: 0.9 % SODIUM CHLORIDE 250 ml IV (23:21)
[2023-07-10] VITALS (8 sets, daily range): BP systolic 123–158; BP diastolic 82–92; PULSE 83–96; RESP 16–20; TEMP 36.2–37; O2SAT 92–96
[2023-07-10] MEDS: ENOXAPARIN 30 MG/0.3ML INJ SUBCUT (03:39)
[2023-07-10] MEDS: AZITHROMYCIN 500 MG in 0.9 % SODIUM CHLORIDE 250 ml 250 ML 255 MG IVPB (03:39)
[2023-07-10] MEDS: ACETAMINOPHEN 325 MG TABLET 650 MG PO ×3 (03:56→21:36)
--- NOTE | 2023-07-10 05:03 | PC.NURSE ---
End of Shift: Patient pleasant and cooperative. Afebrile. O2 sats greater than 90% on room air. C/o generalized pain 7-8/10 and PRN Tylenol given x2. Up to bathroom with SBA and walker. Encouraged oral intake. Denies nausea. Declined Nystatin this shift.
[2023-07-10] MEDS: OMEPRAZOLE 20 MG CAPSULE DR PO (07:08)
[2023-07-10 07:45] LABS: Basophils Percent Auto 0.1 % (0.0-3.0); Eosinophils Percent Auto 0.1 % (0.0-7.0); Hematocrit 30.4 % (37.0-53.0); Hemoglobin* 10.2 gm/dL (13.5-17.5); Mean Corpuscular HGB Conc 34 gm/dL (32-36); Mean Corpuscular Hemoglobin 27 pg (26-34); Mean Corpuscular Volume 81 fL (80-100); Monocytes Percent Auto 2.1 % (0.0-11.0); Neutrophils Percent Auto 84.7 % (42.0-72.0); Platelet Count* 332 K/uL (140-440); RDW Coefficient of Variation % 24.7 % (11.5-15.5); Red Blood Count 3.74 m/uL (4.30-5.90)
[2023-07-10 07:47] LABS: Chloride* 113 mmol/L (96-114); Sodium* 137 mmol/L (135-149)
[2023-07-10 07:48] LABS: Potassium* 4.8 mmol/L (3.6-5.1)
[2023-07-10 07:50] LABS: Anion Gap 12 mEq/L (7-15); Carbon Dioxide* 12 mmol/L (20-32); Creatinine* 2.9 mg/dL (0.5-1.5); Est. Creatinine Clearance* 13.96; Estimated Glomerular Filt Rate 22 ml/min
[2023-07-10 07:51] LABS: Blood Urea Nitrogen* 62 mg/dL (7-30); Calcium* 8.4 mg/dL (8.4-10.6); Glucose* 151 mg/dL (60-115)
[2023-07-10 08:23] LABS: Slide Review Reflex Yes; White Blood Count* 49.57 K/uL (4.50-11.00)
[2023-07-10 08:27] LABS: Slide Review Acceptable Review (Acceptable)
[2023-07-10] MEDS: NYSTATIN 500,000 UNIT/5 ML 500000 UNIT SWISH/SWAL (09:05)
[2023-07-10] MEDS: POTASSIUM CHLORIDE 10 MEQ CAPSULE ER 20 MEQ PO ×2 (09:05→21:33)
[2023-07-10] MEDS: METOPROLOL SUCCINATE (XL) 25 MG TAB PO (09:05)
[2023-07-10] MEDS: guaiFENesin 600 MG TAB.ER.12H PO ×2 (09:06→21:33)
[2023-07-10] MEDS: TAMSULOSIN HCL 0.4 MG CAPSULE PO (09:06)
[2023-07-10] MEDS: SODIUM CHLORIDE 0.9 % (FLUSH) 10 ML SYRINGE 5 ML IVF ×2 (09:07→21:34)
[2023-07-10] MEDS: LIDOCAINE 5% PATCH 1 PATCH TRANSDERMA (11:28)
[2023-07-10] MEDS: ALBUTEROL SULFATE 2.5 MG/3 ML VIAL.NEB NEB (11:29)
[2023-07-10] MEDS: cefTRIAXone 1 GM in 0.9 % SODIUM CHLORIDE Mini-bag 100 ML IVPB (12:52)
--- NOTE | 2023-07-10 15:53 | PC.NURSE ---
End of shift. pt has been pleasant and cooperative. generalized pain 7-9/10 po tylenol was given Afebrile. Sao2, greater than 90% on room air. Up to bathroom with SBA and walker. Encouraged oral intake. Denies nausea. he took Nystatin this shift. tried to get out of bed. he had more energy this am, he was needing more help later in the day. SL is patent. he likes to talk. needs alot of encouragement to more.
--- NOTE | 2023-07-10 16:16 | PM.IMPN1 ---
Progress Note: A&P Assessment and plan (1) Pneumonia: Problem details: -CT shows new right upper lobe infiltrate, bibasilar infiltrates -significant leukocytosis, procalcitonin 2.96, elevated CRP, tachycardic, remains afebrile -continue IV fluids, monitoring for fluid overload. Has not had metoprolol yet this morning -urine strep pneumonia antigen positive, Legionella negative -start ceftriaxone, continue vancomycin and azithromycin 07/10: White count finally responding, we will stay the course with these antibiotics for now -Mucinex b.i.d., encourage pulmonary hygiene incentive spirometry, aerobika Status: Acute (2) Leukocytosis: Problem details: -significant leukocytosis > 75,000 (previous hospitalization [id number]) -ED provider discussed with [facility], Dr Berg -in the absence of splenomegaly or significant immature cells the likelihood is that the white blood cell count may still be related to infection, but would recommend a close look at the peripheral smear by pathology to look for immature cells suggesting a possible diagnosis of CML. History also notable for weight loss -peripheral smear ordered. Smear in June showed elevated platelets, suspected to be reactive at that time -continue to follow -previously recommended outpatient follow-up with Hematology 07/09: WBC continues to uptrend, peripheral smear pending. Will follow up with Hematology once results are available 07/10: WBC has dropped from 80.79-49.57. Peripheral smear still pending Status: Acute (3) Acute kidney injury: Problem details: -creatinine continues to trend down, 2.9, (2.6 on last check in June) -creatinine clearance uptrending, BUN 62 (previously 45-93) -adrenal nodule noted 06/09/2023. Renal calculi noted 06/13/23 -previously recommended outpatient follow-up with Nephrology (may not have had time given holidays) Status: Acute (4) Adrenal nodule: Problem details: -06/09/23 CT abd/pelvis: 1.5 cm right adrenal nodule, likely an adrenal adenoma, incompletely characterized on this examination -outpatient follow up Status: Acute (5) Type 2 diabetes mellitus: Problem details: -most recent A1c 6.6 -diabetic diet, glucose checks ACHS, sliding scale -POC BG 100-160's. Status: Chronic (6) Chronic obstructive pulmonary disease: Problem details: -continue home inhalers -DuoNebs q.i.d., albuterol nebs p.r.n. Status: Chronic (7) Benign prostatic hyperplasia: Problem details: -Noted continue home meds Status: Chronic (8) Thrush: Problem details: -nystatin swish and swallow until resolved -adding med to mouthwash t.i.d. for comfort, increase ability to eat Status: Acute (9) Renal calculi: Problem details: 06/13/23 renal US: 1. No evidence of hydronephrosis. Bilateral ureteral jets visualized. 2. Bilateral nonobstructing intrarenal calculi, better visualized on recent CT. Status: Acute (10) Weight loss: Problem details: -current weight 44 kg, previously 56 during hospitalization in June -significant leukocytosis, peripheral smear ordered, CML on list of differentials Status: Acute Plan CODE: Full VTE PPX: Enoxaparin Disposition: Inpatient [facility] is assessing patient on 07/10/2023 Time Spent With Patient Total time spent: Total time spent caring for the patient today was 45 minutes. This includes time spent for the visit reviewing the chart, time spent during the visit, time spent after the visit and documentation and planning in coordination of care. Subjective Date Seen: 07/10/23 Interval history: Patient reports feeling about the same as yesterday. No new complaints or concerns this morning. Still saddened. Has remained afebrile. Is on room air. Blood culture and urine cultures have been negative. Sputum culture growing Pseudomonas and is pansensitive. C difficile negative. Peripheral smear remains pending - leukocytosis is now down trending significantly. [facility] will be assessing patient today. Exam Narrative: Exam Narrative: PHYSICAL EXAM General: Pleasant, conversant, NAD HEENT: Normocephalic, atraumatic, sclera white, EOMI, oral mucosa moist Cardiovascular: RRR. No pitting edema Pulmonary: Diffusely diminished. No dyspnea on room air Neurological: Alert, answering questions appropriately, cranial nerves intact, no focal findings Extremities: No gross joint deformity or swelling. AROMI. Neurovascularly intact Skin: Warm, dry. Const: Vital Signs, click to edit/add: Vital Signs - 24 hr 07/09/23 19:00 07/09/23 23:00 07/09/23 23:00 Temperature 97.8 F 97.0 F L Pulse Rate [Pulse Oximeter] 87 90 90 Respiratory Rate 18 16 18 Blood Pressure [Ri ght Arm] 123/80 127/74 Pulse Oximetry 93 94 Oxygen Delivery Me thod Room Air Room Air 07/10/23 03:00 07/10/23 07:05 07/10/23 07:39 Temperature 98.6 F 98.2 F Pulse Rate [Pulse Oximeter] 87 96 Respiratory Rate 16 18 18 Blood Pressure [Ri ght Arm] 133/82 123/83 Pulse Oximetry 94 92 Oxygen Delivery Me thod Room Air Room Air 07/10/23 11:25 Temperature 97.3 F L Pulse Rate [Pulse Oximeter] 88 Respiratory Rate 16 Blood Pressure [Ri ght Arm] 136/86 Pulse Oximetry 94 Oxygen Delivery Me thod Room Air Labs Labs: Laboratory Results - last 24 hr 07/09/23 07/10/23 19:44 05:48 WBC 49.57 H* RBC 3.74 L Hgb 10.2 L Hct 30.4 L MCV 81 MCH 27 MCHC 34 RDW Coeff of Ann 24.7 H Plt Count 332 Neut % (Auto) 84.7 H Lymph % (Auto) 6.0 L [place] % (Auto) 2.1 Eos % (Auto) 0.1 Baso % (Auto) 0.1 Neut # (Auto) 42.00 H Lymph # (Auto) 3.00 H [place] # (Auto) 1.00 H Eos # (Auto) 0.00 Baso # (Auto) 0.00 Abs Immat Gran (auto) 3.50 H Imm/Tot Granulo (auto) 7.0 Diff Slide Review Acceptable Review Sodium 137 Potassium 4.8 Chloride 113 Carbon Dioxide 12 L Anion Gap 12 BUN 62 H Creatinine 2.9 H Estimated Creat Clear 13.96 Estimated GFR 22 Glucose 151 H Calcium 8.4 Stl C. diff Tox B Gene Negative Stl C. diff [id number] PRESUMPTIVE NEGATIVE
--- NOTE | 2023-07-10 19:38 | PC.NURSE ---
End of shift - RN took over pt care at 1500. Pt alert, oriented, and resistive to care. Resistance improved with staff interaction, however pt is withdrawn. Pt hostile to RN, but did apologize at end of interaction. Tolerating RA, VSS, afebrile. Pt denied pain, nausea, dizziness, SOB. Pt refused medications from [id number].
[2023-07-10] MEDS: IPRAT-ALBUT 0.5-2.5 MG/3 ML NEB 1 NEB IH (19:39)
[2023-07-10] MEDS: TRAZODONE HCL 50 MG TABLET PO (21:34)
[2023-07-11] VITALS (7 sets, daily range): BP systolic 124–148; BP diastolic 84–91; PULSE 78–97; RESP 16–18; TEMP 36.4–36.6; O2SAT 95–97; BMI 17.6
[2023-07-11] MEDS: ENOXAPARIN 30 MG/0.3ML INJ SUBCUT (03:47)
[2023-07-11] MEDS: ACETAMINOPHEN 325 MG TABLET 650 MG PO ×3 (03:49→18:17)
[2023-07-11] MEDS: AZITHROMYCIN 500 MG in 0.9 % SODIUM CHLORIDE 250 ml 250 ML 255 MG IVPB (04:11)
[2023-07-11] MEDS: 0.9 % SODIUM CHLORIDE 250 ml IV (04:13)
[2023-07-11] MEDS: OMEPRAZOLE 20 MG CAPSULE DR PO (06:35)
[2023-07-11 06:40] LABS: Red Blood Count 3.76 m/uL (4.30-5.90)
[2023-07-11 06:41] LABS: Basophils Percent Auto 0.1 % (0.0-3.0); Eosinophils Percent Auto 0.2 % (0.0-7.0); Hematocrit 30.6 % (37.0-53.0); Hemoglobin* 10.3 gm/dL (13.5-17.5); Immature Granulocytes Pct Auto 11.1 %; Lymphocytes Percent Auto 4.1 % (20-44); Mean Corpuscular HGB Conc 34 gm/dL (32-36); Mean Corpuscular Hemoglobin 27 pg (26-34); Mean Corpuscular Volume 81 fL (80-100); Monocytes Percent Auto 4.7 % (0.0-11.0); Neutrophils Percent Auto 79.8 % (42.0-72.0); Platelet Count* 383 K/uL (140-440); RDW Coefficient of Variation % 25.8 % (11.5-15.5)
[2023-07-11 07:02] LABS: Chloride* 116 mmol/L (96-114); Potassium* 4.4 mmol/L (3.6-5.1); Sodium* 139 mmol/L (135-149)
[2023-07-11 07:05] LABS: Anion Gap 10 mEq/L (7-15); Carbon Dioxide* 13 mmol/L (20-32); Creatinine* 2.8 mg/dL (0.5-1.5); Estimated Glomerular Filt Rate 23 ml/min
[2023-07-11 07:06] LABS: Blood Urea Nitrogen* 57 mg/dL (7-30); Calcium* 8.6 mg/dL (8.4-10.6); Glucose* 151 mg/dL (60-115)
--- NOTE | 2023-07-11 07:36 | PC.NURSE ---
End of shift note [id number]: Pt?s generalized pain and back pain managed with PRN Tylenol, rest and repositioning. Pt alert & oriented x 4. VSS and pt has been afebrile. Pt transfers/ambulates with SBA. Pt noted to be talkative and able to make needs known. IV to L FA SL after receiving AM antibiotic per order. He has been continent of bowel and bladder this shift with one small loose stool noted. Warm milk provided last night as pt noted to have hx of difficulty with sleep. Pt refused to take Nystatin swish & swallow despite encouragement and education. Sacral Mepilex to sacrum noted to be C/D/I.
[2023-07-11 07:48] LABS: Slide Review Reflex Yes; White Blood Count* 32.65 K/uL (4.50-11.00)
[2023-07-11 07:52] LABS: Slide Review Acceptable Review (Acceptable)
[2023-07-11] MEDS: METOPROLOL SUCCINATE (XL) 25 MG TAB PO (09:28)
[2023-07-11] MEDS: guaiFENesin 600 MG TAB.ER.12H PO ×2 (09:28→20:33)
[2023-07-11] MEDS: TAMSULOSIN HCL 0.4 MG CAPSULE PO (09:29)
[2023-07-11] MEDS: DIPHEN/LIDO/ALUM/MAG/SIMETH 5 ML SUSPENSION MUCOUS MEM ×2 (09:29→17:27)
[2023-07-11] MEDS: POTASSIUM CHLORIDE 10 MEQ CAPSULE ER 20 MEQ PO ×2 (09:29→20:32)
[2023-07-11] MEDS: SODIUM CHLORIDE 0.9 % (FLUSH) 10 ML SYRINGE 5 ML IVF ×2 (09:45→20:35)
[2023-07-11] MEDS: IPRAT-ALBUT 0.5-2.5 MG/3 ML NEB 1 NEB IH (10:30)
[2023-07-11] MEDS: NYSTATIN 500,000 UNIT/5 ML 500000 UNIT SWISH/SWAL ×3 (11:05→17:30)
[2023-07-11] MEDS: LIDOCAINE 5% PATCH 1 PATCH TRANSDERMA (11:05)
--- NOTE | 2023-07-11 11:58 | PC.SOCIAL ---
Discharge planning: Called [facility] for update on decision on referral. Spoke with Nelly, who requested additional information be sent for evaluation for admit. IF accepted, available bed is on Friday. Secure emailed requested information and awaiting call back with decision on admit. steam trap worker to follow up as needed.
[2023-07-11] MEDS: PIPERACILLIN/TAZOBACTAM 3.375 GM in 0.9 % SODIUM CHLORIDE Mini-bag 100 ML IVPB ×2 (13:15→20:00)
--- NOTE | 2023-07-11 13:52 | P.IMPN_ITS ---
Progress Note: A&P Assessment and plan (1) Pneumonia: Problem details: -CT shows new right upper lobe infiltrate, bibasilar infiltrates -significant leukocytosis, procalcitonin 2.96, elevated CRP, tachycardic, remains afebrile -urine strep pneumonia antigen positive, Legionella negative -Mucinex b.i.d., encourage pulmonary hygiene incentive spirometry, aerobika 07/11: Medication changes made in setting of 1 of 2 blood culture and sputum culture growing Pseudomonas aeruginosa - stop ceftriaxone and azithromycin, continue vancomycin, add Zosyn. Will need to renally dose, pharmacy to assist. White count continues to trend down. Vital stable, afebrile Status: Acute (2) Leukocytosis: Problem details: -significant leukocytosis > 75,000 (previous hospitalization [id number]) -ED provider discussed with [facility], Dr Berg -in the absence of splenomegaly or significant immature cells the likelihood is that the white blood cell count may still be related to infection, but would recommend a close look at the peripheral smear by pathology to look for immature cells suggesting a possible diagnosis of CML. History also notable for weight loss -peripheral smear ordered. Smear in June showed elevated platelets, suspected to be reactive at that time -continue to follow -previously recommended outpatient follow-up with Hematology 07/09: WBC continues to uptrend, peripheral smear pending. Will follow up with Hematology once results are available 07/10: WBC has dropped from 80.79-49.57. Peripheral smear still pending 07/11: WBC continues to trend down, peripheral smear still pending Status: Acute (3) Acute kidney injury: Problem details: -creatinine continues to trend down, 2.8, (2.6 on last check in June) -creatinine clearance uptrending, BUN 62 (previously 45-93) -adrenal nodule noted 06/09/2023. Renal calculi noted 06/13/23 -renally dose antibiotics, pharmacy assisting -previously recommended outpatient follow-up with Nephrology (may not have had time given holidays) Status: Acute (4) Adrenal nodule: Problem details: -06/09/23 CT abd/pelvis: 1.5 cm right adrenal nodule, likely an adrenal adenoma, incompletely characterized on this examination -outpatient follow up Status: Acute (5) Type 2 diabetes mellitus: Problem details: -most recent A1c 6.6 -diabetic diet, glucose checks ACHS, sliding scale -POC BG 100-160's. Status: Chronic (6) Chronic obstructive pulmonary disease: Problem details: -continue home inhalers -DuoNebs q.i.d., albuterol nebs p.r.n. Status: Chronic (7) Benign prostatic hyperplasia: Problem details: -Noted continue home meds Status: Chronic (8) Thrush: Problem details: -nystatin swish and swallow until resolved -added magic mouthwash t.i.d. for comfort, increase ability to eat (the patient admits decreased oral intake also related to mental status currently) Status: Acute (9) Renal calculi: Problem details: 06/13/23 renal US: 1. No evidence of hydronephrosis. Bilateral ureteral jets visualized. 2. Bilateral nonobstructing intrarenal calculi, better visualized on recent CT. Status: Acute (10) Weight loss: Problem details: -current weight 44 kg, previously 56 during hospitalization in June -significant leukocytosis, peripheral smear ordered, CML on list of differentials -outpatient follow-up with Hematology. Could also be depressive etiology. Status: Acute (11) Depression: Problem details: -Previously diagnosed, not currently treated. 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 This includes time spent for the visit reviewing the chart, time spent during the visit, time spent after the visit and documentation and planning in coordination of care. Subjective Date Seen: 07/11/23 Interval history: Patient continues to report just not feeling well though admits more likely mentally and spiritually. Is encouraged by improvement in labs. Has remained afebrile, is on room air, has remained vitals stable. Throughout the week he has spoken about the regrets he has as well as how blessed he feels. He tells me he just wants to be around long enough, hopefully 20 more years, to pay this back. He has been working through this with people in his confucianist. He is not interested in medication. Exam Narrative: Exam Narrative: PHYSICAL EXAM General: Pleasant, conversant, more sad again today, otherwise NAD HEENT: Normocephalic, atraumatic, sclera white, EOMI, oral mucosa moist Cardiovascular: RRR. No pitting edema Pulmonary: Diffusely diminished. No dyspnea on room air Neurological: Alert, answering questions appropriately, cranial nerves intact, no focal findings Extremities: No gross joint deformity or swelling. AROMI. Neurovascularly intact Skin: Warm, dry. Const: Vital Signs, click to edit/add: Vital Signs - 24 hr 07/10/23 15:00 07/10/23 15:00 07/10/23 19:30 Temperature 98.4 F 97.2 F L Pulse Rate [Pulse Oximeter] 95 86 Respiratory Rate 16 20 20 Blood Pressure [Ri ght Arm] 158/92 H 135/90 H Pulse Oximetry 93 96 Oxygen Delivery Me thod Room Air Room Air 07/10/23 23:00 07/10/23 23:30 07/11/23 03:54 Temperature 97.7 F 97.8 F Pulse Rate [Pulse Oximeter] 86 83 81 Respiratory Rate 20 20 18 Blood Pressure [Ri ght Arm] 138/82 127/86 Pulse Oximetry 96 95 Oxygen Delivery Me thod Room Air Room Air 07/11/23 07:00 07/11/23 07:00 07/11/23 11:00 Temperature 97.8 F 97.6 F Pulse Rate [Pulse Oximeter] 81 81 92 Respiratory Rate 18 18 18 Blood Pressure [Ri ght Arm] 127/84 131/89 Pulse Oximetry 96 95 Oxygen Delivery Me thod Room Air Room Air Labs Labs: Laboratory Results - last 24 hr 07/07/23 07/11/23 20:49 06:24 WBC 32.65 H* RBC 3.76 L Hgb 10.3 L Hct 30.6 L MCV 81 MCH 27 MCHC 34 RDW Coeff of Ann 25.8 H Plt Count 383 Neut % (Auto) 79.8 H Lymph % (Auto) 4.1 L [place] % (Auto) 4.7 Eos % (Auto) 0.2 Baso % (Auto) 0.1 Neut # (Auto) 26.10 H Lymph # (Auto) 1.30 [place] # (Auto) 1.50 H Eos # (Auto) 0.10 Baso # (Auto) 0.00 Abs Immat Gran (auto) 3.60 H Imm/Tot Granulo (auto) 11.1 Diff Slide Review Acceptable Review Peripher Smr Path Cons See Scanned Report Sodium 139 Potassium 4.4 Chloride 116 H Carbon Dioxide 13 L Anion Gap 10 BUN 57 H Creatinine 2.8 H Estimated Creat Clear 14.40 Estimated GFR 23 Glucose 151 H Calcium 8.6
--- NOTE | 2023-07-11 17:34 | PC.NURSE ---
Shift Note [id number]: Pt in a negative mood this morning, resistant to working with PT and activity. Improved mood throughout the day and willingness to engage in activity. Encouraged nutrient dense snacks throughout the day per cardiac care unit nurse. Pt able to eat 50% of a chocolate magic cup and 50% of a schneider [place] yogurt. Sipping water throughout the day. VS WNL and LS COA, pt has been afebrile. Occasionally using aerobika, needs encouragment. No sliding scale coverage needed. BM x2, both were moderate-large and loose. He is continent of bowel and bladder.
[2023-07-11] MEDS: MELATONIN 3 MG TABLET PO (20:34)
[2023-07-11] MEDS: TRAZODONE HCL 50 MG TABLET PO (20:34)
[2023-07-11] MEDS: VANCOMYCIN 750 MG in 0.9 % SODIUM CHLORIDE 250 ml 250 ML 200 MG IVPB (22:34)
[2023-07-12 02:21] VITALS: BP 141/101; PULSE 97; RESP 20; TEMP 36; O2SAT 92
[2023-07-12] MEDS: 0.9 % SODIUM CHLORIDE 250 ml IV (02:25)
[2023-07-12] MEDS: ENOXAPARIN 30 MG/0.3ML INJ SUBCUT (02:30)
[2023-07-12] MEDS: SODIUM CHLORIDE 0.9 % (FLUSH) 10 ML SYRINGE 5 ML IVF ×3 (04:26→21:26)
[2023-07-12] MEDS: PIPERACILLIN/TAZOBACTAM 3.375 GM in 0.9 % SODIUM CHLORIDE Mini-bag 100 ML IVPB (04:26)
[2023-07-12] MEDS: OMEPRAZOLE 20 MG CAPSULE DR PO (05:20)
--- NOTE | 2023-07-12 05:25 | PC.NURSE ---
[id number]: Patient cooperative with cares. Verbalizes getting stronger but still acknowledges weakness. Intermittent cough and SOB w/activity. Encouraged use of Aerobika. Afebrile and on RA. A1/walker/GB. Encouraged PO intake but patient only wanted coffee and sips of water. Frequent T&R.
[2023-07-12 07:00] VITALS: BP 123/95; PULSE 87; RESP 18; TEMP 36.6; O2SAT 97
[2023-07-12 07:22] LABS: Chloride* 117 mmol/L (96-114); Potassium* 4.4 mmol/L (3.6-5.1); Sodium* 139 mmol/L (135-149)
[2023-07-12 07:24] LABS: Creatinine* 2.7 mg/dL (0.5-1.5); Est. Creatinine Clearance* 14.87; Estimated Glomerular Filt Rate 24 ml/min
[2023-07-12 07:25] LABS: Anion Gap 8 mEq/L (7-15); Blood Urea Nitrogen* 52 mg/dL (7-30); Calcium* 8.8 mg/dL (8.4-10.6); Carbon Dioxide* 14 mmol/L (20-32); Glucose* 122 mg/dL (60-115)
[2023-07-12] MEDS: guaiFENesin 600 MG TAB.ER.12H PO ×2 (08:33→21:25)
[2023-07-12] MEDS: POTASSIUM CHLORIDE 10 MEQ CAPSULE ER 20 MEQ PO ×2 (08:33→21:25)
[2023-07-12] MEDS: METOPROLOL SUCCINATE (XL) 25 MG TAB PO (08:33)
[2023-07-12] MEDS: TAMSULOSIN HCL 0.4 MG CAPSULE PO (08:33)
[2023-07-12] MEDS: DIPHEN/LIDO/ALUM/MAG/SIMETH 5 ML SUSPENSION MUCOUS MEM (08:34)
[2023-07-12] MEDS: ACETAMINOPHEN 325 MG TABLET 650 MG PO ×3 (08:39→21:25)
[2023-07-12] MEDS: IPRAT-ALBUT 0.5-2.5 MG/3 ML NEB 1 NEB IH ×2 (08:45→21:28)
[2023-07-12] MEDS: LIDOCAINE 5% PATCH 1 PATCH TRANSDERMA (10:36)
[2023-07-12 11:00] VITALS: BP 132/87; PULSE 82; RESP 18; TEMP 36.7; O2SAT 95
[2023-07-12 11:04] LABS: Basophils Percent Auto 0.1 % (0.0-3.0); Eosinophils Percent Auto 0.4 % (0.0-7.0); Hemoglobin* 10.6 gm/dL (13.5-17.5); Immature Granulocytes Pct Auto 10.5 %; Lymphocytes Percent Auto 3.8 % (20-44); Mean Corpuscular HGB Conc 33 gm/dL (32-36); Mean Corpuscular Hemoglobin 27 pg (26-34); Mean Corpuscular Volume 83 fL (80-100); Neutrophils Percent Auto 78.2 % (42.0-72.0); Platelet Count* 387 K/uL (140-440); RDW Coefficient of Variation % 26.2 % (11.5-15.5); Red Blood Count 3.88 m/uL (4.30-5.90)
[2023-07-12 11:15] LABS: White Blood Count* 32.85 K/uL (4.50-11.00)
[2023-07-12 11:16] LABS: Slide Review Reflex Yes
[2023-07-12] MEDS: CEFEPIME HCL 2 GM in 0.9 % SODIUM CHLORIDE Mini-bag 100 ML IVPB (13:14)
[2023-07-12 14:09] LABS: Slide Review Acceptable Review (Acceptable)
[2023-07-12 15:00] VITALS: BP 139/89; PULSE 80; RESP 18; TEMP 36.7; O2SAT 97
--- NOTE | 2023-07-12 16:23 | PC.NURSE ---
Shift Note : Pt in a poor mood this morning, making negative statements regarding activity and Nystatin mouthwash. During discussion on POC, pt verbalized that he actually did feel much better today and that he felt the plan was working. He has been willing to gargle with Magic mouthwash and Nystatin ONCE per day. Nephrology Nurse continues to offer these two meds during other scheduled times and pt declines. He is cooperative and engaged in trying to eat small snacks throughout the day, he ate about 50% of a wel[place] yogurt with about 50cc of coffee. For a snack he at several bites of applesauce and an ensure clear. Magic cup later in the afternoon, and he continues to work on it. Pt does not ask for snacks/food, but willingly accepts when staff offer. VS WNL and pt moves well with assist x1 and walker. Resistant to moving to his chair, but with reapproaching and planning, he has been receptive and spent about 45minutes in his chair today. Abx changed to Cefepime and infused without difficulty. Pt's friend in to visit and assisted him to trim and shave his [place], pt stated this improved his down mood. Ongoing c/o back and tailbone pain, pt given PRN Tylenol Q6H and sacral Mepilex C,D,&I.
--- NOTE | 2023-07-12 16:24 | PM.IMPN1 ---
Progress Note: A&P Assessment and plan (1) Pneumonia: Problem details: -CT shows new right upper lobe infiltrate, bibasilar infiltrates -significant leukocytosis, procalcitonin 2.96, elevated CRP, tachycardic, remains afebrile -urine strep pneumonia antigen positive, Legionella negative -Mucinex b.i.d., encourage pulmonary hygiene incentive spirometry, aerobika 07/11: Medication changes made in setting of 1 of 2 blood culture and sputum culture growing Pseudomonas aeruginosa - stop ceftriaxone and azithromycin, continue vancomycin, add Zosyn. Will need to renally dose, pharmacy to assist. White count continues to trend down. Vital stable, afebrile - 07/12: WBC stable. Unclear why he is on vancomycin. I spoke with pharmacy. Will switch to cefepime only for treatment of pseudomonas. Will discuss with ID on Friday to determine length of treatment. Status: Acute (2) Leukocytosis: Problem details: -significant leukocytosis > 75,000 (previous hospitalization [id number]) -ED provider discussed with [facility], Dr Berg -in the absence of splenomegaly or significant immature cells the likelihood is that the white blood cell count may still be related to infection, but would recommend a close look at the peripheral smear by pathology to look for immature cells suggesting a possible diagnosis of CML. History also notable for weight loss -peripheral smear ordered. Smear in June showed elevated platelets, suspected to be reactive at that time -continue to follow -previously recommended outpatient follow-up with Hematology 07/09: WBC continues to uptrend, peripheral smear pending. Will follow up with Hematology once results are available 07/10: WBC has dropped from 80.79-49.57. Peripheral smear still pending 07/11: WBC continues to trend down, peripheral smear still pending - 07/12: WBC stable. peripheral smear pending. Status: Acute (3) Acute kidney injury: Problem details: -creatinine continues to trend down, 2.8, (2.6 on last check in June) -creatinine clearance uptrending, BUN 62 (previously 45-93) -adrenal nodule noted 06/09/2023. Renal calculi noted 06/13/23 -renally dose antibiotics, pharmacy assisting -previously recommended outpatient follow-up with Nephrology (may not have had time given holidays) - 07/12: Cr down to 2.7. Continue to renally dose medications. Outpatient nephrology f/u. Status: Acute (4) Adrenal nodule: Problem details: -06/09/23 CT abd/pelvis: 1.5 cm right adrenal nodule, likely an adrenal adenoma, incompletely characterized on this examination -outpatient follow up Status: Acute (5) Type 2 diabetes mellitus: Problem details: -most recent A1c 6.6 -diabetic diet, glucose checks ACHS, sliding scale -POC BG 130-150's. Continue current regimen. Status: Chronic (6) Chronic obstructive pulmonary disease: Problem details: -continue home inhalers -DuoNebs q.i.d., albuterol nebs p.r.n. Status: Chronic (7) Benign prostatic hyperplasia: Problem details: - Continue home meds Status: Chronic (8) Thrush: Problem details: -nystatin swish and swallow until resolved -added magic mouthwash t.i.d. for comfort, increase ability to eat (the patient admits decreased oral intake also related to mental status currently) Status: Acute (9) Renal calculi: Problem details: 06/13/23 renal US: 1. No evidence of hydronephrosis. Bilateral ureteral jets visualized. 2. Bilateral nonobstructing intrarenal calculi, better visualized on recent CT. Status: Acute (10) Weight loss: Problem details: -current weight 44 kg, previously 56 during hospitalization in June -significant leukocytosis, peripheral smear ordered, CML on list of differentials -outpatient follow-up with Hematology. Could also be depressive etiology. Status: Acute (11) Depression: Problem details: -Previously diagnosed, not currently treated. 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 He also notes ongoing weakness and difficulty doing ADLs. He is hoping to go to long-term facility. Exam Narrative: Exam Narrative: General: No acute distress. Awake, alert, oriented x3. Thin. No pallor. No jaundice. Oropharynx: Scattered ecchymotic lesions. Mucous membranes moist. Cardiovascular: Regular rate and rhythm. Respiratory: Diffuse rhonchi, no wheezes or crackles. Abdomen: Bowel sounds present. Soft, nondistended, nontender. Extremities: No pedal edema. Const: Vital Signs, click to edit/add: Vital Signs - 24 hr 07/11/23 19:32 07/11/23 19:41 07/11/23 23:37 Temperature 97.7 F 97.7 F 97.5 F L Pulse Rate [Pulse Oximeter] 82 78 Respiratory Rate 16 18 Blood Pressure [Ri ght Arm] 138/86 148/91 H Pulse Oximetry 97 95 Oxygen Delivery Me thod Room Air Room Air 07/12/23 02:21 07/12/23 07:00 07/12/23 07:00 Temperature 96.8 F L 98 F Pulse Rate [Pulse Oximeter] 97 87 87 Respiratory Rate 20 18 18 Blood Pressure [Ri ght Arm] 141/101 H 123/95 H Pulse Oximetry 92 97 Oxygen Delivery Me thod Room Air Room Air 07/12/23 11:00 Temperature 98.1 F Pulse Rate [Pulse Oximeter] 82 Respiratory Rate 18 Blood Pressure [Ri ght Arm] 132/87 Pulse Oximetry 95 Oxygen Delivery Al thod Room Air Labs Labs: Laboratory Results - last 24 hr 07/12/23 06:46 WBC 32.85 H* RBC 3.88 L Hgb 10.6 L Hct 32.0 L MCV 83 MCH 27 MCHC 33 RDW Coeff of Ann 26.2 H Plt Count 387 Neut % (Auto) 78.2 H Lymph % (Auto) 3.8 L [place] % (Auto) 7.0 Eos % (Auto) 0.4 Baso % (Auto) 0.1 Neut # (Auto) 25.70 H Lymph # (Auto) 1.20 [place] # (Auto) 2.30 H Eos # (Auto) 0.10 Baso # (Auto) 0.00 Abs Immat Gran (auto) 3.40 H Imm/Tot Granulo (auto) 10.5 Diff Slide Review Acceptable Review Sodium 139 Potassium 4.4 Chloride 117 H Carbon Dioxide 14 L Anion Gap 8 BUN 52 H Creatinine 2.7 H Estimated Creat Clear 14.87 Estimated GFR 24 Glucose 122 H Calcium 8.8
[2023-07-12 19:53] VITALS: BP 130/74; PULSE 79; RESP 22; TEMP 36.6; O2SAT 96
[2023-07-12] MEDS: MELATONIN 3 MG TABLET PO (21:25)
[2023-07-12] MEDS: TRAZODONE HCL 50 MG TABLET PO (21:26)
[2023-07-12 22:45] VITALS: BP 139/94; PULSE 83; RESP 20; TEMP 36.7; O2SAT 96
[2023-07-13] MEDS: ENOXAPARIN 30 MG/0.3ML INJ SUBCUT (03:59)
[2023-07-13] MEDS: ACETAMINOPHEN 325 MG TABLET 650 MG PO ×3 (03:59→21:09)
[2023-07-13 04:01] VITALS: BP 136/78; PULSE 91; RESP 20; TEMP 36.2; O2SAT 94
[2023-07-13] MEDS: OMEPRAZOLE 20 MG CAPSULE DR PO (05:53)
--- NOTE | 2023-07-13 06:09 | PC.NURSE ---
[id number]: Patient cooperative but resistant to taking the Nystatin mouthwash. Patient educated on importance of using the mouthwash but adamantly refused. Using Aerobika. Encouraged PO intake with little success. Mepilex to sacral area C/D/I. Intermittent cough. Pain and discomfort relieved by Aqua K pad, Tylenol, and T&R.
[2023-07-13 06:23] LABS: Basophils Percent Auto 0.2 % (0.0-3.0); Eosinophils Percent Auto 0.5 % (0.0-7.0); Hematocrit 33.3 % (37.0-53.0); Immature Granulocytes Pct Auto 9.1 %; Lymphocytes Percent Auto 4.2 % (20-44); Mean Corpuscular HGB Conc 33 gm/dL (32-36); Mean Corpuscular Hemoglobin 27 pg (26-34); Mean Corpuscular Volume 83 fL (80-100); Monocytes Percent Auto 8.8 % (0.0-11.0); Neutrophils Percent Auto 77.2 % (42.0-72.0); Platelet Count* 394 K/uL (140-440); RDW Coefficient of Variation % 26.8 % (11.5-15.5); Red Blood Count 4.02 m/uL (4.30-5.90)
[2023-07-13 06:31] LABS: Slide Review Reflex No; White Blood Count* 32.28 K/uL (4.50-11.00)
[2023-07-13 06:37] LABS: Chloride* 117 mmol/L (96-114); Sodium* 138 mmol/L (135-149)
[2023-07-13 06:40] LABS: Anion Gap 8 mEq/L (7-15); Carbon Dioxide* 13 mmol/L (20-32); Creatinine* 2.5 mg/dL (0.5-1.5); Est. Creatinine Clearance* 16.01; Estimated Glomerular Filt Rate 26 ml/min
[2023-07-13 06:41] LABS: Blood Urea Nitrogen* 51 mg/dL (7-30); Calcium* 9.2 mg/dL (8.4-10.6); Glucose* 127 mg/dL (60-115)
[2023-07-13 07:00] VITALS: BP 127/83; PULSE 82; RESP 18; TEMP 36.8; O2SAT 96
[2023-07-13] MEDS: TAMSULOSIN HCL 0.4 MG CAPSULE PO (08:59)
[2023-07-13] MEDS: guaiFENesin 600 MG TAB.ER.12H PO ×2 (08:59→21:04)
[2023-07-13] MEDS: METOPROLOL SUCCINATE (XL) 25 MG TAB PO (08:59)
[2023-07-13] MEDS: SODIUM CHLORIDE 0.9 % (FLUSH) 10 ML SYRINGE 5 ML IVF ×2 (09:00→21:05)
[2023-07-13 09:04] LABS: Potassium* 5.5 mmol/L (3.6-5.1)
[2023-07-13 11:00] VITALS: BP 121/80; PULSE 75; RESP 18; TEMP 36.8; O2SAT 96
[2023-07-13] MEDS: NYSTATIN 500,000 UNIT/5 ML 500000 UNIT SWISH/SWAL ×3 (11:01→13:26)
[2023-07-13] MEDS: LIDOCAINE 5% PATCH 1 PATCH TRANSDERMA (13:22)
[2023-07-13] MEDS: CEFEPIME HCL 2 GM in 0.9 % SODIUM CHLORIDE Mini-bag 100 ML IVPB (13:27)
--- NOTE | 2023-07-13 14:22 | PM.IMPN1 ---
Progress Note: A&P Assessment and plan (1) Pneumonia: Problem details: -CT shows new right upper lobe infiltrate, bibasilar infiltrates -significant leukocytosis, procalcitonin 2.96, elevated CRP, tachycardic, remains afebrile -urine strep pneumonia antigen positive, Legionella negative -Mucinex b.i.d., encourage pulmonary hygiene incentive spirometry, aerobika 07/11: Medication changes made in setting of 1 of 2 blood culture and sputum culture growing Pseudomonas aeruginosa - stop ceftriaxone and azithromycin, continue vancomycin, add Zosyn. Will need to renally dose, pharmacy to assist. White count continues to trend down. Vital stable, afebrile - 07/12: WBC stable. Unclear why he is on vancomycin. I spoke with pharmacy. Will switch to cefepime only for treatment of pseudomonas. Will discuss with ID on Friday to determine length of treatment. - 07/13: WBC stable. On cefepime for pseudomonas bacteremia. Will discuss with ID tomorrow. Status: Acute (2) Leukocytosis: Problem details: -significant leukocytosis > 75,000 (previous hospitalization [id number]) -ED provider discussed with [facility], Dr Berg -in the absence of splenomegaly or significant immature cells the likelihood is that the white blood cell count may still be related to infection, but would recommend a close look at the peripheral smear by pathology to look for immature cells suggesting a possible diagnosis of CML. History also notable for weight loss -peripheral smear ordered. Smear in June showed elevated platelets, suspected to be reactive at that time -continue to follow -previously recommended outpatient follow-up with Hematology 07/09: WBC continues to uptrend, peripheral smear pending. Will follow up with Hematology once results are available 07/10: WBC has dropped from 80.79-49.57. Peripheral smear still pending 07/11: WBC continues to trend down, peripheral smear still pending - 07/12: WBC stable. peripheral smear pending. Status: Acute (3) Acute kidney injury: Problem details: -creatinine continues to trend down, 2.8, (2.6 on last check in June) -creatinine clearance uptrending, BUN 62 (previously 45-93) -adrenal nodule noted 06/09/2023. Renal calculi noted 06/13/23 -renally dose antibiotics, pharmacy assisting -previously recommended outpatient follow-up with Nephrology (may not have had time given holidays) - 07/13: Cr down to 2.5. Continue to renally dose medications. Outpatient nephrology f/u. Status: Acute (4) Adrenal nodule: Problem details: -06/09/23 CT abd/pelvis: 1.5 cm right adrenal nodule, likely an adrenal adenoma, incompletely characterized on this examination -outpatient follow up Status: Acute (5) Type 2 diabetes mellitus: Problem details: -most recent A1c 6.6 -diabetic diet, glucose checks ACHS, sliding scale -POC BG 110-150's. Continue current regimen. Status: Chronic (6) Chronic obstructive pulmonary disease: Problem details: -continue home inhalers -DuoNebs q.i.d., albuterol nebs p.r.n. Status: Chronic (7) Benign prostatic hyperplasia: Problem details: - Continue home meds Status: Chronic (8) Thrush: Problem details: -nystatin swish and swallow until resolved - magic mouthwash t.i.d. for comfort - 07/13 improved ability to eat. Status: Acute (9) Renal calculi: Problem details: 06/13/23 renal US: 1. No evidence of hydronephrosis. Bilateral ureteral jets visualized. 2. Bilateral nonobstructing intrarenal calculi, better visualized on recent CT. Status: Acute (10) Weight loss: Problem details: -current weight 44 kg, previously 56 during hospitalization in June -significant leukocytosis, peripheral smear ordered, CML on list of differentials -outpatient follow-up with Hematology. Could also be depressive etiology. Status: Acute (11) Depression: Problem details: -Previously diagnosed, not currently treated. 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 He is happy about eating eggs and pancakes for the first time in days. His mouth is much less sore. He notes feeling sluggish this morning, but is grateful for the nurse encouraging him to get going this morning. Exam Narrative: Exam Narrative: General: No acute distress. Awake, alert, oriented x3. Thin. No pallor. No jaundice. Cardiovascular: Regular rate and rhythm. Respiratory: Diffuse rhonchi, no wheezes or crackles. Abdomen: Bowel sounds present. Soft, nondistended, nontender. Extremities: No pedal edema. Const: Vital Signs, click to edit/add: Vital Signs - 24 hr 07/12/23 15:00 07/12/23 15:00 07/12/23 19:53 Temperature 98.0 F 97.9 F Pulse Rate [Pulse Oximeter] 80 80 79 Respiratory Rate 18 18 22 Blood Pressure [Ri ght Arm] 139/89 130/74 Pulse Oximetry 97 96 Oxygen Delivery Me thod Room Air Room Air 07/12/23 22:45 07/13/23 04:01 07/13/23 07:00 Temperature 98.1 F 97.1 F L Pulse Rate [Pulse Oximeter] 83 91 82 Respiratory Rate 20 20 18 Blood Pressure [Ri ght Arm] 139/94 H 136/78 Pulse Oximetry 96 94 Oxygen Delivery Me thod Room Air Room Air 07/13/23 07:00 07/13/23 11:00 Temperature 98.2 F 98.3 F Pulse Rate [Pulse Oximeter] 82 75 Respiratory Rate 18 18 Blood Pressure [Ri ght Arm] 127/83 121/80 Pulse Oximetry 96 96 Oxygen Delivery Me thod Room Air Room Air Labs Labs: Laboratory Results - last 24 hr 07/13/23 07/13/23 05:57 08:16 WBC 32.28 H* RBC 4.02 L Hgb 11.0 L Hct 33.3 L MCV 83 MCH 27 MCHC 33 RDW Coeff of Ann 26.8 H Plt Count 394 Neut % (Auto) 77.2 H Lymph % (Auto) 4.2 L [place] % (Auto) 8.8 Eos % (Auto) 0.5 Baso % (Auto) 0.2 Neut # (Auto) 24.90 H Lymph # (Auto) 1.40 [place] # (Auto) 2.80 H Eos # (Auto) 0.20 Baso # (Auto) 0.10 Abs Immat Gran (auto) 2.90 H Imm/Tot Granulo (auto) 9.1 Sodium 138 Potassium 5.5 H 5.0 Chloride 117 H Carbon Dioxide 13 L Anion Gap 8 BUN 51 H Creatinine 2.5 H Estimated Creat Clear 16.01 Estimated GFR 26 Glucose 127 H Calcium 9.2
[2023-07-13 15:00] VITALS: BP 117/74; PULSE 75; PULSE 77; RESP 18; TEMP 36.5; O2SAT 93
[2023-07-13 19:00] VITALS: BP 128/81; PULSE 78; RESP 16; TEMP 36.6; O2SAT 93
[2023-07-13] MEDS: TRAZODONE HCL 50 MG TABLET PO (21:04)
[2023-07-13] MEDS: IPRAT-ALBUT 0.5-2.5 MG/3 ML NEB 1 NEB IH (21:05)
[2023-07-13 23:00] VITALS: BP 122/83; PULSE 74; PULSE 78; RESP 16; RESP 18; TEMP 36.4; O2SAT 97
[2023-07-14] MEDS: ENOXAPARIN 30 MG/0.3ML INJ SUBCUT (02:16)
[2023-07-14 03:00] VITALS: BP 150/98; PULSE 88; RESP 18; TEMP 36.4; O2SAT 94
[2023-07-14] MEDS: OMEPRAZOLE 20 MG CAPSULE DR PO (05:34)
--- NOTE | 2023-07-14 05:51 | PC.NURSE ---
End of shift [id number]: Pt A&O x4, VSS and afebrile throughout the night. He is SBA w/ walker ambulating to the BR. HS blood sugar: 140, no insulin scheduled. Small, soft stools. Total output: 600 mL and x2 small loose BM?s. Had ongoing c/o low back pain and left shoulder pain in which PRN Tylenol was given with little to no relief. Pt was repositioned as he requested and Aqua-K pad remained in place on his lower back. Skin C/D/I. Lidocaine patch removed overnight per [facility] order. Oral thrush still present with tongue having a glass/glossy appearance. Pt refused the mouth wash rinse at HS. PRN DuoNebs are being administered BID scheduled per nursing discretion. Pt only drank sips of water overnight. PIV in right FA SL and C/D/I. He?s receiving IV cefepime q24H per ID recommendations. Blood cultures 1 of 2 bottles positive for pseudomonas aware. Pt seems to be in good spirits this AM and eager to order breakfast. Plan for a SNF discharge for rehab & continued IV abx.?
[2023-07-14 07:20] VITALS: BP 127/90; PULSE 89; RESP 20; TEMP 36.6; O2SAT 95
[2023-07-14 07:27] LABS: Chloride* 113 mmol/L (96-114); Potassium* 4.2 mmol/L (3.6-5.1); Sodium* 136 mmol/L (135-149)
[2023-07-14 07:30] LABS: Anion Gap 10 mEq/L (7-15); Blood Urea Nitrogen* 47 mg/dL (7-30); Carbon Dioxide* 13 mmol/L (20-32); Creatinine* 2.4 mg/dL (0.5-1.5); Est. Creatinine Clearance* 16.67; Estimated Glomerular Filt Rate 27 ml/min
[2023-07-14 07:31] LABS: Calcium* 8.6 mg/dL (8.4-10.6); Glucose* 132 mg/dL (60-115)
[2023-07-14] MEDS: TAMSULOSIN HCL 0.4 MG CAPSULE PO (08:55)
[2023-07-14] MEDS: guaiFENesin 600 MG TAB.ER.12H PO ×2 (08:55→20:43)
[2023-07-14] MEDS: METOPROLOL SUCCINATE (XL) 25 MG TAB PO (08:55)
[2023-07-14] MEDS: SODIUM CHLORIDE 0.9 % (FLUSH) 10 ML SYRINGE 5 ML IVF ×2 (08:57→20:44)
--- NOTE | 2023-07-14 10:45 | PM.IMPN1 ---
Progress Note: A&P Assessment and plan (1) Pneumonia: Problem details: -CT shows new right upper lobe infiltrate, bibasilar infiltrates -significant leukocytosis, procalcitonin 2.96, elevated CRP, tachycardic, remains afebrile -urine strep pneumonia antigen positive, Legionella negative -Mucinex b.i.d., encourage pulmonary hygiene incentive spirometry, aerobika 07/11: Medication changes made in setting of 1 of 2 blood culture and sputum culture growing Pseudomonas aeruginosa - stop ceftriaxone and azithromycin, continue vancomycin, add Zosyn. Will need to renally dose, pharmacy to assist. White count continues to trend down. Vital stable, afebrile - 07/12: WBC stable. Unclear why he is on vancomycin. I spoke with pharmacy. Will switch to cefepime only for treatment of pseudomonas. Will discuss with ID on Friday to determine length of treatment. - 07/13: WBC stable. On cefepime for pseudomonas bacteremia. Will discuss with ID tomorrow. - 07/14: I spoke with Dr. Jack who recommended obtaining another blood culture. When the blood culture is clear of Pseudomonas, we can transition him from cefepime to high-dose fluoroquinolone. She recommended levofloxacin renally dosed at 750 mg 1 dose bolus then 500 mg Q 48 hours. He should receive antibiotics to finish 1 week from the negative culture, typically 14 days total. Since he would have had the week of antibiotic with Pseudomonas coverage already, if the blood culture drawn today remains negative, then we can do a week more of pseudomonal coverage. She also is recommended getting a TTE. I have ordered this. We also discussed that his EKG on admission did not show any QT prolongation. Status: Acute (2) Leukocytosis: Problem details: -significant leukocytosis > 75,000 (previous hospitalization [id number]) -ED provider discussed with [facility], Dr Berg -in the absence of splenomegaly or significant immature cells the likelihood is that the white blood cell count may still be related to infection, but would recommend a close look at the peripheral smear by pathology to look for immature cells suggesting a possible diagnosis of CML. History also notable for weight loss -peripheral smear ordered. Smear in June showed elevated platelets, suspected to be reactive at that time -continue to follow -previously recommended outpatient follow-up with Hematology 07/09: WBC continues to uptrend, peripheral smear pending. Will follow up with Hematology once results are available 07/10: WBC has dropped from 80.79-49.57. Peripheral smear still pending 07/11: WBC continues to trend down, peripheral smear still pending - 07/12: WBC stable. peripheral smear pending. - 07/14: Peripheral smear is still pending. White blood count remains elevated and stable. I spoke with Dr. Elliott from Oncology who briefly reviewed his chart are noted that he has had an elevated white count for about a year. She suggested several studies to rule out MPN/CLL. She would like him seen in Hematology for follow-up as an outpatient. Status: Acute (3) Acute kidney injury: Problem details: -creatinine continues to trend down, 2.8, (2.6 on last check in June) -creatinine clearance uptrending, BUN 62 (previously 45-93) -adrenal nodule noted 06/09/2023. Renal calculi noted 06/13/23 -renally dose antibiotics, pharmacy assisting -previously recommended outpatient follow-up with Nephrology (may not have had time given holidays) - 07/14: Cr down to 2.4. Continue to renally dose medications. Outpatient nephrology f/u. Status: Acute (4) Adrenal nodule: Problem details: -06/09/23 CT abd/pelvis: 1.5 cm right adrenal nodule, likely an adrenal adenoma, incompletely characterized on this examination -outpatient follow up Status: Acute (5) Type 2 diabetes mellitus: Problem details: -most recent A1c 6.6 -diabetic diet, glucose checks ACHS, sliding scale -POC BG 110-150's. Continue current regimen. Status: Chronic (6) Chronic obstructive pulmonary disease: Problem details: -continue home inhalers -DuoNebs q.i.d., albuterol nebs p.r.n. Status: Chronic (7) Benign prostatic hyperplasia: Problem details: - Continue home meds Status: Chronic (8) Thrush: Problem details: -nystatin swish and swallow until resolved - magic mouthwash t.i.d. for comfort - 07/13 improved ability to eat. Status: Acute (9) Renal calculi: Problem details: 06/13/23 renal US: 1. No evidence of hydronephrosis. Bilateral ureteral jets visualized. 2. Bilateral nonobstructing intrarenal calculi, better visualized on recent CT. Status: Acute (10) Weight loss: Problem details: -current weight 44 kg, previously 56 during hospitalization in June -significant leukocytosis, peripheral smear ordered, CML on list of differentials -outpatient follow-up with Hematology. Could also be depressive etiology. Status: Acute (11) Depression: Problem details: -Previously diagnosed, not currently treated. -spiritual, works with people in his [employer] to address this -discussed, if open to medications, Remeron may be an appropriate medication for him as it would help to boost his appetite is well Status: Acute Plan CODE: Full VTE PPX: Enoxaparin Disposition: Inpatient SNFs are assessing. No safe discharge plan at present. Time Spent With Patient Total time spent: Today I spent 35 minutes rounding on the patient. Greater than 50% included discussing care with the team, reviewing data, updating and managing the care plan. Subjective Time Seen by Provider: 10:20 Date Seen: 07/14/23 Interval history: Liam was more tangential with his conversation today. He said he felt okay. He continues to complain of mouth pain from thrush. Exam Narrative: Exam Narrative: General: No acute distress. Awake, alert, oriented. Oropharynx: Scattered ecchymoses on soft pallate unchanged Cardiovascular: Regular rate and rhythm. Respiratory: Diffuse rhonchi, no wheezes or crackles. Abdomen: Bowel sounds present. Soft, nondistended, nontender. Const: Vital Signs, click to edit/add: Vital Signs - 24 hr 07/13/23 11:00 07/13/23 15:00 07/13/23 15:00 Temperature 98.3 F 97.7 F Pulse Rate [Pulse Oximeter] 75 77 75 Respiratory Rate 18 18 18 Blood Pressure [Ri ght Arm] 121/80 117/74 Pulse Oximetry 96 93 Oxygen Delivery Me thod Room Air Room Air 07/13/23 19:00 07/13/23 23:00 07/13/23 23:00 Temperature 97.9 F 97.6 F Pulse Rate [Pulse Oximeter] 78 78 74 Respiratory Rate 16 16 18 Blood Pressure [Ri ght Arm] 128/81 122/83 Pulse Oximetry 93 97 Oxygen Delivery Me thod Room Air Room Air 07/14/23 03:00 07/14/23 07:20 07/14/23 07:20 Temperature 97.6 F 97.8 F Pulse Rate [Pulse Oximeter] 88 89 Respiratory Rate 18 20 20 Blood Pressure [Ri ght Arm] 150/98 H 127/90 H Pulse Oximetry 94 95 Oxygen Delivery Me thod Room Air Room Air Labs Labs: Laboratory Results - last 24 hr 07/14/23 06:50 Sodium 136 Potassium 4.2 Chloride 113 Carbon Dioxide 13 L Anion Gap 10 BUN 47 H Creatinine 2.4 H Estimated Creat Clear 16.67 Estimated GFR 27 Glucose 132 H Calcium 8.6
[2023-07-14 12:26] VITALS: BP 115/77; PULSE 80; RESP 18; TEMP 36.7; O2SAT 96
[2023-07-14] MEDS: LIDOCAINE 5% PATCH 1 PATCH TRANSDERMA (12:50)
[2023-07-14] MEDS: 0.9 % SODIUM CHLORIDE 250 ml IV (12:51)
[2023-07-14] MEDS: CEFEPIME HCL 2 GM in 0.9 % SODIUM CHLORIDE Mini-bag 100 ML IVPB (12:51)
--- NOTE | 2023-07-14 13:18 | NUTR.NU ---
RDN with nutrition follow-up r/t hx significant wt loss and low oral intakes. Current weight 99lb; height 5ft 3in; BMI is underweight at 17.6 kg/m2. Weight has remained stable during this admit. RDN ordered Enlive or Magic Cup to be offered BID at 1200 & 1600 and snacks x6 per day. Per nursing documentation, patient has been sipping on Mighty Shake recently. Was able to consume 50% of 1 pancake and eggs and 50% of grilled cheese sandwich 07/13/23. RDN visited with patient whom reports increased oral intake. His oral thrush is improving as well and he is experiencing less pain. He reports slowly feeling better. Per nursing today, patient consumed eggs this morning and a yogurt. He has been sipping on milk and asked for Ensure. He did not order lunch yet today. No change in nutrition interventions at this time due to increased oral intake. Consider starting tube feedings if oral intakes do not stay improved. Continue offering RDN Enlive/Magic Cup/Mighty Shake BID at 1200 & 1600 and snacks x6 per day to provide ~1000 kcals and ~50 grams protein to help meet estimated energy needs. Continue to encourage oral intake. RDN will continue to monitor and follow-up prn.
--- NOTE | 2023-07-14 13:50 | PC.SOCIAL ---
Discharge planning: ax survey worker reached out to [facility] today to see if they can accept pt after updated notes were sent on Friday. [facility] asked for more updated notes from the weekend, so this drug abuse social worker sent over more updated notes via secure email. Social work to follow-up as needed.
[2023-07-14 15:00] VITALS: BP 126/85; PULSE 87; RESP 20; TEMP 36.9; O2SAT 95
--- NOTE | 2023-07-14 16:12 | PC.NURSE ---
Pt denies pain. See MAR for medication administration and those that have been refused by pt. Complains of inability to readjust in bed due to weakness but walked from bathroom to bed without using call light for assistance. Poor appetite encouraged pt to have high protein, high calorie snacks and meals with limited success.
[2023-07-14] MEDS: PERFLUTREN LIPID MICROSPHERES 2 ML VIAL IV (17:49)
--- NOTE | 2023-07-14 18:36 | PC.NURSE ---
End of shift [id number]: Pt A&O x4, VSS and afebrile this afternoon. Ambulates in room SBA with 2ww. Pt c/o chronic low back pain and has scheduled Tylenol ordered + Aqua K pad in place. Pt has been refusing Nystatin swish/spit and his magic mouthwash for oral thrush management. Education provided each time but pt only wants to take it 1x a day at night. Blood sugar before supper was 139; no insulin required. Pt had bedside TTE done this afternoon per MD order with continued long-term elevated WBC. Getting IV cefepime q24 and IV Levaquin q48 for positive blood cultures. PIV in right FA SL and C/D/I. Continent of bowel & bladder, had x1 loose BM this afternoon.
[2023-07-14 19:41] VITALS: BP 127/84; PULSE 94; RESP 18; TEMP 36.7; O2SAT 94
[2023-07-14] MEDS: MELATONIN 3 MG TABLET PO (20:43)
[2023-07-14] MEDS: IPRAT-ALBUT 0.5-2.5 MG/3 ML NEB 1 NEB IH (20:43)
[2023-07-14] MEDS: TRAZODONE HCL 50 MG TABLET PO (20:43)
[2023-07-14] MEDS: NYSTATIN 500,000 UNIT/5 ML 500000 UNIT SWISH/SWAL (20:47)
[2023-07-14 23:21] VITALS: BP 144/85; PULSE 81; RESP 20; TEMP 37; O2SAT 95
[2023-07-15] MEDS: ENOXAPARIN 30 MG/0.3ML INJ SUBCUT ×2 (02:29→21:10)
[2023-07-15 02:33] VITALS: BP 119/76; PULSE 79; RESP 16; TEMP 36.3; O2SAT 95
[2023-07-15 02:51] LABS: Chloride* 117 mmol/L (96-114); Sodium* 137 mmol/L (135-149)
[2023-07-15 02:52] LABS: Potassium* 3.9 mmol/L (3.6-5.1)
[2023-07-15 02:54] LABS: Anion Gap 7 mEq/L (7-15); Carbon Dioxide* 13 mmol/L (20-32); Creatinine* 2.3 mg/dL (0.5-1.5); Est. Creatinine Clearance* 17.39; Estimated Glomerular Filt Rate 29 ml/min
[2023-07-15 02:55] LABS: Blood Urea Nitrogen* 45 mg/dL (7-30); Calcium* 8.7 mg/dL (8.4-10.6); Glucose* 114 mg/dL (60-115)
--- NOTE | 2023-07-15 06:10 | PC.NURSE ---
[id number]: Patient SBA w/walker. SOB w/activity. Mepilex to sacrum C/D/I. Independently using Aerobika. Afebrile. Intermittent cough. Patient did agree to take the Nystatin mouth wash this shift.
--- NOTE | 2023-07-15 07:26 | W.PM.INFD_ITS ---
Consultation Information Consultation Information Date of Consult: 07/15/23 Reason for Consult: Pseudomonas aeruginosa bacteremia 2/2 pneumonia Consultation Statement: This patient recommendation is based on a telemedicine consult request which was completed asynchronously through chart review and information provided by the primary physician. The patient was not seen or examined today. The evaluation is consultative in nature and all patient care and treatment decisions can either be accepted or rejected by the patient's primary hospital-based treating physician using their own independent medical judgment for their patient. [employer] contact information: Please call [facility] call center [phone] HPI - Infectious Disease History of Present Illness History of Present Illness: Raman Montes is a 78 year old male patient with past medical history of COPD, type 2 diabetes, hyperlipidemia, and BPH, s/p recent admission for B/L PNA in early June 2023 when he was treated with a course of cefepime and doxycycline and ultimately discharged on Levaquin. Pt with chronic leukocytosis for about a year and at time of his recent hospital discharge, his WBC count was 24 K. Apparently, post discharge, the patient had improved symptoms for about a week but then his respiratory symptoms recurred and worsened with SOB interfering with his routine daily activities and ADLs with few days of productive cough, chest tightness and wheezing, no subjective fevers and no chills, no N, V, but he did reports diarrhea for 3 weeks that resolved on its own. He also reports he has lost about 25 to 30 pounds over the last year. In the ER he was noted to have significant leukocytosis with a white count of 71,000 which peaked at >80K, chest x-ray showed increased opacities in bilateral lungs. The ER provider did discuss this with significant leukocytosis with [place], a CT chest abdomen pelvis was performed which showed worsening pneumonia. There is no evidence of significant splenomegaly. Based on this the hematology provider recommended peripheral smear as leukemia cannot be ruled out but felt that infection was the most likely etiology. Patient was also noted to have mild hyponatremia, metabolic acidosis and acute kidney injury with a creatinine of 3.8 up from 2.5. procalcitonin 2.96, elevated inflammatory markers ESR 73, CRP Pt initially received cefepime, IV vancomycin and azithromycin. He was admitted for management of multifocal B/L PNA. He was on ceftriaxone, IV vancomycin and azithromycin. On 07/11 Abx were changed to Zosyn from ceftriaxone in setting of 1 of 2 blood culture and sputum culture growing Pseudomonas aeruginosa, azithromycin d/becca, IV vancomycin continued then was stopped on 07/12 given negative MRSA screen and growth of P aeruginosa from blood and sputum Cx. On 07/12, WBC remained elevated but stable, zosyn was switched to cefepime renal dosing. Tele ID was consulted for recommendations Re antibiotic management in anticipation of potential hospital discharge planning. [facility] Medical History (Updated 07/14/23 @ 16:12 by Sandra Rai MD) Depression (03/19/10) ?F32.A - Depression, unspecified (ICD-10) CKD (chronic kidney disease) ?N18.9 - Chronic kidney disease, unspecified (ICD-10) Rupture of renal capsule of left kidney ?S37.062A - Major laceration of left kidney, initial encounter (ICD-10) 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 - Other specified diseases of pancreas (ICD-10) Dilation of pancreatic duct ?K86.89 - Other specified diseases of pancreas (ICD-10) Calculus of pancreatic duct ?K86.89 - Other specified diseases of pancreas (ICD-10) Arm fracture (03/19/10) ?S42.309A - Unspecified fracture of shaft of humerus, unspecified arm, i nitial encounter for closed fracture (ICD-10) Social History What is your current living situation?: I presently have a place to live Problems where you live: no known problems Problems where you live details: no known problems In the past 12 months, utilities in danger of being shut off: no In past 12 months, lack of transportation kept you from medical appts, meetings, work, or getting things needed for daily living: no Highest level of school completed/degree received: some college, no degree Smoking Status: Former smoker What tobacco products do you use: cigarettes Smoking quit date/years: >15 years ago Do you use any of these nicotine containing products: None Second hand tobacco smoke exposure: No How often do you have a drink containing alcohol: never How often do you have six or more drinks on one occasion: Never AUDIT-C Alcohol total score: 0 Non-prescribed substance use: denies use Caffeine: Yes (3 cups coffee daily) How often does anyone, including family, friends and others, physically hurt you : never How often does anyone, including family, friends and others, insult or talk down to you: never How often does anyone, including family, friends and others, threaten you with harm: never How often does anyone, including family, friends and others, scream or curse at you: never Little interest or pleasure in doing things: not at all Feeling down, depressed, or hopeless: not at all service: No Home Medications and Allergies Home Medications and Allergies Inpatient Medications: Active Medications Generic Name Dose Route Start Last Admin Trade Name Freq PRN Reason Stop Dose Admin Acetaminophen 650 mg 07/08/23 02:31 07/13/23 21:09 Acetaminophen 325 Mg Tablet PO 650 mg Q6H PRN Administration Pain Albuterol 2.5 mg 07/08/23 03:00 07/10/23 11:29 Albuterol Sulfate 2.5 Mg/3 Ml Vial.Neb NEB 2.5 mg Q4H PRN Administration Albuterol 2 puff 07/08/23 12:51 Albuterol Inhaler IH Q4H PRN shortness of breath or wheezin Albuterol/Ipratropium 1 neb 07/08/23 02:49 07/14/23 20:43 Iprat-Albut 0.5-2.5 Mg/3 Ml Neb IH 1 neb Q6H PRN Administration Enoxaparin Sodium 30 mg 07/08/23 03:00 07/15/23 02:29 Enoxaparin 30 Mg/0.3ml Inj SUBCUT 30 mg Q24H JES Administration Guaifenesin 600 mg 07/08/23 09:00 07/14/23 20:43 Guaifenesin 600 Mg Tab.Er.12h PO 600 mg BID JES Administration Cefepime HCl 2 gm/ Sodium 100 mls @ 200 mls/hr 07/12/23 12:00 07/14/23 13:34 Chloride IVPB Infused Q24H JES Infusion Insulin Aspart 0 unit 07/08/23 08:00 07/14/23 18:33 Insulin Aspart 100 Unit/Ml SUBCUT Not Given TIDWM JES Protocol Lidocaine 1 patch 07/10/23 10:45 07/14/23 12:50 Lidocaine 5% Patch TRANSDERMA 1 patch Q24H JES Administration Protocol Lidocaine/Diphenhydr/Alum/Mg/Simeth 5 ml 07/09/23 09:31 07/12/23 08:34 Diphen/Lido/Alum/Mag/Simeth 5 Ml Suspension MUCOUS MEM 5 ml QID PRN Administration Melatonin 3 mg 07/08/23 02:48 07/14/23 20:43 Melatonin 3 Mg Tablet PO 3 mg HS PRN Administration Insomnia Metoprolol Succinate 25 mg 07/08/23 12:56 07/14/23 08:55 Metoprolol Succinate (Xl) 25 Mg Tab PO 25 mg DAILY JES Administration Mometasone- 0 puff 07/08/23 09:00 07/14/23 20:43 Formoterol [Dulera] IH Not Given 200-5 Mcg/Actuation Q12H JES Hfa Aerosol Nystatin 500,000 unit 07/08/23 09:00 07/14/23 20:47 Nystatin 500,000 Unit/5 Ml SWISH/SWAL 500,000 unit QID JES Administration Omeprazole 20 mg 07/09/23 07:00 07/14/23 05:34 Omeprazole [address] PO 20 mg DAILY@0700 JES Administration Senna/Docusate Sodium 1 tab 07/08/23 02:31 Sennosides/Docusate Tablet PO DAILY PRN Sodium Chloride 5 ml 07/08/23 02:31 07/12/23 04:26 Sodium Chloride 0.9 % (Flush) 10 Ml Syringe IVF 5 ml .FLUSH PRN Administration Sodium Chloride 5 ml 07/08/23 09:00 07/14/23 20:44 Sodium Chloride 0.9 % (Flush) 10 Ml Syringe IVF 5 ml BID JES Administration Sodium Chloride 250 ml 07/09/23 23:00 07/14/23 12:51 0.9 % Sodium Chloride 250 Ml IV 250 ml Q24H JES Administration Tamsulosin HCl 0.4 mg 07/09/23 09:00 07/14/23 08:55 Tamsulosin Hcl 0.4 Mg Capsule PO 0.4 mg DAILY JES Administration Trazodone HCl 50 mg 07/08/23 21:00 07/14/23 20:43 Trazodone Hcl 50 Mg Tablet PO 50 mg HS JES Administration Discontinued Medications Generic Name Dose Route Start Last Admin Trade Name Freq PRN Reason Stop Dose Admin Acetaminophen 1,000 mg 07/07/23 22:25 07/07/23 22:40 Acetaminophen 500 Mg Tablet PO 07/07/23 22:26 1,000 mg ONCE ONE Administration Acetaminophen Confirm 07/07/23 22:33 Acetaminophen 500 Mg Tablet Administered 07/07/23 22:34 Dose 1,000 mg .ROUTE .STK-MED ONE Sodium Chloride 1,000 mls @ 1,000 mls/hr 07/07/23 19:00 07/07/23 20:33 0.9 % Sodium Chloride 1000 Ml IV 07/07/23 19:59 Infused .Q1H JES Infusion Vancomycin HCl 750 mg/ Sodium 507.5 mls @ 253.75 mls/hr 07/07/23 22:12 07/08/23 01:45 Chloride IVPB 07/07/23 22:13 Infused ONCE ONE Infusion Protocol Sodium Chloride 1,000 mls @ 75 mls/hr 07/07/23 22:26 07/13/23 22:04 0.9 % Sodium Chloride 1000 Ml IV Not Given .[id number] JES Cefepime HCl 1 gm/ Sodium 100 mls @ 200 mls/hr 07/07/23 22:57 07/08/23 03:35 Chloride IVPB 07/07/23 22:58 Infused ONCE ONE Infusion Azithromycin 500 mg/ Sodium 255 mls @ 255 mls/hr 07/08/23 03:00 07/08/23 05:00 Chloride IVPB Infused Q24H JES Infusion Cefepime HCl 1 gm/ Sodium 100 mls @ 200 mls/hr 07/08/23 03:30 07/08/23 07:11 Chloride IVPB Not Given Q24H JES Vancomycin HCl 750 mg/ Sodium 207.5 mls @ 207.5 mls/hr 07/08/23 04:00 Chloride IVPB 07/08/23 04:59 ONCE ONE Cefepime HCl 1 gm/ Sodium 100 mls @ 200 mls/hr 07/09/23 02:00 Chloride IVPB Q24H JES Cefepime HCl 1 gm/ Sodium 100 mls @ 200 mls/hr 07/09/23 04:00 Chloride IVPB Q24H JES Vancomycin HCl 750 mg/ Sodium 257.5 mls @ 207.5 mls/hr 07/09/23 23:00 07/12/23 04:26 Chloride IVPB Infused Q48H JES Infusion Cefepime HCl 0.5 gm/ Sodium 100 mls @ 200 mls/hr 07/09/23 04:00 Chloride IVPB Q24H JES Ceftriaxone Sodium 1 gm/ 100 mls @ 200 mls/hr 07/08/23 12:30 07/13/23 22:05 Sodium Chloride IVPB Infused Q24H JES Infusion Azithromycin 500 mg/ Sodium 255 mls @ 255 mls/hr 07/09/23 04:00 07/11/23 05:31 Chloride IVPB Infused Q24H [facility] Infusion Piperacillin Sod/Tazobactam 100 mls @ 200 mls/hr 07/11/23 12:00 07/12/23 19:39 Sod 3.375 gm/ Sodium Chloride IVPB Infused Q8H [facility] Infusion IV Miscellaneous Supplies 1 each 07/08/23 09:00 Pharmacist Consult DAILY [facility] Protocol IV Miscellaneous Supplies 1 each 07/08/23 09:00 Pharmacist Consult DAILY [facility] Protocol Metoprolol Succinate 25 mg 07/09/23 09:00 Metoprolol Succinate (Xl) 25 Mg Tab PO DAILY [facility] Ondansetron HCl 4 mg 07/08/23 02:31 Ondansetron 2 Mg/Ml Inj IVP Q4H PRN Nausea Perflutren Lipid Microsphere Confirm 07/14/23 17:34 Perflutren Lipid Microspheres 2 Ml Vial Administered 07/14/23 17:35 [facility] Perflutren Lipid Microsphere 2 ml 07/14/23 17:47 07/14/23 17:49 Perflutren Lipid Microspheres 2 Ml Vial IV 07/14/23 17:48 2 ml ONCE ONE Administration Potassium Chloride 20 meq 07/09/23 09:00 07/09/23 09:23 Potassium Chloride 10 Meq Capsule Er PO 20 meq DAILY JES Administration Potassium Chloride 20 meq 07/09/23 21:00 07/12/23 21:25 Potassium Chloride 10 Meq Capsule Er PO 20 meq BID JES Administration Allergies Allergy/AdvReac Type Severity Reaction Status Date / Time No Known Drug Allergies Allergy Verified 06/23/23 13:06 Objective - Infectious Disease Objective Vital Signs: Vital Signs - 24 hr 07/14/23 12:26 07/14/23 15:00 07/14/23 15:00 Temperature 98.1 F 98.5 F Pulse Rate [Pulse Oximeter] 80 87 87 Respiratory Rate 18 20 20 Blood Pressure [Right Arm] 115/77 126/85 Pulse Oximetry 96 95 Oxygen Delivery Method Room Air 07/14/23 19:41 07/14/23 23:21 07/15/23 02:33 Temperature 98.1 F 98.6 F 97.4 F L Pulse Rate [Pulse Oximeter] 94 81 79 Respiratory Rate 18 20 16 Blood Pressure [Right Arm] 127/84 144/85 H 119/76 Pulse Oximetry 94 95 95 Oxygen Delivery Method Room Air Room Air Room Air Narrative: Patient was not seen or examined. Results - Infectious Disease Results Labs: 07/15/23 02:20 Blood Blood Culture - Pending 07/15/23 02:15 Blood Blood Culture - Pending 07/12/23 14:50 Nares MRSA Screen - Final No MRSA (Methicillin resistant Staph aureus) isolated. 07/07/23 20:49 Blood Blood Culture - Final Pseudomonas aeruginosa 07/07/23 20:57 Blood Blood Culture - Final NO GROWTH AFTER 5 DAYS 07/08/23 04:55 Sputum - Expectorated Sputum Sputum Gram Stain - Final Not Reportable 07/08/23 04:55 Sputum - Expectorated Sputum Sputum Culture - Final Pseudomonas aeruginosa 07/08/23 Unknown Urine,Clean Catch Urine Culture - Final NO GROWTH AFTER 48 HOURS Laboratory Tests 07/15/23 07/14/23 07/13/23 Range/Units 02:15 06:50 08:16 WBC (4.50-11.00) K/uL RBC (4.30-5.90) m/uL Hgb (13.5-17.5) gm/dL Hct (37.0-53.0) % MCV (80-100) fL MCH (26-34) pg MCHC (32-36) gm/dL RDW Coeff of Ann (11.5-15.5) % Plt Count (140-440) K/uL Neut % (Auto) (42.0-72.0) % Lymph % (Auto) (20-44) % Blair % (Auto) (0.0-11.0) % Eos % (Auto) (0.0-7.0) % Baso % (Auto) (0.0-3.0) % Neut # (Auto) (1.7-7.0) K/uL Lymph # (Auto) (0.90-2.90) K/uL Blair # (Auto) (0.00-0.90) K/UL Eos # (Auto) (0.00-0.50) K/uL Baso # (Auto) (0.00-0.30) K/uL Abs Immat Gran (auto) (0.00-0.30) K/uL Imm/Tot Granulo (auto) % Diff Slide Review (Acceptable) Peripher Smr Path Cons ESR (2-15) mm/hr Absolute Retic (0.03-0.08) # Percent Retic (0.5-2.0) % Immature Retic Fraction (2.3-13.4) % Retic Hgb Equivalent (29.0-35.0) pg Sodium 137 136 (135-149) mmol/L Potassium 3.9 4.2 5.0 (3.6-5.1) mmol/L Chloride 117 H 113 (96-114) mmol/L Carbon Dioxide 13 L 13 L (20-32) mmol/L Anion Gap 7 10 (7-15) mEq/L BUN 45 H 47 H (7-30) mg/dL Creatinine 2.3 H 2.4 H (0.5-1.5) mg/dL Estimated Creat Clear 17.39 16.67 Estimated GFR 29 27 ml/min Glucose 114 132 H (60-115) mg/dL Lactate (0.5-1.9) mmol/L Calcium 8.7 8.6 (8.4-10.6) mg/dL Magnesium (1.5-2.6) mg/dL Total Bilirubin (0.1-1.5) mg/dL Direct Bilirubin (0.0-0.5) mg/dL AST (12-35) U/L ALT (4-50) U/L Alkaline Phosphatase (40-150) U/L C-Reactive Protein (0.5-1.0) mg/dL Total Protein (6.0-8.3) g/dL Albumin (3.3-5.0) g/dL Procalcitonin (<0.50) ng/mL TSH (0.270-4.200) uIU/mL Urine Color (Yellow) Urine Appearance (Clear) Urine pH (5.0-8.5) Ur Specific Dalton (1.000-1.030) Urine Protein (Negative) Urine Glucose (UA) (Negative) Urine Ketones (Negative) Urine Blood (Negative) Urine Nitrite (Negative) Urine Bilirubin (Negative) Urine Urobilinogen (0.2-1.0) Ur Leukocyte Esterase (Negative) Urine RBC (0-2) Urine WBC (0-5) Ur Squamous Epith Cells (None-Few) Amorphous Sediment (None) Urine Bacteria (None) Urine L. pneumophilia Ag (Negative) Urine Strep pneumoniae Ag (Negative) Stl C. diff Tox B Gene (Negative) Stl C. diff 027-NAP1-BI (Negative) JAK2 V617F Spec Src Pending JAK2 V617F Mutation Pending BCR/abl Source Pending BCR/abl1 Diagnostic Res Pending POC Troponin I (0.01-0.04) ng/ml 07/13/23 07/12/23 07/11/23 Range/Units 05:57 06:46 06:24 WBC 32.28 H* 32.85 H* 32.65 H* (4.50-11.00) K/uL RBC 4.02 L 3.88 L 3.76 L (4.30-5.90) m/uL Hgb 11.0 L 10.6 L 10.3 L (13.5-17.5) gm/dL Hct 33.3 L 32.0 L 30.6 L (37.0-53.0) % MCV 83 83 81 (80-100) fL MCH 27 27 27 (26-34) pg MCHC 33 33 34 (32-36) gm/dL RDW Coeff of Ann 26.8 H 26.2 H 25.8 H (11.5-15.5) % Plt Count 394 387 383 (140-440) K/uL Neut % (Auto) 77.2 H 78.2 H 79.8 H (42.0-72.0) % Lymph % (Auto) 4.2 L 3.8 L 4.1 L (20-44) % Blair % (Auto) 8.8 7.0 4.7 (0.0-11.0) % Eos % (Auto) 0.5 0.4 0.2 (0.0-7.0) % Baso % (Auto) 0.2 0.1 0.1 (0.0-3.0) % Neut # (Auto) 24.90 H 25.70 H 26.10 H (1.7-7.0) K/uL Lymph # (Auto) 1.40 1.20 1.30 (0.90-2.90) K/uL Blair # (Auto) 2.80 H 2.30 H 1.50 H (0.00-0.90) K/UL Eos # (Auto) 0.20 0.10 0.10 (0.00-0.50) K/uL Baso # (Auto) 0.10 0.00 0.00 (0.00-0.30) K/uL Abs Immat Gran (auto) 2.90 H 3.40 H 3.60 H (0.00-0.30) K/uL Imm/Tot Granulo (auto) 9.1 10.5 11.1 % Diff Slide Review Acceptable Review Acceptable Review (Acceptable) Peripher Smr Path Cons ESR (2-15) mm/hr Absolute Retic (0.03-0.08) # Percent Retic (0.5-2.0) % Immature Retic Fraction (2.3-13.4) % Retic Hgb Equivalent (29.0-35.0) pg Sodium 138 139 139 (135-149) mmol/L Potassium 5.5 H 4.4 4.4 (3.6-5.1) mmol/L Chloride 117 H 117 H 116 H (96-114) mmol/L Carbon Dioxide 13 L 14 L 13 L (20-32) mmol/L Anion Gap 8 8 10 (7-15) mEq/L BUN 51 H 52 H 57 H (7-30) mg/dL Creatinine 2.5 H 2.7 H 2.8 H (0.5-1.5) mg/dL Estimated Creat Clear 16.01 14.87 14.40 Estimated GFR 26 24 23 ml/min Glucose 127 H 122 H 151 H (60-115) mg/dL Lactate (0.5-1.9) mmol/L Calcium 9.2 8.8 8.6 (8.4-10.6) mg/dL Magnesium (1.5-2.6) mg/dL Total Bilirubin (0.1-1.5) mg/dL Direct Bilirubin (0.0-0.5) mg/dL AST (12-35) U/L ALT (4-50) U/L Alkaline Phosphatase (40-150) U/L C-Reactive Protein (0.5-1.0) mg/dL Total Protein (6.0-8.3) g/dL Albumin (3.3-5.0) g/dL Procalcitonin (<0.50) ng/mL TSH (0.270-4.200) uIU/mL Urine Color (Yellow) Urine Appearance (Clear) Urine pH (5.0-8.5) Ur Specific Dalton (1.000-1.030) Urine Protein (Negative) Urine Glucose (UA) (Negative) Urine Ketones (Negative) Urine Blood (Negative) Urine Nitrite (Negative) Urine Bilirubin (Negative) Urine Urobilinogen (0.2-1.0) Ur Leukocyte Esterase (Negative) Urine RBC (0-2) Urine WBC (0-5) Ur Squamous Epith Cells (None-Few) Amorphous Sediment (None) Urine Bacteria (None) Urine L. pneumophilia Ag (Negative) Urine Strep pneumoniae Ag (Negative) Stl C. diff Tox B Gene (Negative) Stl C. diff 027-NAP1-BI (Negative) JAK2 V617F Spec Src JAK2 V617F Mutation BCR/abl Source BCR/abl1 Diagnostic Res POC Troponin I (0.01-0.04) ng/ml 07/10/23 07/09/23 07/09/23 Range/Units 05:48 19:44 06:00 WBC 49.57 H* 80.79 H* (4.50-11.00) K/uL RBC 3.74 L 3.77 L (4.30-5.90) m/uL Hgb 10.2 L 10.4 L (13.5-17.5) gm/dL Hct 30.4 L 30.6 L (37.0-53.0) % MCV 81 81 (80-100) fL MCH 27 28 (26-34) pg MCHC 34 34 (32-36) gm/dL RDW Coeff of Ann 24.7 H 24.0 H (11.5-15.5) % Plt Count 332 373 (140-440) K/uL Neut % (Auto) 84.7 H 89.8 H (42.0-72.0) % Lymph % (Auto) 6.0 L 4.8 L (20-44) % Blair % (Auto) 2.1 1.8 (0.0-11.0) % Eos % (Auto) 0.1 0.0 (0.0-7.0) % Baso % (Auto) 0.1 0.1 (0.0-3.0) % Neut # (Auto) 42.00 H 72.50 H (1.7-7.0) K/uL Lymph # (Auto) 3.00 H 3.90 H (0.90-2.90) K/uL Blair # (Auto) 1.00 H 1.50 H (0.00-0.90) K/UL Eos # (Auto) 0.00 0.00 (0.00-0.50) K/uL Baso # (Auto) 0.00 0.10 (0.00-0.30) K/uL Abs Immat Gran (auto) 3.50 H 2.80 H (0.00-0.30) K/uL Imm/Tot Granulo (auto) 7.0 3.5 % Diff Slide Review Acceptable Review Acceptable Review (Acceptable) Peripher Smr Path Cons ESR (2-15) mm/hr Absolute Retic (0.03-0.08) # Percent Retic (0.5-2.0) % Immature Retic Fraction (2.3-13.4) % Retic Hgb Equivalent (29.0-35.0) pg Sodium 137 136 (135-149) mmol/L Potassium 4.8 3.3 L (3.6-5.1) mmol/L Chloride 113 110 (96-114) mmol/L Carbon Dioxide 12 L 11 L (20-32) mmol/L Anion Gap 12 15 (7-15) mEq/L BUN 62 H 58 H (7-30) mg/dL Creatinine 2.9 H 3.0 H (0.5-1.5) mg/dL Estimated Creat Clear 13.96 13.32 Estimated GFR 22 21 ml/min Glucose 151 H 183 H (60-115) mg/dL Lactate (0.5-1.9) mmol/L Calcium 8.4 8.2 L (8.4-10.6) mg/dL Magnesium (1.5-2.6) mg/dL Total Bilirubin 0.3 (0.1-1.5) mg/dL Direct Bilirubin 0.2 (0.0-0.5) mg/dL AST 14 (12-35) U/L ALT 12 (4-50) U/L Alkaline Phosphatase 140 (40-150) U/L C-Reactive Protein 30.7 H (0.5-1.0) mg/dL Total Protein 5.0 L (6.0-8.3) g/dL Albumin 2.4 L (3.3-5.0) g/dL Procalcitonin 2.11 H (<0.50) ng/mL TSH (0.270-4.200) uIU/mL Urine Color (Yellow) Urine Appearance (Clear) Urine pH (5.0-8.5) Ur Specific Dalton (1.000-1.030) Urine Protein (Negative) Urine Glucose (UA) (Negative) Urine Ketones (Negative) Urine Blood (Negative) Urine Nitrite (Negative) Urine Bilirubin (Negative) Urine Urobilinogen (0.2-1.0) Ur Leukocyte Esterase (Negative) Urine RBC (0-2) Urine WBC (0-5) Ur Squamous Epith Cells (None-Few) Amorphous Sediment (None) Urine Bacteria (None) Urine L. pneumophilia Ag (Negative) Urine Strep pneumoniae Ag (Negative) Stl C. diff Tox B Gene Negative (Negative) Stl C. diff 027-NAP1-BI PRESUMPTIVE NEGATIVE (Negative) JAK2 V617F Spec Src JAK2 V617F Mutation BCR/abl Source BCR/abl1 Diagnostic Res POC Troponin I (0.01-0.04) ng/ml 07/08/23 07/08/23 07/08/23 Range/Units 05:49 03:31 01:54 WBC 75.95 H* (4.50-11.00) K/uL RBC 3.74 L (4.30-5.90) m/uL Hgb 10.4 L (13.5-17.5) gm/dL Hct 30.6 L (37.0-53.0) % MCV 82 (80-100) fL MCH 28 (26-34) pg MCHC 34 (32-36) gm/dL RDW Coeff of Ann 23.6 H (11.5-15.5) % Plt Count 392 (140-440) K/uL Neut % (Auto) 90.3 H (42.0-72.0) % Lymph % (Auto) 5.0 L (20-44) % Blair % (Auto) 1.2 (0.0-11.0) % Eos % (Auto) 0.0 (0.0-7.0) % Baso % (Auto) 0.1 (0.0-3.0) % Neut # (Auto) 68.60 H (1.7-7.0) K/uL Lymph # (Auto) 3.80 H (0.90-2.90) K/uL Blair # (Auto) 0.90 (0.00-0.90) K/UL Eos # (Auto) 0.00 (0.00-0.50) K/uL Baso # (Auto) 0.10 (0.00-0.30) K/uL Abs Immat Gran (auto) 2.60 H (0.00-0.30) K/uL Imm/Tot Granulo (auto) 3.4 % Diff Slide Review Acceptable Review (Acceptable) Peripher Smr Path Cons ESR (2-15) mm/hr Absolute Retic (0.03-0.08) # Percent Retic (0.5-2.0) % Immature Retic Fraction (2.3-13.4) % Retic Hgb Equivalent (29.0-35.0) pg Sodium 134 L (135-149) mmol/L Potassium 3.4 L (3.6-5.1) mmol/L Chloride 105 (96-114) mmol/L Carbon Dioxide 15 L (20-32) mmol/L Anion Gap 14 (7-15) mEq/L BUN 62 H (7-30) mg/dL Creatinine 3.4 H (0.5-1.5) mg/dL Estimated Creat Clear 11.53 Estimated GFR 18 ml/min Glucose 206 H (60-115) mg/dL Lactate (0.5-1.9) mmol/L Calcium 8.1 L (8.4-10.6) mg/dL Magnesium (1.5-2.6) mg/dL Total Bilirubin (0.1-1.5) mg/dL Direct Bilirubin (0.0-0.5) mg/dL AST (12-35) U/L ALT (4-50) U/L Alkaline Phosphatase (40-150) U/L C-Reactive Protein (0.5-1.0) mg/dL Total Protein (6.0-8.3) g/dL Albumin (3.3-5.0) g/dL Procalcitonin (<0.50) ng/mL TSH (0.270-4.200) uIU/mL Urine Color Yellow (Yellow) Urine Appearance Slightly Cloudy A (Clear) Urine pH 5.5 (5.0-8.5) Ur Specific Dalton 1.015 (1.000-1.030) Urine Protein 2+ A (Negative) Urine Glucose (UA) Trace A (Negative) Urine Ketones Negative (Negative) Urine Blood Negative (Negative) Urine Nitrite Negative (Negative) Urine Bilirubin Negative (Negative) Urine Urobilinogen 0.2 (0.2-1.0) Ur Leukocyte Esterase Negative (Negative) Urine RBC 0-2 (0-2) Urine WBC 0-2 (0-5) Ur Squamous Epith Cells Few (None-Few) Amorphous Sediment Few A (None) Urine Bacteria Few A (None) Urine L. pneumophilia Ag L. pneumo Negative (Negative) Urine Strep pneumoniae Ag S. pneumo POSITIVE A (Negative) Stl C. diff Tox B Gene (Negative) Stl C. diff [id number] (Negative) JAK2 [id number] Spec Src JAK2 [id number] Mutation BCR/abl Source BCR/abl1 Diagnostic Res POC Troponin I (0.01-0.04) ng/ml 07/07/23 07/07/23 07/07/23 Range/Units 21:29 20:49 18:55 WBC 71.65 H* (4.50-11.00) K/uL RBC 4.17 L (4.30-5.90) m/uL Hgb 11.5 L (13.5-17.5) gm/dL Hct 33.7 L (37.0-53.0) % MCV 81 (80-100) fL MCH 28 (26-34) pg MCHC 34 (32-36) gm/dL RDW Coeff of Ann 23.3 H (11.5-15.5) % Plt Count 409 (140-440) K/uL Neut % (Auto) 91.6 H (42.0-72.0) % Lymph % (Auto) 4.5 L (20-44) % Blair % (Auto) 1.9 (0.0-11.0) % Eos % (Auto) 0.0 (0.0-7.0) % Baso % (Auto) 0.1 (0.0-3.0) % Neut # (Auto) 65.60 H (1.7-7.0) K/uL Lymph # (Auto) 3.20 H (0.90-2.90) K/uL Blair # (Auto) 1.40 H (0.00-0.90) K/UL Eos # (Auto) 0.00 (0.00-0.50) K/uL Baso # (Auto) 0.10 (0.00-0.30) K/uL Abs Immat Gran (auto) 1.40 H (0.00-0.30) K/uL Imm/Tot Granulo (auto) 1.9 % Diff Slide Review Acceptable Review (Acceptable) Peripher Smr Path Cons See Scanned Report ESR 73 H (2-15) mm/hr Absolute Retic 0.04 (0.03-0.08) # Percent Retic 1.1 (0.5-2.0) % Immature Retic Fraction 24.6 H (2.3-13.4) % Retic Hgb Equivalent 28.6 L (29.0-35.0) pg Sodium 128 L (135-149) mmol/L Potassium 3.8 (3.6-5.1) mmol/L Chloride 97 (96-114) mmol/L Carbon Dioxide 15 L (20-32) mmol/L Anion Gap 16 H (7-15) mEq/L BUN 68 H (7-30) mg/dL Creatinine 3.8 H (0.5-1.5) mg/dL Estimated Creat Clear 10.61 Estimated GFR 16 ml/min Glucose 257 H (60-115) mg/dL Lactate 1.8 (0.5-1.9) mmol/L Calcium 9.2 (8.4-10.6) mg/dL Magnesium 2.0 (1.5-2.6) mg/dL Total Bilirubin 0.5 (0.1-1.5) mg/dL Direct Bilirubin 0.4 (0.0-0.5) mg/dL AST 17 (12-35) U/L ALT 16 (4-50) U/L Alkaline Phosphatase 176 H (40-150) U/L C-Reactive Protein 31.0 H (0.5-1.0) mg/dL Total Protein 7.2 (6.0-8.3) g/dL Albumin 3.8 (3.3-5.0) g/dL Procalcitonin 2.96 H (<0.50) ng/mL TSH 3.810 (0.270-4.200) uIU/mL Urine Color (Yellow) Urine Appearance (Clear) Urine pH (5.0-8.5) Ur Specific Dalton (1.000-1.030) Urine Protein (Negative) Urine Glucose (UA) (Negative) Urine Ketones (Negative) Urine Blood (Negative) Urine Nitrite (Negative) Urine Bilirubin (Negative) Urine Urobilinogen (0.2-1.0) Ur Leukocyte Esterase (Negative) Urine RBC (0-2) Urine WBC (0-5) Ur Squamous Epith Cells (None-Few) Amorphous Sediment (None) Urine Bacteria (None) Urine L. pneumophilia Ag (Negative) Urine Strep pneumoniae Ag (Negative) Stl C. diff Tox B Gene (Negative) Stl C. diff [id number] (Negative) JAK2 V617F Spec Src JAK2 V617F Mutation BCR/abl Source BCR/abl1 Diagnostic Res POC Troponin I 0.00 L (0.01-0.04) ng/ml Impression & Recommendations Recommendations Impression & Recommendations: Raman Montes is a 78 year old male patient with past medical history of COPD, type 2 diabetes, hyperlipidemia, and BPH, s/p recent admission for B/L PNA in early June 2023 when he was treated with a course of cefepime and doxycycline and ultimately discharged on Levaquin. Pt with chronic leukocytosis for about a year and at time of his recent hospital discharge, his WBC count was 24 K. Apparently, post discharge, the patient had improved symptoms for about a week but then his respiratory symptoms recurred and worsened with SOB interfering with his routine daily activities and ADLs with few days of productive cough, chest tightness and wheezing, no subjective fevers and no chills, no N, V, but he did reports diarrhea for 3 weeks that resolved on its own. He also reports he has lost about 25 to 30 pounds over the last year. In the ER he was noted to have significant leukocytosis with a white count of 71,000 which peaked at >80K, chest x-ray showed increased opacities in bilateral lungs. The ER provider did discuss this with significant leukocytosis with [place], a CT chest abdomen pelvis was performed which showed worsening pneumonia. There is no evidence of significant splenomegaly. Based on this the hematology provider recommended peripheral smear as leukemia cannot be ruled out but felt that infection was the most likely etiology. Patient was also noted to have mild hyponatremia, metabolic acidosis and acute kidney injury with a creatinine of 3.8 up from 2.5. procalcitonin 2.96, elevated inflammatory markers ESR 73, CRP Pt initially received cefepime, IV vancomycin and azithromycin. He was admitted for management of multifocal B/L PNA. He was on ceftriaxone, IV vancomycin and azithromycin. On 07/11 Abx were changed to Zosyn from ceftriaxone in setting of 1 of 2 blood culture and sputum culture growing Pseudomonas aeruginosa, azithromycin d/becca, IV vancomycin continued then was stopped on 07/12 given negative MRSA screen and growth of P aeruginosa from blood and sputum Cx. On 07/12, WBC remained elevated but stable, zosyn was switched to cefepime renal dosing. Tele ID was consulted for recommendations Re antibiotic management in anti cipation of potential hospital discharge planning. Micro 07/07 blood cx pansensitive Pseudomonas aeruginosa / sputum Cx pansensitive Pseudomonas aeruginosa / urine strep pneumo Ag positive, urine legionella Ag negative 07/08 urine culture negative 07/12 MRSA screen negative Imaging CXR 07/07/23 c/w worsening right mid lung and basilar airspace disease. Stable small left pleural effusion and left basilar consolidation. Persistent superimposed pulmonary vascular congestion. CT chest/a/p 1.??? Overall decreased bilateral lower lobe infiltrates. New right upper lobe infiltrates, likely representing pneumonia possibly from a suppurative organism. 2. Trace left pleural effusion. 3. Trace pericardial effusion. 4. Scattered colonic diverticula with mild stranding adjacent to the descending colon, possibly representing mild diverticulitis. Allergies to antibiotics No known drug allergies Antibiotics Cefepime 07/12-current Zosyn 07/07-07/12/23 Summary # Pseudomonas aeruginosa bacteremia source likely 2/2 Pseudomonal PNA, clinically improving, he remains afebrile and hemodynamically stable, repeat blood Cx needed to document clearance of bacteremia, he presented with significant leukocytosis (worse from baseline chronic elevated WBC) which has trended down to 32.2K< peak 80.2K. # Leukocytosis, seems chronic with possible worsening in setting of bacteremia and multifocal PNA, hematology was consulted, peripheral smear pending, concern for possible CLL? # KYRIE on CKD Cr trending down to baseline SrCr today 2.3<3.4 on admission (GFR today 29) # COPD # Type 2 DM controlled A1C 6.6 Recommend -To f/up repeat blood Cx to document clearance of the bacteremia. -It is unclear if the patient had a high or low grade bacteremia, no repeat blood Cx since the collection of admission blood cx obtained on 07/07 which were positive for pseudomonas, I would complete the work up with TTE and f/up repeat blood cx. -Patient did have a positive urine strep pneumo Ag on 07/08/23, urine strep pneumo Ag can remain positive for some time after a pneumococcal infection, 35% of patients are positive 2 months following pneumococcal disease, of note the patient was recently admitted in Jun 2023 for B/L PNA. I think this time he clearly presented with pseudomonal PNA complicated by bacteremia. -Continue cefepime for now, zosyn is an appropriate Abx option as the PsA is pansensitive, however the patient has had multiple Abx switches, it is ok to continue cefepime renal dosing of 1 gr IV q8hr. -I would treat for a total of 14 days, taking on consideration the days of zosyn received, if repeat blood Cx remain negative, I would switch the patient to Levaquin renal dosing 750 mg x 1 dose followed by 500 mg PO q48 to complete 7 days. Pt with normal QTC, no Hx AAA, no known allergies. If the CrCl improves and becomes >30-49, ?the Levaquin dosing would be 750 mg PO q48 hr. -Monitor clinical status and labs w cbd/diff and CMP while pt is on systemic Abx. -Please notify tele ID if repeat blood cx don't clear or TTE result abnormal (I have low suspicion for this) -Plan d/w primary team. -Thanks for the consult, tele ID will sign off, you can contact tele ID with any questions. Kristie Jack MD Elevator Constructor Supervisor professors [facility] ID Connect
[2023-07-15] MEDS: OMEPRAZOLE 20 MG CAPSULE DR PO (07:32)
[2023-07-15 09:00] VITALS: BP 105/77; PULSE 81; RESP 20; TEMP 36.8; O2SAT 95
[2023-07-15] MEDS: TAMSULOSIN HCL 0.4 MG CAPSULE PO (09:39)
[2023-07-15] MEDS: SODIUM CHLORIDE 0.9 % (FLUSH) 10 ML SYRINGE 5 ML IVF ×2 (09:39→21:11)
[2023-07-15] MEDS: METOPROLOL SUCCINATE (XL) 25 MG TAB PO (09:39)
[2023-07-15] MEDS: guaiFENesin 600 MG TAB.ER.12H PO ×2 (09:39→21:11)
[2023-07-15 13:00] VITALS: BP 122/92; PULSE 76; RESP 20; TEMP 36.5; O2SAT 97
[2023-07-15] MEDS: LIDOCAINE 5% PATCH 1 PATCH TRANSDERMA (13:05)
[2023-07-15] MEDS: CEFEPIME HCL 2 GM in 0.9 % SODIUM CHLORIDE Mini-bag 100 ML IVPB (13:05)
--- NOTE | 2023-07-15 13:55 | PM.IMPN1 ---
Progress Note: A&P Assessment and plan (1) Pneumonia: Problem details: -CT shows new right upper lobe infiltrate, bibasilar infiltrates -significant leukocytosis, procalcitonin 2.96, elevated CRP, tachycardic, remains afebrile -urine strep pneumonia antigen positive, Legionella negative -Mucinex b.i.d., encourage pulmonary hygiene incentive spirometry, aerobika 07/11: Medication changes made in setting of 1 of 2 blood culture and sputum culture growing Pseudomonas aeruginosa - stop ceftriaxone and azithromycin, continue vancomycin, add Zosyn. Will need to renally dose, pharmacy to assist. White count continues to trend down. Vital stable, afebrile - 07/12: WBC stable. Unclear why he is on vancomycin. I spoke with pharmacy. Will switch to cefepime only for treatment of pseudomonas. Will discuss with ID on Friday to determine length of treatment. - 07/13: WBC stable. On cefepime for pseudomonas bacteremia. Will discuss with ID tomorrow. - 07/14: I spoke with Dr. Jack who recommended obtaining another blood culture. When the blood culture is clear of Pseudomonas, we can transition him from cefepime to high-dose fluoroquinolone. She recommended levofloxacin renally dosed at 750 mg 1 dose bolus then 500 mg Q 48 hours. He should receive antibiotics to finish 1 week from the negative culture, typically 14 days total. Since he would have had the week of antibiotic with Pseudomonas coverage already, if the blood culture drawn today remains negative, then we can do a week more of pseudomonal coverage. She also is recommended getting a TTE. I have ordered this. We also discussed that his EKG on admission did not show any QT prolongation. - 07/15: BC drawn at 0200 this morning. Awaiting 72hours after culture drawn. If culture remains negative, change to oral levofloxacin. Status: Acute (2) Leukocytosis: Problem details: -significant leukocytosis > 75,000 (previous hospitalization [id number]) -ED provider discussed with [facility], Dr Berg -in the absence of splenomegaly or significant immature cells the likelihood is that the white blood cell count may still be related to infection, but would recommend a close look at the peripheral smear by pathology to look for immature cells suggesting a possible diagnosis of CML. History also notable for weight loss -peripheral smear ordered. Smear in June showed elevated platelets, suspected to be reactive at that time -continue to follow -previously recommended outpatient follow-up with Hematology 07/09: WBC continues to uptrend, peripheral smear pending. Will follow up with Hematology once results are available 07/10: WBC has dropped from 80.79-49.57. Peripheral smear still pending 07/11: WBC continues to trend down, peripheral smear still pending - 07/12: WBC stable. peripheral smear pending. - 07/14: Peripheral smear is still pending. White blood count remains elevated and stable. I spoke with Dr. Elliott from Oncology who briefly reviewed his chart are noted that he has had an elevated white count for about a year. She suggested several studies to rule out MPN/CLL. She would like him seen in Hematology for follow-up as an outpatient. Status: Acute (3) Acute kidney injury: Problem details: -creatinine continues to trend down, 2.8, (2.6 on last check in June) -creatinine clearance uptrending, BUN 62 (previously 45-93) -adrenal nodule noted 06/09/2023. Renal calculi noted 06/13/23 -renally dose antibiotics, pharmacy assisting -previously recommended outpatient follow-up with Nephrology (may not have had time given holidays) - 07/15: Improving. Cr down to 2.3. Continue to renally dose medications. Outpatient nephrology f/u. Status: Acute (4) Adrenal nodule: Problem details: -06/09/23 CT abd/pelvis: 1.5 cm right adrenal nodule, likely an adrenal adenoma, incompletely characterized on this examination -outpatient follow up Status: Acute (5) Type 2 diabetes mellitus: Problem details: -most recent A1c 6.6 -diabetic diet, glucose checks ACHS, sliding scale -POC BG 110-150's. Continue current regimen. Status: Chronic (6) Chronic obstructive pulmonary disease: Problem details: -continue home inhalers -DuoNebs q.i.d., albuterol nebs p.r.n. Status: Chronic (7) Benign prostatic hyperplasia: Problem details: - Continue home meds Status: Chronic (8) Thrush: Problem details: -nystatin swish and swallow until resolved - magic mouthwash t.i.d. for comfort - 07/13 improved ability to eat. Status: Acute (9) Renal calculi: Problem details: 06/13/23 renal US: 1. No evidence of hydronephrosis. Bilateral ureteral jets visualized. 2. Bilateral nonobstructing intrarenal calculi, better visualized on recent CT. Status: Acute (10) Weight loss: Problem details: -current weight 44 kg, previously 56 during hospitalization in June -significant leukocytosis, peripheral smear ordered, CML on list of differentials -outpatient follow-up with Hematology. Could also be depressive etiology. Status: Acute (11) Depression: Problem details: -Previously diagnosed, not currently treated. 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 He is not hypoxic. He is on cefepime and we are awaiting a recent blood culture for test of clearance. TTE done yesterday showed no vegetation. Also has a year of leukocytosis and more recent weight loss. Awaiting labs to rule out MPN/CLL. Will need outpatient f/u with hematology/oncology. He is making some improvements and was able to do stairs yesterday. At this point we are working toward discharge home with home care once today's BC has been negative for 72 hours (at which point he can stop IV cefepime and start high dose, renally dosed levofloxacin). Time Spent With Patient Total time spent: Today I spent 35 minutes rounding on the patient. Greater than 50% included discussing care with the team, reviewing data, updating and managing the care plan. Subjective Time Seen by Provider: 10:49 Date Seen: 07/15/23 Interval history: Liam has no new concerns or complaints. He tried malt-o-meal, yogurt and milk this morning and noted very little pain with those foods. Exam Narrative: Exam Narrative: General: No acute distress. Awake, alert, oriented. Oropharynx: Scattered ecchymoses on soft pallate unchanged Cardiovascular: Regular rate and rhythm. Respiratory: Diffuse rhonchi, unchanged, no wheezes or crackles. Const: Vital Signs, click to edit/add: Vital Signs - 24 hr 07/14/23 15:00 07/14/23 15:00 07/14/23 19:41 Temperature 98.5 F 98.1 F Pulse Rate [Pulse Oximeter] 87 87 94 Respiratory Rate 20 20 18 Blood Pressure [Ri ght Arm] 126/85 127/84 Pulse Oximetry 95 94 Oxygen Delivery Me thod Room Air Room Air 07/14/23 23:21 07/15/23 02:33 07/15/23 09:00 Temperature 98.6 F 97.4 F L Pulse Rate [Pulse Oximeter] 81 79 81 Respiratory Rate 20 16 20 Blood Pressure [Ri ght Arm] 144/85 H 119/76 Pulse Oximetry 95 95 Oxygen Delivery Ut thod Room Air Room Air 07/15/23 09:00 07/15/23 13:00 Temperature 98.3 F 97.7 F Pulse Rate [Pulse Oximeter] 81 76 Respiratory Rate 20 20 Blood Pressure [Ri ght Arm] 105/77 122/92 H Pulse Oximetry 95 97 Oxygen Delivery Ut thod Room Air Room Air Labs Labs: Laboratory Results - last 24 hr 07/15/23 02:15 Sodium 137 Potassium 3.9 Chloride 117 H Carbon Dioxide 13 L Anion Gap 7 BUN 45 H Creatinine 2.3 H Estimated Creat Clear 17.39 Estimated GFR 29 Glucose 114 Calcium 8.7
[2023-07-15 15:00] VITALS: BP 118/79; PULSE 79; RESP 20; TEMP 36.6; O2SAT 96
[2023-07-15] MEDS: TRAZODONE HCL 50 MG TABLET PO (21:11)
[2023-07-15 21:25] VITALS: BP 110/91; PULSE 82; RESP 20; TEMP 37.4; O2SAT 96
[2023-07-15] MEDS: NYSTATIN 500,000 UNIT/5 ML 500000 UNIT SWISH/SWAL (21:29)
[2023-07-15 23:00] VITALS: BP 133/79; PULSE 86; RESP 20; TEMP 37; O2SAT 94
[2023-07-15] MEDS: INSULIN ASPART 100 UNIT/ML SUBCUT (23:09)
[2023-07-16] MEDS: ACETAMINOPHEN 325 MG TABLET 650 MG PO ×2 (05:27→16:41)
[2023-07-16] MEDS: OMEPRAZOLE 20 MG CAPSULE DR PO (06:56)
[2023-07-16 07:16] LABS: Basophils Percent Auto 0.2 % (0.0-3.0); Eosinophils Percent Auto 0.8 % (0.0-7.0); Hematocrit 28.2 % (37.0-53.0); Hemoglobin* 9.3 gm/dL (13.5-17.5); Immature Granulocytes Pct Auto 6.8 %; Lymphocytes Percent Auto 4.1 % (20-44); Mean Corpuscular HGB Conc 33 gm/dL (32-36); Mean Corpuscular Hemoglobin 28 pg (26-34); Mean Corpuscular Volume 83 fL (80-100); Monocytes Percent Auto 10.4 % (0.0-11.0); Neutrophils Percent Auto 77.7 % (42.0-72.0); Platelet Count* 339 K/uL (140-440); RDW Coefficient of Variation % 26.9 % (11.5-15.5); Red Blood Count 3.38 m/uL (4.30-5.90); White Blood Count* 23.18 K/uL (4.50-11.00)
[2023-07-16 07:25] LABS: Slide Review Reflex No
[2023-07-16 07:28] LABS: Albumin* 2.9 g/dL (3.3-5.0)
[2023-07-16 07:29] LABS: Chloride* 114 mmol/L (96-114); Potassium* 3.8 mmol/L (3.6-5.1); Sodium* 137 mmol/L (135-149)
[2023-07-16 07:31] LABS: Anion Gap 7 mEq/L (7-15); Aspartate Amino Transferase* 25 U/L (12-35); Bilirubin Total* 0.3 mg/dL (0.1-1.5); Carbon Dioxide* 16 mmol/L (20-32); Creatinine* 2.5 mg/dL (0.5-1.5); Est. Creatinine Clearance* 15.95; Estimated Glomerular Filt Rate 26 ml/min
[2023-07-16 07:32] LABS: Alanine Aminotransferase* 14 U/L (4-50); Alkaline Phosphatase* 116 U/L (40-150); Blood Urea Nitrogen* 42 mg/dL (7-30); Calcium* 8.7 mg/dL (8.4-10.6); Glucose* 102 mg/dL (60-115); Total Protein* 6.1 g/dL (6.0-8.3)
--- NOTE | 2023-07-16 07:56 | PC.NURSE ---
END OF SHIFT NOTE: PT PLEASANT AND COOPERATIVE WITH CARES. PT A&O WITH OCCASIONAL CONFUSION. PT IS TALKATIVE; SOME GARBLED SPEECH AND DIFFICULTY WITH FINDING WORDS. SBA/W. UNEVENTFUL NIGHT.
[2023-07-16 08:05] VITALS: BP 127/88; PULSE 75; RESP 18; O2SAT 96
[2023-07-16] MEDS: SODIUM CHLORIDE 0.9 % (FLUSH) 10 ML SYRINGE 5 ML IVF ×2 (09:00→21:42)
[2023-07-16] MEDS: TAMSULOSIN HCL 0.4 MG CAPSULE PO (09:24)
[2023-07-16] MEDS: guaiFENesin 600 MG TAB.ER.12H PO ×2 (09:24→21:39)
[2023-07-16] MEDS: METOPROLOL SUCCINATE (XL) 25 MG TAB PO (09:25)
--- NOTE | 2023-07-16 09:47 | NUTR.NU ---
RDN with follow-up related to hx significant wt loss and low oral intakes. Current weight 98lb 14.4oz; height 5ft 3in; BMI is underweight at 17.5 kg/m2. Weight has remained stable during this admit. RDN ordered Enlive or Magic Cup to be offered BID at 1200 & 1600 and snacks x6 per day. Patient's oral intakes continue to be low, with nursing documentation of 25% at breakfast, 0% lunch, and 25% dinner with 25% Ensure Enlive 07/15/23. During visit, patient was eating breakfast of 1 pancake and scrambled eggs. He reports the thrush is improving. He reports weight gain during this admit, however per weight records his weight has been stable at around 99lbs. He likes Ensure and yogurt and plans on trying to have snacks frequently throughout the day at home. RDN offered diet education materials related to high-protein, high-calorie diet. Patient agreed to receive educational materials, however declined education due to receiving this at this hospital on 06/11/23. Handouts provided to patient from [facility] on High-Calorie, High-Protein diet and Tips to Increase Calories. Patient verbalized understanding. RDN's contact information was provided and patient was encouraged to contact RDN with questions. RDN will continue to monitor and follow-up prn.
[2023-07-16 12:00] VITALS: BP 125/87; PULSE 77; RESP 18; TEMP 36.2; O2SAT 95
[2023-07-16] MEDS: LIDOCAINE 5% PATCH 1 PATCH TRANSDERMA (12:24)
[2023-07-16] MEDS: 0.9 % SODIUM CHLORIDE 250 ml IV (12:25)
[2023-07-16] MEDS: CEFEPIME HCL 2 GM in 0.9 % SODIUM CHLORIDE Mini-bag 100 ML IVPB (12:25)
[2023-07-16 13:29] LABS: Immature Reticulocyte Fraction 28.9 % (2.3-13.4); Reticulocyte Hemoglobin Equivi 34.7 pg (29.0-35.0); Reticulocyte Percent 2.5 % (0.5-2.0); Reticulocytes Absolute 0.08 # (0.03-0.08)
[2023-07-16 15:00] VITALS: BP 132/78; PULSE 73; RESP 20; TEMP 36.4; O2SAT 92
--- NOTE | 2023-07-16 15:45 | PM.IMPN1 ---
Progress Note: A&P Assessment and plan (1) Pneumonia: Problem details: -CT shows new right upper lobe infiltrate, bibasilar infiltrates -significant leukocytosis, procalcitonin 2.96, elevated CRP, tachycardic, remains afebrile -urine strep pneumonia antigen positive, Legionella negative -Mucinex b.i.d., encourage pulmonary hygiene incentive spirometry, aerobika 07/11: Medication changes made in setting of 1 of 2 blood culture and sputum culture growing Pseudomonas aeruginosa - stop ceftriaxone and azithromycin, continue vancomycin, add Zosyn. Will need to renally dose, pharmacy to assist. White count continues to trend down. Vital stable, afebrile - 07/12: WBC stable. Unclear why he is on vancomycin. I spoke with pharmacy. Will switch to cefepime only for treatment of pseudomonas. Will discuss with ID on Friday to determine length of treatment. - 07/13: WBC stable. On cefepime for pseudomonas bacteremia. Will discuss with ID tomorrow. - 07/14: I spoke with Dr. Jack who recommended obtaining another blood culture. When the blood culture is clear of Pseudomonas, we can transition him from cefepime to high-dose fluoroquinolone. She recommended levofloxacin renally dosed at 750 mg 1 dose bolus then 500 mg Q 48 hours. He should receive antibiotics to finish 1 week from the negative culture, typically 14 days total. Since he would have had the week of antibiotic with Pseudomonas coverage already, if the blood culture drawn today remains negative, then we can do a week more of pseudomonal coverage. She also is recommended getting a TTE. I have ordered this. We also discussed that his EKG on admission did not show any QT prolongation. - 07/15: BC drawn at 0200 this morning. Awaiting 72hours after culture drawn. If culture remains negative, change to oral levofloxacin. Status: Acute (2) Leukocytosis: Problem details: -significant leukocytosis > 75,000 (previous hospitalization [id number]) -ED provider discussed with [facility], Dr Berg -in the absence of splenomegaly or significant immature cells the likelihood is that the white blood cell count may still be related to infection, but would recommend a close look at the peripheral smear by pathology to look for immature cells suggesting a possible diagnosis of CML. History also notable for weight loss -peripheral smear ordered. Smear in June showed elevated platelets, suspected to be reactive at that time -continue to follow -previously recommended outpatient follow-up with Hematology 07/09: WBC continues to uptrend, peripheral smear pending. Will follow up with Hematology once results are available 07/10: WBC has dropped from 80.79-49.57. Peripheral smear still pending 07/11: WBC continues to trend down, peripheral smear still pending - 07/12: WBC stable. peripheral smear pending. - 07/14: Peripheral smear is still pending. White blood count remains elevated and stable. I spoke with Dr. Elliott from Oncology who briefly reviewed his chart are noted that he has had an elevated white count for about a year. She suggested several studies to rule out MPN/CLL. She would like him seen in Hematology for follow-up as an outpatient. - 07/16: WBC improving 23.18 today. Peripheral blood smear from 06/10/23 showed leukocytosis favoring reactive, rare circulating plasmacytoid cells. Status: Acute (3) Acute kidney injury: Problem details: -creatinine continues to trend down, 2.8, (2.6 on last check in June) -creatinine clearance uptrending, BUN 62 (previously 45-93) -adrenal nodule noted 06/09/2023. Renal calculi noted 06/13/23 -renally dose antibiotics, pharmacy assisting -previously recommended outpatient follow-up with Nephrology (may not have had time given holidays) - 07/16: Cr now stable at 2.5. Continue to renally dose medications. Outpatient nephrology f/u. Status: Acute (4) Adrenal nodule: Problem details: -06/09/23 CT abd/pelvis: 1.5 cm right adrenal nodule, likely an adrenal adenoma, incompletely characterized on this examination -outpatient follow up Status: Acute (5) Type 2 diabetes mellitus: Problem details: -most recent A1c 6.6 -diabetic diet, glucose checks ACHS, sliding scale -POC BG 100-190's. Continue current regimen. Status: Chronic (6) Chronic obstructive pulmonary disease: Problem details: -continue home inhalers -DuoNebs q.i.d., albuterol nebs p.r.n. Status: Chronic (7) Benign prostatic hyperplasia: Problem details: - Continue home meds Status: Chronic (8) Thrush: Problem details: -nystatin swish and swallow until resolved - magic mouthwash t.i.d. for comfort - 07/13 improved ability to eat. Status: Acute (9) Renal calculi: Problem details: 06/13/23 renal US: 1. No evidence of hydronephrosis. Bilateral ureteral jets visualized. 2. Bilateral nonobstructing intrarenal calculi, better visualized on recent CT. Status: Acute (10) Weight loss: Problem details: -current weight 44 kg, previously 56 during hospitalization in June -significant leukocytosis, peripheral smear ordered, CML on list of differentials -outpatient follow-up with Hematology. Could also be depressive etiology. Status: Acute (11) Depression: Problem details: -Previously diagnosed, not currently treated. 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 He is not hypoxic. He is on cefepime and we are awaiting a recent blood culture for test of clearance. TTE done showed no vegetation. Also has a year of leukocytosis and more recent weight loss. Awaiting more current peripheral blood smear and labs to rule out MPN/CLL. Will need outpatient f/u with hematology/oncology. He is making some improvements and was able to do stairs. At this point we are working toward discharge home with home care once today's BC has been negative for 72 hours (at which point he can stop IV cefepime and start high dose, renally dosed levofloxacin - see note from Infectious Disease 07/15/23). Subjective Time Seen by Provider: 11:16 Date Seen: 07/16/23 Interval history: Liam talks about his concern for news and world events today, and it is difficult to get him to talk about anything else. He does state that he feels fine. Exam Narrative: Exam Narrative: General: No acute distress. Awake, alert, oriented. Oropharynx: Scattered ecchymoses on soft pallate unchanged Cardiovascular: Regular rate and rhythm. Respiratory: Diffuse rhonchi, unchanged, no wheezes or crackles. Const: Vital Signs, click to edit/add: Vital Signs - 24 hr 07/15/23 21:25 07/15/23 23:00 07/15/23 23:00 Temperature 99.3 F 98.6 F Pulse Rate [Pulse Oximeter] 82 86 86 Respiratory Rate 20 20 20 Blood Pressure [[facility] Arm] 110/91 H 133/79 Pulse Oximetry 96 94 Oxygen Delivery Me thod Room Air Room Air 07/16/23 08:05 07/16/23 12:00 Temperature 97.2 F L Pulse Rate [Pulse Oximeter] 75 77 Respiratory Rate 18 18 Blood Pressure [[facility] Arm] 127/88 125/87 Pulse Oximetry 96 95 Oxygen Delivery Me thod Room Air Room Air Labs Labs: Laboratory Results - last 24 hr 07/16/23 06:18 WBC 23.18 H RBC 3.38 L Hgb 9.3 L Hct 28.2 L MCV 83 MCH 28 MCHC 33 RDW Coeff of Ann 26.9 H Plt Count 339 Neut % (Auto) 77.7 H Lymph % (Auto) 4.1 L [place] % (Auto) 10.4 Eos % (Auto) 0.8 Baso % (Auto) 0.2 Neut # (Auto) 18.00 H Lymph # (Auto) 1.00 [place] # (Auto) 2.40 H Eos # (Auto) 0.20 Baso # (Auto) 0.00 Abs Immat Gran (auto) 1.60 H Imm/Tot Granulo (auto) 6.8 Absolute Retic 0.08 Percent Retic 2.5 H Immature Retic Fraction 28.9 H Retic Hgb Equivalent 34.7 Sodium 137 Potassium 3.8 Chloride 114 Carbon Dioxide 16 L Anion Gap 7 BUN 42 H Creatinine 2.5 H Estimated Creat Clear 15.95 Estimated GFR 26 Glucose 102 Calcium 8.7 Total Bilirubin 0.3 AST 25 ALT 14 Alkaline Phosphatase 116 Total Protein 6.1 Albumin 2.9 L
--- NOTE | 2023-07-16 15:54 | PC.NURSE ---
Pt continues to have scattered wheezes which improved after dulera inhaler. Enc. PO intake and fluids. IV ATB infused w/o difficulty. Pt slept briefly after nsg interventions. Walked in hallway with PT and CREDIT DEPARTMENT MANAGER. Showered with OT at shift change. Pt has rambling tangential perseverating conversations whenever staff are in his room. No dysphagia with meds. Report to Priti Bennett RN for evening shift.
[2023-07-16] MEDS: IPRAT-ALBUT 0.5-2.5 MG/3 ML NEB 1 NEB IH (16:41)
[2023-07-16 19:00] VITALS: BP 116/69; PULSE 87; RESP 20; TEMP 36.1; O2SAT 93
[2023-07-16] MEDS: ENOXAPARIN 30 MG/0.3ML INJ SUBCUT (21:39)
[2023-07-16] MEDS: TRAZODONE HCL 50 MG TABLET PO (21:39)
[2023-07-16 23:30] VITALS: RESP 18
--- NOTE | 2023-07-16 23:38 | PC.NURSE ---
End of Shift: Patient pleasant and cooperative. Afebrile. O2 sats greater than 90% on room air. C/o pain in back 6/10 and PRN Tylenol given x1. Tolerating regular diet with no nausea. Up to bathroom with SBA and walker.
[2023-07-16 23:55] VITALS: BP 112/78; PULSE 76; RESP 18; RESP 20; TEMP 36.6; O2SAT 95
[2023-07-17] VITALS (7 sets, daily range): BP systolic 104–129; BP diastolic 65–82; PULSE 71–82; RESP 16–20; TEMP 36.4–37.1; O2SAT 95–97
[2023-07-17] MEDS: ACETAMINOPHEN 325 MG TABLET 650 MG PO ×2 (00:08→16:35)
[2023-07-17] MEDS: OMEPRAZOLE 20 MG CAPSULE DR PO (06:38)
[2023-07-17 06:52] LABS: Basophils Percent Auto 0.2 % (0.0-3.0); Eosinophils Percent Auto 0.6 % (0.0-7.0); Hematocrit 26.1 % (37.0-53.0); Hemoglobin* 8.5 gm/dL (13.5-17.5); Immature Granulocytes Pct Auto 4.6 %; Lymphocytes Percent Auto 3.9 % (20-44); Mean Corpuscular HGB Conc 33 gm/dL (32-36); Mean Corpuscular Hemoglobin 28 pg (26-34); Mean Corpuscular Volume 85 fL (80-100); Monocytes Percent Auto 8.3 % (0.0-11.0); Neutrophils Percent Auto 82.4 % (42.0-72.0); Platelet Count* 349 K/uL (140-440); RDW Coefficient of Variation % 27.1 % (11.5-15.5); Red Blood Count 3.08 m/uL (4.30-5.90); White Blood Count* 23.31 K/uL (4.50-11.00)
[2023-07-17 06:54] LABS: Slide Review Reflex Yes
[2023-07-17 07:01] LABS: Albumin* 2.8 g/dL (3.3-5.0)
[2023-07-17 07:02] LABS: Chloride* 113 mmol/L (96-114); Potassium* 3.6 mmol/L (3.6-5.1); Sodium* 137 mmol/L (135-149)
[2023-07-17 07:04] LABS: Anion Gap 11 mEq/L (7-15); Aspartate Amino Transferase* 17 U/L (12-35); Bilirubin Total* 0.3 mg/dL (0.1-1.5); Carbon Dioxide* 13 mmol/L (20-32); Creatinine* 2.6 mg/dL (0.5-1.5); Est. Creatinine Clearance* 14.04; Estimated Glomerular Filt Rate 25 ml/min
[2023-07-17 07:05] LABS: Alanine Aminotransferase* 15 U/L (4-50); Alkaline Phosphatase* 94 U/L (40-150); Blood Urea Nitrogen* 41 mg/dL (7-30); Calcium* 8.2 mg/dL (8.4-10.6); Glucose* 112 mg/dL (60-115)
--- NOTE | 2023-07-17 07:33 | PC.NURSE ---
Pt alert and oriented x3. Afebrile. On ordered restful night vitals. Pt is up SBA to bathroom. Pt reports 8/10 pain in lower back, managed with PRN medications. Pt slept intermittently throughout night. Night uneventful.
[2023-07-17 07:42] LABS: Slide Review Acceptable Review (Acceptable)
[2023-07-17] MEDS: METOPROLOL SUCCINATE (XL) 25 MG TAB PO (08:46)
[2023-07-17] MEDS: guaiFENesin 600 MG TAB.ER.12H PO ×2 (08:46→21:03)
[2023-07-17] MEDS: TAMSULOSIN HCL 0.4 MG CAPSULE PO (08:46)
[2023-07-17] MEDS: SODIUM CHLORIDE 0.9 % (FLUSH) 10 ML SYRINGE 5 ML IVF ×2 (08:49→21:05)
[2023-07-17] MEDS: LIDOCAINE 5% PATCH 1 PATCH TRANSDERMA (10:59)
[2023-07-17 11:00] LABS: C Reactive Protein* 8.9 mg/dL (0.5-1.0)
[2023-07-17 11:15] LABS: Procalcitonin* 0.56 ng/mL (<0.50)
[2023-07-17 11:27] LABS: INR 1.18 (0.91-1.10); Prothrombin Time 15.8 Seconds
[2023-07-17] MEDS: CEFEPIME HCL 2 GM in 0.9 % SODIUM CHLORIDE Mini-bag 100 ML IVPB (12:53)
[2023-07-17] MEDS: 0.9 % SODIUM CHLORIDE 250 ml IV (12:53)
[2023-07-17] MEDS: CITALOPRAM HYDROBROMIDE 20 MG TABLET 10 MG PO (13:36)
--- NOTE | 2023-07-17 15:40 | PM.IMPN1 ---
Progress Note: A&P Assessment and plan (1) Pneumonia: Problem details: -CT shows new right upper lobe infiltrate, bibasilar infiltrates -significant leukocytosis, procalcitonin 2.96, elevated CRP, tachycardic, remains afebrile -urine strep pneumonia antigen positive, Legionella negative -Mucinex b.i.d., encourage pulmonary hygiene incentive spirometry, aerobika 07/11: Medication changes made in setting of 1 of 2 blood culture and sputum culture growing Pseudomonas aeruginosa - stop ceftriaxone and azithromycin, continue vancomycin, add Zosyn. Will need to renally dose, pharmacy to assist. White count continues to trend down. Vital stable, afebrile - 07/12: WBC stable. Unclear why he is on vancomycin. I spoke with pharmacy. Will switch to cefepime only for treatment of pseudomonas. Will discuss with ID on Friday to determine length of treatment. - 07/13: WBC stable. On cefepime for pseudomonas bacteremia. Will discuss with ID tomorrow. - 07/14: I spoke with Dr. Jack who recommended obtaining another blood culture. When the blood culture is clear of Pseudomonas, we can transition him from cefepime to high-dose fluoroquinolone. She recommended levofloxacin renally dosed at 750 mg 1 dose bolus then 500 mg Q 48 hours. He should receive antibiotics to finish 1 week from the negative culture, typically 14 days total. Since he would have had the week of antibiotic with Pseudomonas coverage already, if the blood culture drawn today remains negative, then we can do a week more of pseudomonal coverage. She also is recommended getting a TTE. I have ordered this. We also discussed that his EKG on admission did not show any QT prolongation. - 07/15: BC drawn at 0200 this morning. Awaiting 72hours after culture drawn. If culture remains negative, change to oral levofloxacin. Status: Acute (2) Leukocytosis: Problem details: -significant leukocytosis > 75,000 (previous hospitalization [id number]) -ED provider discussed with [facility], Dr Berg -in the absence of splenomegaly or significant immature cells the likelihood is that the white blood cell count may still be related to infection, but would recommend a close look at the peripheral smear by pathology to look for immature cells suggesting a possible diagnosis of CML. History also notable for weight loss -peripheral smear ordered. Smear in June showed elevated platelets, suspected to be reactive at that time -continue to follow -previously recommended outpatient follow-up with Hematology 07/09: WBC continues to uptrend, peripheral smear pending. Will follow up with Hematology once results are available 07/10: WBC has dropped from 80.79-49.57. Peripheral smear still pending 07/11: WBC continues to trend down, peripheral smear still pending - 07/12: WBC stable. peripheral smear pending. - 07/14: Peripheral smear is still pending. White blood count remains elevated and stable. I spoke with Dr. Elliott from Oncology who briefly reviewed his chart are noted that he has had an elevated white count for about a year. She suggested several studies to rule out MPN/CLL. She would like him seen in Hematology for follow-up as an outpatient. - 07/16: WBC improving 23.18 today. Peripheral blood smear from 06/10/23 showed leukocytosis favoring reactive, rare circulating plasmacytoid cells. Status: Acute (3) Acute kidney injury: Problem details: -creatinine continues to trend down, 2.6 (2.6 on last check in June) -creatinine clearance uptrending, BUN 62 (previously 45-93) -adrenal nodule noted 06/09/2023. Renal calculi noted 06/13/23 -renally dose antibiotics, pharmacy assisting -previously recommended outpatient follow-up with Nephrology (may not have had time given holidays) - 07/16: Cr now stable at 2.5. Continue to renally dose medications. Outpatient nephrology f/u. Status: Acute (4) Adrenal nodule: Problem details: -06/09/23 CT abd/pelvis: 1.5 cm right adrenal nodule, likely an adrenal adenoma, incompletely characterized on this examination -outpatient follow up Status: Acute (5) Type 2 diabetes mellitus: Problem details: -most recent A1c 6.6 -diabetic diet, glucose checks ACHS, sliding scale -POC BG 100-190's. Continue current regimen. Status: Chronic (6) Chronic obstructive pulmonary disease: Problem details: -continue home inhalers -DuoNebs q.i.d., albuterol nebs p.r.n. Status: Chronic (7) Benign prostatic hyperplasia: Problem details: - Continue home meds Status: Chronic (8) Thrush: Problem details: -nystatin swish and swallow until resolved - magic mouthwash t.i.d. for comfort - 07/13 improved ability to eat. Status: Acute (9) Renal calculi: Problem details: 06/13/23 renal US: 1. No evidence of hydronephrosis. Bilateral ureteral jets visualized. 2. Bilateral nonobstructing intrarenal calculi, better visualized on recent CT. Status: Acute (10) Weight loss: Problem details: -current weight 44 kg, previously 56 during hospitalization in June -significant leukocytosis, peripheral smear ordered, CML on list of differentials -outpatient follow-up with Hematology. Could also be depressive etiology. Status: Acute (11) Depression: Problem details: -Previously diagnosed, not currently treated. 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 ID recommends 14 days total. OVERNIGHT UPDATES FROM STAFF & MED, LAB, IMAGING UPDATES -Abraham continues to improve. He is a difficult patient to assess and hold a conversation with. He seems to be all over the place emotionally with tears and regret. He said he thought he was dying this morning. He recalls many fond memories from [place]. He recalls many fond memories of his working years. 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 Pin pointing him on acute medical concerns is difficult. -total white count is down to 23.3. Hemoglobin is down to 8.5 -INR is 1.1, this is the lowest it has been since we met him in early June. -creatinine is 2.6, which is where he was discharged in June. However we have had him down to 2.32 days ago. -his CRP is down trended nicely down to 8.9 from a high of 31 during this admission -procalcitonin has down trended nicely as well -strep pneumo positive, by urine antigen, as of 07/08. Negative in June. -2 sets of blood cultures have been drawn during this admission. The 1st 1 had 1 bottle positive for Pseudomonas. As well as his sputum was positive for Pseudomonas. -follow-up blood cultures on 07/15 were negative to date, 48 hours. -Negative MRSA. Negative urine culture. -2 peripheral smears have been reviewed by pathology: The 1st on 06/10 showed reactive leukocytosis, rare circulating plasmacytoid cell. Followup also shows left shift absolute neutrophilia with the leukocytosis with mild toxic chain. Again considered reactive or infectious. -pending JACOB, BCR variants secondary to the leukocytosis ID CONSULT REVIEWED Recommend -To f/up repeat blood Cx to document clearance of the bacteremia. DONE -It is unclear if the patient had a high or low grade bacteremia, no repeat blood Cx since the collection of admission blood cx obtained on 07/07 which were positive for pseudomonas, I would complete the work up with TTE and f/up repeat blood cx. DRAGAN DONE ON 07/08. NO OBVIOUS VEGETATIONS. -Patient did have a positive urine strep pneumo Ag on 07/08/23, urine strep pneumo Ag can remain positive for some time after a pneumococcal infection, 35% of patients are positive 2 months following pneumococcal disease, of note the patient was recently admitted in Jun 2023 for B/L PNA. I think this time he clearly presented with pseudomonal PNA complicated by bacteremia. -Continue cefepime for now, zosyn is an appropriate Abx option as the PsA is pansensitive, however the patient has had multiple Abx switches, it is ok to continue cefepime renal dosing of 1 gr IV q8hr. -I would treat for a total of 14 days, taking on consideration the days of zosyn received, if repeat blood Cx remain negative, I would switch the patient to Levaquin renal dosing 750 mg x 1 dose followed by 500 mg PO q48 to complete 7 days. Pt with normal QTC, no Hx AAA, no known allergies. If the CrCl improves and becomes >30-49, ?the Levaquin dosing would be 750 mg PO q48 hr. -Monitor clinical status and labs w cbd/diff and CMP while pt is on systemic Abx. -Please notify tele ID if repeat blood cx don't clear or TTE result abnormal (I have low suspicion for this) -Plan d/w primary team. -Thanks for the consult, tele ID will sign off, you can contact tele ID with any questions. ANTIBIOTIC REVIEW ER was 07/08/23 early in the a.m.: ER received 1 g cefepime,1 dose of vancomycin later on 07/08/23 given first dose of Azithro Ceftriaxone & azithromycin 07/08 at 12:30 p.m. to 07/11 at noon Vancomycin 07/09 at 11:00 p.m., stopped 07/12 right before noon then ... Zosyn 3.375 g 07/11 at noon, discontinued on 07/12 at 730pm Cefepime 07/12/2023 noon and stopped at 07/17 at noon Levaquin will be started 07/17 Objective: stable. no resp compromise. Vitals: see above Lungs: Clear. Cardiac: S1S2. psych: tearful, tangental. Disposition/Potential discharge - Likely to return to previous living situation. Today I spent 50minutes seeing the patient, reviewing Expanse and EPIC notes/diagnostics, discussing the care plan with our care time that includes social work, PT/OT, pharmacy, RT, residential and documenting my impressions and plan in the medical record. Exam Const: Vital Signs, click to edit/add: Vital Signs - 24 hr 07/16/23 19:00 07/16/23 23:30 07/16/23 23:55 Temperature 97.0 F L Pulse Rate [Pulse Oximeter] 87 76 Respiratory Rate 20 18 18 Blood Pressure [Le ft Arm] 116/69 Blood Pressure [Ri ght Arm] Pulse Oximetry 93 Oxygen Delivery Me thod Room Air 07/16/23 23:55 07/17/23 04:23 07/17/23 06:00 Temperature 97.8 F Pulse Rate [Pulse Oximeter] 76 Respiratory Rate 20 20 18 Blood Pressure [Le ft Arm] Blood Pressure [Ri ght Arm] 112/78 Pulse Oximetry 95 Oxygen Delivery Me thod Room Air 07/17/23 08:13 07/17/23 11:43 Temperature 97.6 F 98.6 F Pulse Rate [Pulse Oximeter] 82 82 Respiratory Rate 20 18 Blood Pressure [Le ft Arm] 119/82 121/75 Blood Pressure [Ri ght Arm] Pulse Oximetry 95 95 Oxygen Delivery Me thod Room Air Room Air Labs Labs: Laboratory Results - last 24 hr 07/17/23 07/17/23 06:23 10:35 WBC 23.31 H RBC 3.08 L Hgb 8.5 L Hct 26.1 L MCV 85 MCH 28 MCHC 33 RDW Coeff of Ann 27.1 H Plt Count 349 Neut % (Auto) 82.4 H Lymph % (Auto) 3.9 L Mcnairy % (Auto) 8.3 Eos % (Auto) 0.6 Baso % (Auto) 0.2 Neut # (Auto) 19.20 H Lymph # (Auto) 0.90 Mcnairy # (Auto) 1.90 H Eos # (Auto) 0.10 Baso # (Auto) 0.00 Abs Immat Gran (auto) 1.10 H Imm/Tot Granulo (auto) 4.6 Diff Slide Review Acceptable Review INR 1.18 H Sodium 137 Potassium 3.6 Chloride 113 Carbon Dioxide 13 L Anion Gap 11 BUN 41 H Creatinine 2.6 H Estimated Creat Clear 14.04 Estimated GFR 25 Glucose 112 Calcium 8.2 L Total Bilirubin 0.3 AST 17 ALT 15 Alkaline Phosphatase 94 C-Reactive Protein 8.9 H Total Protein 6.0 Albumin 2.8 L Procalcitonin 0.56 H Lab Acknowledgement Test Added
[2023-07-17] MEDS: levoFLOXacin 750 MG TABLET PO (16:35)
[2023-07-17] MEDS: DIPHEN/LIDO/ALUM/MAG/SIMETH 5 ML SUSPENSION MUCOUS MEM (16:40)
[2023-07-17] MEDS: MELATONIN 3 MG TABLET PO (18:53)
[2023-07-17] MEDS: ENOXAPARIN 30 MG/0.3ML INJ SUBCUT (21:03)
[2023-07-17] MEDS: TRAZODONE HCL 50 MG TABLET PO (21:05)
[2023-07-18] MEDS: MELATONIN 3 MG TABLET PO (02:39)
[2023-07-18] MEDS: ALBUTEROL INHALER 2 PUFF IH (02:43)
[2023-07-18 03:15] VITALS: BP 111/62; PULSE 72; RESP 18; TEMP 36.6; O2SAT 96
[2023-07-18] MEDS: LORazepam 0.5 MG TABLET 0.25 MG PO (03:35)
[2023-07-18 05:20] VITALS: RESP 18
[2023-07-18] MEDS: OMEPRAZOLE 20 MG CAPSULE DR PO (06:13)
[2023-07-18 06:59] LABS: Basophils Percent Auto 0.3 % (0.0-3.0); Eosinophils Percent Auto 0.7 % (0.0-7.0); Hematocrit 25.3 % (37.0-53.0); Hemoglobin* 8.3 gm/dL (13.5-17.5); Immature Granulocytes Pct Auto 4.8 %; Lymphocytes Percent Auto 3.8 % (20-44); Mean Corpuscular HGB Conc 33 gm/dL (32-36); Mean Corpuscular Hemoglobin 28 pg (26-34); Mean Corpuscular Volume 85 fL (80-100); Monocytes Percent Auto 7.5 % (0.0-11.0); Neutrophils Percent Auto 82.9 % (42.0-72.0); Platelet Count* 356 K/uL (140-440); RDW Coefficient of Variation % 27.6 % (11.5-15.5); Red Blood Count 2.98 m/uL (4.30-5.90); White Blood Count* 22.97 K/uL (4.50-11.00)
[2023-07-18 07:00] VITALS: BP 119/75; PULSE 74; RESP 18; TEMP 36.6; O2SAT 96
[2023-07-18 07:21] LABS: Slide Review Reflex No
[2023-07-18 07:27] LABS: Albumin* 2.6 g/dL (3.3-5.0)
[2023-07-18 07:28] LABS: Chloride* 113 mmol/L (96-114); Potassium* 3.9 mmol/L (3.6-5.1); Sodium* 136 mmol/L (135-149)
[2023-07-18 07:30] LABS: Anion Gap 9 mEq/L (7-15); Aspartate Amino Transferase* 17 U/L (12-35); Bilirubin Total* 0.3 mg/dL (0.1-1.5); Carbon Dioxide* 14 mmol/L (20-32); Creatinine* 2.7 mg/dL (0.5-1.5); Est. Creatinine Clearance* 14.55; Estimated Glomerular Filt Rate 24 ml/min
[2023-07-18 07:31] LABS: Alanine Aminotransferase* 13 U/L (4-50); Alkaline Phosphatase* 94 U/L (40-150); Blood Urea Nitrogen* 43 mg/dL (7-30); Calcium* 8.1 mg/dL (8.4-10.6); Glucose* 101 mg/dL (60-115); Total Protein* 5.8 g/dL (6.0-8.3)
--- NOTE | 2023-07-18 07:55 | PC.NURSE ---
Pt is oriented of time, place, situation, and self.?Afebrile. Pt reports SOB, anxious and ?it feels like my thoughts are racing, can?t you give me something to quiet it a little. I think if I could just slow it down a bit the day today will go better? Pt talked to RN about his life, politics, celebrities, his past experiences of his mother?s , how he is worried about the state of the world, his family dynamics. Pt conversation transitions happen abruptly w/o connection to previous topic. RN gave?Albuterol inhaler for SOB, and updated about pt anxiety, one time dose 0.25 of?Lorazepam ordered and given. Returned call to pt's brother Bharat and gave update. Pt is up SBA in room. Pt slept intermittently throughout night.??
--- NOTE | 2023-07-18 08:09 | PC.SOCIAL ---
Discharge planning/late entry: radio survey worker called around to several different Home Care agencies that service the [place] area to inquire about openings. [facility] does not have openings. [facility] does have openings for PT/OT starting on Friday. Pt may discharge tomorrow. Social work to follow-up as needed.
[2023-07-18] MEDS: CITALOPRAM HYDROBROMIDE 20 MG TABLET 10 MG PO (08:50)
[2023-07-18] MEDS: guaiFENesin 600 MG TAB.ER.12H PO (08:50)
[2023-07-18] MEDS: METOPROLOL SUCCINATE (XL) 25 MG TAB PO (08:50)
[2023-07-18] MEDS: TAMSULOSIN HCL 0.4 MG CAPSULE PO (08:50)
[2023-07-18] MEDS: ACETAMINOPHEN 325 MG TABLET 650 MG PO (08:54)
[2023-07-18] MEDS: LIDOCAINE 5% PATCH 1 PATCH TRANSDERMA (10:23)
[2023-07-18 10:49] VITALS: BP 112/77; PULSE 78; RESP 18; TEMP 36.9; O2SAT 94
--- NOTE | 2023-07-18 13:05 | PM.DS1 ---
DS: Providers Provider Date Seen: 07/18/23 Date of admission: 07/08/23 09:31 Primary care physician: Randy Lu MD Admitting Clinician: Maggie Coburn MD Consults: 07/08/23 02:48 Consult to Physical Therapy [CONS] Routine Comment: Reason(s) for PT Consult:: Evaluate and Treat Any Restrictions?:: No Restrictions 07/08/23 02:49 Consult to Occupational Therapy [CONS] Routine Comment: Reason(s) for OT Consult:: Evaluate and Treat Any Restrictions?:: No Restrictions 07/14/23 09:19 Consult to Infectious Diseases [CONS] Routine Comment: Consulting Provider: [facility] Consult priority: Routine Has provider been notified: No Call back required?: Yes Attending Physician on discharge: Preeti Whitmore MD [facility] Date of Discharge: 07/18/23 DS: Diagnosis Discharge Diagnosis (1) Pneumonia: Status: Acute Problem details: -2nd hospital admission since early June 2023. First was treated with Levaquin. Second admission revealed Pseudomonas in his sputum and [address] shows new right upper lobe infiltrate, bibasilar infiltrates -significant leukocytosis, procalcitonin 2.96, elevated CRP, tachycardic, remains afebrile -urine strep pneumonia antigen positive, Legionella negative -ID recommended total 14 day coverage for Pseudomonas -we discussed with Hematology regarding the leukocytosis. Peripheral smear x2 showed reactivity. Several labs are outstanding. (2) Pseudomonal bacteremia: Status: Acute Problem details: -1 bottle, 1st set. Second set negative to date. Being discharged on oral Levaquin for a total 14 day antibiotic coverage for Pseudomonas. (3) Depression: Status: Acute Problem details: -Previously diagnosed, not currently treated. 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 [facility] [id number] (4) Weight loss: Status: Acute Problem details: -current weight 44 kg, previously 56 during hospitalization in June -significant leukocytosis, peripheral smear ordered, CML on list of differentials -outpatient follow-up with Hematology. Could also be depressive etiology. (5) CKD (chronic kidney disease): Status: Acute Problem details: -creatinine charged 2.7 -Antibiotics renally dosed -outpatient Nephrology recommend (6) Leukocytosis: Status: Acute Problem details: Noted. Peripheral smear reviewed. Platelets are also elevated. Likely all reactive. - fluctuating but improving. White blood count 24K (max 80.1 during this admission). - f/u with hematology arranged. DS: Summary Hospital Course Hospital Course: FINAL DIAGNOSIS/FOLLOW UP ISSUES: 1. Pneumonia follow-up. PCP. History of Pseudomonas in sputum culture and blood culture. Finished 14 days of antibiotic coverage. Renally dosed Levaquin was the last agent used. 2. Significant leukocytosis follow-up. Hematology recommended peripheral smear. This was done twice since June of 2023. Hematology outpatient follow-up arranged. 3. Chronic kidney disease, KYRIE. Improved to new baseline of 2-07/08. Needs nephrology follow-up as an outpatient. 4. Chronic anxiety and depression. Patient does well with social connections. We recommend that he consider assisted living options. Outpatient psychology arranged. Started Celexa and Valium. Secondary to weight loss mirtazapine may also be a good option. BRIEF HOSPITAL COURSE: Patient was admitted for 11 days. Synopsis of acute inpatient issues are outlined above. Chronic medical conditions with notable findings outlined above. Time between admissions was approximately [address] - 1st admission - showed multifocal pneumonia involving the left lingula and bilateral lower lobes. Strep pneumo negative. Legionella negative. Blood cultures negative. Treated with IV antibiotics but then transition to renally dosed Levaquin. Home for about 3 weeks. He then presented again with shortness of breath and diagnosed with a hospital-acquired pneumonia. Initially given cefepime and vancomycin. The chest CT from the 2nd admission shows overall decreased bilateral lower lobe infiltrates but a new right upper lobe infiltrate likely from a suppurative organism. Ultimately he grew Pseudomonas aeruginosa from his sputum and his blood. He was here for 11 days receiving different regimens of IV antibiotics. His follow-up blood cultures were negative. He continues to have chronic kidney disease and initially it and a superimposed KYRIE. He continues to have some weight loss and poor appetite. He continues to have episodes of tearfulness and anxiety. At discharge we sent him home again on renally dosed Levaquin. Home visits with PT and OT. Close follow-up with his PCP and mental health follow-up. He will how so have a follow-up with Hematology given his dramatic leukocytosis during the 2nd admission. In addition to his antibiotic he was sent home with Celexa and Valium. DISCHARGE MEDICATIONS: See Reconciled list - SIGNIFICANT CHANGES: Three p.o. doses of Levaquin, 48 hours apart for completion of therapy. Celexa, Valium until he sees Humberto what is in psychiatry. Specific instructions to the patient and follow-up are outlined below. REVIEW OF SYSTEMS No new chest pain or dyspnea Pain controlled No voiding difficulties Tolerating diet challenge PHYSICAL EXAM: CONSTITUTIONAL: Perseverating but calm VITAL SIGNS: see record. HEENT: Normocephalic, atraumatic. PERRL, EOMI, conjunctivae pink, no scleral icterus. Ears and nose externally normal. Pharynx normal. NECK: No JVD. No carotid bruit, no thyromegaly, no adenopathy. CHEST: Clear to auscultation bilaterally. HEART: S1 and S2 normal. Edema ABDOMEN: Soft, nontender. Normal bowel sounds. MUSCULOSKELETAL: No gross joint deformity or swelling. NEURO: Cranial nerves intact. Grossly intact. No asymmetric findings. SKIN: No rashes, petechiae, concerning changes PSYCHIATRIC: Mood euthymic. DISPOSITION: Home with friends Time spent on discharge 37 minutes. Status at Discharge Functional status at discharge: uses cane/walker Overall status at discharge: patient is progressing back to baseline Time Spent with Patient Time attestation: Total time spent providing and/or coordinating discharge services: Time spent: Greater than 30 minutes Exam Const: Vital Signs, click to edit/add: Vital Signs - 24 hr 07/17/23 16:00 07/17/23 21:23 07/17/23 23:30 Temperature 98.8 F 98.0 F Pulse Rate [Pulse Oximeter] 77 71 Respiratory Rate 16 18 18 Blood Pressure [Le ft Arm] 129/81 Blood Pressure [Ri ght Arm] 104/65 Pulse Oximetry 96 97 Oxygen Delivery Me thod Room Air Room Air 07/18/23 03:15 07/18/23 03:15 07/18/23 05:20 Temperature 97.8 F Pulse Rate [Pulse Oximeter] 72 72 Respiratory Rate 18 18 18 Blood Pressure [Le ft Arm] Blood Pressure [Ri ght Arm] 111/62 Pulse Oximetry 96 Oxygen Delivery Me thod Room Air 07/18/23 07:00 07/18/23 07:00 07/18/23 10:49 Temperature 97.8 F 98.5 F Pulse Rate [Pulse Oximeter] 74 74 78 Respiratory Rate 18 18 18 Blood Pressure [Le ft Arm] Blood Pressure [Ri ght Arm] 119/75 112/77 Pulse Oximetry 96 94 Oxygen Delivery Me thod Room Air Room Air DS: Data Data Completed and Pending Labs on day of discharge: Labs from last 24 hours 07/18/23 06:00 WBC 22.97 H RBC 2.98 L Hgb 8.3 L Hct 25.3 L MCV 85 MCH 28 MCHC 33 RDW Coeff of Ann 27.6 H Plt Count 356 Neut % (Auto) 82.9 H Lymph % (Auto) 3.8 L [place] % (Auto) 7.5 Eos % (Auto) 0.7 Baso % (Auto) 0.3 Neut # (Auto) 19.00 H Lymph # (Auto) 0.90 [place] # (Auto) 1.70 H Eos # (Auto) 0.20 Baso # (Auto) 0.10 Abs Immat Gran (auto) 1.10 H Imm/Tot Granulo (auto) 4.8 Sodium 136 Potassium 3.9 Chloride 113 Carbon Dioxide 14 L Anion Gap 9 BUN 43 H Creatinine 2.7 H Estimated Creat Clear 14.55 Estimated GFR 24 Glucose 101 Calcium 8.1 L Total Bilirubin 0.3 AST 17 ALT 13 Alkaline Phosphatase 94 Total Protein 5.8 L Albumin 2.6 L Preliminary micro results at discharge 07/15/23 02:20 Blood Culture - Preliminary Blood NO GROWTH AFTER 72 HOURS 07/15/23 02:15 Blood Culture - Preliminary Blood NO GROWTH AFTER 72 HOURS Discharge Plan Discharge Disposition: Home, Self-Care Date of Admission: 07/08/23 09:31 Attending Provider on Discharge: Preeti Whitmore Primary Care Provider: Randy Lu Condition: Stable Anticipated Discharge Date/Time: 07/18/23 12:06 Discharge Medications: New citalopram 20 mg Tablet 10 mg PO DAILY Qty: 30 0RF lidocaine 5 % Adhesive Patch,Medicated 1 patch transdermal Q24H Qty: 30 0RF levofloxacin 500 mg tablet 500 mg PO Q48H Qty: 3 0RF Rx Instructions: take one tab on 1/13 in the am with food, repeat doses on 07/21 and 07/23. Total of three pills, three doses by approximately 48 hours. diazepam [Valium] 2 mg tablet 2 - 4 mg PO QHS PRNQty: 30 0RF Continued evening primrose oil 500 mg capsule 500 mg PO DAILY niacin 500 mg tablet 1,500 mg PO DAILY Qty: 270 3RF trazodone 50 mg tablet 50 - 100 mg PO QHS Qty: 30 0RF potassium chloride 10 mEq Capsule, Extended Release 20 meq PO DAILY Qty: 30 0RF omeprazole 20 mg Capsule,Delayed Release(Dr/Ec) 20 mg PO DAILY@0700 Qty: 30 0RF metoprolol succinate 25 mg Tablet Extended Release 24 Hr 25 mg PO DAILY Qty: 30 0RF ipratropium-albuterol 0.5 mg-3 mg(2.5 mg base)/3 mL solution for nebulization 3 ml inhalation Q6H PRNQty: 90 0RF (DME) nebulizer and compressor Device See Rx Instructions .Route Qty: 1 0RF Rx Instructions: As directed (DME) nebulizer accessories Kit See Rx Instructions .ROUTE .MEDSUPPLY Qty: 1 0RF Rx Instructions: As directed (DME) nebulizers [facility] See Rx Instructions .Route Qty: 1 0RF Rx Instructions: As directed albuterol sulfate [Ventolin HFA] 90 mcg/actuation HFA aerosol inhaler 2 puff inhalation Q4-6H PRN (Reason: shortness of breath or wheezing) Qty: 6.7 0RF Dulera 200-5 mcg/actuation HFA aerosol inhaler 2 puff inhalation Q12H Qty: 8.8 0RF tamsulosin 0.4 mg capsule 0.4 mg PO DAILY Qty: 30 0RF Discharge Orders: Discharge Order (Routine); Ordered 07/18/23 Ordered By: Preeti Whitmore Patient Education: Diazepam (By mouth), Lidocaine (On the skin), Levofloxacin (By mouth), Citalopram (By mouth), Anxiety (GEN), Pneumonia (DC) Additional Instructions: 1. Take three more doses of your antibiotic. See. Dr. Lu in follow-up. 2. I am recommending an anti-anxiety medication each morning (scheduled - not as needed) - CELEXA and a small dose of VALIUM at night to help you sleep and relax in the evenings PRN. I think you should also see a counselor, Humberto Bates is being recommended to you. He will reach out to you for an appointment. We recommend an appt in the next: 1-2 weeks [facility] Humberto Bates DNP, LABORATORY DIRECTOR, PMHNP-BC [email or web address] [facility] [id number] 3. You will see Dr. Elliott for a follow-up on your elevated white blood cell count. We feel this is likely related to your pneumonia but would like her to make sure nothing else needs to be done. 4. Dr. Lu will discuss any follow-up you need for your kidneys or your lungs. 5. Physical and Occupational therapy will come to your place starting Friday. Follow Up Appointments: Randy Lu MD [Primary Care Provider] - 07/25/23 (hospital f/u needed: hematology, nephrology, pulmonary. please have Dr. Lu recommend and start these referrals.) Mouna Elliott MD [Staff Physician] - 08/01/23 (new patient. noted leukocytosis in hospital setting of pneumonia and bacteremia. Dr. Elliott was consulted by phone. peripheral smear and some lab work up completed.) Forms: [facility] Info Instructions
--- NOTE | 2023-07-18 13:08 | PC.SOCIAL ---
Discharge planning: Met with pt to discuss discharge. Informed pt of Home Care PT/OT services starting on Friday(07/21/2022). Pt was pleased with this. dish room worker also gave pt resources on meal delivery services in the area. Pt is familiar with the [facility] and uses the food shelf. Pt has a neighbor that drives him to the food shelf when he needs to go. Pt has a friend that can give him a ride home from the hospital today. dish room worker also provided pt with a copy of the Important Message from Medicare form. Social work to follow-up as needed.
--- NOTE | 2023-07-18 14:46 | PC.NURSE ---
Discharge: patient alert and oriented, VSS, afebrile, 96% on RA. Patient discharged to home accompanied by friend at 1425. Belongings sheet and discharge instructions signed, discharge instructions given and medications and appointments explained to patient. Patient verbalized understanding of instructions on discharge and picking up medications. IV removed intact.
[2023-07-21 18:10] LABS: Qual BCR Result Not Detected; Qual BCR Source Not Provided
[2023-07-23 01:30] LABS: JAK2 Qual Mutation by PCR Not Detected; JAK2 Qual, Source Not Provided
== END 2023-07-18 14:25 | disposition home or self-care (01) | DRG 178 ==
LOC: ED 07-08 00:14 → MEDSURG 07-08 01:20
PROVIDERS: Family Medicine; Internal Medicine; Physician Assistant; Admitting Provider Family Medicine; Emergency Provider Emergency Medicine; PCP Family Medicine; Visit Provider Emergency Medicine
DX: J15.1 Pneumonia due to Pseudomonas (principal); B37.0 Candidal stomatitis; E87.1 Hypo-osmolality and hyponatremia; R78.81 Bacteremia; N18.4 Chronic kidney disease, stage 4 (severe); Z68.1 Body mass index [BMI] 19.9 or less, adult; N17.9 Acute kidney failure, unspecified; K21.9 Gastro-esophageal reflux disease without esophagitis; D35.01 Benign neoplasm of right adrenal gland; N40.0 Benign prostatic hyperplasia without lower urinary tract symptoms; E78.5 Hyperlipidemia, unspecified; R63.4 Abnormal weight loss; D72.829 Elevated white blood cell count, unspecified; E11.22 Type 2 diabetes mellitus with diabetic chronic kidney disease; J44.9 Chronic obstructive pulmonary disease, unspecified; N20.0 Calculus of kidney; B96.5 Pseudomonas (aeruginosa) (mallei) (pseudomallei) as the cause of diseases classified elsewhere; Z87.891 Personal history of nicotine dependence; F32.A Depression, unspecified; F41.9 Anxiety disorder, unspecified
CPT/HCPCS: 36415; 71046; 71250; 74176; 80048; 80053; 80076; 81001; 81270; 82962; 83605; 83735; 84132; 84145; 84443; 84484; 85025; 85045; 85610; 85651; 86140; 87040; 87070; 87081; 87086; 87186; 87449; 87493; 87899; 93306; 94640; 97110; 97116; 97161; 97165; 97530; 97535; 99284; A9270; G0378; J0456; J0692; J0696; J1650; J2543; J3370; J7030; J7050; Q9957

== ENCOUNTER 2023-07-18 16:47 | Inpatient (IN) | payer MEDICARE, SELFPAY ==
--- OUTSIDE RECORDS SUMMARY | 2023-07-18 16:50 | XMS_ITS | Clinical Summary ---
Author Name Unknown Organization [facility] Address [place], [place] [address] Care Team Providers Care Manager Category Name Role Phone Randy Lu MD Primary Care Provider [phone] Allergies No known active allergies Medications Medication Sig Dispensed Refills Start Date End Date Status Evening [place] Oil 500 mg capsule Daily 0 Active budesonide-formoterol (SYMBICORT) 160-4.5 mcg/actuation (160-4.5 mcg each actuation) inhaler Inhale 2 Puffs by mouth 2 times daily. 0 08/27/2017 Active albuterol HFA 90 mcg/actuation inhaler Inhale 2 Puffs by mouth every 4 hours if needed. 0 06/18/2017 Active fish oil-omega-3 fatty acids (FISH OIL) 1,200-360 mg cap Take 1 capsule by mouth once daily. One capsule is 1200 mg-360 mg 0 Active multivitamin folic acid 0.4 mg Take 1 tablet by mouth once daily. 0 Active tamsulosin (FLOMAX) 0.4 mg capsule Take 0.8 mg by mouth once daily after a meal. 0 Active docusate (COLACE) 100 mg capsuleIndications:Bl adder outlet obstruction Take 1 capsule by mouth 2 times daily if needed for Constipation. 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 10/21/2019 HTN (hypertension) 10/21/2019 KYRIE (acute kidney injury) due to bladder outlet obstruction 10/21/2019 Benign prostatic hyperplasia with incomplete bladder emptying 11/05/2017 Bladder stones 11/05/2017 Gross hematuria 10/29/2017 COPD (chronic obstructive pulmonary disease) Gastroesophageal reflux disease 03/19/2010 Unspecified asthma(493.90) 08/14/2007 Anxiety state, unspecified 08/14/2007 Encounters Date Type Department Care Team Description 07/15/2023 Lab Requisition [facility] [phone] Sandra Robb MD 07/14/2023 4:00 PM INTERIOR HORTICULTURIST Ancillary Procedure [facility] [address] [place] [address] Arrived 07/14/2023 Travel 07/08/2023 Lab Requisition [facility] [phone] Maggie Coburn MD 06/11/2023 Lab Requisition [facility] [phone] Unknown, Doctor 06/10/2023 Lab Requisition [facility] [phone] Unknown, Doctor from Last 3 Months Immunizations Name Administration Dates Next Due Influenza, High-dose Inactivated 05/27/2016,04/06,06/23/2014 Influenza, IIV3 (Age 6-35 mos) 07/23/2013,2011,07/18/2011 Influenza, IIV4 05/01/2019 Influenza, Inactivated IIV3 (Age 65+ Years) Preserv Free 07/04/2017 Pneumococcal Poly,23-Valent (Pneumovax) 01/14/20 14 Tdap 09/25/2007 Family History Medical History Relation Name Comments Other Father d70, had AAA an d after surgery Relation Name Status Comments Brother 1 Alive Brother 2 Alive Father Mother Alive Sister 1 Alive Sister 2 Alive Sister 3 Alive Social History Tobacco Use Types Packs/Day Years Used Date Smoking Tobacco: Former Cigarettes 0.5 30 0 07/07/1965 - 07/07/1995 Smokeless Tobacco: Never Tobacco Cessation:Counseling Given: Yes Alcohol Use Standard Drinks/Week Comments No 0 (1 standard drink = 0.6 oz pur e alcohol) quit in 1995 Sex and Gender Information Value Date Recorded Sex Assigned at Not on file Gender Identity Not on file Sexual Orientation Not on file Obstetrics History Last Filed Vital Signs Vital Sign Reading Time Taken Comments Blood Pressure 152/68 01/29/2021 2:25 PM CDT Pulse 74 01/29/2021 2:25 PM CDT Temperature 36.7 ??C (98.1 ??F) 11/20/2019 7:10 AM CD T Respiratory Rate 16 11/20/2019 7:10 AM CDT Oxygen Saturation 97% 01/29/2021 2:25 PM CDT Inhaled Oxygen Concentration - - Weight 55.6 kg (122 lb 8 oz) 01/29/2021 2:25 PM CDT Height 162.6 cm (5' 4) 11/19/2019 6:07 AM CDT Body Mass Index 21.03 11/19/2019 6:07 AM CDT Plan of Treatment Health Maintenance Due Date Last Done Comments Depression screening for age 12+ 1959 BMI (ht and wt on same day) for age 18+ 1965 Hepatitis C screening for ag e 18-79 1965 Zoster (shingles) series for age 50+ (1 of 2) 1997 Medicare Wellness for age 65+ 2012 Pneumococcal series for age 65+ (2 of 2 - PCV) 01/13/2015 01/13/2014 Tetanus booster 09/24/2017 09/25/2007 COVID-19 vaccine series ( season) 2023 09/16/2020, 08/26/2020 Influenza for age 65+ 03/07/2023 05/01/2019 , 07/04/2017, 05/27/2016, Additional history exists Tdap Completed 09/25/2007 Procedures Procedure Name Priority Date/Time Associated Diagnosis Comments ECHO TTE COMPLETE W CONTRAST Routine 07/14/2023 6:02 PM INTERIOR HORTICULTURIST Bacteremia due to Pseudomonas LAB TRACKING EVENT Routine 07/07/2023 6: 55 PM INTERIOR HORTICULTURIST PERIPHERAL BLD MORPHOLOGY Routine 07/07/2023 6:55 PM INTERIOR HORTICULTURIST LAB TRACKING EVENT Routine 06/10/2023 7: 35 AM INTERIOR HORTICULTURIST PERIPHERAL BLD MORPHOLOGY Routine 06/10/2023 7:35 AM INTERIOR HORTICULTURIST LAB TRACKING EVENT Routine 06/09/2023 9: 50 PM INTERIOR HORTICULTURIST from Last 3 Months Results * ECHO TTE COMPLETE W CONTRAST (07/14/2023 6:02 PM INTERIOR HORTICULTURIST) AORTIC VALVE MEAN PG 3 mmHg EJECTION FRACTION 58 % LVEDD 4.9 cm EJECTION FRACTION 50 - 55% Anatomical Region Laterality Modality Ultrasound 07/14/2023 4:43 PM INTERIOR HORTICULTURIST Narrative 07/15/2023 6:57 AM INTERIOR HORTICULTURIST ECHOCARDIOGRAM DAVID MONTES ? Accession#: ?? [id number] : ?1945 78 years Study Date: ?? 07/14/2023 4:43:40 PM Gender: M ?BP: ? 126/85 mmHg Height: 160.00 cm ?BSA: ?1.44 m? ? ? Weight: 45.00 kg ? Tech: ? MTS ? Referring MD: SANDRA ROBB Site: ? [facility] Reading Location: [facility] Patient Location: Inpatient. Procedure: 2D w/ Contrast, Color Doppler and Spectral Doppler. Indication for study: Bacteremia due to Pseudomonas Cardiac Rhythm: Regular.Study quality: Technically limited. Imaging limitations: This study was subject to imaging limitations due to body habitus, a prominent lung artifact and transgastric difficulties. Final Impressions: 1. Technically limited exam. 2. Echo contrast was administered to enhance visualization of all left ventricular segments. 3. Normal LV size, normal wall thickness, normal global systolic function with an estimated EF of 50 - 55%. 4. Anterior septum is abnormal. 5. Right ventricular cavity size is normal, global systolic RV function is normal. 6. No hemodynamically significant valvular disease noted on this technically limited study. 7. No obvious vegetations noted on this technically limited study. Transesophageal echocardiography recommended if clinical concern for infective endocarditis. 8. IVC geometry compatible with a normal estimated RA pressure. Comparison There are no prior studies on this patient for comparison purposes. Chamber Sizes and Function Normal left ventricular size, normal wall thickness, normal global systolic function with an estimated EF of 50 - 55%. Left atrial size is normal. Right ventricular cavity size is normal, global systolic RV function is normal. The right atrium is normal. The pulmonary artery is not well visualized. The sinus of Valsalva is normal sized. The ascending aorta is normal sized. The anterior septum is hypokinetic. All remaining scored segments are normal. Valves, RV Pressures and Diastolic Function The aortic valve is not well visualized , no stenosis and no regurgitation. The mitral valve is not well visualized, no mitral regurgitation. Spectral Doppler shows Grade 1 pattern of LV diastolic filling. The tricuspid valve is not well visualized. Tricuspid regurgitation is trace regurgitation. The pulmonic valve is not well visualized. Unable to determine pulmonary regurgitation. Masses, Effusion, Shunts There is no pericardial effusion. The inferior vena cava is normal sized, respiratory size variation greater than 50%. Interatrial septum is not well visualized. MEASUREMENTS AND CALCULATIONS 2-D Measurements and LV Function: LVID (d) 4.9 cm LV FS% (2D) ?? 17 % LVID (s) 4.1 cm LVOT diameter 2.4 cm IVS (d) ??1.0 cm HR ?73 bpm LVPW (d) 1.1 cm RV Max 4C (d) 3.1 cm Ao Sinus 3.7 cm Asc Ao ?? 3.9 cm LA ? 3.0 cm Diastology: Mitral ?Tissue Doppler E Peak 0.4 m/s ??e', Septum ? 0.05 m/s A Peak 0.7 m/s ??e', Lateral ?0.04 m/s E/A ?0.6 ?E/e' Average ?? 8.28 DT ? 250 msec Aortic Valve: Vmax ? 1.0 m/s ??MUKUL (V) ?? 3.21 cm? ? ? VTI ?0.19 m ?? MUKUL (I) ?? 2.97 cm? ? ? LVOT V max 0.7 m/s ??Max PG ?4 mmHg LVOT VTI ?? 0.13 m ?? Mean PG ?? 3 mmHg SV ? 56 ml ?Dim Index 0.68 SV index ?? 39 ml/m? ? ? CO ?4.1 l/min ?CI ?2.8 l/min/m? ? ? Mitral Valve: MVA ?3.0 cm? ? ? MV P 1/2 73 msec Tricuspid Valve and estimated PA pressures: TAPSE 2.0 cm Contrast documentation: 4 ml diluted Definity, lot #[id number], [facility]# [id number] was administered peripherally to enhance visualization of all left ventricular segments. . This study was interpreted by an [facility] accredited facility. CC: HIM (med records) [facility], Med/Surg - IP [facility]. ??Final ?? Procedure Note Ryley Garcia MD - 07/15/2023 ECHOCARDIOGRAM DAVID MONTES : 1945 78 years Study Date: 07/14/2023 4:43:40 PM Gender: M BP: 126/85 mmHg Height: 160.00 cm BSA: 1.44 m? ? ? Weight: 45.00 kg Tech: [facility] Referring MD: SANDRA ROBB Site: [facility] Reading Location: [facility] Patient Location: Inpatient. Procedure: 2D w/ Contrast, Color Doppler and Spectral Doppler. Indication for study: Bacteremia due to Pseudomonas Cardiac Rhythm: Regular.Study quality: Technically limited. Imaging limitations: This study was subject to imaging limitations due tobody habitus, a prominent lung artifact and transgastric difficulties. Final Impressions: 1. Technically limited exam. 2. Echo contrast was administered to enhance visualization of all leftventricular segments. 3. Normal LV size, normal wall thickness, normal global systolic functionwith an estimated EF of 50 - 55%. 4. Anterior septum is abnormal. 5. Right ventricular cavity size is normal, global systolic RV functionis normal. 6. No hemodynamically significant valvular disease noted on thistechnically limited study. 7. No obvious vegetations noted on this technically limited study.Transesophageal echocardiography recommended if clinical concern forinfective endocarditis. 8. IVC geometry compatible with a normal estimated RA pressure. Comparison There are no prior studies on this patient for comparison purposes. Chamber Sizes and Function Normal left ventricular size, normal wall thickness, normal globalsystolic function with an estimated EF of 50 - 55%. Left atrial size isnormal. Right ventricular cavity size is normal, global systolic RVfunction is normal. The right atrium is normal. The pulmonary artery isnot well visualized. The sinus of Valsalva is normal sized. The ascendingaorta is normal sized. The anterior septum is hypokinetic. All remainingscored segments are normal. Valves, RV Pressures and Diastolic Function The aortic valve is not well visualized , no stenosis and noregurgitation. The mitral valve is not well visualized, no mitralregurgitation. Spectral Doppler shows Grade 1 pattern of LV diastolicfilling. The tricuspid valve is not well visualized. Tricuspidregurgitation is trace regurgitation. The pulmonic valve is not wellvisualized. Unable to determine pulmonary regurgitation. Masses, Effusion, Shunts There is no pericardial effusion. The inferior vena cava is normal sized,respiratory size variation greater than 50%. Interatrial septum is notwell visualized. MEASUREMENTS AND CALCULATIONS 2-D Measurements and LV Function: LVID (d) 4.9 cm LV FS% (2D) 17 % LVID (s) 4.1 cm LVOT diameter 2.4 cm IVS (d) 1.0 cm HR 73 bpm LVPW (d) 1.1 cm RV Max 4C (d) 3.1 cm Ao Sinus 3.7 cm Asc Ao 3.9 cm LA 3.0 cm Diastology: Mitral Tissue Doppler E Peak 0.4 m/s e', Septum 0.05 m/s A Peak 0.7 m/s e', Lateral 0.04 m/s E/A 0.6 E/e' Average 8.28 DT 250 msec Aortic Valve: Vmax 1.0 m/s MUKUL (V) 3.21 cm? ? ? VTI 0.19 m MUKUL (I) 2.97 cm? ? ? LVOT V max 0.7 m/s Max PG 4 mmHg LVOT VTI 0.13 m Mean PG 3 mmHg SV 56 ml Dim Index 0.68 SV index 39 ml/m? ? ? CO 4.1 l/min CI 2.8 l/min/m? ? ? Mitral Valve: MVA 3.0 cm? ? ? MV P 1/2 73 msec Tricuspid Valve and estimated PA pressures: TAPSE 2.0 cm Contrast documentation: 4 ml diluted Definity, lot #[id number], [facility]#[id number] was administered peripherally to enhance visualization of allleft ventricular segments. . This study was interpreted by an [facility] accredited facility. CC: HIM (med records) [facility], Med/Surg - IP [facility]. Final Sandra Robb MD ECHO ORD * LAB TRACKING EVENT (07/07/2023 6:55 PM INTERIOR HORTICULTURIST) Only the most recent of3 resultswithin the time period is included. Other (Other) Client Collect / Unknown 07/07/2023 6:55 PM INTERIOR HORTICULTURIST 07/08/2023 1:06 PM INTERIOR HORTICULTURIST Maggie Coburn MD LAB BILL ONLY [facility] [address] [place] [address], * PERIPHERAL BLD MORPHOLOGY (07/07/2023 6:55 PM INTERIOR HORTICULTURIST) Only the most recent of2 resultswithin the time period is included. Case Report Special Hematology Report ? Case: [id number] ? Authorizing Provider: ??Maggie Coburn MD ?Collected: ? 07/07/2023 1855 ? Ordering Location: ? [facility] ?Received: ?07/08/2023 1542 ? Pathologist: ? Jeny Nunn MD ? Specimen: ?Peripheral Blood ? 07/10/2023 12:43 PM INTERIOR HORTICULTURIST [facility] Final Diagnosis PERIPHERAL BLOOD: 1. Leukocytosis reflecting marked left shifted absolute neutrophilia with mild toxic changes and monocytosis, consistent with a reactive and/or infectious process 2. Mild normocytic anemia 3. See comment 07/10/2023 12:43 PM [facility] Comment The features of the neutrophilia and monocytosis favor a reactive leukocytosis. ??However, close clinical correlation is recommended. ??If there is no clinical etiology to explain this prominent leukocytosis (sepsis, prominent infectious process) and the leukocytosis persists, the possibility for a myeloid neoplasm could be considered. ??However, at this time, there is no diagnostic dysplasia appreciated on this smear review. The features of the anemia are nonspecific. The differential includes iron deficiency, anemia of chronic disease, anemia of chronic renal insufficiency, anatomic blood loss and medication effect. There is no morphologic evidence of hemolysis or findings to suggest a primary bone marrow disorder. 07/10/2023 12:43 PM INTERIOR HORTICULTURIST [facility] Clinical Information The patient is a 78-year-old male. Per CBC scan: Recent pneumonia with a leukocytosis, ongoing weakness, anorexia, and weight loss. A peripheral blood morphology performed 06/10/2023 ([id number]) showed a leukocytosis secondary to neutrophilia and monocytosis, rare circulating plasmacytoid cells, mild microcytic anemia with acanthocytes and rare target cells, and mild thrombocytosis. 07/10/2023 12:43 PM INTERIOR HORTICULTURIST [facility] CBC and Differential HEMATOLOGY PARAMETERS Tested at: ??[facility]-Centr al Laboratory ? RESULTS ??EXPECTED VALUES WBC: ? 71.7 ? 4.5-77y7802/cumm ?ELEVATED RBC: ? 4.17 ? 4.30-5.90 mil/cumm ??DECREASED HGB: ? 11.5 ? 13.5-17.5 gm/di ? DECREASED HCT: ? 33.7 ? 37-53% ?DECREASED MCV: ? 81.0 ? 80-100 fl ? NORMOCYTIC MCH: ? 28.0 ? 26-34 pg ? MCHC: ?34.0 ? 32-36 gm/dl ? NORMOCHROMIC RDW: ? 23.3 ? 11.5-15.5% ?ELEVATED PLT: ? 409 ?140-131e2586/u L ? Retic: ?? 1.1 ?0.5-1.5% ? Differential ?Absolute (%) ?Expected (%) ?(x10*9/L) ? (x10*9/L) Neutrophils: ?67.4 (94) ? 1.7-7.0 (42-72%) ??ELEVATED Lymphocytes: ?1.4 (2) ? 0.9-2.9 (20-44%) ?? Monocytes: ?2.2 (3.1) ?<0.9 (0-11%) ? ELEVATED Metamyelocytes: 0.7 (1) ?<0.1 (<0.1%) ? ELEVATED 07/10/2023 12:43 PM INTERIOR HORTICULTURIST [facility]-C ENTRAL LABORATORY Microscopic Description The final diagnosis is based on microscopic examination of an appropriately stained blood smear. 07/10/2023 12:43 PM INTERIOR HORTICULTURIST [facility]-C ENTROH LABORATORY Additional Information Interpreted at [facility] - [address] [place] [id number] 07/10/2023 12:43 PM INTERIOR HORTICULTURIST [facility]C ENTROH LABORATORY Blood (Peripheral Blood) 07/07/2023 6:55 PM INTERIOR HORTICULTURIST 07/08/2023 3:42 PM INTERIOR HORTICULTURIST Maggie Coburn MD HEMATOLOGY [facility] LAB[facility] [address] [place] [address], from Last 3 Months Advance Directives Latest Code Status on File Code Status Date Activated Date Inactivated Comments Full Code 11/19/2019 6:05 AM 11/20/2019 4:46 PM Code Status History Code Status Date Activated Date Inactivated Comments Full Code 10/21/2019 6:58 PM 10/25/2019 4:09 PM Full Code 11/06/2017 8:27 AM 11/06/2017 11:33 AM Care Teams Manager Category Relationship Specialty Start Date End Date Randy Lu MD [address] [place] [address] PCP - General Family Practice 10/25/19
--- OUTSIDE RECORDS SUMMARY | 2023-07-18 16:50 | XMS_ITS | Clinical Summary ---
Author Name Unknown Organization [facility] Address [address] [place] [address] Care Team Providers Care Nut Grinder Name Role Phone Unavailable Primary Care Provider Unavailabl e Source Comments You are receiving this document as you are listed as the primary care provider,follow-up provider, or the patient has been referred to you for consultation.This is in compliance with the Medicare andMedicaid EHR Incentive Program,which states Providers who transition their patient to another setting of careor provider of care or refers their patient to another provider of care shouldprovide summary care record for each transition of care or referral. [facility] Allergies No known active allergies Medications Medication Sig Dispensed Refills Start Date End Date Status SYMBICORT 160-4.5 MCG/ACT inhaler 0 04/19/2021 Active CONTOUR NEXT TEST test strip TEST ONCE DAILY IN THE MORNING. 0 02/08/2021 Active Microlet Lancets lancets 1 TEST ONCE DAILY 0 02/08/2021 Active metFORMIN (GLUCOPHAGE) 500 MG tablet Take 500 mg by mouth two times a day with meals. 0 02/28/2021 Active tamsulosin (FLOMAX) 0.4 MG CAPS capsule 0 05/04/2021 Active Immunizations Name Administration Dates Next Due Pfizer Monovalent 12+ Purple Top 09/16/2020,08/08 Social History Tobacco Use Types Packs/Day Years Used Date Smoking Tobacco: Former Cigarettes Q uit: 1995 Smokeless Tobacco: Never Alcohol Use Standard Drinks/Week Comments Not Currently 0 (1 standard drink = 0.6 oz pur e alcohol) Sex and Gender Information Value Date Recorded Sex Assigned at Not on file Gender Identity Not on file Sexual Orientation Not on file Last Filed Vital Signs Vital Sign Reading Time Taken Comments Blood Pressure - - Pulse 67 05/16/2021 12:54 PM BANKING CONSULTANT Temperature - - Respiratory Rate - - Oxygen Saturation 98% 05/16/2021 12:54 PM BANKING CONSULTANT Inhaled Oxygen Concentration - - Weight 54.9 kg (121 lb) 06/04/2021 4:32 PM BANKING CONSULTANT Height 161.3 cm (5' 3.5) 06/04/2021 4:32 PM BANKING CONSULTANT Body Mass Index 21.1 06/04/2021 4:32 PM BANKING CONSULTANT Plan of Treatment Health Maintenance Due Date Last Done Comments Hep C Screening (Preventive Services) 1945 Medicare Annual Wellness Visit 1945 Zoster/Shingles (1 of 2) 1997 Pneumococcal 65+ Yrs (2 - PCV) 01/13/2015 01/13/2014 COVID-19 Vaccine (3 - season) 2023 09/16/2020, 08/26/2020 Influenza (#1) 2023 05/29/2021, 04/07, 06/26/2018, Additional history exists DTaP/Tdap/Td (3 - Tdap) 06/04/2031 06/04/2021, 09/24 HepA Aged Out No longer eligi ble based on patient's age to complete this topic HepB Aged Out No longer eligi ble based on patient's age to complete this topic Hib Aged Out No longer eligi ble based on patient's age to complete this topic IPV (Polio) Aged Out No longer eligi ble based on patient's age to complete this topic MCV4 Aged Out No longer eligi ble based on patient's age to complete this topic
--- OUTSIDE RECORDS SUMMARY | 2023-07-18 16:50 | XMS_ITS | Continuity of Care Document ---
Author Name Unknown Organization [facility] Address [address] [address] [place] [address] Phone Care Team Providers Care Bilingual Teacher Name Role Phone Susannah GUADALUPE, Seth Unavailable Unavaila ble Procedures Procedure Date Ugi Endo; W/endo Ultrasound Ex 18 Ugi Endo; W/bx 1/mx Advance Directives Directive Yes / No Effective Date File Name No Information Encounters Encounter Description Practice Location Reason(s) For Visit Diagnoses Date Provider Providers Copied on Encounter [facility], [address] [address], [place], [place], [id number], tel:[phone] [facility] 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 [place] [address], [id number], [place]. tel:[phone] [facility], [address] [address], [place], [place], [id number], tel:[phone] [facility] No Information 8 Susannah Ann. [address] [place] [place] [address], [id number], [place]. tel:[phone] Referring Provider: Seth Arellano, [address] [place] [address], [id number]. tel:[phone] Family History Family Member Type Diagnosis Age [...]
[2023-07-18 16:59] VITALS: BP 116/80; PULSE 73; RESP 20; TEMP 36.7; O2SAT 97; BMI 17.7
--- NOTE | 2023-07-18 17:21 | ED.GENADULT ---
HPI - General Adult General Chief complaint: Weakness Stated complaint: Ill Time Seen by Provider: 07/18/23 17:13 History of Present Illness HPI narrative: Patient was released from this hospital today following a two weak stay for pneumonia and failure to thrive. He reports it taking 45 minutes to get into apartment, then had no energy to do anything, so called EMS. Patient is alert and orientated x4, extremely animated with pressured speech though denies any alcohol or drug abuse. 78-year-old man presenting to the emergency department with concern of too weak to be at home. Interview is very challenging with persistent pleasant rambling tangents. Was discharged today from this facility after 10 day stay I believe, diagnosed with pseudomonal bacteremia and pneumonia. Did have cleared blood cultures and this morning was cleared by Physical therapy from a strength standpoint. And talks about how he has not been really able to eat. He feels he had a ?mental breakdown? last night. Underlying history of COPD. He says how he was attended home by friend and that this friend's who is a nurse at [place] and not present at the time, was upset that he was being discharged. Managed to get slowly up the steps independently with friend managing baggage, and subsequently sitting on a folding chair in his apartment they engaged in a test as to whether not he could make it to his recliner. He was unable to stand up with his walker and so they called EMS who brought him back to this facility. Related Data Home Medications Medication Instructions Recorded Confirmed evening primrose oil 500 mg capsule 500 mg PO DAILY 04/12/22 07/08/23 Previous Rx's Medication Instructions Recorded niacin 500 mg tablet 1,500 mg (3 x 500 mg) PO DAILY 06/10/22 #270 tabs ipratropium 0.5 mg-albuterol 3 mg 3 ml inhalation Q6H PRN #90 mL 06/15/23 (2.5 mg base)/3 mL nebulization soln metoprolol succinate 25 mg 25 mg PO DAILY #30 tabs 06/15/23 tablet,extended release 24 hr nebulizer accessories #1 ea 06/15/23 nebulizer and compressor #1 ea 06/15/23 omeprazole 20 mg capsule,delayed 20 mg PO DAILY@0700 #30 caps 06/15/23 release potassium chloride 10 mEq 20 meq (2 x 10 mEq) PO DAILY #30 06/15/23 capsule,extended release caps nebulizers #1 ea 06/18/23 trazodone 50 mg tablet 50 - 100 mg (1 - 2 x 50 mg) PO QHS 06/23/23 #30 tabs albuterol sulfate 90 mcg/actuation 2 puff inhalation Q4-6H PRN 07/03/23 aerosol inhaler (Ventolin HFA) shortness of breath or wheezing #6.7 grams mometasone-formoterol HFA 200 2 puff inhalation Q12H #8.8 grams 07/03/23 mcg-5 mcg/actuation aerosol inhaler (Dulera) tamsulosin 0.4 mg capsule 0.4 mg PO DAILY #30 caps 07/03/23 citalopram 20 mg tablet 10 mg (1/2 x 20 mg) PO DAILY #30 07/18/23 tabs diazepam 2 mg tablet (Valium) 2 - 4 mg (1 - 2 x 2 mg) PO QHS PRN 07/18/23 #30 tabs levofloxacin 500 mg tablet 500 mg PO Q48H #3 tabs 07/18/23 lidocaine 5 % topical patch 1 patch transdermal Q24H #30 ea 07/18/23 Allergies Allergy/AdvReac Type Severity Reaction Status Date / Time No Known Drug Allergies Allergy Verified 06/23/23 13:06 Review of Systems Status of ROS: Reports: 6 or more systems reviewed and unremarkable except as noted in History and below [facility] Medical History Depression (03/19/10) ?F32.A - Depression, unspecified (ICD-10) CKD (chronic kidney disease) ?N18.9 - Chronic kidney disease, unspecified (ICD-10) Rupture of renal capsule of left kidney ?S37.062A - Major laceration of left kidney, initial encounter (ICD-10) 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 - Other specified diseases of pancreas (ICD-10) Dilation of pancreatic duct ?K86.89 - Other specified diseases of pancreas (ICD-10) Calculus of pancreatic duct ?K86.89 - Other specified diseases of pancreas (ICD-10) Arm fracture (03/19/10) ?S42.309A - Unspecified fracture of shaft of humerus, unspecified arm, initial encounter for closed fracture (ICD-10) Social History What is your current living situation?: I presently have a place to live Problems where you live: no known problems Problems where you live details: no known problems In the past 12 months, utilities in danger of being shut off: no In past 12 months, lack of transportation kept you from medical appts, meetings, work, or getting things needed for daily living: no Highest level of school completed/degree received: some college, no degree Smoking Status: Former smoker What tobacco products do you use: cigarettes Smoking quit date/years: >15 years ago Do you use any of these nicotine containing products: None Second hand tobacco smoke exposure: No How often do you have a drink containing alcohol: never How often do you have six or more drinks on one occasion: Never AUDIT-C Alcohol total score: 0 Non-prescribed substance use: denies use Caffeine: Yes (3 cups coffee daily) How often does anyone, including family, friends and others, physically hurt you: never How often does anyone, including family, friends and others, insult or talk down to you: never How often does anyone, including family, friends and others, threaten you with harm: never How often does anyone, including family, friends and others, scream or curse at you: never Little interest or pleasure in doing things: not at all Feeling down, depressed, or hopeless: not at all service: No Exam Narrative: Exam Narrative: Small stature. Very thin. Fully alert. Pleasant generally though when challenged becomes aggravated. Is breathing easily. Intermittent weak cough, congested. Speaking easily. Lungs with some trace crepitus in the right lower lung base. Abdomen is flat soft. Nontender. Normal active bowel sound Oropharynx is little inflamed with some exudate consistent with thrush. He has a Christianity style beads on a necklace. Extremities are without edema. Some intradermal bruising. Const: Vital Signs, click to edit/add: Vital Signs - 24 hr 07/18/23 16:59 Temperature 98.0 F Pulse Rate [Pulse Oximeter] 73 Respiratory Rate 20 Blood Pressure [Ri ght Upper Arm] 116/80 Pulse Oximetry 97 Oxygen Delivery Me thod Room Air Documenting provider has reviewed patient's vital signs: yes Course Vital Signs Vital signs: Initial Vital Signs Temperature 98.0 F 07/18/23 16:59 Temperature Source Temporal Artery Scan 07/18/23 16:59 Pulse Rate 73 07/18/23 16:59 Respiratory Rate 20 07/18/23 16:59 Blood Pressure 116/80 07/18/23 16:59 Blood Pressure Mean 92 07/18/23 16:59 Pulse Oximetry 97 07/18/23 16:59 Oxygen Delivery Method Room Air 07/18/23 16:59 Vital Signs Temperature 98.0 F 07/18/23 16:59 Pulse Rate 73 07/18/23 16:59 Respiratory Rate 20 07/18/23 16:59 Blood Pressure 116/80 07/18/23 16:59 Pulse Oximetry 97 07/18/23 16:59 Oxygen Delivery Method Room Air 07/18/23 16:59 Temperature 98.0 F 07/18/23 16:59 Pulse Rate 73 07/18/23 16:59 Respiratory Rate 20 07/18/23 16:59 Blood Pressure 116/80 07/18/23 16:59 Pulse Oximetry 97 07/18/23 16:59 Oxygen Delivery Method Room Air 07/18/23 16:59 Medications Administered Medications: Discontinued Medications Generic Name Dose Route Start Last Admin Trade Name Nicholas PRN Reason Stop Dose Admin Diazepam 5 mg 07/18/23 19:30 07/18/23 19:54 Diazepam 5 Mg Tablet PO 07/18/23 19:31 5 mg ONCE ONE Administration Diazepam 2.5 mg 07/18/23 19:38 07/18/23 19:54 Diazepam 5 Mg Tablet PO 07/18/23 19:39 2.5 mg ONCE ONE Administration Medical Decision Making MDM Narrative Medical decision making narrative: I have reviewed vitals and records. He is vitally well at this time. Unfortunately he does live independently in an apartment. He does the same time acknowledge that he has many friends. He feels he would like to be readmitted. I did discuss this with our hospitalist. Disposition was challenged by manipulative behavior. Further nothing more to offer inpatient. It would not appear that any further medical workup is necessary at this time. Would not qualify for halfway given PT/OT assessment of independence. Does have them also coming by home after the weekend. I think that he needed a longer period of rest at the top of the stairs perhaps. He does note that he needed have a bowel movement. Provided commode and standby assistance. He is observed to transfer without notable difficulty and stands for a time making the bed as well. I return to discuss disposition. He has been monitored for a time with stable, good vitals. He becomes increasingly upset alternating between anger and some tears but not actually producing tears. He says if he could just get something to make it through the night. Records show that he was discharged with some Valium. He asks for this without prompting. He does feel he could be helped with the Valium and some warm milk. I do leave to order this. I am at this time anticipating discharge home. Unfortunately this is evening and we have been trying to call acquaintances or friends or family but not getting through to anyone. Might need to be a taxi though ambulance transport would be I think a better idea. Has resources for Meals on wheels equivalent. A neighbor assists him to the food shelf. Has PT/OT and home health coming after the weekend. Also has elder exemption. After providing warm milk and a banana, I returned to discuss further with him his resources. He does also say that his temple community, [facility], provides him with more food than he can use; he ends up having to throw food away. He does acknowledge that if he could just get help to his bedroom he thinks he will be okay. Perhaps a friend or neighbor Bill? could spend the night he says. Much more relaxed at this point ahead of Valium affect. He said he reaches the state with meditation. While I am talking with him ?Emily? calls him on the phone. Anticipating transport home with ambulance assist. In attempting to do this of contacted temple community put been attending sounds like every couple of days giving food. Savannah says that she is really not comfortable with him being home. She says he is not normal, uses the word manic. She feels that he is still too weak to be at home. She is not willing to give the keys to his apartment and furthermore does not feel like they have the resources to assist. Says that would need police to retrieve the keys from her; reading between her lines, to alleviate her conscience. Liam does note that there is plenty of food in the apartment and he is at this point feels he can be okay at home but admits that is complicated. PT/OT and home health will be there after the weekend. Demonstrating overall addict behavior. It appears that there is some lack of effort contributing to weakness. Usual support network is falling apart. To assist with planning, hospitalist came to the emergency department and discussed care with Liam. Grateful to them that at this point this will be admitted and try to coordinate discharge likely after the weekend, possibly to other facility. Medical Records Medical records reviewed: Yes I reviewed the patient's medical records Discharge Plan Discharge Clinical Impression: Anxiety, Weakness Patient Disposition: Admitted As Observation Condition: Stable Activity Level: No Restrictions Discharge Diet: Regular
--- OUTSIDE RECORDS SUMMARY | 2023-07-18 18:13 | XMS_ITS | Clinical Summary ---
Author Name Unknown Organization [facility] Address [place], [place] [address] Care Team Providers Care Brazer Controlled Atmospheric Furnace Name Role Phone Randy Lu MD Primary Care Provider [phone] Allergies No known active allergies Medications Medication Sig Dispensed Refills Start Date End Date Status Evening [place] Oil 500 mg capsule Daily 0 Active [...] Description 07/15/2023 Lab Requisition [facility] [phone] Sandra Robb MD 07/14/2023 4:00 PM PACKAGER Ancillary Procedure [facility] [address] [place] [address] Arrived 07/14/2023 Travel 07/08/2023 Lab Requisition [facility] [phone] Maggie Coburn MD 06/11/2023 Lab Requisition [facility] [phone] Unknown, Doctor 06/10/2023 Lab Requisition [facility] [phone] Unknown, Doctor from Last 3 Months Immunizations [...] COMPLETE W CONTRAST Routine 07/14/2023 6:02 PM PACKAGER Bacteremia due to Pseudomonas LAB TRACKING EVENT Routine 07/07/2023 6: 55 PM PACKAGER PERIPHERAL BLD MORPHOLOGY Routine 07/07/2023 6:55 PM PACKAGER LAB TRACKING EVENT Routine 06/10/2023 7: 35 AM PACKAGER PERIPHERAL BLD MORPHOLOGY Routine 06/10/2023 7:35 AM PACKAGER LAB TRACKING EVENT Routine 06/09/2023 9: 50 PM PACKAGER from Last 3 Months Results * ECHO TTE COMPLETE W CONTRAST (07/14/2023 6:02 PM PACKAGER) AORTIC VALVE MEAN PG 3 mmHg EJECTION FRACTION 58 % LVEDD 4.9 cm EJECTION FRACTION 50 - 55% Anatomical Region Laterality Modality Ultrasound 07/14/2023 4:43 PM PACKAGER Narrative 07/15/2023 6:57 AM PACKAGER ECHOCARDIOGRAM DAVID MONTES ? Accession#: ?? [id number] : ?1945 78 years Study Date: ?? 07/14/2023 4:43:40 PM Gender: M ?BP: ? 126/85 mmHg Height: 160.00 cm ?BSA: ?1.44 m? ? ? Weight: 45.00 kg ? Tech: ? MTS ? Referring MD: SANDRA ROBB Site: ? [facility] Reading Location: [facility] Patient Location: Inpatient. Procedure: 2D w/ [...] documentation: 4 ml diluted Definity, lot #[id number], [facility]# [id number] was administered peripherally to enhance visualization of all left ventricular segments. . This study was interpreted by an [facility] accredited facility. CC: HIM (med records) [facility], Med[facility]Surg - [facility]. ??Final ?? Procedure Note Ryley Garcia MD - 07/15/2023 ECHOCARDIOGRAM DAVID MONTES : 1945 78 years Study Date: 07/14/2023 4:43:40 PM Gender: M BP: 126/85 mmHg Height: 160.00 cm BSA: 1.44 m? ? ? Weight: 45.00 kg Tech: [facility] Referring MD: SANDRA ROBB Site: [facility] Reading Location: [facility] Patient Location: Inpatient. Procedure: 2D w/ [...] documentation: 4 ml diluted Definity, lot #[id number], [facility]#[id number] was administered peripherally to enhance visualization of allleft ventricular segments. . This study was interpreted by an [facility] accredited facility. CC: HIM (med records) [facility], Med/Surg - IP [facility]. Final Sandra Robb MD ECHO ORD * LAB TRACKING EVENT (07/07/2023 6:55 PM PACKAGER) Only the most recent of3 resultswithin the time period is included. Other (Other) Client Collect / Unknown 07/07/2023 6:55 PM PACKAGER 07/08/2023 1:06 PM PACKAGER Maggie Coburn MD LAB BILL ONLY [facility] [address] [place] [address], * PERIPHERAL BLD MORPHOLOGY (07/07/2023 6:55 PM PACKAGER) Only the most recent of2 resultswithin the time period is included. Case Report Special Hematology Report ? Case: [id number] ? Authorizing Provider: ??Maggie Coburn MD ?Collected: ? 07/07/2023 1855 ? Ordering Location: ? [facility] ?Received: ?07/08/2023 1542 ? Pathologist: ? Jeny Nunn MD ? Specimen: ?Peripheral Blood ? 07/10/2023 12:43 PM PACKAGER [facility]ORAT[facility]-C ENTRAL LABORATORY Final Diagnosis PERIPHERAL BLOOD: 1. Leukocytosis reflecting marked left shifted absolute neutrophilia with mild toxic changes and monocytosis, consistent with a reactive and/or infectious process 2. Mild normocytic anemia 3. See comment 07/10/2023 12:43 PM [facility] [facility] EN[facility]AL LABORATORY Comment The features of [...] primary bone marrow disorder. 07/10/2023 12:43 PM PACKAGER [facility] LAB[facility] Clinical Information The patient is a 78-year-old male. Per CBC scan: Recent pneumonia with a leukocytosis, ongoing weakness, anorexia, and weight loss. A peripheral blood morphology performed 06/10/2023 ([id number]) showed a leukocytosis secondary to neutrophilia and monocytosis, rare circulating plasmacytoid cells, mild microcytic anemia with acanthocytes and rare target cells, and mild thrombocytosis. 07/10/2023 12:43 PM PACKAGER [facility]-C ENTRAL LABORATORY CBC and Differential HEMATOLOGY PARAMETERS Tested at: ??[facility]-Centr al Laboratory ? RESULTS ??EXPECTED VALUES WBC: ? 71.7 ? 4.5-58c2250/cumm ?ELEVATED RBC: ? 4.17 ? 4.30-5.90 mil/cumm ??DECREASED HGB: ? 11.5 ? 13.5-17.5 gm/di ? DECREASED HCT: ? 33.7 ? 37-53% ?DECREASED MCV: ? 81.0 ? 80-100 fl ? NORMOCYTIC MCH: ? 28.0 ? 26-34 pg ? MCHC: ?34.0 ? 32-36 gm/dl ? NORMOCHROMIC RDW: ? 23.3 ? 11.5-15.5% ?ELEVATED PLT: ? 409 ?140-394j5416/u L ? Retic: ?? 1.1 ?0.5-1.5% ? Differential ?Absolute (%) ?Expected (%) ?(x10*9/L) ? (x10*9/L) Neutrophils: ?67.4 (94) ? 1.7-7.0 (42-72%) ??ELEVATED Lymphocytes: ?1.4 (2) ? 0.9-2.9 (20-44%) ?? Monocytes: ?2.2 (3.1) ?<0.9 (0-11%) ? ELEVATED Metamyelocytes: 0.7 (1) ?<0.1 (<0.1%) ? ELEVATED 07/10/2023 12:43 PM PACKAGER [facility] LABORATORY-C ENTRAL LABORATORY Microscopic Description The final diagnosis is based on microscopic examination of an appropriately stained blood smear. 07/10/2023 12:43 PM PACKAGER [facility] LABORATORY-C ENTRTX LABORATORY Additional Information Interpreted at [facility], Central Laboratory - [address] [place] [id number] 07/10/2023 12:43 PM PACKAGER [facility]-C ENTRTX LABORATORY Blood (Peripheral Blood) 07/07/2023 6:55 PM PACKAGER 07/08/2023 3:42 PM PACKAGER Maggie Coburn MD HEMATOLOGY [facility] [address] [place] [address], from Last 3 Months Advance Directives Latest Code Status on File Code Status Date Activated Date Inactivated Comments Full Code 11/19/2019 6:05 AM 11/20/2019 4:46 PM Code Status History Code Status Date Activated Date Inactivated Comments Full Code 10/21/2019 6:58 PM 10/25/2019 4:09 PM Full Code 11/06/2017 8:27 AM 11/06/2017 11:33 AM Care Teams [employer]er [employer] Relationship Specialty Start Date End Date Randy Lu MD [address] [place] [address] PCP - General Family Practice 10/25/19
--- OUTSIDE RECORDS SUMMARY | 2023-07-18 18:13 | XMS_ITS | Continuity of Care Document ---
Author Name Unknown Organization [facility] Address [address] [address] [place] [address] Phone Care Team Providers Care [employer] Reading Teacher Name Role Phone Susannah GUADALUPE, Seth Unavailable Unavaila ble Procedures Procedure Date Ugi Endo; W/endo Ultrasound Ex 18 Ugi Endo; W/bx 1/mx Advance Directives Directive Yes / No Effective Date File Name No Information Encounters Encounter Description Practice Location Reason(s) For Visit Diagnoses Date Provider Providers Copied on Encounter [facility], [address] [address], [place], [place], [id number], tel:[phone] [facility] 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 [address] [place] [address], [id number], [place]. tel:[phone] [facility], [address] [address], [place], [id number], tel:[phone] [facility] No Information 8 Susannah Ann. [address] [place] [address], [id number], [place]. tel:[phone] Referring Provider: Seth Arellano, [address] [place] [address], [id number]. tel:[phone] Family History Family Member Type Diagnosis Age [...]
--- OUTSIDE RECORDS SUMMARY | 2023-07-18 18:13 | XMS_ITS | Continuity of Care Document ---
Author Name Unknown Organization [facility] Address [address] [address] [place] [address] Phone Care Team Providers Care Management Coordinator Name Role Phone Susannah GUADALUPE, Seth Unavailable Unavaila ble Procedures Procedure Date Ugi Endo; W/endo Ultrasound Ex 18 Ugi Endo; W/bx 1/mx Advance Directives Directive Yes / No Effective Date File Name No Information Encounters Encounter Description Practice Location Reason(s) For Visit Diagnoses Date Provider Providers Copied on Encounter [facility], [address] [address], [place], [place], [id number], tel:[phone] [facility] 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 [address] [place] [address], [id number], [place]. tel:[phone] [facility] [place], [address] [address], [place], [place], [id number], tel:[phone] [facility] No Information 8 Susannah Ann. [address] [place] [address], [id number], [place]. tel:[phone] Referring Provider: Seth Arellano, [address] [place] [address], [id number]. tel:[phone] Family History Family Member Type Diagnosis Age [...]
--- OUTSIDE RECORDS SUMMARY | 2023-07-18 18:13 | XMS_ITS | Clinical Summary ---
Author Name Unknown Organization [facility] Address [address] [place] [address] Care [address] Care [address] Security Officer Name Role Phone Unavailable Primary Care Provider [...] for each transition of care or referral. [facility] Allergies No known active allergies Medications Medication [...] - - Pulse 67 05/16/2021 12:54 PM BINDERY SUPERVISOR Temperature - - Respiratory Rate - - Oxygen Saturation 98% 05/16/2021 12:54 PM BINDERY SUPERVISOR Inhaled Oxygen Concentration - - Weight 54.9 kg (121 lb) 06/04/2021 4:32 PM BINDERY SUPERVISOR Height 161.3 cm (5' 3.5) 06/04/2021 4:32 PM BINDERY SUPERVISOR Body Mass Index 21.1 06/04/2021 4:32 PM BINDERY SUPERVISOR Plan of Treatment Health Maintenance Due Date [...]
--- NOTE | 2023-07-18 18:58 | ED.NURSE ---
Pt needed to sit on the commode, he stood up independently and with this nurse turned and sat down on the commode. Able to walk and transfer independently without any help.
--- NOTE | 2023-07-18 19:33 | ED.NURSE ---
Pt's brother listed as contact, this nurse called and his phone number is out of service. This nurse called sister and no one answered the phone.
--- NOTE | 2023-07-18 19:39 | ED.NURSE ---
This nurse asked pt who she could call for his discharge ride home. Pt began to get upset and states, Im going to if you send me home tonight. I cannot get up my two steps to my apartment. This nurse updated doctor to patients reply to this nurse.
[2023-07-18] MEDS: diazePAM 5 MG TABLET 2.5 MG PO (19:54)
[2023-07-18] MEDS: diazePAM 5 MG TABLET PO (19:54)
--- NOTE | 2023-07-18 21:08 | ED.NURSE ---
Talked with patient in depth and he has his friend Shilo that he has called and Shilo will visit him tomorrow at his apartment.
--- NOTE | 2023-07-18 21:17 | ED.NURSE ---
Per pt's request, this nurse called neighbor and friend Shilo and asked if he had pt's keys to his apartment. Shilo states he does have keys to pt's apartment and he will not give them to pt upon his return to his apartment because Shilo states he is not safe to go home. Shilo states that he is going to have me talk to his , is now talking with warehouse record clerk. Neighbor Shilo states he will withhold his keys and wont let him back into his apartmet. House sup now talking to the pt's doctor. Pt's doctor now talking to Shilo and Shilo's trying to get his keys back to his apartment.
[2023-07-18 23:07] VITALS: BP 133/76; PULSE 79; RESP 16; TEMP 36.7; O2SAT 95; BMI 17.2
[2023-07-18 23:15] VITALS: RESP 16
--- NOTE | 2023-07-18 23:31 | PM.IMHP1 ---
Hospitalist- H&P: HPI History of Present Illness Date Seen: 07/18/23 Chief complaint: Ill Narrative: Raman Montes is a 78 year old male past medical history significant for +strep pneumo pneumonia, pseudomonal bacteremia, depression, CKD is readmitted to the medical floor for observation after being discharged this afternoon. Patient was discharged from the hospital this afternoon to return home with initiation of home cares, PT, OT on Friday. Upon returning home, patient had to climb 16 steps to his apartment and had to rest frequently between stairs. By the time he got into his apartment he was so fatigued he was unable to move out of a folding chair. His neighbor who was assisting him became concerned and called 911. The patient tells me that physical therapy made him do exercises that he did not want to do. The patient tells me he did not think he was ready to go home and likes it in the hospital as the nurses are attentive to his needs. The ER provider discussed with the patient the plan to discharge home as there was no medical reason to readmit to the hospital however the patient will not have any support over the weekend. The patient even told me that he did not think he could complete his own ADLs independently for the weekend. The ER provider also spoke with his neighbor who has been assisting him who told the ER provider that if the patient were to return home this weekend they would not help him. The neighbor even threatened the ER provider that they would not give anyone the keys to the patient's apartment unless the glassware defect repairer came to get them. Unfortunately, given the situation and without any support over the weekend, the patient will need to be readmitted for observation. Review of Systems Narrative: REVIEW OF SYSTEMS: Complete review of systems performed and negative unless otherwise stated in HPI or below. [facility] Medical History Depression (03/19/10) ?F32.A - Depression, unspecified (ICD-10) CKD (chronic kidney disease) ?N18.9 - Chronic kidney disease, unspecified (ICD-10) Rupture of renal capsule of left kidney ?S37.062A - Major laceration of left kidney, initial encounter (ICD-10) 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 - Other specified diseases of pancreas (ICD-10) Dilation of pancreatic duct ?K86.89 - Other specified diseases of pancreas (ICD-10) Calculus of pancreatic duct ?K86.89 - Other specified diseases of pancreas (ICD-10) Arm fracture (03/19/10) ?S42.309A - Unspecified fracture of shaft of humerus, unspecified arm, initial encounter for closed fracture (ICD-10) Social History What is your current living situation?: I presently have a place to live Problems where you live: no known problems Problems where you live details: no known problems In the past 12 months, utilities in danger of being shut off: no In past 12 months, lack of transportation kept you from medical appts, meetings, work, or getting things needed for daily living: no In the past 12 mos, have been you worried that your food would run out before you had money to buy more?: never true In the past 12 mos, the food you bought just didn't last and you didn't have money to buy more?: often true Highest level of school completed/degree received: some college, no degree Smoking Status: Former smoker What tobacco products do you use: cigarettes Smoking quit date/years: >15 years ago Do you use any of these nicotine containing products: None Second hand tobacco smoke exposure: No How often do you have a drink containing alcohol: never How often do you have six or more drinks on one occasion: Never AUDIT-C Alcohol total score: 0 Non-prescribed substance use: denies use Caffeine: Yes (3 cups coffee daily) How often does anyone, including family, friends and others, physically hurt you: never How often does anyone, including family, friends and others, insult or talk down to you: never How often does anyone, including family, friends and others, threaten you with harm: never How often does anyone, including family, friends and others, scream or curse at you: never Little interest or pleasure in doing things: not at all Feeling down, depressed, or hopeless: not at all service: No Meds Home Medications and Allergies Home Medications Medication Instructions Recorded Confirmed Type evening primrose oil 500 mg capsule 500 mg PO DAILY 04/12/22 07/08/23 History Allergies Allergy/AdvReac Type Severity Reaction Status Date / Time No Known Drug Allergies Allergy Verified 06/23/23 13:06 Exam Narrative: Exam Narrative: PHYSICAL EXAM General: Initially sleeping, easily woken, remains thin and frail looking HEENT: Normocephalic, atraumatic, sclera white, EOMI, oral mucosa moist Cardiovascular: RRR, S1S2. No pitting edema Pulmonary: CTA bilaterally without rhonchi, rales, expiratory wheezes. No dyspnea Abdominal: Soft, nondistended, NTTP Neurological: Alert, answering questions appropriately, cranial nerves intact, no focal findings. Remains quite anxious, tangential. Extremities: No gross joint deformity or swelling. AROMI. Neurovascularly intact Skin: Warm, dry. Const: Vital Signs, click to edit/add: Vital Signs - 24 hr 07/18/23 16:59 07/18/23 23:07 07/18/23 23:15 Temperature 98.0 F 98.1 F Pulse Rate [Pulse Oximeter] 73 79 Respiratory Rate 20 16 16 Blood Pressure [Le ft Arm] 133/76 Blood Pressure [Ri ght Upper Arm] 116/80 Pulse Oximetry 97 95 Oxygen Delivery Me thod Room Air Room Air Hospitalist - H&P: Result Labs Labs: Labs reassuring, essentially unchanged Assessment and Plan Assessment and plan (1) Failure to thrive: Problem comment: -in setting of previously untreated anxiety and depression, recently started on medication -is not motivated to care for himself, relying on others to do so for him, at this time - foresee that it will be very difficult to discharge this patient to home -manipulative behaviors -MOCA 28/30 prior to discharge -PT and OT consults to reassess -addiction social worker. ? [place] placement -does not have a solid support system (neighbors told the ER provider they cannot continue to provide patient's expected level of help) Status: Acute (2) Pseudomonal bacteremia: Problem comment: -1 bottle, 1st set. Second set negative to date -continue Levaquin q.48h x3 doses, as remaining at discharge today Status: Acute (3) Pneumonia: Problem comment: -2nd hospital admission since early June 2023 for pneumonia. First was treated with Levaquin. Second admission revealed Pseudomonas in his sputum and [address] shows new right upper lobe infiltrate, bibasilar infiltrates -significant leukocytosis, procalcitonin 2.96, elevated CRP, tachycardic, remains afebrile -urine strep pneumonia antigen positive, Legionella negative -ID recommended total 14 day coverage for Pseudomonas -we discussed with Hematology regarding the leukocytosis. Peripheral smear x2 showed reactivity. Several labs are outstanding. -to complete Levaquin q.48h x3 doses, as was remaining at discharge today Status: Acute (4) Depression: Problem comment: -Previously diagnosed, not currently treated. 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 [facility] [id number] Status: Acute (5) CKD (chronic kidney disease): Problem comment: -creatinine 2.7, essentially unchanged -Antibiotics renally dosed -outpatient Nephrology follow-up Status: Chronic Plan CODE: Full VTE PPX: Enoxaparin Disposition: Observation
[2023-07-18 23:35] VITALS: RESP 16; O2SAT 95
[2023-07-19] MEDS: ACETAMINOPHEN 325 MG TABLET PO ×2 (01:45→18:05)
[2023-07-19] MEDS: MELATONIN 3 MG TABLET PO (01:45)
[2023-07-19 03:01] VITALS: BP 105/89; PULSE 80; RESP 16; O2SAT 94
--- NOTE | 2023-07-19 06:09 | PC.NURSE ---
Incident note: Around 2029, this song writer was called down to the ED to assist with discharging this pt whom had just left the [facility] dept after a prolonged admission just a few hours ago. Pt was picked up from [facility] by friend, Shilo, who upon returning to pt's apartment [facility] and watching him struggle to walk up the stairs, decided to drive pt back to ED as he felt he was unsafe to be home alone. When it was witnessed by ED MD and nurses that pt was indeed able to appropriately walk and participate in his own cares which was also deemed by PT and OT earlier in the day, discharge was initiated. Pt initially stated he was refusing to go back to his apt, he offered no real reason and kept trailing off on different subjects. This song writer informed pt that PT/OT worked extensively with him until he was meeting the criteria to go home successfully with multiple in-home services as he refused jail placement. Pt did then agree to give it another try, knowing that he had home services coming out Friday. This song writer did provide pt with number for [facility] case packer and sealer, Jessica, and a list of available AL facilities. EMS was then called for transport. While waiting for EMS, pt called friend Shilo as he said Shilo had his apt [place]. Shilo's asked to speak to the Paper Stacker to voice her concerns. After getting verbal consent from pt to speak to Shilo's , this song writer informed her that therapies had deemed pt safe to be at home both physically and mentally and further resources were provided to the pt if desired. Shilo's said they wouldn't give the keys to pt, as they were no longer willing to help him (them being his main support especially for food) as he is unsafe to any longer be at home alone. ED MD also tried speaking to Shilo's who remained adamant in her decision. It was then deemed pt was needing admission for further discharge arrangements.
[2023-07-19] MEDS: OMEPRAZOLE 20 MG CAPSULE DR PO (06:25)
[2023-07-19] MEDS: IPRAT-ALBUT 0.5-2.5 MG/3 ML NEB 1 NEB IH (06:29)
--- NOTE | 2023-07-19 06:43 | PC.NURSE ---
Arrived to the floor at 2345. Pt is talkative with rambling statement but A&O. VSS. Moves w/ SBA although pt reports being ?too weak to do anything?. Reports generalized pain 01/13. See eMAR for intervention. On arrival lidocaine patch removed from pt?s back. Bed alarm in place.
[2023-07-19 07:00] VITALS: BP 111/67; PULSE 77; RESP 16; TEMP 36.7; O2SAT 95
[2023-07-19] MEDS: levoFLOXacin 500 MG TABLET PO (09:23)
[2023-07-19] MEDS: TAMSULOSIN HCL 0.4 MG CAPSULE PO (09:23)
[2023-07-19] MEDS: METOPROLOL SUCCINATE (XL) 25 MG TAB PO (09:23)
[2023-07-19] MEDS: POTASSIUM CHLORIDE 10 MEQ CAPSULE ER 20 MEQ PO (09:23)
[2023-07-19] MEDS: LIDOCAINE 5% PATCH 1 PATCH TRANSDERMA (09:24)
[2023-07-19] MEDS: CITALOPRAM HYDROBROMIDE 20 MG TABLET 10 MG PO (09:24)
[2023-07-19 15:00] VITALS: PULSE 77; RESP 16
--- NOTE | 2023-07-19 15:59 | PM.IMPN1 ---
Progress Note: A&P Assessment and plan (1) Failure to thrive: Problem details: -in setting of previously untreated anxiety and depression, recently started on medication -is not motivated to care for himself, relying on others to do so for him, at this time - foresee that it will be very difficult to discharge this patient to home -manipulative behaviors -MOCA prior to discharge -PT and OT consults to reassess -nursing home social worker. ? [place] placement -does not have a solid support system (neighbors told the ER provider they cannot continue to provide patient's expected level of help) Status: Acute (2) Weakness: Status: Acute (3) Anxiety: Problem details: anabella started jul 2023 Status: Acute Subjective Date Seen: 07/19/23 Interval history: Daily Progress Note - Hospital Medicine #: CC: weakness OVERNIGHT UPDATES FROM STAFF & MED, LAB, IMAGING UPDATES came right back by EMS from discharge yesterday. no specific complaints other than weakness. Objective: Vitals: see above Lungs: Clear. Cardiac: S1S2. Disposition/Potential discharge - Likely to return to previous living situation vs SNF. Today I spent 50minutes seeing the patient, reviewing Expanse and EPIC notes/diagnostics, discussing the care plan with our care time that includes social work, PT/OT, pharmacy, RT, snf and documenting my impressions and plan in the medical record. Exam Const: Vital Signs, click to edit/add: Vital Signs - 24 hr 07/18/23 16:59 07/18/23 23:07 07/18/23 23:15 Temperature 98.0 F 98.1 F Pulse Rate [Pulse Oximeter] 73 79 Respiratory Rate 20 16 16 Blood Pressure [Le ft Arm] 133/76 Blood Pressure [Ri ght Upper Arm] 116/80 Pulse Oximetry 97 95 Oxygen Delivery Me thod Room Air Room Air 07/18/23 23:35 07/19/23 03:01 07/19/23 07:00 Temperature Pulse Rate [Pulse Oximeter] 80 77 Respiratory Rate 16 16 16 Blood Pressure [Le ft Arm] 105/89 Blood Pressure [Ri ght Upper Arm] Pulse Oximetry 95 94 Oxygen Delivery Me thod Room Air Room Air 07/19/23 07:00 07/19/23 15:00 Temperature 98.1 F Pulse Rate [Pulse Oximeter] 77 77 Respiratory Rate 16 16 Blood Pressure [Le ft Arm] 111/67 Blood Pressure [Ri ght Upper Arm] Pulse Oximetry 95 Oxygen Delivery Me thod Room Air
[2023-07-19] MEDS: ENOXAPARIN 30 MG/0.3ML INJ SUBCUT (20:52)
[2023-07-19] MEDS: diazePAM 5 MG TABLET 2.5 MG PO (20:53)
[2023-07-19] MEDS: NON-FORMULARY MEDICATION (Mometasone-Formoterol [Dulera] 200-5 mcg/actuation HFA aerosol i IH (20:53)
[2023-07-19] MEDS: hydrOXYzine pamoate 25 MG CAPSULE PO (22:58)
[2023-07-19] MEDS: ACETAMINOPHEN 325 MG TABLET 1000 MG PO (22:58)
[2023-07-20] MEDS: ACETAMINOPHEN 325 MG TABLET 1000 MG PO ×3 (04:57→21:07)
[2023-07-20] MEDS: hydrOXYzine pamoate 25 MG CAPSULE PO (05:03)
--- NOTE | 2023-07-20 06:20 | PC.NURSE ---
End of shift [id number]: Pt agitated and anxious throughout shift. Pt refusing to ambulate, sit in chair or reposition. Loan Officer Assistant and provider educated pt on importance of these things. Pt demanding w/ needs and swearing at magnetic tape typewriter operator and other staff throughout shift. Provider updated. [place] encouraged. Pt reports 10/10 back pain. See eMAR for intervention. AquaK placed on pt?s back. SBA w/ walker. Pt reports a decreased appetite. Loan Officer Assistant gave an update to pt?s brother and sister via two separate phone calls. ?
[2023-07-20 07:00] VITALS: PULSE 77; RESP 16
[2023-07-20 07:46] LABS: Hematocrit 27.7 % (37.0-53.0); Mean Corpuscular HGB Conc 33 gm/dL (32-36); Mean Corpuscular Hemoglobin 28 pg (26-34); Mean Corpuscular Volume 87 fL (80-100); Platelet Count* 374 K/uL (140-440); Red Blood Count 3.19 m/uL (4.30-5.90); White Blood Count* 21.49 K/uL (4.50-11.00)
[2023-07-20 07:47] LABS: HCO3 VBG 15 mmol/L (21-28); Ionized Calcium* 1.21 mmol/L (1.11-1.30); Lactate* 0.7 mmol/L (0.5-1.9); PCO2 VBG 33 mmHG (40-50); PO2 VBG 35.9 mmHG (25-47); pH VBG 7.252 (7.32-7.43)
[2023-07-20 07:51] LABS: Slide Review Reflex No
[2023-07-20 08:14] LABS: Albumin* 2.6 g/dL (3.3-5.0); Chloride* 115 mmol/L (96-114); Potassium* 4.4 mmol/L (3.6-5.1); Sodium* 139 mmol/L (135-149)
[2023-07-20 08:17] LABS: Anion Gap 11 mEq/L (7-15); Blood Urea Nitrogen* 47 mg/dL (7-30); Carbon Dioxide* 13 mmol/L (20-32); Creatinine* 3.5 mg/dL (0.5-1.5); Estimated Glomerular Filt Rate 17 ml/min; Glucose* 91 mg/dL (60-115)
[2023-07-20 08:18] LABS: Calcium* 8.2 mg/dL (8.4-10.6); Phosphorus* 5.7 mg/dL (2.5-4.5)
[2023-07-20 08:20] LABS: C Reactive Protein* 5.3 mg/dL (0.5-1.0)
[2023-07-20 08:29] LABS: Troponin I* 0.02 ng/mL (0.01-0.04)
[2023-07-20] MEDS: POTASSIUM CHLORIDE 10 MEQ CAPSULE ER 20 MEQ PO (08:58)
[2023-07-20] MEDS: LIDOCAINE 5% PATCH 1 PATCH TRANSDERMA (08:58)
[2023-07-20] MEDS: QUETIAPINE 25 MG TABLET 12.5 MG PO (08:59)
[2023-07-20] MEDS: OMEPRAZOLE 20 MG CAPSULE DR PO (08:59)
[2023-07-20] MEDS: TAMSULOSIN HCL 0.4 MG CAPSULE PO (08:59)
[2023-07-20] MEDS: CITALOPRAM HYDROBROMIDE 20 MG TABLET 10 MG PO (08:59)
[2023-07-20] MEDS: METOPROLOL SUCCINATE (XL) 25 MG TAB PO (09:00)
[2023-07-20] MEDS: NON-FORMULARY MEDICATION (Mometasone-Formoterol [Dulera] 200-5 mcg/actuation HFA aerosol i IH ×2 (09:09→21:07)
[2023-07-20] MEDS: GABAPENTIN 100 MG CAPSULE PO (10:53)
[2023-07-20 10:58] LABS: Appearance Urine Clear (Clear); Bilirubin Urine Negative (Negative); Blood Urine 1+ (Negative); Color Urine Yellow (Yellow); Glucose Urine Negative (Negative); Ketones Urine Negative (Negative); Leukocyte Esterase Urine Negative (Negative); Nitrite Urine Negative (Negative); Protein Urine 2+ (Negative); Specific Gravity Urine 1.025 (1.000-1.030); Urobilinogen Urine 0.2 (0.2-1.0); pH Urine 5.5 (5.0-8.5)
[2023-07-20 11:00] VITALS: BP 98/63; PULSE 77; RESP 18; TEMP 36.4; O2SAT 93
[2023-07-20 11:18] LABS: RBC Urine 0-2 (0-2)
[2023-07-20 11:19] LABS: Amorphous Sediment Urine Few; Bacteria Urine Moderate; Fine Granular Casts Urine Few; Squamous Epithelial Cell Urine Few (None-Few); WBC Urine 0-2 (0-5)
--- NOTE | 2023-07-20 13:58 | PM.IMPN1 ---
Progress Note: A&P Assessment and plan (1) Failure to thrive: Problem details: -in setting of previously untreated anxiety and depression, likely represents acute adjustment disorder/acute depressive episode with anxious features. -is not motivated to care for himself, relying on others to do so for him, at this time - foresee that it will be very difficult to discharge this patient to home -manipulative behaviors -MOCA prior to discharge -PT and OT consults to reassess -home health care social worker to help with geriatric psych, TCU/SNF rehab stay, [facility] ([place] placement) -does not have a solid support system (neighbors told the ER provider they cannot continue to provide patient's expected level of help) -MEDS: celexa started 07/19/23 (maybe remeron would have been better initial drug). trazodone and or valium for insomnia/anxiety, seroquel 12.5 and gabapentin trialed 07/20/23. too sedating. Status: Acute (2) Acute kidney injury superimposed on CKD: Problem details: -3.5 on 07/20/23. Not obstructed. 3.4 to 3.8 prior to the last two admissions. last known creatinine was 1.4 on 11/2021. fluids and treatment of underlying conditions correct to baseline of 2.5 - 2.6. Plan at each of the last admissions was outpatient nephrology. -renal u/s 06/13/23: Moderate right renal cortical thinning. Mild left renal cortical thinning. Multiple echogenic structure seen in the superior pole of the right kidney. Multiple echogenic structures visualized in the left kidney. No evidence of hydronephrosis. No suspicious mass. Bladder: Normal in caliber and appearance. Color Doppler images demonstrate bilateral ureteral jets. Status: Acute (3) Anxiety: Problem details: celexa started jul 2023 seroquel adjusted to 6.25mg BID trazodone for insomnia (on hold) gapabentin (chronic pain and anxiety; on hold) Status: Acute (4) Pneumonia: Problem details: -2nd hospital admission since early June 2023 for pneumonia. First was treated with Levaquin. Second admission revealed Pseudomonas in his sputum and [address] shows new right upper lobe infiltrate, bibasilar infiltrates -significant leukocytosis, procalcitonin 2.96, elevated CRP, tachycardic, remains afebrile -urine strep pneumonia antigen positive, Legionella negative -ID recommended total 14 day coverage for Pseudomonas -we discussed with Hematology regarding the leukocytosis. Peripheral smear x2 showed reactivity. Several labs are outstanding. -to complete Levaquin q.48h arranged, last dose 07/23/23 Status: Acute (5) Leukocytosis: Problem details: -significant leukocytosis > 75,000 during 2nd hospitalization - jul 2023. (previous hospitalization 06/28 [id number]) -ED provider discussed with [facility], Dr Berg -in the absence of splenomegaly or significant immature cells the likelihood is that the white blood cell count may still be related to infection, but would recommend a close look at the peripheral smear by pathology to look for immature cells suggesting a possible diagnosis of CML. History also notable for weight loss -peripheral smear x 2 resulted/reviewed -Dr. Elliott ([facility]) to see as outpatient Status: Acute (6) Weight loss: Problem details: -current weight 44 kg, previously 56 during hospitalization in June -significant leukocytosis, peripheral smear ordered, CML on list of differentials -outpatient follow-up with Hematology. Could also be depressive etiology. Status: Acute Subjective Date Seen: 07/20/23 Interval history: Daily Progress Note - Hospital Medicine Day #: 3 (admitted 07/08/23 - 07/18/23, came back 07/18/23 - current) CC: weakness, poor self care, hx of bacteremia/CKD/pneumonia OVERNIGHT UPDATES FROM STAFF & MED, LAB, IMAGING UPDATES anxious/irritable overnight. short with staff. no new medical issues. CBC reflects continued down trending of his white blood cell count. Hemoglobin has actually improved. Creatinine is up again but within the range over the last few weeks. lactate is normal. CRP is downtrending. TSH is elevated. free T4 pending. Objective: (after meds) tired appearing. coherent. Cachectic Vitals: stable. see above Lungs: Clear. Cardiac: S1S2. Disposition/Potential discharge - Likely to return to previous living situation vs SNF. Today I spent 50minutes seeing the patient, reviewing Expanse and EPIC notes/diagnostics, discussing the care plan with our care time that includes social work, PT/OT, pharmacy, RT, custodial and documenting my impressions and plan in the medical record. Exam Const: Vital Signs, click to edit/add: Vital Signs - 24 hr 07/19/23 15:00 07/20/23 07:00 07/20/23 11:00 Temperature 97.6 F Pulse Rate [Pulse Oximeter] 77 77 77 Respiratory Rate 16 16 18 Blood Pressure [Le ft Arm] 98/63 Pulse Oximetry 93 Oxygen Delivery Me thod Room Air Labs Labs: Laboratory Results - last 24 hr 07/20/23 07/20/23 07:38 09:09 WBC 21.49 H RBC 3.19 L Hgb 9.0 L Hct 27.7 L MCV 87 MCH 28 MCHC 33 Plt Count 374 VBG pH 7.252 L VBG pCO2 33 L VBG pO2 35.9 VBG HCO3 15 L Sodium 139 Potassium 4.4 Chloride 115 H Carbon Dioxide 13 L Anion Gap 11 BUN 47 H Creatinine 3.5 H Estimated Creat Clear 11.10 Estimated GFR 17 Glucose 91 Lactate 0.7 Calcium 8.2 L Ionized Calcium [place] 1.21 Phosphorus 5.7 H Magnesium 2.0 Troponin I 0.02 C-Reactive Protein 5.3 H Albumin 2.6 L TSH 15.200 H Urine Color Yellow Urine Appearance Clear Urine pH 5.5 Ur Specific [place] 1.025 Urine Protein 2+ A Urine Glucose (UA) Negative Urine Ketones Negative Urine Blood 1+ A Urine Nitrite Negative Urine Bilirubin Negative Urine Urobilinogen 0.2 Ur Leukocyte Esterase Negative Urine RBC 0-2 Urine WBC 0-2 Ur Squamous Epith Cells Few Amorphous Sediment Few A Urine Bacteria Moderate A Fine Granular Casts Few A
[2023-07-20 15:00] VITALS: PULSE 77; RESP 18
--- NOTE | 2023-07-20 19:11 | PC.NURSE ---
End of shift: patient not eating, c/o back pain, encouraged to ambulate with therapy and tolerated activity well. Patient encouraged to drink fluids and walk. Patient very sleepy today. Voided and had a BM. Patient on a low phosphorus diet.
[2023-07-20] MEDS: ENOXAPARIN 30 MG/0.3ML INJ SUBCUT (21:06)
[2023-07-20] MEDS: QUETIAPINE 25 MG TABLET 6.25 MG PO (23:03)
[2023-07-21] MEDS: ALBUTEROL INHALER 2 PUFF IH (03:50)
[2023-07-21] MEDS: ACETAMINOPHEN 500 MG TABLET 1000 MG PO ×3 (03:55→20:51)
[2023-07-21] MEDS: OMEPRAZOLE 20 MG CAPSULE DR PO (06:20)
--- NOTE | 2023-07-21 06:38 | PC.NURSE ---
End of shift [id number]: A&O. Pt frustrated and agitated when encouraged to do tasks independently but ultimately cooperative in the end. Decreased appetite and minimal fluid intake. Hand Striper encouraged fluid intake.?AquaK placed on pt?s back. SBA w/ walker.
[2023-07-21 06:51] LABS: Hematocrit 28.8 % (37.0-53.0); Hemoglobin* 9.2 gm/dL (13.5-17.5); Mean Corpuscular HGB Conc 32 gm/dL (32-36); Mean Corpuscular Hemoglobin 28 pg (26-34); Mean Corpuscular Volume 88 fL (80-100); Platelet Count* 420 K/uL (140-440); Red Blood Count 3.29 m/uL (4.30-5.90); White Blood Count* 19.12 K/uL (4.50-11.00)
[2023-07-21 06:54] LABS: Slide Review Reflex No
[2023-07-21 07:52] VITALS: BP 111/67; PULSE 74; RESP 18; TEMP 36.2; O2SAT 96
[2023-07-21] MEDS: CITALOPRAM HYDROBROMIDE 20 MG TABLET 10 MG PO (08:29)
[2023-07-21] MEDS: levoFLOXacin 500 MG TABLET PO (08:29)
[2023-07-21] MEDS: QUETIAPINE 25 MG TABLET 6.25 MG PO (08:29)
[2023-07-21] MEDS: POTASSIUM CHLORIDE 10 MEQ CAPSULE ER 20 MEQ PO (08:29)
[2023-07-21] MEDS: METOPROLOL SUCCINATE (XL) 25 MG TAB PO (08:29)
[2023-07-21] MEDS: SODIUM CHLORIDE 0.9 % (FLUSH) 10 ML SYRINGE 5 ML IVF (08:30)
[2023-07-21] MEDS: NON-FORMULARY MEDICATION (Mometasone-Formoterol [Dulera] 200-5 mcg/actuation HFA aerosol i IH ×2 (08:30→20:48)
[2023-07-21] MEDS: TAMSULOSIN HCL 0.4 MG CAPSULE PO (08:30)
[2023-07-21] MEDS: LIDOCAINE 5% PATCH 1 PATCH TRANSDERMA (08:31)
--- NOTE | 2023-07-21 10:48 | PC.SOCIAL ---
Addendum entered by KESHAWN Bartholomew 07/21/23 13:26: Spoke with Nelly at [facility] who states pt can be accepted for admit tomorrow morning under his insurance for a short term stay. Met with pt who is aware and agrees with this plan. Pt is requesting family transport. Bharat is in the room and states he can provide transport for pt to [facility] tomorrow morning at 11:00. Called [facility] and confirmed this plan with Nelly. line out worker to follow up as needed. Original Note: Discharge planning: Met with pt who states he does not think he can return home at discharge and requested placement in a half-way. Pt is requesting placement in communities in this order: 1. [place], 2. [place], 3. [place]. Called and faxed information to [facility] for evaluation for admit. line out worker to follow up as needed.
[2023-07-21 11:46] LABS: Albumin* 2.8 g/dL (3.3-5.0); Chloride* 116 mmol/L (96-114); Potassium* 4.7 mmol/L (3.6-5.1); Sodium* 139 mmol/L (135-149)
[2023-07-21 11:49] LABS: Anion Gap 12 mEq/L (7-15); Blood Urea Nitrogen* 54 mg/dL (7-30); Carbon Dioxide* 11 mmol/L (20-32); Est. Creatinine Clearance* 9.63; Estimated Glomerular Filt Rate 15 ml/min; Glucose* 76 mg/dL (60-115)
[2023-07-21 11:50] LABS: Calcium* 8.3 mg/dL (8.4-10.6)
[2023-07-21 11:54] LABS: Phosphorus* 6.2 mg/dL (2.5-4.5)
--- NOTE | 2023-07-21 12:00 | CRLHL7_ITS ---
For Patients: As a result of the Century Cures Act, medical imaging exams and procedure reports are released immediately into your electronic medical record. You may view this report before your referring provider. If you have questions, please contact your health care provider. INDICATION: Back pain. TECHNIQUE: Two views of the lumbar spine. COMPARISON: 07/07/[address] FINDINGS: Five lumbar vertebrae. Normal alignment. No fracture appreciated. Scattered mild endplate hypertrophy. Disc spaces preserved. Bulky pancreatic calcifications noted. Dictated by Shawn Bah MD @ 07/22/2023 8:59:37 AM (Electronically Signed)
[2023-07-21] MEDS: FLUCONAZOLE 100 MG TABLET 200 MG PO (13:18)
--- NOTE | 2023-07-21 16:48 | PM.IMPN1 ---
Progress Note: A&P Assessment and plan (1) Failure to thrive: Problem details: -in setting of previously untreated anxiety and depression, likely represents acute adjustment disorder/acute depressive episode with anxious features. -is not motivated to care for himself, relying on others to do so for him, at this time - foresee that it will be very difficult to discharge this patient to home -manipulative behaviors -MOCA prior to discharge -PT and OT consults to reassess -socially responsible investment adviser to help with geriatric psych, TCU/SNF rehab stay, [facility] ([facility] placement) -does not have a solid support system (neighbors told the ER provider they cannot continue to provide patient's expected level of help) -MEDS: celexa started 07/19/23 (maybe remeron would have been better initial drug). trazodone and or valium for insomnia/anxiety, seroquel 12.5 and gabapentin trialed 07/20/23. too sedating. Status: Acute (2) Acute kidney injury superimposed on CKD: Problem details: -3.5 on 07/20/23. Not obstructed. 3.4 to 3.8 prior to the last two admissions. last known creatinine was 1.4 on 11/2021. fluids and treatment of underlying conditions correct to baseline of 2.5 - 2.6. Plan at each of the last admissions was outpatient nephrology. -renal u/s 06/13/23: Moderate right renal cortical thinning. Mild left renal cortical thinning. Multiple echogenic structure seen in the superior pole of the right kidney. Multiple echogenic structures visualized in the left kidney. No evidence of hydronephrosis. No suspicious mass. Bladder: Normal in caliber and appearance. Color Doppler images demonstrate bilateral ureteral jets. Status: Acute (3) Anxiety: Problem details: celexa started jul 2023 seroquel adjusted to 6.25mg BID trazodone for insomnia (on hold) gapabentin (chronic pain and anxiety; on hold) Status: Acute (4) Pneumonia: Problem details: -2nd hospital admission since early June 2023 for pneumonia. First was treated with Levaquin. Second admission revealed Pseudomonas in his sputum and [address] shows new right upper lobe infiltrate, bibasilar infiltrates -significant leukocytosis, procalcitonin 2.96, elevated CRP, tachycardic, remains afebrile -urine strep pneumonia antigen positive, Legionella negative -ID recommended total 14 day coverage for Pseudomonas -we discussed with Hematology regarding the leukocytosis. Peripheral smear x2 showed reactivity. Several labs are outstanding. -to complete Levaquin q.48h arranged, last dose 07/23/23 Status: Acute (5) Leukocytosis: Problem details: -significant leukocytosis > 75,000 during 2nd hospitalization - jul 2023. (previous hospitalization 06/28 [id number]) -ED provider discussed with [facility], Dr Berg -in the absence of splenomegaly or significant immature cells the likelihood is that the white blood cell count may still be related to infection, but would recommend a close look at the peripheral smear by pathology to look for immature cells suggesting a possible diagnosis of CML. History also notable for weight loss -peripheral smear x 2 resulted/reviewed -Dr. Elliott ([facility]) to see as outpatient Status: Acute (6) Weight loss: Problem details: -current weight 44 kg, previously 56 during hospitalization in June -significant leukocytosis, peripheral smear ordered, CML on list of differentials -outpatient follow-up with Hematology. Could also be depressive etiology. Status: Acute (7) Thrush: Problem details: -previously prescribed nystatin swish and swallow until resolved, but patient refused to continue -magic mouthwash t.i.d. for comfort, patient refused to continue - 07/13 improved ability to eat. 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 As such I am starting him on fluconazole today, does for decreased kidney function. Status: Acute (8) Back pain: Problem details: -at L2-L3 level. -Previous CT scans negative except for osteoarthritis -Ordered lumbosacral spine x-rays and awaiting Status: Acute Plan 1. Reviewed impression with patient in friends who are here to visit him, per his request. 2. Patient agreeable to consider transitional care services. Time Spent With Patient Total time spent: 45 minutes Subjective Date Seen: 07/21/23 Interval history: Daily Progress Note - Hospital Medicine Day #: 4 (admitted 07/08/23 - 07/18/23, came back 07/18/23 - current) CC: weakness, poor self care, hx of bacteremia/CKD/pneumonia Patient complains of decreased appetite, increased weakness, back pain. None of these are new. Previous diagnosis of oral thrush noted but he declined treating this further. CT scan of lumbosacral spine demonstrated no obvious acute process including no fracture. Patient variously able to walk and not walk. He agrees that he is anxious about the possibility of having to live home alone on the 1 hand. On the other hand he is not sure that he wants to be in a transitional care setting. Exam Narrative: Exam Narrative: Examine him in his hospital room. Vision and hearing are grossly normal. Appears comfortable no acute distress. Alert and oriented to self, place, time, situation. At times does not answer questions directly but does so in a roundabout way. Other times a need to bring him back to answer the question that I ask. Scattered rhonchi and rales. Heart tones with regular rhythm. Abdomen with active bowel sounds, soft. Appears cachectic, thin. Const: Vital Signs, click to edit/add: Vital Signs - 24 hr 07/21/23 07:52 07/21/23 07:52 Temperature 97.1 F L Pulse Rate [Pulse Oximeter] 74 Respiratory Rate 18 Blood Pressure [Le ft Arm] 111/67 Pulse Oximetry 96 96 Oxygen Delivery Me thod Room Air Room Air Documenting provider has reviewed patient's vital signs: yes Labs Labs: Laboratory Results - last 24 hr 07/21/23 06:17 WBC 19.12 H RBC 3.29 L Hgb 9.2 L Hct 28.8 L MCV 88 MCH 28 MCHC 32 Plt Count 420 Sodium 139 Potassium 4.7 Chloride 116 H Carbon Dioxide 11 L Anion Gap 12 BUN 54 H Creatinine 4.0 H Estimated Creat Clear 9.63 Estimated GFR 15 Glucose 76 Calcium 8.3 L Phosphorus 6.2 H* Albumin 2.8 L
[2023-07-21] MEDS: ENOXAPARIN 30 MG/0.3ML INJ SUBCUT (20:30)
[2023-07-21 20:45] VITALS: BP 125/77; PULSE 85; RESP 18; TEMP 36.6; O2SAT 93
[2023-07-21] MEDS: TRAZODONE HCL 50 MG TABLET PO (22:04)
[2023-07-21 22:10] VITALS: BP 115/67; PULSE 78; RESP 18; TEMP 36.5; O2SAT 92
[2023-07-21 23:00] VITALS: PULSE 78; RESP 18
[2023-07-21] MEDS: MELATONIN 3 MG TABLET PO (23:04)
[2023-07-22] MEDS: ACETAMINOPHEN 500 MG TABLET 1000 MG PO ×2 (03:33→10:45)
[2023-07-22 06:23] LABS: Hematocrit 26.7 % (37.0-53.0); Hemoglobin* 8.5 gm/dL (13.5-17.5); Mean Corpuscular HGB Conc 32 gm/dL (32-36); Mean Corpuscular Hemoglobin 28 pg (26-34); Mean Corpuscular Volume 88 fL (80-100); Platelet Count* 426 K/uL (140-440); Red Blood Count 3.04 m/uL (4.30-5.90); White Blood Count* 18.62 K/uL (4.50-11.00)
[2023-07-22 06:27] LABS: Slide Review Reflex No
[2023-07-22 06:36] LABS: Albumin* 2.6 g/dL (3.3-5.0); Chloride* 115 mmol/L (96-114); Sodium* 138 mmol/L (135-149)
[2023-07-22 06:37] LABS: Potassium* 5.3 mmol/L (3.6-5.1)
[2023-07-22 06:39] LABS: Anion Gap 11 mEq/L (7-15); Blood Urea Nitrogen* 61 mg/dL (7-30); Carbon Dioxide* 12 mmol/L (20-32); Creatinine* 4.3 mg/dL (0.5-1.5); Est. Creatinine Clearance* 8.96; Estimated Glomerular Filt Rate 14 ml/min
[2023-07-22 06:40] LABS: Calcium* 8.1 mg/dL (8.4-10.6); Glucose* 84 mg/dL (60-115)
[2023-07-22] MEDS: LIDOCAINE 5% PATCH 1 PATCH TRANSDERMA (06:43)
[2023-07-22 06:44] LABS: Phosphorus* 6.8 mg/dL (2.5-4.5)
[2023-07-22] MEDS: OMEPRAZOLE 20 MG CAPSULE DR PO (06:44)
[2023-07-22] MEDS: IPRAT-ALBUT 0.5-2.5 MG/3 ML NEB 1 NEB IH (06:53)
--- NOTE | 2023-07-22 07:31 | PC.NURSE ---
Pt is oriented of time, place, situation, and self. Afebrile.?Pt reports 8/10 pain in lower back, scheduled Tylenol given, aqua k pad applied, ice and warm blanket offered pt declined, helped pt reposition. Pt reported Tylenol was not helping the pain, and the aqua k pad with repositioning wasn?t enough, was updated and?gave verbal order to give lidocaine patch early, pt fell back asleep before RN got back to room, placed lidocaine patch around 0640 when pt woke up again asking for something for pain.?Pt asks for help with using bed controls,?changing channels on TV, adjusting his blankets, moving his phone from one side of the bedside table to the other then he will move it back himself. Encouraging pt to do the activates he can do himself but pt is resistive stating I am weak and declining. Pt has been observed doing each of these tasks himself.?Pt is resistive to doing self-care.??When discussing transition to [facility] tomorrow 07/22/23 pt reports ?I know I have to help myself with stuff at that place, but that is tomorrow, can?t you guys just help me do things for one more night.??Pt is up SBA to bathroom. Pt slept intermittently throughout night.?
[2023-07-22 09:00] VITALS: PULSE 84; RESP 18
[2023-07-22] MEDS: METOPROLOL SUCCINATE (XL) 25 MG TAB PO (09:12)
[2023-07-22] MEDS: TAMSULOSIN HCL 0.4 MG CAPSULE PO (09:12)
[2023-07-22] MEDS: FLUCONAZOLE 100 MG TABLET PO (09:13)
[2023-07-22] MEDS: NON-FORMULARY MEDICATION (Mometasone-Formoterol [Dulera] 200-5 mcg/actuation HFA aerosol i IH ×2 (09:13→21:04)
--- NOTE | 2023-07-22 10:08 | CRLHL7_ITS ---
For Patients: As a result of the Century Cures Act, medical imaging exams and procedure reports are released immediately into your electronic medical record. You may view this report before your referring provider. If you have questions, please contact your health care provider. Indication: Back pain, left greater than right L2-L3 region Technique: Multiplanar, multisequence, MRI of the lumbar spine, obtained without contrast. Comparison: Lumbar spine x-ray 07/21/2023, CT chest abdomen pelvis 07/07/2023 Findings: Preserved lumbar lordosis. No significant spondylolisthesis. No acute osseus abnormality. Mild chronic anterior wedge configuration of T12 with superior endplate Schmorl`s node deformity. Heterogeneous marrow signal, attributed to red marrow reconversion, without suspicious focal marrow lesion. Conus medullaris terminates at L1-2. Atrophic right kidney. Distended urinary bladder. Unremarkable included SI joints. T12-L1, L1-L2: No significant neural foraminal or spinal canal stenosis. L2-L3: Mild facet arthropathy. No left, mild right neural foraminal narrowing. No spinal canal stenosis. L3-L4: Mild diffuse disc bulge, mild facet arthropathy. Mild bilateral neural foraminal narrowing. No spinal canal stenosis. L4-L5: Mild diffuse disc bulge, moderate facet arthropathy. No right, mild left neural foraminal narrowing. Left lateral recess stenosis with potential descending left L5 nerve root impingement. No central spinal canal stenosis. L5-S1: Mild facet arthropathy. No significant neural foraminal or spinal canal stenosis. Impression: 1. No acute osseus abnormality. Normal spinal alignment. Mild scattered spondylosis as detailed. 2. At L2-3, mild right neural foraminal narrowing. 3. At L3-4, mild bilateral neural foraminal narrowing. 4. At L4-5, mild left neural foraminal narrowing, and left lateral recess stenosis with potential descending left L5 nerve root impingement. Dictated by Ayla Harris MD @ 07/22/2023 12:46:34 PM (Electronically Signed)
[2023-07-22] MEDS: OXYCODONE 5 MG TABLET PO ×2 (10:45→21:04)
[2023-07-22 15:00] VITALS: PULSE 69; RESP 18
--- NOTE | 2023-07-22 16:18 | P.IMPN_ITS ---
Progress Note: A&P Assessment and plan (1) Failure to thrive: Problem details: -in setting of previously untreated anxiety and depression, likely represents acute adjustment disorder/acute depressive episode with anxious features. -is not motivated to care for himself, relying on others to do so for him, at this time - foresee that it will be very difficult to discharge this patient to home -manipulative behaviors -MOCA prior to discharge -PT and OT consults to reassess -director of social services to help with geriatric psych, TCU/SNF rehab stay, [facility] ([place] placement) -does not have a solid support system (neighbors told the ER provider they cannot continue to provide patient's expected level of help) -MEDS: celexa started 07/19/23 (maybe remeron would have been better initial drug). trazodone and or valium for insomnia/anxiety, seroquel 12.5 and gabapentin trialed 07/20/23. too sedating. 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 Status: Acute (2) Acute kidney injury superimposed on CKD: Problem details: -3.5 on 07/20/23. Not obstructed. 3.4 to 3.8 prior to the last two admissions. last known creatinine was 1.4 on 11/2021. fluids and treatment of underlying conditions correct to baseline of 2.5 - 2.6. Plan at each of the last admissions was outpatient nephrology. -renal u/s 06/13/23: Moderate right renal cortical thinning. Mild left renal cortical thinning. Multiple echogenic structure seen in the superior pole of the right kidney. Multiple echogenic structures visualized in the left kidney. No evidence of hydronephrosis. No suspicious mass. Bladder: Normal in caliber and appearance. Color Doppler images demonstrate bilateral ureteral jets. Status: Acute (3) Anxiety: Problem details: celexa started jul 2023 seroquel adjusted to 6.25mg BID trazodone for insomnia (on hold) gapabentin (chronic pain and anxiety; on hold) Status: Acute (4) Pneumonia: Problem details: -2nd hospital admission since early June 2023 for pneumonia. First was treated with Levaquin. Second admission revealed Pseudomonas in his sputum and [address] shows new right upper lobe infiltrate, bibasilar infiltrates -significant leukocytosis, procalcitonin 2.96, elevated CRP, tachycardic, remains afebrile -urine strep pneumonia antigen positive, Legionella negative -ID recommended total 14 day coverage for Pseudomonas -we discussed with Hematology regarding the leukocytosis. Peripheral smear x2 showed reactivity. Several labs are outstanding. -to complete Levaquin q.48h arranged, last dose 07/23/23 Status: Acute (5) Leukocytosis: Problem details: -significant leukocytosis > 75,000 during 2nd hospitalization - jul 2023. (previous hospitalization 06/28 [id number]) -ED provider discussed with [facility], Dr Berg -in the absence of splenomegaly or significant immature cells the likelihood is that the white blood cell count may still be related to infection, but would recommend a close look at the peripheral smear by pathology to look for immature cells suggesting a possible diagnosis of CML. History also notable for weight loss -peripheral smear x 2 resulted/reviewed -Dr. Elliott ([facility]) to see as outpatient Status: Acute (6) Weight loss: Problem details: -current weight 44 kg, previously 56 during hospitalization in June -significant leukocytosis, peripheral smear ordered, CML on list of differentials -outpatient follow-up with Hematology. Could also be depressive etiology. Status: Acute (7) Thrush: Problem details: -previously prescribed nystatin swish and swallow until resolved, but patient refused to continue -magic mouthwash t.i.d. for comfort, patient refused to continue - 07/13 improved ability to eat. 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 As such I am started him him on fluconazole 07/21/2023, dose for decreased kidney function. Status: Acute (8) Back pain: Problem details: -at L2-L3 level. -Previous CT scans negative except for osteoarthritis -Ordered lumbosacral spine x-rays and awaiting -MR scan of lumbar spine 07/22/2023 demonstrated: 1. No acute osseus abnormality. Normal spinal alignment. Mild scattered spondylosis as detailed. 2. At L2-3, mild right neural foraminal narrowing. 3. At L3-4, mild bilateral neural foraminal narrowing. 4. At L4-5, mild left neural foraminal narrowing, and left lateral recess stenosis with potential descending left L5 nerve root impingement. -initiated oxycodone p.r.n. -will initiate acetaminophen 650 mg q.i.d. scheduled Status: Acute Plan 1. Reviewed impression and plan with patient 2. Patient agreeable 3. Patient ready for detention facility transitional care services when f acility becomes available Time Spent With Patient Total time spent: 60 minute Subjective Date Seen: 07/22/23 Interval history: Daily Progress Note - Hospital Medicine Day #: 5 (admitted 07/08/23 - 07/18/23, came back 07/18/23 - current) CC: weakness, poor self care, hx of bacteremia/CKD/pneumonia Appetite is improving compared to yesterday. Tolerating increased oral intake. Tolerating oral fluconazole. He tele back pain is incapacitating. I give him a small dose of oxycodone which helps tremendously. MR scan obtained today demonstrating no major pathology, underlying degenerative joint disease and degenerative disc disease. Today's agreeable to transitional care services. Exam Narrative: Exam Narrative: Examined patient in his hospital room. Much less anxious today than yesterday. Alert, oriented to self, place, time, situation. Friendly, cooperative. Appears thin and cachectic. Lungs clear to auscultation. Heart tones with regular rhythm. Abdomen with active bowel sounds, soft. Skin on abdomen with ecchymoses which wraps all the way to the back on the left. Patient tells me he believes he obtained this from enoxaparin which had been administered him previously. Transferring with assist. Const: Vital Signs, click to edit/add: Vital Signs - 24 hr 07/21/23 20:45 07/21/23 22:10 07/21/23 23:00 Temperature 97.8 F 97.7 F Pulse Rate [Pulse Oximeter] 85 78 78 Respiratory Rate 18 18 18 Blood Pressure [Le ft Arm] 125/77 115/67 Pulse Oximetry 93 92 Oxygen Delivery Me thod Room Air Room Air 07/22/23 09:00 Temperature Pulse Rate [Pulse Oximeter] 84 Respiratory Rate 18 Blood Pressure [Le ft Arm] Pulse Oximetry Oxygen Delivery Me thod Documenting provider has reviewed patient's vital signs: yes Labs Labs: Laboratory Results - last 24 hr 07/22/23 06:06 WBC 18.62 H RBC 3.04 L Hgb 8.5 L Hct 26.7 L MCV 88 MCH 28 MCHC 32 Plt Count 426 Sodium 138 Potassium 5.3 H Chloride 115 H Carbon Dioxide 12 L Anion Gap 11 BUN 61 H Creatinine 4.3 H Estimated Creat Clear 8.96 Estimated GFR 14 Glucose 84 Calcium 8.1 L Phosphorus 6.8 H* Albumin 2.6 L Imaging MRI of lumbar spine: Attestation: I have reviewed the pertinent imaging results. Radiologist's impression: Impression: 1. No acute osseus abnormality. Normal spinal alignment. Mild scattered spondylosis as detailed. 2. At L2-3, mild right neural foraminal narrowing. 3. At L3-4, mild bilateral neural foraminal narrowing. 4. At L4-5, mild left neural foraminal narrowing, and left lateral recess stenosis with potential descending left L5 nerve root impingement.
--- NOTE | 2023-07-22 18:47 | PC.NURSE ---
PATIENT WITHDRAWN AND FLAT TODAY. AT BEGINNING OF SHIFT, PATIENT C/O INCREASED LOWER BACK AND ABDOMINAL PAIN WITH MINIMAL RELIEF FROM TYLENOL AND LIDOCAINE PATCH. DR. Torres UPDATED AND ORDER OBTAINED AND ADMINISTERED FOR OXYCODONE. PATIENT ALSO HAD AN MRI. PATIENT REPORTED PAIN IMPROVED FOLLOWING OXYCODONE. UP WITH SBA, WALKER AND GAIT BELT TO RECLINER AND BATHROOM. PATIENT REPORTS FEELING INCREASED WEAKNESS AND ONLY WILLING TO SIT IN RECLINER ONCE TODAY. REFUSES TO REPOSITION IN BED. MINIMAL PO INTAKE DESPITE FREQUENT ENCOURAGEMENT. PATIENT DENIES FEELING NAUSEATED BUT REPORTS DECREASED APPETITE AND REFUSED SUPPER. BRUISING/REDNESS NOTED TO LEFT AND MID LOWER BACK. OPEN AREA ALSO NOTED THAT APPEARS TO BE A SHEAR WHICH WAS COVERED WITH MEPILEX. DR. Torres UPDATED ON BACK.
[2023-07-22] MEDS: TRAZODONE HCL 50 MG TABLET PO (21:04)
[2023-07-22] MEDS: ACETAMINOPHEN 325 MG TABLET 650 MG PO (21:04)
[2023-07-22] MEDS: ENOXAPARIN 30 MG/0.3ML INJ SUBCUT (21:05)
[2023-07-22 22:00] VITALS: BP 136/77; PULSE 70; RESP 16; TEMP 36.7; O2SAT 95
--- NOTE | 2023-07-22 22:40 | PC.NURSE ---
End of Shift: Patient pleasant and cooperative. Afebrile. Rating pain in back 10/10 and PRN Oxycodone given x1. Up to bathroom with SBA, walker and gait belt. Encouraged oral intake.
[2023-07-22 23:00] VITALS: RESP 16
[2023-07-23] MEDS: OMEPRAZOLE 20 MG CAPSULE DR PO (06:19)
[2023-07-23 06:42] LABS: Hematocrit 30.4 % (37.0-53.0); Hemoglobin* 9.6 gm/dL (13.5-17.5); Mean Corpuscular HGB Conc 32 gm/dL (32-36); Mean Corpuscular Hemoglobin 28 pg (26-34); Mean Corpuscular Volume 90 fL (80-100); Platelet Count* 452 K/uL (140-440); Red Blood Count 3.38 m/uL (4.30-5.90); White Blood Count* 19.15 K/uL (4.50-11.00)
--- NOTE | 2023-07-23 06:56 | PC.NURSE ---
Pt is oriented of time, place, situation, and self. Pt denies chest pain, SOB, and N/V.?Pt is up SBA with walker and gait belt to bathroom. Pt slept throughout most of night. Night uneventful. ?
[2023-07-23 07:09] LABS: Chloride* 114 mmol/L (96-114)
[2023-07-23 07:10] LABS: Potassium* 5.5 mmol/L (3.6-5.1); Sodium* 138 mmol/L (135-149)
[2023-07-23 07:12] LABS: Anion Gap 12 mEq/L (7-15); Blood Urea Nitrogen* 63 mg/dL (7-30); Carbon Dioxide* 12 mmol/L (20-32); Creatinine* 4.7 mg/dL (0.5-1.5); Est. Creatinine Clearance* 8.24; Estimated Glomerular Filt Rate 12 ml/min; Glucose* 88 mg/dL (60-115)
[2023-07-23 07:13] LABS: Calcium* 8.3 mg/dL (8.4-10.6)
[2023-07-23 07:26] LABS: Slide Review Reflex No
[2023-07-23 08:04] VITALS: BP 123/77; PULSE 78; RESP 18; TEMP 36.5; O2SAT 97
--- NOTE | 2023-07-23 09:19 | CRLHL7_ITS ---
For Patients: As a result of the Century Cures Act, medical imaging exams and procedure reports are released immediately into your electronic medical record. You may view this report before your referring provider. If you have questions, please contact your health care provider. INDICATION: Acute kidney injury, left CVA pain TECHNIQUE: Ultrasound of both kidneys. Delgado-scale and color Doppler sonographic images of the kidneys were acquired. COMPARISON: 07/07/[address] FINDINGS: Right kidney:Echogenic cortex. No solid renal mass. Approximately 5 mm stone in the upper pole. No hydronephrosis. 9.0 cm pole to pole. Left kidney: Limited views. Normal cortical echogenicity. No visible solid renal mass. No hydronephrosis.11.2 cm pole to pole. IMPRESSION: 1. Mildly atrophic and echogenic right kidney. 2. There is a single stone visible in the right kidney. Additional bilateral nephrolithiasis was visible on the recent CT. 3. Limited views of the left kidney which was overall unremarkable. Dictated by Shawn Bah MD @ 07/23/2023 11:56:49 AM (Electronically Signed)
[2023-07-23] MEDS: LIDOCAINE 5% PATCH 1 PATCH TRANSDERMA (09:42)
[2023-07-23] MEDS: METOPROLOL SUCCINATE (XL) 25 MG TAB PO (09:42)
[2023-07-23] MEDS: FLUCONAZOLE 100 MG TABLET PO (09:42)
[2023-07-23] MEDS: levoFLOXacin 500 MG TABLET PO (09:43)
[2023-07-23] MEDS: ACETAMINOPHEN 325 MG TABLET 650 MG PO ×4 (09:43→21:22)
[2023-07-23] MEDS: TAMSULOSIN HCL 0.4 MG CAPSULE PO (09:43)
[2023-07-23] MEDS: NON-FORMULARY MEDICATION (Mometasone-Formoterol [Dulera] 200-5 mcg/actuation HFA aerosol i IH ×2 (10:22→21:23)
[2023-07-23] MEDS: 0.9 % SODIUM CHLORIDE 250 ml 250 ML IV (10:23)
[2023-07-23] MEDS: 0.9 % SODIUM CHLORIDE 1000 ml 1,000 ML 125 ML IV ×2 (11:22→19:42)
[2023-07-23] MEDS: OXYCODONE 5 MG TABLET PO (12:43)
--- NOTE | 2023-07-23 16:13 | PM.IMPN1 ---
Progress Note: A&P Assessment and plan (1) Failure to thrive: Problem details: -in setting of previously untreated anxiety and depression, likely represents acute adjustment disorder/acute depressive episode with anxious features. -is not motivated to care for himself, relying on others to do so for him, at this time - foresee that it will be very difficult to discharge this patient to home -manipulative behaviors -MOCA prior to discharge -PT and OT consults to reassess -director of social services to help with geriatric psych, TCU/SNF rehab stay, [facility] ([place] placement) -does not have a solid support system (neighbors told the ER provider they cannot continue to provide patient's expected level of help) -MEDS: celexa started 07/19/23 (maybe remeron would have been better initial drug). trazodone and or valium for insomnia/anxiety, seroquel 12.5 and gabapentin trialed 07/20/23. too sedating. 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 Status: Acute (2) Acute kidney injury superimposed on CKD: Problem details: -3.5 on 07/20/23. Not obstructed. 3.4 to 3.8 prior to the last two admissions. last known creatinine was 1.4 on 11/2021. fluids and treatment of underlying conditions correct to baseline of 2.5 - 2.6. Plan at each of the last admissions was outpatient nephrology. -renal u/s 06/13/23: Moderate right renal cortical thinning. Mild left renal cortical thinning. Multiple echogenic structure seen in the superior pole of the right kidney. Multiple echogenic structures visualized in the left kidney. No evidence of hydronephrosis. No suspicious mass. Bladder: Normal in caliber and appearance. Color Doppler images demonstrate bilateral ureteral jets. -creatinine up to 4.7, BUN 63, potassium 5.5. Not on diuretics. Decreased oral intake. Repeat renal ultrasound without any hydronephrosis or signs of obstruction. Status: Acute (3) Anxiety: Problem details: celexa started jul 2023 seroquel adjusted to 6.25mg BID trazodone for insomnia (on hold) gapabentin (chronic pain and anxiety; on hold) Status: Acute (4) Pneumonia: Problem details: -2nd hospital admission since early June 2023 for pneumonia. First was treated with Levaquin. Second admission revealed Pseudomonas in his sputum and [address] shows new right upper lobe infiltrate, bibasilar infiltrates -significant leukocytosis, procalcitonin 2.96, elevated CRP, tachycardic, remains afebrile -urine strep pneumonia antigen positive, Legionella negative -ID recommended total 14 day coverage for Pseudomonas -we discussed with Hematology regarding the leukocytosis. Peripheral smear x2 showed reactivity. Several labs are outstanding. -to complete Levaquin q.48h arranged, last dose 07/23/23 Status: Acute (5) Leukocytosis: Problem details: -significant leukocytosis > 75,000 during 2nd hospitalization - jul 2023. (previous hospitalization 06/28 [id number]) -ED provider discussed with [facility], Dr Berg -in the absence of splenomegaly or significant immature cells the likelihood is that the white blood cell count may still be related to infection, but would recommend a close look at the peripheral smear by pathology to look for immature cells suggesting a possible diagnosis of CML. History also notable for weight loss -peripheral smear x 2 resulted/reviewed -Dr. Elliott ([facility]) to see as outpatient Status: Acute (6) Weight loss: Problem details: -current weight 44 kg, previously 56 during hospitalization in June -significant leukocytosis, peripheral smear ordered, CML on list of differentials -outpatient follow-up with Hematology. Could also be depressive etiology. Status: Acute (7) Thrush: Problem details: -previously prescribed nystatin swish and swallow until resolved, but patient refused to continue -magic mouthwash t.i.d. for comfort, patient refused to continue - 07/13 improved ability to eat. 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 As such I am started him him on fluconazole 07/21/2023, dose for decreased kidney function. Status: Acute (8) Back pain: Problem details: -at L2-L3 level. -Previous CT scans negative except for osteoarthritis -Ordered lumbosacral spine x-rays and awaiting -MR scan of lumbar spine 07/22/2023 demonstrated: 1. No acute osseus abnormality. Normal spinal alignment. Mild scattered spondylosis as detailed. 2. At L2-3, mild right neural foraminal narrowing. 3. At L3-4, mild bilateral neural foraminal narrowing. 4. At L4-5, mild left neural foraminal narrowing, and left lateral recess stenosis with potential descending left L5 nerve root impingement. -initiated oxycodone p.r.n. -will initiate acetaminophen 650 mg q.i.d. scheduled Status: Acute Plan 1. Reviewed impression with patient 2. Attempt gingerly hydrating with IV fluids. My postulate is that he has evolving kidney failure. Trying to sort out how much of it might be reversible with IV fluids given his decreased oral intake. Patient agreeable with plan. 3. Discharge disposition pending stabilization of renal status and other conditions. Time Spent With Patient Total time spent: 45 minutes Subjective Date Seen: 07/23/23 Interval history: Daily Progress Note - Hospital Medicine Day #: 6 (admitted 07/08/23 - 07/18/23, came back 07/18/23 - current) CC: weakness, poor self care, hx of bacteremia/CKD/pneumonia Appetite is improving. Tolerating increased oral intake. Tolerating oral fluconazole. Back pain still present but responsive to the oxycodone and generally speaking much improved. MR scan obtained today demonstrating no major pathology, underlying degenerative joint disease and degenerative disc disease. Continues to be agreeable to transitional care services when he is medically stable. Exam Narrative: Exam Narrative: Examine him in his hospital room. Vision and hearing are adequate. Alert and oriented to self, place, time, situation. Appears cachectic with sunken facial features thin upper and lower extremities. Skin is dry with tenting. Lungs clear. Heart tones regular. Abdomen benign. Const: Vital Signs, click to edit/add: Vital Signs - 24 hr 07/22/23 22:00 07/22/23 23:00 07/23/23 08:04 Temperature 98.1 F 97.7 F Pulse Rate [Pulse Oximeter] 70 78 Respiratory Rate 16 16 18 Blood Pressure [Le ft Arm] 136/77 123/77 Pulse Oximetry 95 97 Oxygen Delivery Me thod Room Air Room Air Documenting provider has reviewed patient's vital signs: yes Labs Labs: Laboratory Results - last 24 hr 07/23/23 06:21 WBC 19.15 H RBC 3.38 L Hgb 9.6 L Hct 30.4 L MCV 90 MCH 28 MCHC 32 Plt Count 452 H Sodium 138 Potassium 5.5 H Chloride 114 Carbon Dioxide 12 L Anion Gap 12 BUN 63 H Creatinine 4.7 H Estimated Creat Clear 8.24 Estimated GFR 12 Glucose 88 Calcium 8.3 L Phosphorus 8.0 H* Albumin 3.0 L
[2023-07-23 16:26] LABS: Albumin* 2.7 g/dL (3.3-5.0); Chloride* 113 mmol/L (96-114); Potassium* 5.6 mmol/L (3.6-5.1); Sodium* 136 mmol/L (135-149)
[2023-07-23 16:29] LABS: Anion Gap 12 mEq/L (7-15); Blood Urea Nitrogen* 63 mg/dL (7-30); Calcium* 7.8 mg/dL (8.4-10.6); Carbon Dioxide* 11 mmol/L (20-32); Creatinine* 4.3 mg/dL (0.5-1.5); Estimated Glomerular Filt Rate 14 ml/min; Glucose* 104 mg/dL (60-115)
[2023-07-23 16:32] LABS: Phosphorus* 7.6 mg/dL (2.5-4.5)
[2023-07-23] MEDS: SODIUM ZIRCONIUM CYCLOSILICATE 10 GM PO (18:12)
--- NOTE | 2023-07-23 19:02 | PC.NURSE ---
Pt alert and oriented. Pt assist of one-SBA. Pt pleasant during shift. VSS. Pt had complaints of lower back pain; scheduled medications used. Pt had a new IV placed mid-morning. EKG performed per hospitalist order. Pt took a shower with assistance of staff and did well. Dressings on back and coccyx changed. Pt?s lidocaine patch placed on middle of low back. Pt napped on and off through afternoon.?
[2023-07-23] MEDS: ENOXAPARIN 30 MG/0.3ML INJ SUBCUT (21:21)
[2023-07-23] MEDS: TRAZODONE HCL 50 MG TABLET PO (21:22)
[2023-07-23] MEDS: SODIUM CHLORIDE 0.9 % (FLUSH) 10 ML SYRINGE 5 ML IVF (21:23)
[2023-07-23 22:00] LABS: Appearance Urine Turbid (Clear); Bilirubin Urine Negative (Negative); Blood Urine Trace-intact (Negative); Color Urine Yellow (Yellow); Glucose Urine Negative (Negative); Ketones Urine Negative (Negative); Leukocyte Esterase Urine Negative (Negative); Nitrite Urine Negative (Negative); Protein Urine 1+ (Negative); Urobilinogen Urine 0.2 (0.2-1.0); pH Urine 5.5 (5.0-8.5)
[2023-07-23 22:02] LABS: Bacteria Urine Few; RBC Urine 0-2 (0-2)
[2023-07-24 06:56] LABS: Hematocrit 30.6 % (37.0-53.0); Hemoglobin* 9.6 gm/dL (13.5-17.5); Mean Corpuscular HGB Conc 31 gm/dL (32-36); Mean Corpuscular Hemoglobin 28 pg (26-34); Mean Corpuscular Volume 90 fL (80-100); Platelet Count* 441 K/uL (140-440); Red Blood Count 3.39 m/uL (4.30-5.90); White Blood Count* 18.62 K/uL (4.50-11.00)
[2023-07-24 07:01] LABS: Albumin* 2.9 g/dL (3.3-5.0); Chloride* 116 mmol/L (96-114); Potassium* 5.3 mmol/L (3.6-5.1); Sodium* 137 mmol/L (135-149)
[2023-07-24 07:02] LABS: Slide Review Reflex No
[2023-07-24 07:03] LABS: Creatinine* 4.4 mg/dL (0.5-1.5); Estimated Glomerular Filt Rate 13 ml/min
[2023-07-24 07:04] LABS: Anion Gap 12 mEq/L (7-15); Blood Urea Nitrogen* 61 mg/dL (7-30); Glucose* 78 mg/dL (60-115)
[2023-07-24 07:29] LABS: Carbon Dioxide* 9 mmol/L (20-32); Phosphorus* 7.7 mg/dL (2.5-4.5)
[2023-07-24] MEDS: OMEPRAZOLE 20 MG CAPSULE DR PO (07:42)
[2023-07-24 07:56] VITALS: BP 138/84; PULSE 77; RESP 18; TEMP 36.5; O2SAT 94
--- NOTE | 2023-07-24 08:10 | PC.NURSE ---
Pt pleasnat and cooperative. Encouraged to do those things that he is able to do for self. T&R q2 hrs. Has mepilexes on back and cocyx. They are intact.
[2023-07-24] MEDS: TAMSULOSIN HCL 0.4 MG CAPSULE PO (08:58)
[2023-07-24] MEDS: SODIUM CHLORIDE 0.9 % (FLUSH) 10 ML SYRINGE 5 ML IVF ×2 (08:58→20:56)
[2023-07-24] MEDS: ACETAMINOPHEN 325 MG TABLET 650 MG PO ×3 (08:58→20:56)
[2023-07-24] MEDS: FLUCONAZOLE 100 MG TABLET PO (08:58)
[2023-07-24] MEDS: METOPROLOL SUCCINATE (XL) 25 MG TAB PO (08:58)
[2023-07-24] MEDS: NON-FORMULARY MEDICATION (Mometasone-Formoterol [Dulera] 200-5 mcg/actuation HFA aerosol i IH ×2 (08:58→20:56)
[2023-07-24] MEDS: LIDOCAINE 5% PATCH 1 PATCH TRANSDERMA (08:59)
--- NOTE | 2023-07-24 09:44 | PC.SOCIAL ---
Discharge planning: Received call from [facility] Director, Lizzy Nieves, , who requested an update on discharge plan. Left message for Lizzy stating pt is still in the hospital with plan for TCU when ready for discharge. lubrication worker to update [facility] Director at discharge.
[2023-07-24 11:06] VITALS: BMI 17.0
[2023-07-24 13:22] VITALS: BMI 17.0
--- NOTE | 2023-07-24 14:41 | PC.SOCIAL ---
Discharge planning: Called [facility] and spoke with WILLIAMS Villegas. Nelly states they can hold available bed for pt for Friday admission but will need to re-evaluate prior to admission as it has been several days since they accepted pt for admit. Nelly confirmed nursing homes are unable to accept a pt on NG tube feedings. sanitation worker cleaning equipment to follow up as needed.
[2023-07-24 15:00] VITALS: RESP 18
--- NOTE | 2023-07-24 15:58 | P.IMPN_ITS ---
Progress Note: A&P Assessment and plan (1) Failure to thrive: Problem details: -in setting of previously untreated anxiety and depression, likely represents acute adjustment disorder/acute depressive episode with anxious features. -is not motivated to care for himself, relying on others to do so for him, at this time - foresee that it will be very difficult to discharge this patient to home -manipulative behaviors -MOCA prior to discharge -PT and OT consults to reassess -hospice social worker to help with geriatric psych, TCU/SNF rehab stay, [facility] ([place] placement) -does not have a solid support system (neighbors told the ER provider they cannot continue to provide patient's expected level of help) -MEDS: celexa started 07/19/23 (maybe remeron would have been better initial drug). trazodone and or valium for insomnia/anxiety, seroquel 12.5 and gabapentin trialed 07/20/23. too sedating. 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 -discussed possibility of temporary nasal jejunal feeding tube placement with patient. Discussed pros and cons, desired benefits and undesired potential adverse consequences with patient. He asked us to proceed if possible. I reviewed this with our interventional radiologists who is able to perform this procedure for the patient as early as 07/25/2023. Our dietitian will provide us with the recommendation of enteral feeding amounts. Status: Acute (2) Acute kidney injury superimposed on CKD: Problem details: -3.5 on 07/20/23. Not obstructed. 3.4 to 3.8 prior to the last two admissions. last known creatinine was 1.4 on 11/2021. fluids and treatment of underlying conditions correct to baseline of 2.5 - 2.6. Plan at each of the last admissions was outpatient nephrology. -renal u/s 06/13/23: Moderate right renal cortical thinning. Mild left renal cortical thinning. Multiple echogenic structure seen in the superior pole of the right kidney. Multiple echogenic structures visualized in the left kidney. No evidence of hydronephrosis. No suspicious mass. Bladder: Normal in caliber and appearance. Color Doppler images demonstrate bilateral ureteral jets. -creatinine up to 4.7, BUN 63, potassium 5.5. Not on diuretics. Decreased oral intake. Repeat renal ultrasound without any hydronephrosis or signs of obstruction. -administered 2.5 L of IV fluids with minimal decrease in creatinine and BUN. -initiated discussion with patient about the possibility of dialysis. Status: Acute (3) Anxiety: Problem details: celexa started jul 2023 seroquel adjusted to 6.25mg BID trazodone for insomnia (on hold) gapabentin (chronic pain and anxiety; on hold) Status: Acute (4) Pneumonia: Problem details: -2nd hospital admission since early June 2023 for pneumonia. First was t reated with Levaquin. Second admission revealed Pseudomonas in his sputum and [address] shows new right upper lobe infiltrate, bibasilar infiltrates -significant leukocytosis, procalcitonin 2.96, elevated CRP, tachycardic, remains afebrile -urine strep pneumonia antigen positive, Legionella negative -ID recommended total 14 day coverage for Pseudomonas -we discussed with Hematology regarding the leukocytosis. Peripheral smear x2 showed reactivity. Several labs are outstanding. -to complete Levaquin q.48h arranged, last dose 07/23/23 Status: Acute (5) Leukocytosis: Problem details: -significant leukocytosis > 75,000 during 2nd hospitalization - jul 2023. (previous hospitalization 06/28 [id number]) -ED provider discussed with [facility], Dr Berg -in the absence of splenomegaly or significant immature cells the likelihood is that the white blood cell count may still be related to infection, but would recommend a close look at the peripheral smear by pathology to look for immature cells suggesting a possible diagnosis of CML. History also notable for weight loss -peripheral smear x 2 resulted/reviewed -Dr. Elliott ([facility]) to see as outpatient Status: Acute (6) Weight loss: Problem details: -current weight 44 kg, previously 56 during hospitalization in June -significant leukocytosis, peripheral smear ordered, CML on list of differentials -outpatient follow-up with Hematology. Could also be depressive etiology. Status: Acute (7) Thrush: Problem details: -previously prescribed nystatin swish and swallow until resolved, but patient refused to continue -magic mouthwash t.i.d. for comfort, patient refused to continue - 07/13 improved ability to eat. 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 As such I am started him him on fluconazole 07/21/2023, dose for decreased kidney function. Status: Acute (8) Back pain: Problem details: -at L2-L3 level. -Previous CT scans negative except for osteoarthritis -Ordered lumbosacral spine x-rays and awaiting -MR scan of lumbar spine 07/22/2023 demonstrated: 1. No acute osseus abnormality. Normal spinal alignment. Mild scattered spondylosis as detailed. 2. At L2-3, mild right neural foraminal narrowing. 3. At L3-4, mild bilateral neural foraminal narrowing. 4. At L4-5, mild left neural foraminal narrowing, and left lateral recess stenosis with potential descending left L5 nerve root impingement. -initiated oxycodone p.r.n. -will initiate acetaminophen 650 mg q.i.d. scheduled Status: Acute Plan 1. Reviewed impression with patient. Answered his questions. He is agreeable to above stated plans and recommendations. Time Spent With Patient Total time spent: 50 minute Subjective Date Seen: 07/24/23 Interval history: Daily Progress Note - Hospital Medicine Day #: 7 (admitted 07/08/23 - 07/18/23, came back 07/18/23 - current) CC: weakness, poor self care, hx of bacteremia/CKD/pneumonia Appetite is improving slightly. Tolerating increased oral intake. Tolerating oral fluconazole. Back pain still present but responsive to the oxycodone and generally speaking much improved. MR scan obtained 07/23/2023 demonstrating no major pathology, underlying degenerative joint disease and degenerative disc disease. Continues to be agreeable to transitional care services when he is medically stable. Discuss my concern of his oral intake, with decreased ability to meet his metabolic needs and hydration needs with our recreational programs director. Recreational Programs Director undertook consultation in agrees with the concern that patient is presently not meeting his metabolic and hydration needs. Informed patient of the same. Exam Narrative: Exam Narrative: Examined patient in his hospital room. Thin and frail. Cachectic appearance. Sunken facial features. Thin upper and lower extremities with diffuse muscle atrophy and subcutaneous atrophy. Vision and hearing are adequate. Alert and oriented to self, place, time, situation. Friendly and articulate. Lungs clear to auscultation for the most part with some scattered rhonchi. Heart tones with regular rhythm. Abdomen with active bowel sounds, soft, nontender. No focal neurologic deficits. Generalized weakness. Const: Vital Signs, click to edit/add: Vital Signs - 24 hr 07/24/23 07:56 07/24/23 07:56 Temperature 97.7 F Pulse Rate [Pulse Oximeter] 77 Respiratory Rate 18 Blood Pressure [Le ft Arm] 138/84 Pulse Oximetry 94 94 Oxygen Delivery Me thod Room Air Room Air Documenting provider has reviewed patient's vital signs: yes Labs Labs: Laboratory Results - last 24 hr 07/23/23 07/23/23 07/24/23 15:00 21:40 06:28 WBC 18.62 H RBC 3.39 L Hgb 9.6 L Hct 30.6 L MCV 90 MCH 28 MCHC 31 L Plt Count 441 H Sodium 136 137 Potassium 5.6 H 5.3 H Chloride 113 116 H Carbon Dioxide 11 L 9 L* Anion Gap 12 12 BUN 63 H 61 H Creatinine 4.3 H 4.4 H Estimated Creat Clear 9.00 8.80 Estimated GFR 14 13 Glucose 104 78 Calcium 7.8 L 8.0 L Phosphorus 7.6 H* 7.7 H* Albumin 2.7 L 2.9 L Urine Color Yellow Urine Appearance Turbid A Urine pH 5.5 Ur Specific [place] 1.020 Urine Protein 1+ A Urine Glucose (UA) Negative Urine Ketones Negative Urine Blood Trace-intact A Urine Nitrite Negative Urine Bilirubin Negative Urine Urobilinogen 0.2 Ur Leukocyte Esterase Negative Urine RBC 0-2 Urine WBC 2-5 Ur Squamous Epith Cells None Urine Bacteria Few A
[2023-07-24] MEDS: OXYCODONE 5 MG TABLET PO ×2 (18:07→22:21)
[2023-07-24] MEDS: TRAZODONE HCL 50 MG TABLET PO (20:56)
[2023-07-24] MEDS: ENOXAPARIN 30 MG/0.3ML INJ SUBCUT (20:57)
--- NOTE | 2023-07-25 00:34 | PC.NURSE ---
End of care note [id number]: Pt A&O, afebrile and VSS. Very lethargic & drowsy but easily arousable. Lidocaine patch removed from lower back. Aqua-K pad in place on left lower back. Pt requested PRN oxycodone @ 2220. NPO @ 0000 for scheduled feeding tube placement scheduled on 07/25. Blood sugar at HS: 84.
[2023-07-25 01:26] VITALS: RESP 14
[2023-07-25 06:00] VITALS: BP 108/66; PULSE 73; RESP 12; TEMP 36.3; O2SAT 95
[2023-07-25] MEDS: OMEPRAZOLE 20 MG CAPSULE DR PO (06:43)
[2023-07-25 06:56] LABS: Hematocrit 30.9 % (37.0-53.0); Hemoglobin* 9.6 gm/dL (13.5-17.5); Mean Corpuscular HGB Conc 31 gm/dL (32-36); Mean Corpuscular Hemoglobin 28 pg (26-34); Mean Corpuscular Volume 91 fL (80-100); Platelet Count* 439 K/uL (140-440); Red Blood Count 3.41 m/uL (4.30-5.90); White Blood Count* 14.72 K/uL (4.50-11.00)
[2023-07-25 06:59] LABS: Slide Review Reflex No
[2023-07-25 07:06] LABS: Albumin* 2.9 g/dL (3.3-5.0); Chloride* 114 mmol/L (96-114); Potassium* 5.7 mmol/L (3.6-5.1); Sodium* 137 mmol/L (135-149)
[2023-07-25 07:09] LABS: Anion Gap 15 mEq/L (7-15); Blood Urea Nitrogen* 65 mg/dL (7-30); Creatinine* 4.8 mg/dL (0.5-1.5); Estimated Glomerular Filt Rate 12 ml/min
[2023-07-25 07:10] LABS: Calcium* 8.2 mg/dL (8.4-10.6); Glucose* 88 mg/dL (60-115)
[2023-07-25 07:24] LABS: Carbon Dioxide* 8 mmol/L (20-32); Phosphorus* 8.7 mg/dL (2.5-4.5)
--- NOTE | 2023-07-25 07:29 | PC.NURSE ---
Straight cath at 0715 Assisted pt nurse with straight cath. Met with some resistance. Solvent Plant Treater instructed pt to take deep breaths and breathe out to aid in relaxation. Advanced catheter until output seen. Observed distended bladder flatten. U/o came to a trickle, position or pressure did not provide more output. Removed catheter and repeated bladder scan. Scan shows about 420-450 left. Pt states relief. Solvent Plant Treater updated day nurse.
[2023-07-25 08:07] VITALS: BP 115/71; PULSE 77; RESP 20; TEMP 35.5; O2SAT 96
[2023-07-25] MEDS: DEXTROSE 50 % SYRINGE IVP (08:10)
--- NOTE | 2023-07-25 08:12 | PC.NURSE ---
end of shift note: pt a&ox3. pt npo at midnight to have feeding tube placed 07/25 in the AM under fluoroscopy. pt not voiding. prn bladder scan for 975ml. straight cath for 450ml. report given WILLIAMS farias who will resume care on this pt. daily vss. rash to left side of abdomen that follows dermatome path to back where there are open sores to left back that is covered with 2 mepilex; right side of middle back with mepilex to intact, non blanching, red spot. pt weak. up with a2/walker and gb to BR. dr barkley updated regarding possible shingles. pt placed on contact precautions.
[2023-07-25 08:27] LABS: ABG PCO2 33 mmHG (35-45); Base Excess ABG -14.6 mmol/L (-3.0-3.0); Carboxyhemoglobin* 1.4 % (0.0-5.0); HCO3 ABG 12 mmol/L (21-28); Oxygen Saturation ABG 94 % (92-100); PO2 ABG 69.2 mmHG (80-105); TCO2 ABG 12 mmol/l (21-30)
[2023-07-25 08:30] LABS: pH ABG 7.19 (7.35-7.45)
[2023-07-25] MEDS: MORPHINE 10 MG/0.5 ML ORAL SOLN PO ×4 (09:29→21:01)
--- NOTE | 2023-07-25 09:50 | PC.SOCIAL ---
Discharge planning: Called [facility] and updated them that pt is not being discharged today. [facility] will have the bed available on Friday if needed. explosives worker to follow up as needed.
--- NOTE | 2023-07-25 10:14 | PC.NURSE ---
shift note: placed #16 Fr coude @ 0800 with no trauma to meatus. pt tolerated fair. clr straw yellow urine returns
[2023-07-25] MEDS: SODIUM CHLORIDE 0.9 % (FLUSH) 10 ML SYRINGE 5 ML IVF ×2 (10:55→21:40)
[2023-07-25] MEDS: NON-FORMULARY MEDICATION (Mometasone-Formoterol [Dulera] 200-5 mcg/actuation HFA aerosol i IH (10:55)
--- NOTE | 2023-07-25 10:58 | P.IMPN_ITS ---
Progress Note: A&P Assessment and plan (1) Acute kidney injury superimposed on CKD: Problem details: -acutely decompensating. Creatinine 4.8. Now acidotic with hyperkalemia and hyperphosphatemia. Patient would need dialysis emergently. I discussed this with the patient and his sister. They would like to pursue palliative/hospice care. Status: Acute (2) Acute herpes zoster neuropathy: Problem details: Left T10 dermatome. Pain management. Status: Acute (3) Failure to thrive: Problem details: -in setting of previously untreated anxiety and depression, likely represents acute adjustment disorder/acute depressive episode with anxious features. -is not motivated to care for himself, relying on others to do so for him, at this time - foresee that it will be very difficult to discharge this patient to home -manipulative behaviors -MOCA prior to discharge -PT and OT consults to reassess -psychotherapist social worker to help with geriatric psych, TCU/SNF rehab stay, [facility] ([facility]) -does not have a solid support system (neighbors told the ER provider they cannot continue to provide patient's expected level of help) -MEDS: celexa started 07/19/23 (maybe remeron would have been better initial drug). trazodone and or valium for insomnia/anxiety, seroquel 12.5 and gabapentin trialed 07/20/23. too sedating. 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 -discussed possibility of temporary nasal jejunal feeding tube placement with patient. Discussed pros and cons, desired benefits and undesired potential adverse consequences with patient. He asked us to proceed if possible. I reviewed this with our interventional radiologists who is able to perform this procedure for the patient as early as 07/25/2023. Our dietitian will provide us with the recommendation of enteral feeding amounts. Status: Acute (4) Anxiety: Problem details: celexa started jul 2023 seroquel adjusted to 6.25mg BID trazodone for insomnia (on hold) gapabentin (chronic pain and anxiety; on hold) Status: Acute (5) Pneumonia: Problem details: -2nd hospital admission since early June 2023 for pneumonia. First was treated with Levaquin. Second admission revealed Pseudomonas in his sputum and [address] shows new right upper lobe infiltrate, bibasilar infiltrates -significant leukocytosis, procalcitonin 2.96, elevated CRP, tachycardic, remains afebrile -urine strep pneumonia antigen positive, Legionella negative -ID recommended total 14 day coverage for Pseudomonas -we discussed with Hematology regarding the leukocytosis. Peripheral smear x2 showed reactivity. Several labs are outstanding. -to complete Levaquin q.48h arranged, last dose 07/23/23 Status: Acute (6) Leukocytosis: Problem details: -significant leukocytosis > 75,000 during 2nd hospitalization - jul 2023. (previous hospitalization 06/28 [id number]) -ED provider discussed with [facility], Dr Berg -in the absence of splenomegaly or significant immature cells the likelihood is that the white blood cell count may still be related to infection, but would recommend a close look at the peripheral smear by pathology to look for immature cells suggesting a possible diagnosis of CML. History also notable for weight loss -peripheral smear x 2 resulted/reviewed -Dr. Elliott ([facility]) to see as outpatient Status: Acute (7) Weight loss: Problem details: -current weight 44 kg, previously 56 during hospitalization in June -significant leukocytosis, peripheral smear ordered, CML on list of differentials -outpatient follow-up with Hematology. Could also be depressive etiology. Status: Acute (8) Thrush: Problem details: -previously prescribed nystatin swish and swallow until resolved, but patient refused to continue -magic mouthwash t.i.d. for comfort, patient refused to continue - 07/13 improved ability to eat. 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 As such I am started him him on fluconazole 07/21/2023, dose for decreased kidney function. Status: Acute (9) Back pain: Problem details: -at L2-L3 level. Suspect this exacerbated by now clinically obvious zoster. -Previous CT scans negative except for osteoarthritis -Ordered lumbosacral spine x-rays and awaiting -MR scan of lumbar spine 07/22/2023 demonstrated: 1. No acute osseus abnormality. Normal spinal alignment. Mild scattered spondylosis as detailed. 2. At L2-3, mild right neural foraminal narrowing. 3. At L3-4, mild bilateral neural foraminal narrowing. 4. At L4-5, mild left neural foraminal narrowing, and left lateral recess stenosis with potential descending left L5 nerve root impingement. Status: Acute (10) Acute renal failure: Status: Acute (11) Hyperkalemia: Status: Acute (12) Hyperphosphatemia associated with renal failure: Status: Acute Subjective Date Seen: 07/25/23 Interval history: Daily Progress Note - Hospital Medicine Day #: 8 but in reality Day 18. (admitted 07/08/23 - 07/18/23, came back 07/18/23 - current) CC: weakness, poor self care, hx of bacteremia/CKD/pneumonia OVERNIGHT UPDATES FROM STAFF & MED, LAB, IMAGING UPDATES patient is becoming weaker. poor urine output. straight cath and then lim placed. morning labs shows continued and worsening ARF with acidosis, hyperkalemia, uremia, hyperphosphotamia. Vital signs are stable. Patient is on room air. Patient had back pain for the last week getting worse. Lumbar MR showed degenerative disease. Open lesions began yesterday with extension of a dermatomal rash now consistent with acute zoster. Blood gas this morning shows that he is acidotic with a pH of 7.1. Creatinine has increased to 4.8 with a BUN of 65. His phosphorus is 8.7 with a potassium of 5.7. Objective: Cachectic. Intermittently aware. Vitals: see above Lungs: Congested. No obvious respiratory distress. Cardiac: S1S2. Abdomen: Left-sided T10 dermatome erythema, pustular. Disposition/Potential discharge - Comfort cares and we can consider facility hospice in the coming 1-2 days. Today I spent 50minutes seeing the patient, reviewing Expanse and EPIC notes/diagnostics, discussing the care plan with our care time that includes social work, PT/OT, pharmacy, RT, senior living and documenting my impressions and plan in the medical record. Prolonged Physician Services [id number] ([facility]) in conjunction with: [id number] (subsequent visit; 50 mins + 15 mins prolonged services = 65 mins total) I then went back for 15 mins to discuss the findings of ..... Acute renal failure, transfer verses comfort cares, palliative care/hospice care. Explained everything to patient and his sister who is bedside. Exam Const: Vital Signs, click to edit/add: Vital Signs - 24 hr 07/24/23 15:00 07/25/23 01:26 07/25/23 06:00 Temperature 97.3 F L Pulse Rate [Pulse Oximeter] 73 Respiratory Rate 18 14 12 Blood Pressure [Le ft Arm] 108/66 Pulse Oximetry 95 Oxygen Delivery Me thod Room Air Fraction of Inspir ed Oxygen 07/25/23 08:07 07/25/23 08:33 Temperature 96 F L Pulse Rate [Pulse Oximeter] 77 Respiratory Rate 20 Blood Pressure [Le ft Arm] 115/71 Pulse Oximetry 96 Oxygen Delivery Me thod Room Air Room Air Fraction of Inspir ed Oxygen 0.21 Labs Labs: Laboratory Results - last 24 hr 07/25/23 07/25/23 06:36 08:23 WBC 14.72 H RBC 3.41 L Hgb 9.6 L Hct 30.9 L MCV 91 MCH 28 MCHC 31 L Plt Count 439 ABG pH 7.19 L* ABG pCO2 33 L ABG pO2 69.2 L ABG HCO3 12 L ABG Total CO2 12 L ABG O2 Saturation 94 ABG Base Excess -14.6 L Carboxyhemoglobin 1.4 Sodium 137 Potassium 5.7 H Chloride 114 Carbon Dioxide 8 L* Anion Gap 15 BUN 65 H Creatinine 4.8 H Estimated Creat Clear 8.40 Estimated GFR 12 Glucose 88 Calcium 8.2 L Phosphorus 8.7 H* Albumin 2.9 L
[2023-07-25] MEDS: LIDOCAINE 5% PATCH 1 PATCH TRANSDERMA (11:17)
[2023-07-25] MEDS: fentaNYL 25 MCG/HR PATCH 1 PATCH TRANSDERMA (12:31)
[2023-07-25 15:00] VITALS: PULSE 77; RESP 20
--- NOTE | 2023-07-25 16:14 | PC.SOCIAL ---
Social work: At nursing request, met with pt regarding his wishes for who would make decisions for him if pt is unable to, as there is not a HCD on file. When social sciences department chair asked this question, pt did not answer and looked at his sister who was visiting. His sister said that would be Bharat, right and pt whispered Bharat. Pt was unable to have a discussion about this decision at this time.
--- NOTE | 2023-07-25 18:14 | PC.NURSE ---
shift note: pt refused to t&r. oral cares done q 2hrs. pt refused meals and fluids. po prn morphine given x3 for lower back discomfort. family at bedside.
[2023-07-25 23:00] VITALS: RESP 16
--- NOTE | 2023-07-26 06:21 | PC.NURSE ---
End of shift report [id number]: patient has been non responsive this shift, did open eyes and wince with turning but unable to answer questions. Patient does not track movement. Morphine administered x 1 prior to turning. Catheter patent, draining clear yellow urine, minimal output with 200cc total for 12 hours. Family bedside and grieving appropriately. Fentanyl patch intact to shoulder and dressings to back and coccyx intact, no drainage noted. No oral intake this shift.
--- NOTE | 2023-07-26 06:54 | PC.NURSE ---
Patient's sister placed call light on and stated she felt patient passed. Upon writers arrival to room patient was found without apical pulse or respirations. TOD 0626AM, sister bedside and stated she is calling her siblings. [facility] called, patient ruled out for tissue donation but unsure regarding eye. Eye donation to call hospital to discuss further.
--- NOTE | 2023-07-26 07:01 | PC.NURSE ---
Fentanyl patch to left shoulder removed and wasted with Zoila Faith RN, waste recorded in omnicell. Lloyd catheter removed. Awaiting family arrival.
--- NOTE | 2023-07-26 07:29 | PC.NURSE ---
Patient ruled out for eye donation.
--- NOTE | 2023-07-26 14:20 | PM.DSD ---
Discharge Sum: Prov Provider Date Seen: 07/25/23 Primary care physician: Randy Lu MD Consults: 07/18/23 23:28 Consult to Occupational Therapy [CONS] Routine Comment: Reason(s) for OT Consult:: Evaluate and Treat Any Restrictions?:: No Restrictions Consult to Physical Therapy [CONS] Routine Comment: Reason(s) for PT Consult:: Evaluate and Treat Any Restrictions?:: No Restrictions Consult to Revenue Cycle Consultant [CONS] Routine Comment: Reason for Consult:: Social Service Consult Discharge Sum: Diag PCOD Cause of : End stage chronic kidney disease Contributing Factors (1) Acute kidney injury superimposed on CKD: (2) Acute herpes zoster neuropathy: (3) Failure to thrive: (4) Anxiety: (5) Pneumonia: (6) Leukocytosis: (7) Weight loss: (8) Thrush: (9) Back pain: (10) Acute renal failure: (11) Hyperkalemia: (12) Hyperphosphatemia associated with renal failure: Discharge Sum: Summary Date and Time Date of admission: 07/22/23 14:37 Date of : 07/25/23 Time of : 06:26 Summary Details: From H&P 07/18/23: Raman Montes is a 78 year old male past medical history significant for +strep pneumo pneumonia, pseudomonal bacteremia, depression, CKD is readmitted to the medical floor for observation after being discharged this afternoon. Patient was discharged from the hospital this afternoon to return home with initiation of home cares, PT, OT on Friday. Upon returning home, patient had to climb 16 steps to his apartment and had to rest frequently between stairs. By the time he got into his apartment he was so fatigued he was unable to move out of a folding chair. His neighbor who was assisting him became concerned and called 911. The patient tells me that physical therapy made him do exercises that he did not want to do. The patient tells me he did not think he was ready to go home and likes it in the hospital as the nurses are attentive to his needs. The ER provider discussed with the patient the plan to discharge home as there was no medical reason to readmit to the hospital however the patient will not have any support over the weekend. The patient even told me that he did not think he could complete his own ADLs independently for the weekend. The ER provider also spoke with his neighbor who has been assisting him who told the ER provider that if the patient were to return home this weekend they would not help him. The neighbor even threatened the ER provider that they would not give anyone the keys to the patient's apartment unless the drafter automotive design layout came to get them. Unfortunately, given the situation and without any support over the weekend, the patient will need to be readmitted for observation. He remained weak and continued to have a very poor appetite. His creatinine, already markedly elevated at baseline, veronica steadily and quickly, and was associated with acidosis, hyperkalemia and hyperphosphatemia. Yesterday, Dr. Whitmore spoke with the patient and his sister, explaining that he would require emergency dialysis. The patient and his sister chose to pursue palliative/hospice care. Comfort measures were started and he with his sister at the bedside just less than 24 hours later. Additional Data Attending physician: Preeti Whitmore MD Was code activated?: No Autopsy requested?: No legal examiner notified?: No Hospice patient?: No
== END 2023-07-26 06:26 | disposition expired | DRG 682 ==
LOC: ED 22:24 → MEDSURG 22:40
PROVIDERS: Internal Medicine; Admitting Provider Family Medicine; Emergency Provider Family Medicine; PCP Family Medicine; Visit Provider Family Medicine
DX: N17.8 Other acute kidney failure (principal); J15.1 Pneumonia due to Pseudomonas; Z68.1 Body mass index [BMI] 19.9 or less, adult; B37.0 Candidal stomatitis; B02.29 Other postherpetic nervous system involvement; B02.8 Zoster with other complications; B37.81 Candidal esophagitis; R64 Cachexia; R62.7 Adult failure to thrive; N18.4 Chronic kidney disease, stage 4 (severe); F43.23 Adjustment disorder with mixed anxiety and depressed mood; F32.A Depression, unspecified; J44.9 Chronic obstructive pulmonary disease, unspecified; F41.9 Anxiety disorder, unspecified; D72.829 Elevated white blood cell count, unspecified; K21.9 Gastro-esophageal reflux disease without esophagitis; E11.22 Type 2 diabetes mellitus with diabetic chronic kidney disease; E83.39 Other disorders of phosphorus metabolism; E87.5 Hyperkalemia; M48.062 Spinal stenosis, lumbar region with neurogenic claudication
CPT/HCPCS: 36415; 36600; 51701; 51702; 51798; 72100; 72148; 76775; 80069; 81001; 82330; 82803; 82962; 83605; 83735; 84439; 84443; 84484; 85027; 86140; 87086; 88184; 88185; 93005; 94640; 97165; 97530; 97535; 99284; A0425; A0427; A9270; G0378; J1650; J7030; J7050